=== PATIENT | male | born 1935 | race Caucasian/White ===

== ENCOUNTER 2018-04-23 12:12 | Emergency (ER) | payer MEDICARE, OTHER ==
[2018-04-23] MEDS ORDERED: predniSONE 20 MG TAB ONE (13:07)
[2018-04-23] MEDS ORDERED: Ibuprofen 800 MG TAB ONE (13:07)
--- NOTE | 2018-04-23 13:52 | RAD ---
RADIOGRAPH PELVIS 1 VIEW: Date: 04/23/18 HISTORY: 82-year-old female with right-sided pelvic pain. FINDINGS: There is left lateral subluxation of L4 on L5. There is severe facet DJD in the lower lumbar spine. T here is asymmetrically severe right-sided disc space narrowing, with end plate osteophytes, at L4-5. The SI joints appear normal. Mild central-medial joint space narrowing of the left hip. Bilateral fem oral head contours are maintained. No subcapital osteophytes identified. Bilateral iliac vessel stent s are noted. The pelvic ring appears to be intact. No grossly displaced fracture identified. Right hi p joint space maintained. Bilateral femoral head contours are normal. IMPRESSION: 1. High grade lower lumbar spondylosis with facet osteoarthrosis and degenerative disc disease. 2. Bilateral iliac vessel stents. 3. Mild joint space narrowing in the left hip. POS: BEL
--- NOTE | 2018-04-23 13:55 | RAD ---
LUMBAR SPINE 3 VIEWS: Date: 04/23/18 HISTORY: Low back pain, right lower extremity pain and numbness. FINDINGS/IMPRESSION: There are degenerative changes with levoscoliosis of the lumbar spine. No fracture, subluxation, or b dexter destruction is seen. There are vascular calcifications. Vascular stents are seen in the iliac ves sels. There is suggestion of a catheter in the urinary bladder. POS: DENYS
[2018-04-23] MEDS ORDERED: Lorazepam 1 MG TAB ONE (15:24)
--- NOTE | 2018-04-23 16:18 | MRI ---
MRI OF LUMBAR SPINE WITHOUT CONTRAST: 04/23/18 HISTORY: Right lower extremity numbness and pain. COMPARISON: Lumbar spine radiograph same day. MRI lumbar spine from 2017. FINDINGS: The aortic contour is nonaneurysmal. No retroperitoneal adenopathy. Multiple T2 hyperintense foci present in the left kidney suggestive of cyst. No marrow infiltrative process. Marked distention of the urinary bladder. Modic type I end plate changes at L1-2 and L2-3. Levels are as follows: L1-2: There is a circumferential disc osteophyte complex. This is in the left subforaminal and extraf oraminal zones. There is narrowing of the spinal canal to approximately 5 mm. Mild facet arthropathy. There is mild right and moderate left sided neural foraminal narrowing. L2-3: Circumferential disc space height loss. There is circumferential disc osteophyte complex. Mild facet arthropathy. There is severe bilateral neural foraminal narrowing with abutment of both exiting and traversing nerve roots bilaterally. Spinal canal only measures 4 mm. L3-4: Moderate disc desiccation and height loss. There is mild circumferential disc osteophyte comple x. Bilateral subforaminal and extraforaminal disc osteophyte complexes cause moderate to severe bila teral neural foraminal narrowing. Moderate facet arthropathy. Spinal canal is narrowed to approximate ly 6 mm. L4-5: Severe hypertrophic facet changes on the right, moderate on the left. Advanced degenerative dis c space height loss. Large posterior disc osteophyte complex. Severe neural foraminal narrowing bilat erally with abutment of the exiting and traversing nerve roots. L5-S1: Severe hypertrophic facet changes on the left and moderate on the right. There is a circumfere ntial disc bulge. Severe left and moderate right sided neural foraminal narrowing with abutment of th e left exiting nerve root. IMPRESSION: Multifocal severe spondylosis with neural foraminal and spinal canal narrowing. POS: BRUCE
== END 2018-04-23 16:18 | disposition home or self-care (01) ==
LOC: ERS 12:12
DX: M48.061 Spinal stenosis, lumbar region without neurogenic claudication (principal); E78.5 Hyperlipidemia, unspecified; I10 Essential (primary) hypertension; F41.9 Anxiety disorder, unspecified; Z79.82 Long term (current) use of aspirin
CPT/HCPCS: 72100; 72148; 72170; J7506

== ENCOUNTER 2018-06-15 05:48 | Inpatient (IN) | payer MEDICARE, OTHER ==
--- NOTE | 2018-06-12 12:47 | HP ---
HISTORY OF PRESENT ILLNESS: This is an 82-year-old male, who reports to our office for evaluation of low back and right leg numbness. The patient states that just before Mikie, he was lifting a lumber and felt a sharp pain in the low back. The next day he noticed numbness and tingling in the right toes, which worked its way up the right leg into his glutes. The patient reports that he has also had numbness . He states that he was given a Medrol Dosepak, which helps the numbness in his leg. The patient is unable to walk for more than a block. Most of the time as he goes to the store, he needs a motorized cart due to his pain in his back and thighs. REVIEW OF SYSTEMS: A 10-point review of systems has been completed and is negative other than stated in the above HPI. PAST MEDICAL HISTORY: 1. Bladder trouble. 2. Cancer in lung. 3. Change in bowel habits. 4. Stroke. 5. Arthritis. 6. Heart disease. 7. Hypertension. 8. Lymphoma. PAST SURGICAL HISTORY: 1. Left lower lung removed in 1989. 2. Hernia repair in 2015. 3. in 2010. 4. Right leg surgery in 2008. 5. Cholecystectomy. 6. Cervical fusion. FAMILY HISTORY: Father is , diagnosed with heart disease. Mother is , diagnosed with heart disease. Children alive. SOCIAL HISTORY: The patient is a nonsmoker. Drinks alcohol on occasion and does not use any other illicit drugs. MEDICATIONS: 1. Acetaminophen. 2. Aspirin. 3. Clopidogrel bisulfate. 4. Finasteride. 5. Lisinopril. 6. Sertraline. 7. Tamsulosin. 8. Vitamin C. 9. Famotidine. 10. Vitamin D. ALLERGIES: ANTIHISTAMINE, ATORVASTATIN, CLINDAMYCIN, PRAVASTATIN, AND SULFA. PHYSICAL EXAMINATION: CONSTITUTIONAL: Well appearing, alert, and well nourished. NEUROLOGIC: Mental status; oriented to time, place, and person. Normal attention span and concentration. Speech is spontaneous and fluent. Comprehension is intact. Content appropriate. Normal fund of knowledge. Cranial nerves; pupils are equal, round, reactive to light. Extraocular movements are intact. Hearing intact. Motor exam; muscle strength is normal in lower extremities. Muscle tone and bulk are normal in lower extremities. 5/5 bilateral strength in IP, KE, KF, PF; 4/5 left dorsiflexion; bilateral EHL 4/5. No radiculopathy. Negative single leg raise. Rotation of bilateral hips normal. Tender to palpate right SI. Bilateral GTB. Deep tendon reflexes diminished. Sensory, light touch intact. Gait and station; sit to stand slow, slow methodical gait. RESPIRATIONS: Normal work of breathing on room air. SKIN: No rashes or lesions on exposed skin. PSYCH: Normal mood and affect. IMAGING DATA: Central spinal stenosis at L1-L2, L2-L3; right lateral stenosis at L4-L5. ASSESSMENT AND PLAN: Lumbar degenerative disk disease with lumbar stenosis and neurogenic claudication. Dr. Yun is offering surgery, laminectomy. Job ID: [id number]
[2018-06-15] MEDS ORDERED: Thrombin 5000 UNITS/5 ML VIAL ONE (06:39)
[2018-06-15] MEDS ORDERED: Bupivacaine HCl 0.5%/Epinephrine 1:200,000/PF 30 ml Vial ONE (06:39)
[2018-06-15] MEDS ORDERED: Fentanyl 250 MCG/5 ML VIAL ONE (06:57)
[2018-06-15] MEDS ORDERED: Sodium Chloride 0.9% 10 ML ONE (07:28)
[2018-06-15] MEDS ORDERED: Acetaminophen 650 MG Suppository PR PRN (10:12)
[2018-06-15] MEDS ORDERED: Bisacodyl 10 MG SUPP PR PRN (10:12)
[2018-06-15] MEDS ORDERED: diphenhydrAMINE 25 MG CAP PO PRN (10:12)
[2018-06-15] MEDS ORDERED: diphenhydrAMINE 50 MG/ML VIAL IVP PRN (10:12)
[2018-06-15] MEDS ORDERED: Acetaminophen/Codeine 30-300mg Tablet PO PRN (10:12)
[2018-06-15] MEDS ORDERED: Mag-Al 1200 mg/1200 mg/30 ML UDCUP PO PRN (10:12)
[2018-06-15] MEDS ORDERED: Milk Of Magnesia 30 ML UDCUP PO PRN (10:12)
[2018-06-15] MEDS ORDERED: Promethazine HCl 25 MG/ML VIAL IM PRN (10:12)
[2018-06-15] MEDS ORDERED: Morphine 4 MG/ML VIAL SLOW IVP PRN (10:12)
[2018-06-15] MEDS ORDERED: Acetaminophen 500 MG TAB PO PRN (10:15)
--- NOTE | 2018-06-15 10:25 | OP ---
DATE OF PROCEDURE: 06/15/2018 STOCK HANDLER: Bharati Boone PA-C. PREOPERATIVE INDICATION: Treat pain and prevent further neurological deterioration. PREOPERATIVE DIAGNOSES: Multilevel lumbar stenosis with neurogenic claudication and sacral nerve root dysfunction. POSTOPERATIVE DIAGNOSES: Multilevel lumbar stenosis with neurogenic claudication and sacral nerve root dysfunction. PROCEDURES PERFORMED: Decompressive laminectomy, medial facetectomy with foraminotomy, L1-L2, L2-L3, L4-L5, and left L5-S1. PREOPERATIVE MEDICATION: Ancef 2 g IV. DRAIN NUMBER: Zero. DRAIN TYPE: None. DESCRIPTION OF PROCEDURE: The patient was brought to the operating room. General endotracheal anesthesia was induced. The patient was positioned prone on the operating table with his chest and hips supported by gel-filled chest rolls. A lateral fluoro radiograph was used to plan our incision. The lumbar skin was sterilely prepped and draped. We opened with a 10 blade knife and controlled bleeding with bipolar and monopolar cautery. We used monopolar cautery to dissect through the subcutaneous tissues to the thoracodorsal fascia. We incised the fascia in the midline and we reflected the paraspinal muscles off the spinous process and lamina at L4, L5, and S1. A self-retaining retractor was placed. A lateral fluoro radiograph confirmed the levels upon which we were operating. We then used an Adson rongeur to remove the bottom 2/3 of the L4 spinous process and the top 3rd of L5 spinous process. A high-speed drill with a easton bit was used to thin the lamina and then we performed a laminectomy and medial facetectomy at L4-L5. We widened our laminectomy defect for performing medial facetectomies and undermining the lateral recesses with Kerrison rongeurs. We removed the yellow ligament, bone spurs until the entire dura was well decompressed. We used the ball probe to probe the foramen around the L4 nerve root and the L5 nerve roots bilaterally. We performed foraminotomies over these roots. The left L5 nerve root was severely compressed in the foramen. We could not approach it superiorly safely, so we performed a hemilaminectomy and medial facetectomy at L5-S1 on the left. With this access, we identified the L5 nerve root and performed a foraminotomy with a foraminotomy Kerrison until the Muro ball could pass through the L5 foramen without any impingement. We irrigated copiously with bacitracin irrigation. We controlled the ventral epidural bleeding with gentle bipolar cautery and we waxed the bone edges. We turned our attention to L1 through L3. We opened the fascial incision from L1 through L3 and reflected the paraspinal muscles off the spinous process of L1, L2 and L3, and placed a self-retaining retractor. A lateral fluoro radiograph confirmed once again the levels upon which we were operating. We used Adson rongeurs to remove the spinous process from the inferior portion of L1 to the superior portion of L3 and then a high-speed drill with a easton bit to thin the lamina. We used Kerrison rongeurs to fashion a laminectomy from L1 through L3. We widened our laminectomy defect by performing medial facetectomies. We perform foraminotomies over the exiting nerve roots until a Muro ball could pass through the foramen with no impingement. The posterior elements of L2 were loose. These were not well attached to the pedicle complex, likely from chronic pars defects. We did not remove the entire posterior elements, but instead, left the bones in situ. We felt we had completed our decompression when the common thecal sac in all 6 nerve roots from L1 through L3 were decompressed to the point that a Muro ball probe could pass through the lateral recess and out the foramen without any impingement. We waxed the bone edges and controlled bleeding with gentle bipolar cautery. We irrigated the entire wound with bacitracin irrigation. We applied local anesthetic to paraspinal muscles. Vancomycin powder was applied to the wound. The wound was closed in anatomical layers. We applied a sterile dressing. This was a clean case, no contamination. Job ID: [id number]
[2018-06-15] MEDS ORDERED: Fentanyl 100 MCG/2 ML VIAL ONE (11:12)
[2018-06-15] MEDS: Morphine 4 MG/ML VIAL SLOW IVP PRN (12:55)
[2018-06-15] MEDS: Sodium Chloride 0.9% 1,000 ML IV SCH ×2 (12:58→20:37)
[2018-06-15] MEDS ORDERED: Lisinopril/Hydrochlorothiazide 20 mg/12.5 mg Tablet PO SCH (14:45)
[2018-06-15] MEDS ORDERED: Naproxen 500 MG TAB PO PRN (15:00)
[2018-06-15] MEDS: Acetaminophen/Codeine 30-300mg Tablet PO PRN ×2 (15:23→18:07)
[2018-06-15] MEDS ORDERED: Cepastat Lozenges 1 LOZ PO PRN (15:51)
[2018-06-15] MEDS ORDERED: Rocuronium Bromide 10 MG/ML (10ML VIAL) ONE (17:01)
[2018-06-15] MEDS ORDERED: PROPOFOL 200 MG/20 ML VIAL ONE (17:01)
[2018-06-15] MEDS ORDERED: Glycopyrrolate 0.2 MG/ML 5 ML SYRINGE ONE (17:01)
[2018-06-15] MEDS ORDERED: ePHEDrine 50 MG/ML VIAL ONE (17:01)
[2018-06-15] MEDS ORDERED: PHENYLEPHRINE-NS 100 MCG/ML 10 ML SYRINGE ONE (17:01)
[2018-06-15] MEDS ORDERED: Lidocaine 1% PF 5 ML VIAL ONE ×2 (17:01)
[2018-06-15] MEDS ORDERED: Ondansetron PF 4 MG/2 ML Vial ONE (17:01)
[2018-06-15] MEDS: Tamsulosin HCl 0.4 MG CAP PO SCH (17:44)
[2018-06-15] MEDS: tiZANidine HCl 4 MG TAB PO PRN (19:18)
[2018-06-15] MEDS: Ondansetron PF 4 MG/2 ML Vial IVP PRN (19:18)
[2018-06-15] MEDS: Simvastatin 20 MG TAB PO SCH (20:35)
[2018-06-15] MEDS: Famotidine 20 MG TAB PO SCH (20:40)
[2018-06-16] MEDS: tiZANidine HCl 4 MG TAB PO PRN (04:01)
[2018-06-16] MEDS: Tamsulosin HCl 0.4 MG CAP PO SCH ×2 (06:18→19:35)
--- NOTE | 2018-06-16 06:47 | PRG ---
DATE OF SERVICE: 06/16/2018 Mr. Nunes is one day out from multisegment lumbar laminectomy for neurogenic claudication and some sphincter dysfunction. He was able to walk yesterday on his operative day with some assistance to get to the bathroom. He had trouble emptying his bladder, so the catheter was placed and removed. The second time he could not void, the catheter was left in. The back is sore from surgery , more sore than he expected it to be, but he is able to ambulate. Says his legs feel relatively good when he stands, and that feels better to stand than it does to lie in bed. Overnight, I do not see any fevers recorded. The other vital signs are stable. His neurological examination is stable from his preoperative status. Our plan today is to increase mobilization when he is safe for his activities of daily living and independent, he can be discharged. We will try one more time today to have him void, but if that is impossible, we will leave the catheter and schedule followup appointment with his urologist. Job ID: [id number] [facility]
[2018-06-16] MEDS: Promethazine 25 MG TAB PO PRN ×2 (08:29→14:34)
[2018-06-16] MEDS: Acetaminophen/Codeine 30-300mg Tablet PO PRN (08:30)
[2018-06-16] MEDS: Finasteride 5 MG TAB PO SCH (08:31)
[2018-06-16] MEDS: Ascorbic Acid 500 mg Chewable Tablet PO SCH (08:31)
[2018-06-16] MEDS: Famotidine 20 MG TAB PO SCH ×2 (08:31→19:34)
[2018-06-16] MEDS ORDERED: RANITIDINE HCL 300 MG PO SCH (09:00)
[2018-06-16] MEDS: Ondansetron PF 4 MG/2 ML Vial IVP PRN (10:57)
[2018-06-16] MEDS: Lisinopril/Hydrochlorothiazide 20 mg/12.5 mg Tablet PO SCH (13:07)
[2018-06-16] MEDS: Sodium Chloride 0.9% 1,000 ML IV SCH (13:07)
[2018-06-16] MEDS: traMADol HCl 50 MG TAB PO PRN (14:33)
[2018-06-16] MEDS: Simvastatin 20 MG TAB PO SCH (19:35)
[2018-06-17] MEDS: Sodium Chloride 0.9% 1,000 ML IV SCH ×2 (04:09→06:10)
[2018-06-17] MEDS: Tamsulosin HCl 0.4 MG CAP PO SCH ×2 (06:07→21:05)
--- NOTE | 2018-06-17 08:34 | PRG ---
DATE OF SERVICE: 06/17/2018 Mr. Nunes is three days out from laminectomy. He has had some constipation and some urinary retention. A Colon has been removed and replaced. He is able to ambulate in the halls yesterday. This morning, Mr. Nunes complained of constipation and he does not feel like he has the energy to get home. He certainly does not look like he is feeling very well. I do not see any fevers or abnormal vital signs. His neurological function is quite good. I'd like Mr. Nunes to use Voldyne incentive spirometer , to be evaluated for inpatient rehabilitation, and have a UA and urine culture. Analgesics being used can be adjusted and perhaps side effects there; however, keeping him feeling ill. Job ID: [id number] [facility]
[2018-06-17] MEDS: Finasteride 5 MG TAB PO SCH (10:34)
[2018-06-17] MEDS: Lisinopril/Hydrochlorothiazide 20 mg/12.5 mg Tablet PO SCH (10:34)
[2018-06-17] MEDS: Ascorbic Acid 500 mg Chewable Tablet PO SCH (10:34)
[2018-06-17] MEDS: Famotidine 20 MG TAB PO SCH ×2 (10:35→21:05)
[2018-06-17] MEDS: traMADol HCl 50 MG TAB PO PRN (16:30)
[2018-06-17] MEDS: Simvastatin 20 MG TAB PO SCH (21:05)
[2018-06-17 22:26] LABS: Bilirubin Negative (Negative); Blood, Urine Large (Negative); Clarity CLOUDY (Clear); Glucose, Urine (Dipstick) Negative (Negative); Leukocyte Small (Negative); Nitrite Negative (Negative); Protein, Urine (Dipstick) 30 mg/dL (Neg-Trace); Specific Gravity, Urine 1.023 (1.002-1.036); pH, Urine 5.5 (5.0-9.0)
[2018-06-17 22:28] LABS: Bacteria/HPF None Seen HPF (None Seen); Hyaline Casts/LPF 4-6 HYALINE CAST LPF (0-3 Hyaline); Pathc Cast-AUWi Flag 1.16 (0-2.49); Squamous Epithelial 0-3 HPF (0-3)
[2018-06-17 22:29] LABS: Yeast-AUWi Flag 59.1 (0-25.0)
[2018-06-17 22:42] LABS: Crystals/HPF 1+ URIC ACID HPF (Negative)
[2018-06-18] MEDS: Sodium Chloride 0.9% 1,000 ML IV SCH (06:00)
[2018-06-18] MEDS: Tamsulosin HCl 0.4 MG CAP PO SCH ×2 (06:01→20:31)
--- NOTE | 2018-06-18 07:06 | PRG ---
DATE OF SERVICE: 06/18/2018 I saw Camacho Nunes in his hospital room this morning. He sounds a sense of dread this morning. He was up yesterday, walking with some assistance, but he feels generalized weakness in arms and legs. It is hard for him to get in and out of bed. It is harder now that it was immediately postop. He is wondering if the Flomax is working, but a Colon catheter is in place. Overnight, he has been afebrile. His sats dipped to the low 90s and he was placed on 2 L by nasal cannula, bringing his oxygen saturation up to 94%. When I examined his extremities, I do not find any focal weakness. The hip flexors, the quadriceps, the anterior tib, EHL, gastrocs, the toe flexors are all normal. Even upper extremity strength is normal for his age. I believe, Mr. Nunes warrants a medical evaluation, and EKG and enzymes. We will get a baseline set of electrolytes and hemoglobin. We will have our colleagues in the medical team look through the medications he is taking and see which could result in feeling of lethargy and weakness and decreased energy. We will adjust his pain medicines, so that none of them are doing that. I would like to get him to inpatient rehabilitation and a facility in [place] has been identified. I think that is a reasonable discharge plan once we are sure that nothing medical is going on that it is severe enough to warrant continued inpatient treatment. Job ID: [id number]
[2018-06-18 07:52] LABS: Hemoglobin 12.3 g/dL (14.0-18.0); Mean Corpuscular HGB CONC 32.9 g/dL (32.0-36.0); Mean Platelet Volume 9.7 fL (7.4-10.4); Platelet Count 165 thou/uL (130-400); RBC Distribution Width 12.1 % (11.5-14.5); Red Blood Cell (RBC) Count 3.62 mill/uL (4.70-6.10); White Blood Cell (WBC) Count 15.2 thou/uL (4.8-10.8)
[2018-06-18 08:05] LABS: Anion Gap 14 mmol/L (10-20); BUN (Urea Nitrogen) 27 mg/dL (8.4-25.7); Calc. Creatinine Clearance 59 mL/min (70-130); Calcium 8.9 mg/dL (7.8-10.44); Carbon Dioxide 25 mmol/L (23-31); Chloride 98 mmol/L (98-107); Estimated GFR-MDRD 61; Glucose 122 mg/dL (83-110); Potassium 3.9 mmol/L (3.5-5.1); Sodium 133 mmol/L (136-145)
[2018-06-18] MEDS: Famotidine 20 MG TAB PO SCH ×2 (08:06→20:33)
[2018-06-18] MEDS: Lisinopril/Hydrochlorothiazide 20 mg/12.5 mg Tablet PO SCH (08:07)
[2018-06-18] MEDS: Ascorbic Acid 500 mg Chewable Tablet PO SCH (08:07)
[2018-06-18] MEDS: Finasteride 5 MG TAB PO SCH (08:08)
[2018-06-18 08:35] LABS: CKMB 18.4 ng/mL (0-6.6)
[2018-06-18 08:38] LABS: Band 3 % (5-11); Burr Cells SLIGHT = 2-5 cells (100X) (0-1/hpf); Lymphocytes 13 % (21-51); MDiff Complete? YES; Monocytes 7 % (0-10); Neutrophil 74 % (42-75); Platelet Morphology Comment Appears Adequate; Polychromasia SLIGHT = 2-3 cells (100X) (0-2/hpf); Reactive Lymphocytes 2 % (0-10)
[2018-06-18 13:41] LABS: Critical Call Chem Troponin I RESULT DECREASING; Troponin I 26.338 ng/mL (< 0.028)
[2018-06-18] MEDS ORDERED: Aspirin 325 mg Enteric Coated Tablet PO SCH (14:00)
[2018-06-18 18:02] LABS: Critical Call Chem Troponin I RESULT DECREASING
[2018-06-18] MEDS ORDERED: Amiodarone 150 MG, Admixture Fee 1 EACH in Dextrose 5% in Water 100 ML IVPB SCH (18:45)
[2018-06-18] MEDS: traMADol HCl 50 MG TAB PO PRN (20:31)
[2018-06-18] MEDS: Simvastatin 20 MG TAB PO SCH (20:34)
[2018-06-18] MEDS: Amiodarone 450 MG in Dextrose 5% in Water 250 ML IVPB SCH (20:39)
[2018-06-18 20:43] LABS: ALT (SGPT) 73 U/L (8-55); AST (SGOT) 111 U/L (5-34); Alkaline Phosphatase 91 U/L (40-150); Bilirubin, Direct 0.4 mg/dL (0.1-0.3); Bilirubin, Total 0.7 mg/dL (0.2-1.2); Magnesium 1.8 mg/dL (1.6-2.6); Protein, Total 5.5 g/dL (5.8-8.1)
--- NOTE | 2018-06-18 21:07 | CON ---
DATE OF CONSULTATION: 06/18/2018 PRIMARY CARE PROVIDER: Cadence Oakes. CHIEF COMPLAINT: Nausea and elevated troponins. HISTORY OF PRESENT ILLNESS: This is an 82-year-old male status post lumbar laminectomy on 06/15/2018 for neurogenic claudication, decreased ambulatory status, and urinary dysfunction. The patient underwent the procedure without complication and was monitored postoperatively for approximately 48 hours. The patient states he felt increased weakness, nausea, lower sternal pressure, and some difficulty ambulating as well as urinary retention. The patient underwent Colon catheter insertion with subsequent removal, then subsequent replacement due to persistent urinary retention. The patient felt diaphoretic associated with nausea with some improvement with antiemetics. The patient persisted with profound weakness and was deemed an appropriate candidate for ongoing inpatient skilled care after discharge. Screening metabolic profile showed evidence of non-ST elevation myocardial infarction with elevated troponin I of 32.2. EKG performed showed ischemic changes with a T-wave inversion in the precordial and lateral leads. The patient received aspirin 325 mg and was transferred to the telemetry unit for further evaluation. The patient denies any known history of coronary artery disease, but does state he has been on aspirin and Plavix since 2010 after sustaining a mild stroke. The patient also admits to taking a home regimen of antihypertensive medication and a statin. The patient currently denies any specific chest pain, left arm discomfort, jaw pain, or shortness of breath. PAST MEDICAL HISTORY: 1. Urinary retention. 2. Benign prostatic hyperplasia. 3. History of lung cancer. 4. History of CVA on dual antiplatelet therapy. 5. Osteoarthritis. 6. Neurogenic claudication. 7. Question of coronary artery disease. 8. Hypertension. 9. History of lymphoma. PAST SURGICAL HISTORY: 1. Status post left lower lobe resection, . 2. Status post hernia repair. 3. Status post right leg surgery. 4. Status post cholecystectomy. 5. Status post cervical spinal fusion. 6. Status post lumbar laminectomy. CURRENT MEDICATIONS: 1. Vitamin C 1000 mg p.o. daily. 2. Enteric-coated aspirin 325 mg p.o. daily. 3. Vitamin D3 1000 units p.o. daily. 4. Plavix 75 mg p.o. daily. 5. Pepcid 20 mg p.o. b.i.d. 6. Proscar 5 mg p.o. daily. 7. Lisinopril/hydrochlorothiazide 20/12.5 mg half a tab p.o. daily. 8. Aleve 220 mg p.o. b.i.d. 9. Zantac 300 mg p.o. daily. 10. Zoloft 50 mg p.o. daily. 11. Zocor 20 mg p.o. at bedtime. 12. Flomax 0.4 mg p.o. at bedtime. ALLERGIES: TO ANTIHISTAMINES, CLINDAMYCIN, AND PRAVACHOL. FAMILY HISTORY: Father is with a history of coronary artery disease. Mother with a diagnosis of coronary artery disease. SOCIAL HISTORY: The patient is , accompanied by his in the hospital. Former tobacco use, quitting in the . Occasional alcohol use. No illicit drug use. Limited ambulatory status due to lumbar spine pain and neurogenic claudication. REVIEW OF SYSTEMS: CONSTITUTIONAL: Negative for weight loss or gain, ability to conduct usual activities. SKIN: Negative for rash, itching. EYES: Negative for double vision, pain. ENT/MOUTH: Negative for nose bleeding, neck stiffness, pain, tenderness. CARDIOVASCULAR: Negative for palpitations, dyspnea on exertion, orthopnea. RESPIRATORY: Negative for shortness of breath, wheezing, cough, hemoptysis, fever or night sweats. GASTROINTESTINAL: Negative for poor appetite, abdominal pain, heartburn, nausea, vomiting, constipation, or diarrhea. GENITOURINARY: Negative for urgency, frequency, dysuria, nocturia. MUSCULOSKELETAL: Negative for pain, swelling. NEUROLOGIC/PSYCHIATRIC: Negative for anxiety, depression. ALLERGY/IMMUNOLOGIC: Negative for skin rash, bleeding tendency. Otherwise negative except as stated per HPI. PHYSICAL EXAMINATION: VITAL SIGNS: Currently, blood pressure 115/66, pulse 84, respiratory rate 16, temperature 97.8 degrees Fahrenheit, and O2 saturation 94% on 2 L/minute by nasal cannula. GENERAL APPEARANCE: This is an 82-year-old male, alert and oriented x3, pleasant, conversant, in no acute distress. HEENT: Pupils are equal, round, reactive to light and accommodation. Extraocular muscles are intact. No scleral icterus. No conjunctival injection. Nares patent. OP is clear. Teeth in fair repair. NECK: Supple. No cervical adenopathy. No thyromegaly. No carotid bruits. No JVD appreciated. Cervical spine with full active and passive range of motion. No meningeal signs noted. CHEST: Lungs are clear to auscultation bilaterally. CARDIOVASCULAR EXAM: S1 and S2 without noted murmur, rub, or gallop. ABDOMEN: Rounded, soft, nontender, and nondistended. Bowel sounds are positive in all 4 quadrants. There is no hepatosplenomegaly. No abdominal bruits. No rebound or guarding appreciated. EXTREMITIES: Warm and dry with fair turgor. No clubbing, cyanosis, or asymmetric edema appreciated. Pulses are palpable distally at the dorsalis pedis, posterior tibial, and popliteal arteries bilaterally. Capillary refill less than 2 seconds. NEUROLOGIC: Cranial nerves 2 through 12 are grossly intact. No focal or lateralizing signs appreciated. GENITOURINARY: Colon catheter in place with clear urine. PERTINENT LABORATORY AND X-RAY FINDINGS: Sodium 133, potassium 3.9, chloride 98, CO2 of 25, BUN 27, creatinine 1.15, estimated GFR 61, glucose 122, calcium 8.9. Troponin I range between 26.3 to 32.2. CBC showed a white blood cell count of 15.2, hemoglobin 12.3, hematocrit 37, MCV 103, platelet count 165 with 74% neutrophils. Urine culture dated 06/17/2018 showed no growth at 12 hours. EKG dated 06/18/2018, by my interpretation, shows sinus mechanism with heart rates in the 90s. Normal R-wave progression noted in the precordial leads. ST depression noted in leads V2 through V5 compared to previous EKG, 06/15/2018. Left axis deviation. Questionable old infarct in the inferior leads. ASSESSMENT/PLAN: 1. Non-ST elevation myocardial infarction. The patient will be placed on telemetry unit. Continue aspirin 325 mg daily. Check 2D transthoracic echocardiogram. Consult Cardiology Service for further evaluation and consideration of left heart catheterization. Check fasting lipid profile. Resume simvastatin 20 mg p.o. at bedtime. Consider low-dose beta-abigail prior to discharge. 2. Hyperlipidemia. Check fasting lipid profile in the a.m. Continue Zocor 20 mg p.o. at bedtime. 3. Chronic kidney disease, stage 2. Avoid nephrotoxic agents and limit contrast exposure. Repeat creatinine in the a.m. 4. Status post lumbar laminectomy with neurogenic claudication. Continue pain control per Primary Service. PT for mobilization and ambulation. General fall risk precautions. 5. Urinary retention. Continue Colon catheter for decompression. Voiding trial on an outpatient basis. 6. Prophylaxis. SCDs while in bed. Pepcid 20 mg p.o. b.i.d. 7. Code status is full. Surrogate medical decision maker is the patient's spouse. Thank you for the consultation. We will continue to follow with Primary Service. Job ID: [id number]
[2018-06-18] MEDS: Ondansetron PF 4 MG/2 ML Vial IVP PRN (21:12)
--- NOTE | 2018-06-19 00:31 | CON ---
DATE OF CONSULTATION: HISTORY: Camacho Nunes is an 82-year-old white male, who underwent lumbar laminectomy on June 15. He has a previous cardiac history with placement of 5 stents at a hospital in the [place]. He apparently did not have any myocardial infarction prior to that. Also, in 2013, he states that he had a stroke and had left facial and left arm weakness. He also had some swallowing problems after that. He has been on aspirin and Plavix ever since he had stents placed in 2010. Plavix was stopped over a week prior to surgery and aspirin was stopped 4 to 5 days prior to surgery. He last night did not sleep well. He also had some vague chest discomfort, but denied any nausea, vomiting, shortness of breath or diaphoresis. Cardiac enzymes were obtained, and they were abnormal, and he was moved to telemetry for further evaluation. He also is having intermittent episodes of atrial fibrillation. He has not had any atrial fibrillation in the past. At the present time, he has no symptoms. PAST MEDICAL HISTORY: History of lung cancer, status post resection; previous stroke; coronary artery disease; hypertension; hyperlipidemia with intolerance of statins with muscle aches; lymphoma. PAST SURGICAL HISTORY: Lumbar laminectomy, right leg surgery, cholecystectomy, cervical fusion, left lower lung lobectomy in 1989, and hernia repair. MEDICATIONS AT HOME: 1. Aspirin 325 daily. 2. Plavix 75 daily, which he has not taken as outlined above. 3. Vitamin D. 4. Pepcid 20 mg b.i.d. 5. Proscar 5 mg daily. 6. Lisinopril/hydrochlorothiazide 20qd. 7. Naproxen 500 b.i.d. p.r.n. 8. Zantac 300 daily. 9. Zoloft 50 daily. 10. Simvastatin 20 q.p.m. 11. Flomax. ALLERGIES: ATORVASTATIN AND PRAVASTATIN CAUSE MUSCLE PAIN. ANTIHISTAMINES, CLINDAMYCIN, AND SULFA DRUGS. SOCIAL HISTORY: He does not smoke or drink. REVIEW OF SYSTEMS: A 10-point review of systems is otherwise unremarkable. PHYSICAL EXAMINATION: VITAL SIGNS: Blood pressure 109/67, pulse 94 and irregularly irregular. HEENT: PERRL. NECK: Supple. CHEST: Clear. CARDIAC: S1 and S2 normal without any S3, S4 or murmurs. ABDOMEN: Normal bowel sounds without tenderness or organomegaly. EXTREMITIES: No clubbing, cyanosis or edema. NEUROLOGICAL: Grossly intact. SKIN: Warm and dry. LABORATORY DATA: On the monitor, he is in atrial fibrillation. EKG this morning showed new Q-waves in III and aVF with 0.[address]-segment elevation. This Q- wave is new from admission EKG 3 days previously. CK-MB 18.4. Troponin I 32.173 and 26.338. Sodium 133, potassium 3.7, chloride 98, carbon dioxide 25, BUN 27, and creatinine 1.15. Hemoglobin 12.3, hematocrit 37.4, and white count 15,200. IMPRESSION: 1. Inferior Q-wave myocardial infarction with troponin I levels as noted above. 2. History of coronary artery stent placement. 3. History of stroke. 4. Recent lumbar laminectomy. 5. Hypertension. 6. Hypercholesterolemia. 7. Atrial fibrillation, new onset. PLAN: The patient's aspirin will be restarted. At the present time, he is asymptomatic, although he does have atrial fibrillation. We placed on IV amiodarone. Certainly with his recent lumbar laminectomy, he is not a candidate to go to the labor economist due to the potential for serious bleeding problems. Eventually, Mr. Nunes should go to the labor economist once his surgical area has healed and Dr. Yun feels that it would be safe to proceed. Echocardiogram will be performed. We will follow the patient with you. Job ID: [id number] MTDD
[2018-06-19] MEDS: Amiodarone 450 MG in Dextrose 5% in Water 250 ML IVPB SCH ×2 (03:37→17:07)
[2018-06-19] MEDS: Tamsulosin HCl 0.4 MG CAP PO SCH ×2 (06:28→21:15)
[2018-06-19 06:58] LABS: Cardiac Risk 3.5 (Less than 4.5)
[2018-06-19] MEDS: traMADol HCl 50 MG TAB PO PRN (07:31)
--- NOTE | 2018-06-19 08:47 | PRG ---
DATE OF SERVICE: 06/19/2018 I saw Mr. Nunes on the telemetry unit this morning. I saw him yesterday afternoon as well. He has been transferred there for elevated troponins and the inferior Q-wave TX. He feels much better today than he did yesterday morning. He has not been able to get into the bathroom. He gets in and out of bed on his own, per his report. Overnight, the vitals have been stable with no fevers recorded. Blood pressures have been in the 110s to 120s. I do not find any new deficits in his neurological examination. There is good strength in his lower extremities. Mr. Nunes likely needs to be observed on the telemetry unit at least through the weekend. We will begin slow mobilization. I would not take him to the cardiac cath tech currently given the high risk of hemorrhage at the operative site with compression of the cauda equina nerve roots and the resulting weakness and bowel and bladder dysfunction. The more days we can get under our belt after surgery, the lower the risk becomes. At some point, we will have to make the decision when it is time to go to the cardiac cath tech and assess his coronary vessels. Dr. Colbert will be covering for this weekend and I will return next week. Job ID: [id number] [facility]
[2018-06-19] MEDS: Famotidine 20 MG TAB PO SCH ×2 (09:00→21:15)
[2018-06-19] MEDS: Ascorbic Acid 500 mg Chewable Tablet PO SCH (09:49)
[2018-06-19] MEDS: Lisinopril/Hydrochlorothiazide 20 mg/12.5 mg Tablet PO SCH (09:49)
[2018-06-19] MEDS: Aspirin 325 mg Enteric Coated Tablet PO SCH (09:49)
[2018-06-19] MEDS: Finasteride 5 MG TAB PO SCH (09:50)
--- NOTE | 2018-06-19 14:06 | PDOC.PN ---
- Subjective Encounter Start Date: 06/19/18 Encounter Start Time: 14:00 Subjective: f/u for NSTEMI on ASA, Zocor. No CP currently. Plan for heart cath -: after stabilizing from recent lumbar laminectomy. Currently on Amiodarone -: gtt due to A-fib. - Objective MAR Reviewed: Yes Vital Signs & Weight: Vital Signs (12 hours) Temp Pulse Pulse Pulse Resp BP BP 06/19/18 10:34 82 83 119/69 118/72 06/19/18 10:15 06/19/18 10:11 82 06/19/18 09:49 92 06/19/18 09:30 84 06/19/18 09:00 78 06/19/18 08:25 83 06/19/18 07:55 98.0 F 92 16 06/19/18 07:30 95 06/19/18 07:00 80 06/19/18 03:30 97.7 F 72 18 BP Pulse Ox Pulse Ox Pulse Ox 06/19/18 10:34 90 L 95 06/19/18 10:15 92 L 06/19/18 10:11 119/69 06/19/18 09:49 06/19/18 09:30 121/72 06/19/18 09:00 122/75 06/19/18 08:25 121/69 06/19/18 07:55 120/70 95 06/19/18 07:30 138/78 06/19/18 07:00 126/70 06/19/18 03:30 127/74 92 L Weight Weight 195 lb 4.8 oz I&O: 06/18/18 06/19/18 06/20/18 06:59 06:59 06:59 Intake Total 0 1910 Output Total 750 1025 Balance 1300 885 Result Diagrams: 06/18/18 07:27 06/18/18 07:27 Additional Labs: Laboratory Tests 06/18/18 06/18/18 06/18/18 07:27 13:05 17:21 AST ALT Alkaline Phosphatase Troponin I 32.173 H* 26.338 H* 24.450 H* Triglycerides Cholesterol LDL Cholesterol, Calc HDL Cholesterol TSH 3rd Generation 06/18/18 06/18/18 06/19/18 19:56 19:56 06:09 AST 111 H ALT 73 H Alkaline Phosphatase 91 Troponin I Triglycerides 94 Cholesterol 97 LDL Cholesterol, Calc 50 HDL Cholesterol 28 TSH 3rd Generation 4.6131 EKG Reviewed by me: Yes (Tele - A-fib in 80's) Phys Exam - Physical Examination Constitutional: NAD alert, responsive HEENT: PERRLA, sclera anicteric, oral pharynx no lesions Neck: no nodes, no JVD, supple, full ROM few exp wheezes S1, S2 Cardiovascular: no significant murmur, no rub, gallop, irregular Gastrointestinal: soft, non-tender, no distention, positive bowel sounds Musculoskeletal: no edema, pulses present Neurological: normal sensation, moves all 4 limbs Psychiatric: A&O x 3 Skin: normal turgor, cap refill <2 seconds Dx/Plan (1) NSTEMI (non-ST elevated myocardial infarction) Code(s): I21.4 - NON-ST ELEVATION (NSTEMI) MYOCARDIAL INFARCTION Status: Acute Comment: medical mgmt currently, continue ASA, Zocor, plan for heart cath when stable from recent lumbar laminectomy, 2D echo pending (2) Atrial fibrillation Code(s): I48.91 - UNSPECIFIED ATRIAL FIBRILLATION Status: Acute Comment: Continue Amiodarone gtt, hold anticoagulation, rate-control strategy (3) CKD (chronic kidney disease), stage II Code(s): N18.2 - CHRONIC KIDNEY DISEASE, STAGE 2 (MILD) Status: Chronic Comment: Avoid nephrotoxic meds and limit contrast exposure (4) HLD (hyperlipidemia) Code(s): E78.5 - HYPERLIPIDEMIA, UNSPECIFIED Status: Chronic Comment: Zocor 20mg daily (5) Urinary retention Code(s): R33.9 - RETENTION OF URINE, UNSPECIFIED Status: Acute Comment: Likely due to recent surgery, medication effect, continue Colon catheter (6) Status post lumbar laminectomy Code(s): Z98.890 - OTHER SPECIFIED POSTPROCEDURAL STATES Status: Acute Comment: POD # 4, pain control, PT for mobilization - Plan plan discussed w/ family, PT/OT, out of bed/ambulate, DVT proph w/SCDs Stable currently -: Continue ASA 325mg daily -: Continue Amiodarone gtt -: PT for mobilization -: 2D echo pending * Await [facility] when surgically cleared from recent laminectomy
[2018-06-19] MEDS: Simvastatin 20 MG TAB PO SCH (21:14)
[2018-06-19] MEDS: Acetaminophen 325 MG TAB PO PRN (21:17)
[2018-06-19] MEDS: Nitroglycerin 0.4 MG TAB (25 Tab Bottle) SL PRN ×2 (23:41→23:51)
[2018-06-20] MEDS: Nitroglycerin 0.4 MG TAB (25 Tab Bottle) SL PRN ×4 (05:29→09:16)
[2018-06-20] MEDS: Morphine 4 MG/ML VIAL SLOW IVP PRN ×4 (05:52→11:32)
[2018-06-20] MEDS: Tamsulosin HCl 0.4 MG CAP PO SCH ×2 (06:02→21:41)
[2018-06-20 09:03] LABS: Troponin I 11.894 ng/mL (< 0.028)
[2018-06-20] MEDS: Amiodarone 450 MG in Dextrose 5% in Water 250 ML IVPB SCH (09:12)
[2018-06-20] MEDS: Aspirin 325 mg Enteric Coated Tablet PO SCH (10:56)
[2018-06-20] MEDS: Ascorbic Acid 500 mg Chewable Tablet PO SCH (10:56)
[2018-06-20] MEDS: Famotidine 20 MG TAB PO SCH ×2 (10:56→21:41)
[2018-06-20] MEDS: Lisinopril/Hydrochlorothiazide 20 mg/12.5 mg Tablet PO SCH (10:57)
[2018-06-20] MEDS: Finasteride 5 MG TAB PO SCH (10:57)
[2018-06-20] MEDS ORDERED: Sodium Chloride 0.9% 250 ML 200 ML IVPB SCH (12:30)
--- NOTE | 2018-06-20 12:43 | PRG ---
DATE OF SERVICE: 06/20/2018 SUBJECTIVE: Mr. Nunes is now postoperative day 5 from lumbar decompression. He is doing well from a neurosurgical standpoint. Unfortunately, he was found to have an inferior wall myocardial infarct. This continues to be symptomatic, although his troponin enzymes have decreased. Hemodynamically, his systolic blood pressure has been in the 80 to 90 range without tachycardia, although he is on amiodarone. He is getting a fluid bolus now and his systolic has come up to 105. However, he continues to be symptomatic in regard to angina. He is on a full-strength aspirin 325 mg and again is in the telemetry floor. The biggest concern obviously is his angina. We discussed with Dr. Segal and Dr. Guidry this morning that ideally we would like to hold off on full anticoagulation or laborer salvage procedures requiring such until the end of next week, although obviously I would defer to our Cardiology colleagues if his cardiac issues are becoming life-threatening. Obviously, his risk of epidural hematoma just on full-strength aspirin is not trivial currently and would increase substantially with full anticoagulation or even the addition of Plavix at this point. He is already on morphine, oxygen, nitroglycerin, aspirin therapy and again should his condition from a cardiac standpoint decline again to the point of life-threatening, then I would certainly defer to our cardiology colleagues regarding the need for emergent catheterization and anticoagulation. I have discussed all of this with the patient and his and they understand that should this occur, obviously would be for life-saving purposes and risk of epidural hematoma and paraplegia would be substantial. Job ID: [id number]
--- NOTE | 2018-06-20 16:11 | PDOC.PN ---
- Subjective Encounter Start Date: 06/20/18 Encounter Start Time: 15:30 Subjective: f/u for NSTEMI on ASA, Zocor with plan on LHC after stabilization -: from recent lumbar laminectomy. No current CP but feels weak. - Objective MAR Reviewed: Yes Vital Signs & Weight: Vital Signs (12 hours) Temp Pulse Resp BP Pulse Ox 06/20/18 13:15 79 86/54 L 100 06/20/18 13:00 80 92/56 L 06/20/18 12:45 83 99/62 06/20/18 12:30 78 95/55 L 06/20/18 12:15 82 100/63 06/20/18 11:45 71 94/60 92 L 06/20/18 11:30 80 103/63 93 L 06/20/18 11:15 84 98/59 L 06/20/18 11:10 78 82/52 L 92 L 06/20/18 11:05 98.2 F 92 82/52 L 89 L 06/20/18 11:00 78 82/52 L 93 L 06/20/18 10:57 80 06/20/18 08:55 84 94/56 L 06/20/18 07:47 99.3 F 80 20 108/59 L 96 Weight Weight 195 lb 4.8 oz I&O: 06/19/18 06/20/18 06/21/18 06:59 06:59 06:59 Intake Total 1910 500 Output Total 1025 300 75 Balance 885 -300 425 Result Diagrams: 06/18/18 07:27 06/18/18 07:27 Radiology Reviewed by me: Yes (2D echo - EF 45-50%, NEAL, mod-severe TR) EKG Reviewed by me: Yes (Tele - A-flutter in 70's) Phys Exam - Physical Examination Constitutional: NAD HEENT: PERRLA, sclera anicteric, oral pharynx no lesions Neck: no nodes, no JVD, supple, full ROM few exp wheezes S1, S2, distant heart sounds Cardiovascular: no rub, gallop, irregular Gastrointestinal: soft, non-tender, no distention, positive bowel sounds Musculoskeletal: no edema, pulses present Neurological: normal sensation, moves all 4 limbs Psychiatric: A&O x 3 Skin: normal turgor, cap refill <2 seconds Dx/Plan (1) NSTEMI (non-ST elevated myocardial infarction) Code(s): I21.4 - NON-ST ELEVATION (NSTEMI) MYOCARDIAL INFARCTION Status: Acute Comment: medical mgmt currently, continue ASA, Zocor, plan for heart cath when stable from recent lumbar laminectomy, 2D echo EF 45-50% (2) Atrial fibrillation Code(s): I48.91 - UNSPECIFIED ATRIAL FIBRILLATION Status: Acute Comment: Amiodarone d/c'd due to hypotension, rate-control strategy, appears to have A- flutter (3) CKD (chronic kidney disease), stage II Code(s): N18.2 - CHRONIC KIDNEY DISEASE, STAGE 2 (MILD) Status: Chronic Comment: Avoid nephrotoxic meds and limit contrast exposure (4) HLD (hyperlipidemia) Code(s): E78.5 - HYPERLIPIDEMIA, UNSPECIFIED Status: Chronic Comment: Zocor 20mg daily (5) Urinary retention Code(s): R33.9 - RETENTION OF URINE, UNSPECIFIED Status: Acute Comment: Likely due to recent surgery, medication effect, continue Colon catheter (6) Status post lumbar laminectomy Code(s): Z98.890 - OTHER SPECIFIED POSTPROCEDURAL STATES Status: Acute Comment: POD # 5, pain control, PT for mobilization - Plan plan discussed w/ family, PT/OT, social work msw, out of bed/ambulate, DVT proph w/SCDs Stable currently -: Continue ASA/Zocor -: Amiodarone on hold -: PT for mobilization/OOB -: LHC on hold due to recent lumbar laminectomy, ideally would wait x 2 wks * .
[2018-06-20] MEDS ORDERED: Digoxin 0.5 MG/2 ML AMP SLOW IVP SCH (21:00)
[2018-06-20] MEDS: Simvastatin 20 MG TAB PO SCH (21:41)
[2018-06-21] MEDS: Nitroglycerin 0.4 MG TAB (25 Tab Bottle) SL PRN (02:17)
[2018-06-21] MEDS: Digoxin 0.5 MG/2 ML AMP SLOW IVP SCH ×2 (03:19→09:09)
[2018-06-21] MEDS: Tamsulosin HCl 0.4 MG CAP PO SCH ×2 (05:42→22:04)
[2018-06-21] MEDS: Digoxin 0.125 MG TAB PO SCH (09:07)
[2018-06-21] MEDS: Famotidine 20 MG TAB PO SCH ×2 (09:09→22:05)
[2018-06-21] MEDS: Lisinopril/Hydrochlorothiazide 20 mg/12.5 mg Tablet PO SCH (09:10)
[2018-06-21] MEDS: Aspirin 325 mg Enteric Coated Tablet PO SCH (09:10)
[2018-06-21] MEDS: Ascorbic Acid 500 mg Chewable Tablet PO SCH (09:10)
[2018-06-21] MEDS: Finasteride 5 MG TAB PO SCH (09:11)
--- NOTE | 2018-06-21 12:41 | PRG ---
DATE OF SERVICE: 06/21/2018 SUBJECTIVE: Mr. Nunes is hospital day 6 following lumbar decompression and inferior wall myocardial infarct. Mr. Nunes has substantially improved over the last 24 hours. He reports he has a chest pain rating of "zero." His hemodynamics have been improved. He remains on full-strength aspirin and nasal cannula. We greatly appreciate our cardiology colleagues assistance in the management of this patient and I have let the patient know as well that we are very pleased with his progress at this point. Dr. Yun returns this week and again should it be necessary for catheterization or more aggressive anticoagulation, Dr. Yun has discussed potentially allowing this from a neurosurgical standpoint later this week. Job ID: [id number]
[2018-06-21] MEDS: Nitroglycerin 2% Ointment 1 INCH/1 GM Packet TOP SCH ×2 (13:49→21:54)
[2018-06-21] MEDS: Acetaminophen 325 MG TAB PO PRN (13:56)
--- NOTE | 2018-06-21 16:30 | PDOC.PN ---
- Subjective Encounter Start Date: 06/21/18 Encounter Start Time: 16:30 Subjective: f/u NSTEMI medically managed currently with ASA, Metoprolol -: and Zocor. Plans for LHC after stabilizing from recent lumbar -: laminectomy. No CP with mild SOB. - Objective MAR Reviewed: Yes Vital Signs & Weight: Vital Signs (12 hours) Temp Pulse Pulse Pulse Resp BP BP 06/21/18 12:23 86 82 119/62 06/21/18 12:12 98 F 78 20 06/21/18 09:10 80 125/60 06/21/18 09:09 80 06/21/18 09:07 80 06/21/18 08:02 97.8 F 81 18 BP Pulse Ox Pulse Ox Pulse Ox 06/21/18 12:23 96 96 06/21/18 12:12 109/62 94 L 06/21/18 09:10 06/21/18 09:09 06/21/18 09:07 06/21/18 08:02 115/64 100 Weight Weight 195 lb 0.011 oz I&O: 06/20/18 06/21/18 06/22/18 06:59 06:59 06:59 Intake Total 500 Output Total 300 450 225 Balance -300 50 -225 Result Diagrams: 06/18/18 07:27 06/18/18 07:27 Additional Labs: Laboratory Tests 06/18/18 06/18/18 06/18/18 07:27 13:05 17:21 AST ALT Alkaline Phosphatase Troponin I 32.173 H* 26.338 H* 24.450 H* Triglycerides Cholesterol LDL Cholesterol, Calc HDL Cholesterol TSH 3rd Generation 06/18/18 06/18/18 06/19/18 19:56 19:56 06:09 AST 111 H ALT 73 H Alkaline Phosphatase 91 Troponin I Triglycerides 94 Cholesterol 97 LDL Cholesterol, Calc 50 HDL Cholesterol 28 TSH 3rd Generation 4.6131 EKG Reviewed by me: Yes (Tele - A-flutter in 70's) Phys Exam - Physical Examination Constitutional: NAD HEENT: PERRLA, sclera anicteric, oral pharynx no lesions Neck: no nodes, no JVD, supple, full ROM diminished in bases S1, S2 Cardiovascular: no significant murmur, no rub, gallop, irregular Gastrointestinal: soft, non-tender, no distention, positive bowel sounds Musculoskeletal: no edema, pulses present Neurological: normal sensation, moves all 4 limbs Psychiatric: A&O x 3 Skin: normal turgor, cap refill <2 seconds Dx/Plan (1) NSTEMI (non-ST elevated myocardial infarction) Code(s): I21.4 - NON-ST ELEVATION (NSTEMI) MYOCARDIAL INFARCTION Status: Acute Comment: medical mgmt currently, continue ASA, Zocor, plan for heart cath when stable from recent lumbar laminectomy, 2D echo EF 45-50% (2) Atrial fibrillation Code(s): I48.91 - UNSPECIFIED ATRIAL FIBRILLATION Status: Acute Comment: Amiodarone d/c'd due to hypotension, rate-control strategy, appears to have A- flutter, Digoxin 0.125mg daily (3) CKD (chronic kidney disease), stage II Code(s): N18.2 - CHRONIC KIDNEY DISEASE, STAGE 2 (MILD) Status: Chronic Comment: Avoid nephrotoxic meds and limit contrast exposure (4) HLD (hyperlipidemia) Code(s): E78.5 - HYPERLIPIDEMIA, UNSPECIFIED Status: Chronic Comment: Zocor 20mg daily (5) Urinary retention Code(s): R33.9 - RETENTION OF URINE, UNSPECIFIED Status: Acute Comment: Likely due to recent surgery, medication effect, continue Colon catheter (6) Status post lumbar laminectomy Code(s): Z98.890 - OTHER SPECIFIED POSTPROCEDURAL STATES Status: Acute Comment: POD # 6, pain control, PT for mobilization - Plan plan discussed w/ family, PT/OT, social work case manager, out of bed/ambulate, DVT proph w/SCDs Stable currently -: Continue ASA, Zocor -: Continue Metoprolol -: Plan for LHC in approximately 1 week -: Transdermal Nitro * AM lab: BMP, CBC
[2018-06-21] MEDS: traMADol HCl 50 MG TAB PO PRN (16:39)
[2018-06-21] MEDS ORDERED: ALPRAZolam 0.25 MG TAB PO SCH (20:00)
[2018-06-21] MEDS: Metoprolol Tartrate 25 MG TAB PO SCH (22:05)
[2018-06-21] MEDS: Simvastatin 20 MG TAB PO SCH (22:05)
[2018-06-22] MEDS: Nitroglycerin 2% Ointment 1 INCH/1 GM Packet TOP SCH ×3 (05:19→20:50)
[2018-06-22] MEDS: Tamsulosin HCl 0.4 MG CAP PO SCH ×2 (05:19→20:49)
[2018-06-22 06:39] LABS: Anion Gap 17 mmol/L (10-20); BUN (Urea Nitrogen) 53 mg/dL (8.4-25.7); Calc. Creatinine Clearance 59 mL/min (70-130); Carbon Dioxide 24 mmol/L (23-31); Chloride 95 mmol/L (98-107); Estimated GFR-MDRD 57; Glucose 121 mg/dL (83-110); Potassium 3.7 mmol/L (3.5-5.1); Sodium 132 mmol/L (136-145)
[2018-06-22 06:45] LABS: Band 2 % (5-11); Hemoglobin 12.5 g/dL (14.0-18.0); Lymphocytes 13 % (21-51); MDiff Complete? YES; Mean Corpuscular HGB CONC 32.4 g/dL (32.0-36.0); Mean Corpuscular Hemoglobin 33.3 pg (27.0-31.0); Mean Platelet Volume 10.3 fL (7.4-10.4); Monocytes 14 % (0-10); Neutrophil 70 % (42-75); Platelet Count 225 thou/uL (130-400); Polychromasia SLIGHT = 2-3 cells (100X) (0-2/hpf); RBC Distribution Width 12.5 % (11.5-14.5); Reactive Lymphocytes 1 % (0-10); Red Blood Cell (RBC) Count 3.76 mill/uL (4.70-6.10); White Blood Cell (WBC) Count 25.4 thou/uL (4.8-10.8)
--- NOTE | 2018-06-22 07:07 | PRG ---
DATE OF SERVICE: 06/22/2018 I saw Camacho Nunes in his hospital room this morning. He has done relatively well. His reports that Friday was a bit of a rough day with some low blood pressures, but the things seemed to get better yesterday and he did relatively well. He is getting in and out of bed and walking to the bathroom and back. He gotten out of bed already this morning. He has had well controlled bowel movements and emptied his bladder. Does not have any of the severe indigestion that was his anginal equivalent last week. He feels better and is ready to do some rehab today. I do not see any fevers recorded on his electronic chart. His blood pressure is in the 110s this morning. There is good strength and good sensation in lower extremities. Incision is healing nicely. I would like to coordinate with the Cardiology team and discuss whether he could be safely discharged and come back for his cardiac catheterization if he needs to remain in the hospital. He is on nitroglycerin paste, so there are some changes to be made with his medications, but he is doing relatively well. Ideally, we could wait at least 2 or 3 weeks after surgery before full heparinization, but if there is a more urgent need for catheterization, we can consider doing it later this week. Job ID: [id number] MTDD
[2018-06-22] MEDS: Ascorbic Acid 500 mg Chewable Tablet PO SCH (08:50)
[2018-06-22] MEDS: Digoxin 0.125 MG TAB PO SCH (08:51)
[2018-06-22] MEDS: Aspirin 325 mg Enteric Coated Tablet PO SCH (08:51)
[2018-06-22] MEDS: Famotidine 20 MG TAB PO SCH ×2 (08:52→20:48)
[2018-06-22] MEDS: Metoprolol Tartrate 25 MG TAB PO SCH ×2 (08:52→20:48)
[2018-06-22] MEDS: Finasteride 5 MG TAB PO SCH (08:56)
--- NOTE | 2018-06-22 11:18 | PDOC.PN ---
- Subjective Encounter Start Date: 06/22/18 Encounter Start Time: 11:00 Subjective: f/u s/p lumbar laminectomy and NSTEMI medically managed. [facility] planned -: for future date due to risk of spinal hematoma with heparin. Feels ok -: today, ambulated with PT, Colon removed. - Objective MAR Reviewed: Yes Vital Signs & Weight: Vital Signs (12 hours) Temp Pulse Resp BP Pulse Ox 06/22/18 08:51 87 06/22/18 07:55 95 06/22/18 07:45 97.8 F 87 18 105/57 L 96 06/22/18 03:41 97.6 F 74 18 102/56 L 94 L Weight Weight 194 lb I&O: 06/21/18 06/22/18 06/23/18 06:59 06:59 06:59 Intake Total 500 990 Output Total 450 1075 Balance 50 -85 Result Diagrams: 06/22/18 06:11 06/22/18 06:11 Additional Labs: Laboratory Tests 06/18/18 06/18/18 06/18/18 07:27 07:27 07:27 WBC 15.2 H Hgb 12.3 L Neutrophils % (Manual) 74 Creatinine 1.15 AST ALT Alkaline Phosphatase Troponin I 32.173 H* Triglycerides Cholesterol LDL Cholesterol, Calc HDL Cholesterol TSH 3rd Generation 06/18/18 06/18/18 06/18/18 13:05 17:21 19:56 WBC Hgb Neutrophils % (Manual) Creatinine AST 111 H ALT 73 H Alkaline Phosphatase 91 Troponin I 26.338 H* 24.450 H* Triglycerides Cholesterol LDL Cholesterol, Calc HDL Cholesterol TSH 3rd Generation 06/18/18 06/19/18 06/22/18 19:56 06:09 06:11 WBC Hgb Neutrophils % (Manual) 70 Creatinine AST ALT Alkaline Phosphatase Troponin I Triglycerides 94 Cholesterol 97 LDL Cholesterol, Calc 50 HDL Cholesterol 28 TSH 3rd Generation 4.6131 EKG Reviewed by me: Yes (Tele - A-fib in 60's) Phys Exam - Physical Examination Constitutional: NAD HEENT: PERRLA, sclera anicteric Neck: no nodes, no JVD, supple, full ROM Respiratory: no wheezing, no rales, no rhonchi, clear to auscultation bilateral S1, S2 Cardiovascular: no significant murmur, no rub, gallop, irregular Gastrointestinal: soft, non-tender, no distention, positive bowel sounds Musculoskeletal: no edema, pulses present Neurological: normal sensation, moves all 4 limbs Psychiatric: A&O x 3 Skin: normal turgor, cap refill <2 seconds Dx/Plan (1) NSTEMI (non-ST elevated myocardial infarction) Code(s): I21.4 - NON-ST ELEVATION (NSTEMI) MYOCARDIAL INFARCTION Status: Acute Comment: medical mgmt currently, continue ASA, Zocor, plan for heart cath when stable from recent lumbar laminectomy, 2D echo EF 45-50% (2) Atrial fibrillation Code(s): I48.91 - UNSPECIFIED ATRIAL FIBRILLATION Status: Acute Comment: Amiodarone d/c'd due to hypotension, rate-control strategy, appears to have A- flutter, Digoxin 0.125mg daily (3) CKD (chronic kidney disease), stage II Code(s): N18.2 - CHRONIC KIDNEY DISEASE, STAGE 2 (MILD) Status: Chronic Comment: Avoid nephrotoxic meds and limit contrast exposure (4) HLD (hyperlipidemia) Code(s): E78.5 - HYPERLIPIDEMIA, UNSPECIFIED Status: Chronic Comment: Zocor 20mg daily (5) Urinary retention Code(s): R33.9 - RETENTION OF URINE, UNSPECIFIED Status: Acute Comment: Likely due to recent surgery, medication effect, Colon catheter d/c'd (6) Status post lumbar laminectomy Code(s): Z98.890 - OTHER SPECIFIED POSTPROCEDURAL STATES Status: Acute Comment: POD # 7, pain control, PT for mobilization - Plan plan discussed w/ family, PT/OT, out of bed/ambulate Stable currently -: Continue ASA, Zocor -: Continue Metoprolol 12.5mg BID -: OOB with PT -: AM lab: CBC * Likely home awaiting [facility] in the next 2 weeks
[2018-06-22] MEDS: Acetaminophen 325 MG TAB PO PRN (20:48)
[2018-06-22] MEDS: Simvastatin 20 MG TAB PO SCH (20:49)
[2018-06-23] MEDS: Tamsulosin HCl 0.4 MG CAP PO SCH ×2 (05:28→20:38)
[2018-06-23] MEDS: Nitroglycerin 2% Ointment 1 INCH/1 GM Packet TOP SCH ×3 (05:28→21:58)
[2018-06-23 08:06] LABS: Hemoglobin 11.7 g/dL (14.0-18.0); Mean Corpuscular HGB CONC 32.7 g/dL (32.0-36.0); Mean Corpuscular Hemoglobin 33.6 pg (27.0-31.0); Mean Platelet Volume 10.1 fL (7.4-10.4); Platelet Count 224 thou/uL (130-400); RBC Distribution Width 12.7 % (11.5-14.5); Red Blood Cell (RBC) Count 3.49 mill/uL (4.70-6.10); White Blood Cell (WBC) Count 16.6 thou/uL (4.8-10.8)
[2018-06-23 09:36] LABS: Band 2 % (5-11); Eosinophils 2 % (0-10); Lymphocytes 8 % (21-51); MDiff Complete? YES; Macrocytosis SLIGHT = 6-15 cells (100X) (0-5/hpf); Monocytes 17 % (0-10); Neutrophil 67 % (42-75); Nucleated RBC 3 % (0); Platelet Morphology Comment Appears Adequate; Polychromasia MARKED = >4 cells (100X) (0-2/hpf); Reactive Lymphocytes 4 % (0-10); Target Cells SLIGHT = 2-5 cells (100X) (0-1/hpf)
[2018-06-23] MEDS: Ascorbic Acid 500 mg Chewable Tablet PO SCH (09:50)
[2018-06-23] MEDS: Aspirin 325 mg Enteric Coated Tablet PO SCH (09:50)
[2018-06-23] MEDS: Digoxin 0.125 MG TAB PO SCH (09:50)
[2018-06-23] MEDS: Finasteride 5 MG TAB PO SCH (09:52)
[2018-06-23] MEDS: Metoprolol Tartrate 25 MG TAB PO SCH ×2 (09:52→20:38)
[2018-06-23] MEDS: Famotidine 20 MG TAB PO SCH ×2 (09:52→20:38)
--- NOTE | 2018-06-23 13:34 | PRG ---
DATE OF SERVICE: 06/23/2018 Mr. Nunes is 1 week and 1 day out from a multilevel lumbar laminectomy for lumbar stenosis. He has also had myocardial infarction and has had atrial fibrillation during his postoperative course here. We are waiting for his risk of anticoagulation to go down to the point where he could go to cardiac catheterization. We should keep him here in the hospital until that happens. Late this morning, I saw Mr. Nunes on rounds. He did not have any significant complaints other than slow mobility getting to the bathroom when he feels the urge to urinate or defecate. He is, however, feeling the need to do this, which is an improvement from preoperative status, so he is pleased with that. I do not see any fevers recorded on his vital signs. His blood pressures have ranged in the 100s to 110s. He is on oxygen by nasal cannula and saturating well. I do not find any new neurological deficit. Incision still looks well approximated. My preference for Mr. Nunes is to make it 2 weeks postoperatively before full anticoagulation in the laborer salvage. However, if he has another bump in his troponins or new ischemia, then our hand may be forced. We will have to take the risk of having to reoperate for clot removal or accept some permanent leg weakness or bowel and bladder dysfunction if hematoma grows too large. Hopefully, we can avoid all this and get him to the laborer salvage when it is safe to do so. I will continue to visit with him in the hospital until 2 weeks postop. Job ID: [id number] MTDD
--- NOTE | 2018-06-23 16:23 | PDOC.PN ---
- Subjective Encounter Start Date: 06/23/18 Encounter Start Time: 16:20 Subjective: f/u for NSTEMI medically managed and s/p lumbar laminectomy POD #8 -: Feels ok overall and no recurrent CP. - Objective MAR Reviewed: Yes Vital Signs & Weight: Vital Signs (12 hours) Temp Pulse Pulse Pulse Resp BP BP 06/23/18 12:12 72 93 142/68 H 119/61 06/23/18 09:50 87 06/23/18 08:00 98.2 F 76 17 06/23/18 05:26 74 16 BP BP Pulse Ox Pulse Ox Pulse Ox 06/23/18 12:12 99 91 L 06/23/18 09:50 06/23/18 08:00 115/70 96 06/23/18 05:26 110/62 Weight Weight 191 lb 11.2 oz I&O: 06/22/18 06/23/18 06/24/18 06:59 06:59 06:59 Intake Total 990 1260 Output Total 1075 575 Balance -85 685 Result Diagrams: 06/23/18 05:18 06/22/18 06:11 Additional Labs: Laboratory Tests 06/18/18 06/18/18 06/18/18 07:27 07:27 07:27 WBC 15.2 H Hgb 12.3 L Neutrophils % (Manual) 74 Creatinine 1.15 AST ALT Alkaline Phosphatase Troponin I 32.173 H* Triglycerides Cholesterol LDL Cholesterol, Calc HDL Cholesterol TSH 3rd Generation 06/18/18 06/18/18 06/18/18 13:05 17:21 19:56 WBC Hgb Neutrophils % (Manual) Creatinine AST 111 H ALT 73 H Alkaline Phosphatase 91 Troponin I 26.338 H* 24.450 H* Triglycerides Cholesterol LDL Cholesterol, Calc HDL Cholesterol TSH 3rd Generation 06/18/18 06/19/18 06/22/18 19:56 06:09 06:11 WBC 25.4 H Hgb Neutrophils % (Manual) 70 Creatinine AST ALT Alkaline Phosphatase Troponin I Triglycerides 94 Cholesterol 97 LDL Cholesterol, Calc 50 HDL Cholesterol 28 TSH 3rd Generation 4.6531 EKG Reviewed by me: Yes (Tele - A-flutter 70's) Phys Exam - Physical Examination Constitutional: NAD HEENT: PERRLA, sclera anicteric, oral pharynx no lesions Neck: no nodes, no JVD, supple, full ROM Respiratory: no wheezing, no rales, no rhonchi, clear to auscultation bilateral S1, S2 Cardiovascular: no significant murmur, no rub, irregular Gastrointestinal: soft, non-tender, no distention, positive bowel sounds Musculoskeletal: no edema, pulses present Neurological: normal sensation, moves all 4 limbs Psychiatric: A&O x 3 Skin: normal turgor, cap refill <2 seconds Dx/Plan (1) NSTEMI (non-ST elevated myocardial infarction) Code(s): I21.4 - NON-ST ELEVATION (NSTEMI) MYOCARDIAL INFARCTION Status: Acute Comment: medical mgmt currently, continue ASA, Zocor, plan for heart cath when stable from recent lumbar laminectomy likely on 06/26/18, 2D echo EF 45 -50% (2) Atrial fibrillation Code(s): I48.91 - UNSPECIFIED ATRIAL FIBRILLATION Status: Acute Comment: Amiodarone d/c'd due to hypotension, rate-control strategy, appears to have A- flutter, Digoxin 0.125mg daily (3) CKD (chronic kidney disease), stage II Code(s): N18.2 - CHRONIC KIDNEY DISEASE, STAGE 2 (MILD) Status: Chronic Comment: Avoid nephrotoxic meds and limit contrast exposure (4) HLD (hyperlipidemia) Code(s): E78.5 - HYPERLIPIDEMIA, UNSPECIFIED Status: Chronic Comment: Zocor 20mg daily (5) Urinary retention Code(s): R33.9 - RETENTION OF URINE, UNSPECIFIED Status: Acute Comment: Likely due to recent surgery, medication effect, Colon catheter d/c'd (6) Status post lumbar laminectomy Code(s): Z98.890 - OTHER SPECIFIED POSTPROCEDURAL STATES Status: Acute Comment: POD # 8, pain control, PT for mobilization - Plan plan discussed w/ family, PT/OT, licensed clinical social worker, out of bed/ambulate, DVT proph w/SCDs Stable overall -: Continue med mgmt with ASA -: Plan for LHC on 06/26/18 -: Continue OOB/ambulate with PT -: AM lab: BMP * .
[2018-06-23] MEDS: Simvastatin 20 MG TAB PO SCH (20:38)
[2018-06-24 05:41] LABS: Anion Gap 12 mmol/L (10-20); BUN (Urea Nitrogen) 31 mg/dL (8.4-25.7); Calc. Creatinine Clearance 71 mL/min (70-130); Calcium 8.3 mg/dL (7.8-10.44); Carbon Dioxide 27 mmol/L (23-31); Chloride 102 mmol/L (98-107); Estimated GFR-MDRD 73; Glucose 111 mg/dL (83-110); Potassium 3.2 mmol/L (3.5-5.1); Sodium 138 mmol/L (136-145)
[2018-06-24] MEDS: Nitroglycerin 2% Ointment 1 INCH/1 GM Packet TOP SCH (05:42)
[2018-06-24] MEDS: Tamsulosin HCl 0.4 MG CAP PO SCH ×2 (05:42→20:32)
[2018-06-24] MEDS ORDERED: Communication Order-Pharmacy FS SCH (08:15)
[2018-06-24] MEDS ORDERED: Sodium Chloride 0.9% 1,000 ML IV SCH (08:15)
[2018-06-24] MEDS: Finasteride 5 MG TAB PO SCH (09:39)
[2018-06-24] MEDS: Digoxin 0.125 MG TAB PO SCH (09:40)
[2018-06-24] MEDS: Metoprolol Tartrate 25 MG TAB PO SCH ×2 (09:41→20:32)
[2018-06-24] MEDS: Aspirin 325 mg Enteric Coated Tablet PO SCH (09:43)
[2018-06-24] MEDS: Ascorbic Acid 500 mg Chewable Tablet PO SCH (09:43)
[2018-06-24] MEDS: Famotidine 20 MG TAB PO SCH ×2 (09:43→20:32)
--- NOTE | 2018-06-24 12:32 | PRG ---
DATE OF SERVICE: 06/24/2018 I saw Mr. Nunes earlier this morning on rounds. He is doing reasonably well and said he got more sleep last night than he has in the few days in the hospital. His vitals and neurological examination remain quite good. His dressing is dry. I discussed with Mr. Nunes and his and Dr. Ramon about the timing of cardiac catheterization. He needs to go on Plavix. I prefer that to be on Friday, so therefore we will wait for cathode builder evaluation next week. This will be 2 weeks after his operation and then give us an even better chance to avoid any postop hematoma accumulation. Job ID: [id number]
--- NOTE | 2018-06-24 12:49 | PDOC.PN ---
- Subjective Encounter Start Date: 06/24/18 Encounter Start Time: 10:00 Subjective: no chest pain, is amb with PT -: no sob or palp -: feels better - Objective MAR Reviewed: Yes Vital Signs & Weight: Vital Signs (12 hours) Temp Pulse Pulse Pulse Resp BP BP 06/24/18 10:58 74 72 144/69 H 131/65 06/24/18 09:40 73 06/24/18 08:00 97 F L 76 18 06/24/18 04:00 97.8 F 75 20 BP Pulse Ox Pulse Ox Pulse Ox 06/24/18 10:58 98 97 06/24/18 09:40 06/24/18 08:00 136/73 95 06/24/18 04:00 116/62 93 L Weight Admit Weight 188 lb Weight 192 lb 12.8 oz I&O: 06/23/18 06/24/18 06/25/18 06:59 06:59 06:59 Intake Total 1260 300 Output Total 575 350 Balance 685 -50 Result Diagrams: 06/23/18 05:18 06/24/18 04:52 Phys Exam - Physical Examination HEENT: PERRLA, moist MMs Neck: no JVD, supple Respiratory: no wheezing, no rales Cardiovascular: RRR, no significant murmur Gastrointestinal: soft, non-tender, positive bowel sounds Musculoskeletal: no edema, pulses present Neurological: non-focal, moves all 4 limbs Psychiatric: normal affect, A&O x 3 Dx/Plan (1) NSTEMI (non-ST elevated myocardial infarction) Code(s): I21.4 - NON-ST ELEVATION (NSTEMI) MYOCARDIAL INFARCTION Status: Acute Comment: medical mgmt currently, continue ASA, Zocor, plan for heart cath on friday, 2D echo EF 45-50% (2) HAMZAH (acute kidney injury) Code(s): N17.9 - ACUTE KIDNEY FAILURE, UNSPECIFIED Status: Resolved (3) Atrial fibrillation Code(s): I48.91 - UNSPECIFIED ATRIAL FIBRILLATION Status: Acute Qualifiers: Atrial fibrillation type: paroxysmal Qualified Code(s): I48.0 - Paroxysmal atrial fibrillation (4) Status post lumbar laminectomy Code(s): Z98.890 - OTHER SPECIFIED POSTPROCEDURAL STATES Status: Acute (5) Urinary retention Code(s): R33.9 - RETENTION OF URINE, UNSPECIFIED Status: Resolved Comment: Likely due to recent surgery, medication effect, Colon catheter d/c'd (6) HLD (hyperlipidemia) Code(s): E78.5 - HYPERLIPIDEMIA, UNSPECIFIED Status: Chronic Comment: Zocor 20mg daily - Plan hemostable -: for cath on friday per family -: is amb with PT, has no pain at operated site -: continue asp, zocor, lopressor, dig, proscar and flomax * . Review of Systems - Medications/Allergies Allergies/Adverse Reactions: Allergies Allergy/AdvReac Type Severity Reaction Status Date / Time Antihistamines - Alkylamine Allergy Intermediate PROSTATE Verified 06/12/18 12: 13 SWELLING clindamycin Allergy Intermediate Rash Verified 06/12/18 12:13 pravastatin Allergy Intermediate PT DOESN'T Verified 06/12/18 12:13 REMEMBER Sulfa (Sulfonamide Allergy Intermediate WELPS, RASH Verified 06/12/18 12:13 Antibiotics) atorvastatin Allergy Verified 06/12/18 12:13 Medications: Current Medications Acetaminophen (Tylenol) 650 mg PO Q4H PRN PRN Reason: Headache/Fever or Pain Last Admin: 06/22/18 20:48 Dose: 650 mg Acetaminophen (Tylenol) 650 mg [place] Q4H PRN PRN Reason: Headache/Fever or Pain Al Hydroxide/Mg Hydroxide (Maalox) 30 ml PO Q4H PRN PRN Reason: Indigestion Ascorbic Acid (Vitamin C) 1,000 mg PO DAILY [facility] Last Admin: 06/24/18 09:43 Dose: 1,000 mg Aspirin (Ecotrin) 325 mg PO DAILY [facility] Last Admin: 06/24/18 09:43 Dose: 325 mg Bisacodyl (Dulcolax) 10 mg [place] Q12H PRN PRN Reason: Constipation Last Admin: 06/19/18 06:28 Dose: 10 mg Cholecalciferol (Vitamin D3) 1,000 units PO DAILY [facility] Last Admin: 06/24/18 09:41 Dose: 1,000 units Digoxin (Lanoxin) 0.125 mg PO QAM [facility] Last Admin: 06/24/18 09:40 Dose: 0.125 mg Famotidine (Pepcid) 20 mg PO BID [facility] Last Admin: 06/24/18 09:43 Dose: 20 mg Finasteride (Proscar) 5 mg PO DAILY [facility] Last Admin: 06/24/18 09:39 Dose: 5 mg Sodium Chloride (Normal Saline 0.9%) 1,000 mls @ 100 mls/hr IV .Q10H [facility] Magnesium Hydroxide (Milk Of Magnesium) 30 ml PO Q12H PRN PRN Reason: Constipation Metoprolol Tartrate (Lopressor) 12.5 mg PO BID [facility] Last Admin: 06/24/18 09:41 Dose: 12.5 mg Miscellaneous Information (Communication Order-Pharmacy) 0 each FS ASDIR [facility] Morphine Sulfate (Morphine) 2 mg SLOW IVP Q1H PRN PRN Reason: Moderate Breakthrough Pain Naproxen (Naprosyn) 250 mg PO BIDPRN PRN PRN Reason: Mild Pain (1-3) Nitroglycerin (Nitrostat) 0.4 mg SL Q5MIN PRN PRN Reason: Chest Pain Last Admin: 06/21/18 02:17 Dose: 0.4 mg Nitroglycerin (Nitro-Bid 2% Ointment) 1 inch TOP Q8HR [facility] Last Admin: 06/24/18 05:42 Dose: 1 inch Ondansetron HCl (Zofran) 4 mg IVP DAILY PRN PRN Reason: Nausea/Vomiting Last Admin: 06/18/18 21:12 Dose: 4 mg Sertraline HCl (Zoloft) 50 mg PO DAILY [facility] Last Admin: 06/24/18 09:39 Dose: 50 mg Simvastatin (Zocor) 20 mg PO QPM [facility] Last Admin: 06/23/18 20:38 Dose: 20 mg Sodium Chloride (Flush - Normal Saline) 10 ml IVF PRN PRN PRN Reason: Saline Flush Last Admin: 06/24/18 09:51 Dose: 10 ml Tamsulosin HCl (Flomax) 0.4 mg PO 0600 [facility] Last Admin: 06/24/18 05:42 Dose: 0.4 mg Tamsulosin HCl (Flomax) 0.4 mg PO HS [facility] Last Admin: 06/23/18 20:38 Dose: 0.4 mg Throat Lozenges (Cepastat Lozenges) 1 susanna PO PRN PRN PRN Reason: SORE THROAT Last Admin: 06/15/18 16:34 Dose: 1 susanna Tramadol HCl (Ultram) 50 mg PO Q4H PRN PRN Reason: Moderate Pain (4-6) Last Admin: 06/18/18 20:31 Dose: 50 mg Tramadol HCl (Ultram) 100 mg PO Q4H PRN PRN Reason: Severe Pain (7-10) Last Admin: 06/21/18 16:39 Dose: 100 mg
[2018-06-24] MEDS: Simvastatin 20 MG TAB PO SCH (20:32)
[2018-06-25] MEDS: Tamsulosin HCl 0.4 MG CAP PO SCH ×2 (05:49→21:29)
--- NOTE | 2018-06-25 07:09 | PRG ---
DATE OF SERVICE: 06/25/2018 I saw Mr. Nunes in his hospital room this morning. He had a reasonably good day yesterday, worked with Physical Therapy. He rested comfortably. He did not experience chest pain or the indigestion that may be his anginal equivalent. His vitals look stable to me with blood pressures in the 100s to 110s, and no fevers recorded. I do not see any new neurological deficit. His incision looks fine. We are awaiting on cardiac catheterization on Friday. Between now and then, we will continue with his physical therapy and hope he is ready for a safe discharge to home after cardiac treatment. Job ID: [id number] MTDD
--- NOTE | 2018-06-25 09:58 | PDOC.PN ---
- Subjective Encounter Start Date: 06/25/18 Encounter Start Time: 09:00 Subjective: no c/o chest pain or sob or palp -: is amb on floor - Objective MAR Reviewed: Yes Vital Signs & Weight: Vital Signs (12 hours) Temp Pulse Resp BP BP Pulse Ox 06/25/18 08:00 98.7 F 71 18 143/67 H 94 L 06/25/18 04:20 97.7 F 67 16 114/68 91 L Weight Admit Weight 188 lb Weight 191 lb 12.8 oz I&O: 06/24/18 06/25/18 06/26/18 06:59 06:59 06:59 Intake Total 300 960 Output Total 350 1185 Balance -50 -225 Result Diagrams: 06/23/18 05:18 06/24/18 04:52 Phys Exam - Physical Examination HEENT: PERRLA, moist MMs Neck: no JVD, supple Respiratory: no wheezing, no rales Cardiovascular: RRR, no significant murmur Gastrointestinal: soft, non-tender, positive bowel sounds Musculoskeletal: no edema, pulses present Neurological: non-focal, moves all 4 limbs Psychiatric: normal affect, A&O x 3 Dx/Plan (1) NSTEMI (non-ST elevated myocardial infarction) Code(s): I21.4 - NON-ST ELEVATION (NSTEMI) MYOCARDIAL INFARCTION Status: Acute Comment: medical mgmt currently, continue ASA, Zocor, plan for heart cath on friday, 2D echo EF 45-50% (2) HAMZAH (acute kidney injury) Code(s): N17.9 - ACUTE KIDNEY FAILURE, UNSPECIFIED Status: Resolved (3) Atrial fibrillation Code(s): I48.91 - UNSPECIFIED ATRIAL FIBRILLATION Status: Acute Qualifiers: Atrial fibrillation type: paroxysmal Qualified Code(s): I48.0 - Paroxysmal atrial fibrillation (4) Status post lumbar laminectomy Code(s): Z98.890 - OTHER SPECIFIED POSTPROCEDURAL STATES Status: Acute (5) Urinary retention Code(s): R33.9 - RETENTION OF URINE, UNSPECIFIED Status: Resolved Comment: Likely due to recent surgery, medication effect, Colon catheter d/c'd (6) HLD (hyperlipidemia) Code(s): E78.5 - HYPERLIPIDEMIA, UNSPECIFIED Status: Chronic Comment: Zocor 20mg daily - Plan hemostable -: for cath on friday -: to amb as tolerated per nsx advice -: continue asp, zocor, digoxin, proscar, flomax and lopressor * . Review of Systems - Medications/Allergies Allergies/Adverse Reactions: Allergies Allergy/AdvReac Type Severity Reaction Status Date / Time Antihistamines - Alkylamine Allergy Intermediate PROSTATE Verified 06/12/18 12: 13 SWELLING clindamycin Allergy Intermediate Rash Verified 06/12/18 12:13 pravastatin Allergy Intermediate PT DOESN'T Verified 06/12/18 12:13 REMEMBER Sulfa (Sulfonamide Allergy Intermediate WELPS, RASH Verified 06/12/18 12:13 Antibiotics) atorvastatin Allergy Verified 06/12/18 12:13 Medications: Current Medications Acetaminophen (Tylenol) 650 mg PO Q4H PRN PRN Reason: Headache/Fever or Pain Last Admin: 06/22/18 20:48 Dose: 650 mg Acetaminophen (Tylenol) 650 mg [place] Q4H PRN PRN Reason: Headache/Fever or Pain Al Hydroxide/Mg Hydroxide (Maalox) 30 ml PO Q4H PRN PRN Reason: Indigestion Ascorbic Acid (Vitamin C) 1,000 mg PO DAILY [facility] Last Admin: 06/24/18 09:43 Dose: 1,000 mg Aspirin (Ecotrin) 325 mg PO DAILY [facility] Last Admin: 06/24/18 09:43 Dose: 325 mg Bisacodyl (Dulcolax) 10 mg [place] Q12H PRN PRN Reason: Constipation Last Admin: 06/19/18 06:28 Dose: 10 mg Cholecalciferol (Vitamin D3) 1,000 units PO DAILY [facility] Last Admin: 06/24/18 09:41 Dose: 1,000 units Digoxin (Lanoxin) 0.125 mg PO QAM [facility] Last Admin: 06/24/18 09:40 Dose: 0.125 mg Famotidine (Pepcid) 20 mg PO BID [facility] Last Admin: 06/24/18 20:32 Dose: 20 mg Finasteride (Proscar) 5 mg PO DAILY [facility] Last Admin: 06/24/18 09:39 Dose: 5 mg Sodium Chloride (Normal Saline 0.9%) 1,000 mls @ 100 mls/hr IV .Q10H [facility] Magnesium Hydroxide (Milk Of Magnesium) 30 ml PO Q12H PRN PRN Reason: Constipation Metoprolol Tartrate (Lopressor) 12.5 mg PO BID [facility] Last Admin: 06/24/18 20:32 Dose: 12.5 mg Miscellaneous Information (Communication Order-Pharmacy) 0 each FS ASDIR [facility] Morphine Sulfate (Morphine) 2 mg SLOW IVP Q1H PRN PRN Reason: Moderate Breakthrough Pain Naproxen (Naprosyn) 250 mg PO BIDPRN PRN PRN Reason: Mild Pain (1-3) Nitroglycerin (Nitrostat) 0.4 mg SL Q5MIN PRN PRN Reason: Chest Pain Last Admin: 06/21/18 02:17 Dose: 0.4 mg Ondansetron HCl (Zofran) 4 mg IVP DAILY PRN PRN Reason: Nausea/Vomiting Last Admin: 06/18/18 21:12 Dose: 4 mg Sertraline HCl (Zoloft) 50 mg PO DAILY [facility] Last Admin: 06/24/18 09:39 Dose: 50 mg Simvastatin (Zocor) 20 mg PO QPM [facility] Last Admin: 06/24/18 20:32 Dose: 20 mg Sodium Chloride (Flush - Normal Saline) 10 ml IVF PRN PRN PRN Reason: Saline Flush Last Admin: 06/24/18 20:33 Dose: 10 ml Tamsulosin HCl (Flomax) 0.4 mg PO 0600 [facility] Last Admin: 06/25/18 05:49 Dose: 0.4 mg Tamsulosin HCl (Flomax) 0.4 mg PO HS [facility] Last Admin: 06/24/18 20:32 Dose: 0.4 mg Throat Lozenges (Cepastat Lozenges) 1 susanna PO PRN PRN PRN Reason: SORE THROAT Last Admin: 06/15/18 16:34 Dose: 1 susanna Tramadol HCl (Ultram) 50 mg PO Q4H PRN PRN Reason: Moderate Pain (4-6) Last Admin: 06/18/18 20:31 Dose: 50 mg Tramadol HCl (Ultram) 100 mg PO Q4H PRN PRN Reason: Severe Pain (7-10) Last Admin: 06/21/18 16:39 Dose: 100 mg
[2018-06-25] MEDS: Finasteride 5 MG TAB PO SCH (10:42)
[2018-06-25] MEDS: Digoxin 0.125 MG TAB PO SCH (10:42)
[2018-06-25] MEDS: Ascorbic Acid 500 mg Chewable Tablet PO SCH (10:42)
[2018-06-25] MEDS: Famotidine 20 MG TAB PO SCH ×2 (10:43→21:28)
[2018-06-25] MEDS: Aspirin 325 mg Enteric Coated Tablet PO SCH (10:44)
[2018-06-25] MEDS: Metoprolol Tartrate 25 MG TAB PO SCH ×2 (10:44→21:28)
[2018-06-25] MEDS: Simvastatin 20 MG TAB PO SCH (21:28)
[2018-06-26] MEDS: Tamsulosin HCl 0.4 MG CAP PO SCH ×2 (05:38→21:23)
--- NOTE | 2018-06-26 08:16 | PRG ---
DATE OF SERVICE: 06/26/2018 Mr. Nunes is 11 days out of decompressive laminectomy followed by myocardial infarction while in the hospital. After entering the room this morning, he is sitting in the bedside chair up and enjoying the morning and he has no complaints this morning and wants to get up and take a shower and he states that he is feeling better every day. No irritation in his legs and he is walking throughout the hospital and his room with his walker. There were no reported fever overnight, blood pressure 134/69, respirations 18, heart rate 92% oxygen saturation on room air. There are no new neurologic deficits. He is progressing nicely from a neurosurgical standpoint. Mr. Nunes is waiting for cardiac catheterization when it is felt safe for him to progress with the amount of anticoagulation needed, is scheduled for Friday. He is doing nicely postsurgical and we will continue to follow while he is in the hospital. Job ID: [id number] MTDD
[2018-06-26] MEDS: Ascorbic Acid 500 mg Chewable Tablet PO SCH (08:57)
[2018-06-26] MEDS: Aspirin 325 mg Enteric Coated Tablet PO SCH (08:58)
[2018-06-26] MEDS: Metoprolol Tartrate 25 MG TAB PO SCH ×2 (08:58→21:23)
[2018-06-26] MEDS: Digoxin 0.125 MG TAB PO SCH (08:58)
[2018-06-26] MEDS: Finasteride 5 MG TAB PO SCH (08:59)
[2018-06-26] MEDS: Famotidine 20 MG TAB PO SCH ×2 (08:59→21:23)
--- NOTE | 2018-06-26 14:14 | PDOC.PN ---
- Subjective Encounter Start Date: 06/26/18 Encounter Start Time: 07:45 Subjective: no sob or chest pain -: feels better, at bedside -: ambulated in hallway this am - Objective MAR Reviewed: Yes Vital Signs & Weight: Vital Signs (12 hours) Temp Pulse Resp BP BP Pulse Ox 06/26/18 11:30 97.9 F 60 18 122/65 96 06/26/18 08:58 62 06/26/18 08:50 97.4 F L 66 19 142/71 H 95 06/26/18 05:24 92 L 06/26/18 03:43 99.1 F 63 18 134/69 92 L Weight Admit Weight 188 lb Weight 186 lb 11.2 oz I&O: 06/25/18 06/26/18 06/27/18 06:59 06:59 06:59 Intake Total 960 1470 Output Total 1185 700 Balance -225 770 Result Diagrams: 06/23/18 05:18 06/24/18 04:52 Phys Exam - Physical Examination HEENT: PERRLA, moist MMs Neck: no JVD, supple Respiratory: no wheezing, no rales Cardiovascular: RRR, no significant murmur Gastrointestinal: soft, non-tender, positive bowel sounds Musculoskeletal: no edema, pulses present Neurological: non-focal, moves all 4 limbs Psychiatric: normal affect, A&O x 3 Dx/Plan (1) NSTEMI (non-ST elevated myocardial infarction) Code(s): I21.4 - NON-ST ELEVATION (NSTEMI) MYOCARDIAL INFARCTION Status: Acute Comment: medical mgmt currently, continue ASA, Zocor, plan for heart cath on friday, 2D echo EF 45-50% (2) HAMZAH (acute kidney injury) Code(s): N17.9 - ACUTE KIDNEY FAILURE, UNSPECIFIED Status: Resolved (3) Atrial fibrillation Code(s): I48.91 - UNSPECIFIED ATRIAL FIBRILLATION Status: Acute Qualifiers: Atrial fibrillation type: paroxysmal Qualified Code(s): I48.0 - Paroxysmal atrial fibrillation (4) Status post lumbar laminectomy Code(s): Z98.890 - OTHER SPECIFIED POSTPROCEDURAL STATES Status: Acute (5) Urinary retention Code(s): R33.9 - RETENTION OF URINE, UNSPECIFIED Status: Resolved Comment: Likely due to recent surgery, medication effect, Colon catheter d/c'd (6) HLD (hyperlipidemia) Code(s): E78.5 - HYPERLIPIDEMIA, UNSPECIFIED Status: Chronic Comment: Zocor 20mg daily - Plan for cath on friday -: hemostable -: continue asp, zocor, lopressor, digoxin, proscar and flomax -: to amb as tolerated -: is eating better and mobilizing well * . Review of Systems - Medications/Allergies Allergies/Adverse Reactions: Allergies Allergy/AdvReac Type Severity Reaction Status Date / Time Antihistamines - Alkylamine Allergy Intermediate PROSTATE Verified 06/12/18 12: 13 SWELLING clindamycin Allergy Intermediate Rash Verified 06/12/18 12:13 pravastatin Allergy Intermediate PT DOESN'T Verified 06/12/18 12:13 REMEMBER Sulfa (Sulfonamide Allergy Intermediate WELPS, RASH Verified 06/12/18 12:13 Antibiotics) atorvastatin Allergy Verified 06/12/18 12:13 Medications: Current Medications Acetaminophen (Tylenol) 650 mg PO Q4H PRN PRN Reason: Headache/Fever or Pain Last Admin: 06/22/18 20:48 Dose: 650 mg Acetaminophen (Tylenol) 650 mg [place] Q4H PRN PRN Reason: Headache/Fever or Pain Al Hydroxide/Mg Hydroxide (Maalox) 30 ml PO Q4H PRN PRN Reason: Indigestion Ascorbic Acid (Vitamin C) 1,000 mg PO DAILY [facility] Last Admin: 06/26/18 08:57 Dose: 1,000 mg Aspirin (Ecotrin) 325 mg PO DAILY [facility] Last Admin: 06/26/18 08:58 Dose: 325 mg Bisacodyl (Dulcolax) 10 mg [place] Q12H PRN PRN Reason: Constipation Last Admin: 06/19/18 06:28 Dose: 10 mg Cholecalciferol (Vitamin D3) 1,000 units PO DAILY [facility] Last Admin: 06/26/18 08:58 Dose: 1,000 units Digoxin (Lanoxin) 0.125 mg PO QAM [facility] Last Admin: 06/26/18 08:58 Dose: 0.125 mg Famotidine (Pepcid) 20 mg PO BID [facility] Last Admin: 06/26/18 08:59 Dose: 20 mg Finasteride (Proscar) 5 mg PO DAILY [facility] Last Admin: 06/26/18 08:59 Dose: 5 mg Sodium Chloride (Normal Saline 0.9%) 1,000 mls @ 100 mls/hr IV .Q10H [facility] Magnesium Hydroxide (Milk Of Magnesium) 30 ml PO Q12H PRN PRN Reason: Constipation Metoprolol Tartrate (Lopressor) 12.5 mg PO BID [facility] Last Admin: 06/26/18 08:58 Dose: 12.5 mg Miscellaneous Information (Communication Order-Pharmacy) 0 each FS ASDIR [facility] Morphine Sulfate (Morphine) 2 mg SLOW IVP Q1H PRN PRN Reason: Moderate Breakthrough Pain Naproxen (Naprosyn) 250 mg PO BIDPRN PRN PRN Reason: Mild Pain (1-3) Nitroglycerin (Nitrostat) 0.4 mg SL Q5MIN PRN PRN Reason: Chest Pain Last Admin: 06/21/18 02:17 Dose: 0.4 mg Ondansetron HCl (Zofran) 4 mg IVP DAILY PRN PRN Reason: Nausea/Vomiting Last Admin: 06/18/18 21:12 Dose: 4 mg Sertraline HCl (Zoloft) 50 mg PO DAILY [facility] Last Admin: 06/26/18 09:00 Dose: 50 mg Simvastatin (Zocor) 20 mg PO QPM [facility] Last Admin: 06/25/18 21:28 Dose: 20 mg Sodium Chloride (Flush - Normal Saline) 10 ml IVF PRN PRN PRN Reason: Saline Flush Last Admin: 06/26/18 09:00 Dose: 10 ml Tamsulosin HCl (Flomax) 0.4 mg PO 0600 [facility] Last Admin: 06/26/18 05:38 Dose: 0.4 mg Tamsulosin HCl (Flomax) 0.4 mg PO HS [facility] Last Admin: 06/25/18 21:29 Dose: 0.4 mg Throat Lozenges (Cepastat Lozenges) 1 susanna PO PRN PRN PRN Reason: SORE THROAT Last Admin: 06/15/18 16:34 Dose: 1 susanna Tramadol HCl (Ultram) 50 mg PO Q4H PRN PRN Reason: Moderate Pain (4-6) Last Admin: 06/18/18 20:31 Dose: 50 mg Tramadol HCl (Ultram) 100 mg PO Q4H PRN PRN Reason: Severe Pain (7-10) Last Admin: 06/21/18 16:39 Dose: 100 mg
[2018-06-26] MEDS: Simvastatin 20 MG TAB PO SCH (21:23)
--- NOTE | 2018-06-27 01:03 | EKG ---
Test Reason : PREOP Blood Pressure : / mmHG Vent. Rate : 052 BPM Atrial Rate : 052 BPM P-R Int : 164 ms QRS Dur : 092 ms QT Int : 466 ms P-R-T Axes : 049 010 007 degrees QTc Int : 433 ms Sinus bradycardia with Premature atrial complexes Otherwise normal ECG When compared with ECG of 26-NOV-2016 11:36, Premature atrial complexes are now Present Nonspecific T wave abnormality now evident in Lateral leads Confirmed by GLEN VEGA M.D. ([id number]) on 06/27/2018 1:02:55 AM Referred By: GILMA Confirmed By:GLEN VEGA M.D.
[2018-06-27] MEDS: Tamsulosin HCl 0.4 MG CAP PO SCH ×2 (06:31→21:08)
[2018-06-27] MEDS: Famotidine 20 MG TAB PO SCH ×2 (08:50→21:08)
[2018-06-27] MEDS: Aspirin 325 mg Enteric Coated Tablet PO SCH (08:50)
[2018-06-27] MEDS: Digoxin 0.125 MG TAB PO SCH (08:50)
[2018-06-27] MEDS: Metoprolol Tartrate 25 MG TAB PO SCH ×2 (08:52→21:08)
[2018-06-27] MEDS: Ascorbic Acid 500 mg Chewable Tablet PO SCH (08:52)
[2018-06-27] MEDS: Finasteride 5 MG TAB PO SCH (08:52)
--- NOTE | 2018-06-27 11:24 | PDOC.PN ---
- Subjective Encounter Start Date: 06/27/18 Encounter Start Time: 08:30 Subjective: awake, had left hip pain in am none now -: no back ache -: is amb in room, no chest pain or palp - Objective MAR Reviewed: Yes Vital Signs & Weight: Vital Signs (12 hours) Temp Pulse Resp BP Pulse Ox 06/27/18 08:50 65 06/27/18 08:45 98.0 F 65 18 148/75 H 100 06/27/18 04:00 99.5 F 65 18 143/66 H 96 Weight Admit Weight 188 lb Weight 186 lb 11.2 oz I&O: 06/26/18 06/27/18 06/28/18 06:59 06:59 06:59 Intake Total 1470 1160 Output Total 700 1625 Balance 770 -465 Result Diagrams: 06/23/18 05:18 06/24/18 04:52 Phys Exam - Physical Examination HEENT: PERRLA, moist MMs Neck: no JVD, supple Respiratory: no wheezing, no rales Cardiovascular: RRR, no significant murmur Gastrointestinal: soft, non-tender, positive bowel sounds Musculoskeletal: no edema, pulses present Neurological: non-focal, moves all 4 limbs Psychiatric: normal affect, A&O x 3 Dx/Plan (1) NSTEMI (non-ST elevated myocardial infarction) Code(s): I21.4 - NON-ST ELEVATION (NSTEMI) MYOCARDIAL INFARCTION Status: Acute Comment: medical mgmt currently, continue ASA, Zocor, plan for heart cath on friday, 2D echo EF 45-50% (2) HAMZAH (acute kidney injury) Code(s): N17.9 - ACUTE KIDNEY FAILURE, UNSPECIFIED Status: Resolved (3) Atrial fibrillation Code(s): I48.91 - UNSPECIFIED ATRIAL FIBRILLATION Status: Acute Qualifiers: Atrial fibrillation type: paroxysmal Qualified Code(s): I48.0 - Paroxysmal atrial fibrillation (4) Status post lumbar laminectomy Code(s): Z98.890 - OTHER SPECIFIED POSTPROCEDURAL STATES Status: Acute (5) Urinary retention Code(s): R33.9 - RETENTION OF URINE, UNSPECIFIED Status: Resolved Comment: Likely due to recent surgery, medication effect, Colon catheter d/c'd (6) HLD (hyperlipidemia) Code(s): E78.5 - HYPERLIPIDEMIA, UNSPECIFIED Status: Chronic Comment: Zocor 20mg daily - Plan hemostable -: for cath on friday -: continue asp, zocor, digoxin, proscar, flomax and lopressor -: to mobilize as toleated * . Review of Systems - Medications/Allergies Allergies/Adverse Reactions: Allergies Allergy/AdvReac Type Severity Reaction Status Date / Time Antihistamines - Alkylamine Allergy Intermediate PROSTATE Verified 06/12/18 12: 13 SWELLING clindamycin Allergy Intermediate Rash Verified 06/12/18 12:13 pravastatin Allergy Intermediate PT DOESN'T Verified 06/12/18 12:13 REMEMBER Sulfa (Sulfonamide Allergy Intermediate WELPS, RASH Verified 06/12/18 12:13 Antibiotics) atorvastatin Allergy Verified 06/12/18 12:13 Medications: Current Medications Acetaminophen (Tylenol) 650 mg PO Q4H PRN PRN Reason: Headache/Fever or Pain Last Admin: 06/22/18 20:48 Dose: 650 mg Acetaminophen (Tylenol) 650 mg [place] Q4H PRN PRN Reason: Headache/Fever or Pain Al Hydroxide/Mg Hydroxide (Maalox) 30 ml PO Q4H PRN PRN Reason: Indigestion Ascorbic Acid (Vitamin C) 1,000 mg PO DAILY [facility] Last Admin: 06/27/18 08:52 Dose: 1,000 mg Aspirin (Ecotrin) 325 mg PO DAILY [facility] Last Admin: 06/27/18 08:50 Dose: 325 mg Bisacodyl (Dulcolax) 10 mg [place] Q12H PRN PRN Reason: Constipation Last Admin: 06/19/18 06:28 Dose: 10 mg Cholecalciferol (Vitamin D3) 1,000 units PO DAILY [facility] Last Admin: 06/27/18 08:52 Dose: 1,000 units Digoxin (Lanoxin) 0.125 mg PO QAM [facility] Last Admin: 06/27/18 08:50 Dose: 0.125 mg Famotidine (Pepcid) 20 mg PO BID [facility] Last Admin: 06/27/18 08:50 Dose: 20 mg Finasteride (Proscar) 5 mg PO DAILY [facility] Last Admin: 06/27/18 08:52 Dose: 5 mg Sodium Chloride (Normal Saline 0.9%) 1,000 mls @ 100 mls/hr IV .Q10H [facility] Magnesium Hydroxide (Milk Of Magnesium) 30 ml PO Q12H PRN PRN Reason: Constipation Metoprolol Tartrate (Lopressor) 12.5 mg PO BID [facility] Last Admin: 06/27/18 08:52 Dose: 12.5 mg Miscellaneous Information (Communication Order-Pharmacy) 0 each FS ASDIR [facility] Morphine Sulfate (Morphine) 2 mg SLOW IVP Q1H PRN PRN Reason: Moderate Breakthrough Pain Naproxen (Naprosyn) 250 mg PO BIDPRN PRN PRN Reason: Mild Pain (1-3) Nitroglycerin (Nitrostat) 0.4 mg SL Q5MIN PRN PRN Reason: Chest Pain Last Admin: 06/21/18 02:17 Dose: 0.4 mg Ondansetron HCl (Zofran) 4 mg IVP DAILY PRN PRN Reason: Nausea/Vomiting Last Admin: 06/18/18 21:12 Dose: 4 mg Sertraline HCl (Zoloft) 50 mg PO DAILY [facility] Last Admin: 06/27/18 08:52 Dose: 50 mg Simvastatin (Zocor) 20 mg PO QPM [facility] Last Admin: 06/26/18 21:23 Dose: 20 mg Sodium Chloride (Flush - Normal Saline) 10 ml IVF PRN PRN PRN Reason: Saline Flush Last Admin: 06/26/18 09:00 Dose: 10 ml Tamsulosin HCl (Flomax) 0.4 mg PO 0600 [facility] Last Admin: 06/27/18 06:31 Dose: 0.4 mg Tamsulosin HCl (Flomax) 0.4 mg PO HS [facility] Last Admin: 06/26/18 21:23 Dose: 0.4 mg Throat Lozenges (Cepastat Lozenges) 1 susanna PO PRN PRN PRN Reason: SORE THROAT Last Admin: 06/15/18 16:34 Dose: 1 susanna Tramadol HCl (Ultram) 50 mg PO Q4H PRN PRN Reason: Moderate Pain (4-6) Last Admin: 06/18/18 20:31 Dose: 50 mg Tramadol HCl (Ultram) 100 mg PO Q4H PRN PRN Reason: Severe Pain (7-10) Last Admin: 06/21/18 16:39 Dose: 100 mg
--- NOTE | 2018-06-27 13:47 | CON ---
DATE OF CONSULTATION: Mr. Nunes is up in the chair. He does an expressing a desire to go home. He is doing quite well from a neurosurgical perspective. He is awaiting cardiac catheterization on Friday. Job ID: [id number]
--- NOTE | 2018-06-27 18:43 | PDOC.CTH ---
Cardiology Progress Note - Subjective Doing well. No chest pain, tightness, pressure. - Objective Vital Signs Temp Pulse Pulse Resp BP BP BP 06/27/18 15:33 97.6 F 56 L 18 06/27/18 12:37 97.4 F L 65 20 117/60 06/27/18 12:32 59 L 138/60 120/66 06/27/18 08:50 65 06/27/18 08:45 98.0 F 65 18 148/75 H 06/27/18 08:00 BP Pulse Ox 06/27/18 15:33 123/60 96 06/27/18 12:37 95 06/27/18 12:32 06/27/18 08:50 06/27/18 08:45 100 06/27/18 08:00 100 Admit Weight 188 lb Weight 186 lb 11.2 oz 06/26/18 06/27/18 06/28/18 06:59 06:59 06:59 Intake Total 1470 1160 960 Output Total 700 1625 Balance 770 -465 960 - Physical Examination General/Neuro: alert & oriented x3, NAD Neck: no JVD present Lungs: unlabored respirations Heart: RRR Abdomen: NT/ND Extremities: other: (no edema.) - Telemetry Telemetry Rhythm: NSR - Labs Result Diagrams: 06/23/18 05:18 06/24/18 04:52 Troponin/CKMB CK-MB (CK-2) 18.4 ng/mL (0-6.6) H* 06/18/18 07:27 Troponin I 11.894 ng/mL (< 0.028) H* 06/20/18 07:57 - Assessment/Plan 1. NSTEMI 2. Hx of CAD. 3. Hx of CVA 4. Recent lumbar laminectomy 5. HTN 6. HLP 7. Afib new onset. PLAN: - Continue current regimen.- Plan for [facility] friday with Dr. Ramon. - Recheck BMP and replace K as appropriate.
[2018-06-27] MEDS: Simvastatin 20 MG TAB PO SCH (21:08)
[2018-06-28] MEDS: Tamsulosin HCl 0.4 MG CAP PO SCH ×2 (05:20→20:27)
[2018-06-28 07:21] LABS: ALT (SGPT) 50 U/L (8-55); AST (SGOT) 23 U/L (5-34); Albumin 2.8 g/dL (3.4-4.8); Alkaline Phosphatase 90 U/L (40-150); Anion Gap 12 mmol/L (10-20); BUN (Urea Nitrogen) 18 mg/dL (8.4-25.7); Bilirubin, Total 0.9 mg/dL (0.2-1.2); Calc. Creatinine Clearance 80 mL/min (70-130); Calcium 8.2 mg/dL (7.8-10.44); Carbon Dioxide 24 mmol/L (23-31); Chloride 105 mmol/L (98-107); Estimated GFR-MDRD 86; Globulin 2.2 g/dL (2.4-3.5); Glucose 99 mg/dL (83-110); Potassium 3.6 mmol/L (3.5-5.1); Sodium 137 mmol/L (136-145)
[2018-06-28 08:42] LABS: Hemoglobin 12.1 g/dL (14.0-18.0); INR-International Normal Ratio 1.1; Mean Corpuscular HGB CONC 31.9 g/dL (32.0-36.0); Mean Corpuscular Hemoglobin 32.9 pg (27.0-31.0); Mean Platelet Volume 9.6 fL (7.4-10.4); PTT 33.7 SEC (22.9-36.1); Platelet Count 307 thou/uL (130-400); Prothrombin Time 14.2 SEC (12.0-14.7); RBC Distribution Width 12.7 % (11.5-14.5); Red Blood Cell (RBC) Count 3.67 mill/uL (4.70-6.10)
[2018-06-28] MEDS: Digoxin 0.125 MG TAB PO SCH (08:45)
[2018-06-28] MEDS: Aspirin 325 mg Enteric Coated Tablet PO SCH (08:45)
[2018-06-28] MEDS: Ascorbic Acid 500 mg Chewable Tablet PO SCH (08:45)
[2018-06-28] MEDS: Metoprolol Tartrate 25 MG TAB PO SCH ×2 (08:47→20:27)
[2018-06-28] MEDS: Famotidine 20 MG TAB PO SCH ×2 (08:47→20:26)
[2018-06-28] MEDS: Finasteride 5 MG TAB PO SCH (08:47)
[2018-06-28] MEDS: Acetaminophen 325 MG TAB PO PRN (08:48)
[2018-06-28 09:09] LABS: #Basophils 0.1 thou/uL (0.0-0.2); #Eosinphils 0.2 thou/uL (0.0-0.7); #Lymphocytes 2.6 thou/uL (1.20-3.40); #Neutrophils 13.8 thou/uL (1.40-6.50); %Basophils 0.3 % (0.0-1.0); %Eosinophils 1.1 % (0.0-10.0); %Monocytes 10.8 % (0.0-10.0); %Neutrophils 73.8 % (42.0-75.0); Band 1 % (5-11); Eosinophils 3 % (0-10); Hypochromia SLIGHT = 6-15 cells (100X) (0-5/hpf); Large Platelets SLIGHT; Lymphocytes 3 % (21-51); MDiff Complete? YES; Monocytes 7 % (0-10); Neutrophil 81 % (42-75); Ovalocytes SLIGHT = 2-5 cells (100X) (0-1/hpf); Platelet Morphology Comment Appears Adequate; Polychromasia SLIGHT = 2-3 cells (100X) (0-2/hpf); Reactive Lymphocytes 5 % (0-10); Schistocytes SLIGHT = 2-5 cells (100X) (0-1/hpf); Target Cells SLIGHT = 2-5 cells (100X) (0-1/hpf); White Blood Cell (WBC) Count 18.7 thou/uL (4.8-10.8)
--- NOTE | 2018-06-28 10:08 | PDOC.PN ---
- Subjective Encounter Start Date: 06/28/18 Encounter Start Time: 08:30 Subjective: no chest pain or sob or cough -: at bedside -: feels good - Objective MAR Reviewed: Yes Vital Signs & Weight: Vital Signs (12 hours) Temp Pulse Resp BP Pulse Ox 06/28/18 08:45 62 06/28/18 08:39 98.1 F 60 16 136/66 98 06/28/18 04:00 98.3 F 65 18 133/62 97 Weight Admit Weight 188 lb Weight 185 lb 14.4 oz I&O: 06/27/18 06/28/18 06/29/18 06:59 06:59 06:59 Intake Total 1160 1260 Output Total 1625 Balance -465 1260 Result Diagrams: 06/28/18 07:08 06/28/18 06:35 Phys Exam - Physical Examination HEENT: PERRLA, moist MMs Neck: no JVD, supple Respiratory: no wheezing, no rales Cardiovascular: RRR, no significant murmur Gastrointestinal: soft, non-tender, positive bowel sounds Musculoskeletal: no edema, pulses present Neurological: non-focal, moves all 4 limbs Psychiatric: normal affect, A&O x 3 Dx/Plan (1) NSTEMI (non-ST elevated myocardial infarction) Code(s): I21.4 - NON-ST ELEVATION (NSTEMI) MYOCARDIAL INFARCTION Status: Acute Comment: medical mgmt currently, continue ASA, Zocor, plan for heart cath on friday, 2D echo EF 45-50% (2) HAMZAH (acute kidney injury) Code(s): N17.9 - ACUTE KIDNEY FAILURE, UNSPECIFIED Status: Resolved (3) Atrial fibrillation Code(s): I48.91 - UNSPECIFIED ATRIAL FIBRILLATION Status: Acute Qualifiers: Atrial fibrillation type: paroxysmal Qualified Code(s): I48.0 - Paroxysmal atrial fibrillation (4) Status post lumbar laminectomy Code(s): Z98.890 - OTHER SPECIFIED POSTPROCEDURAL STATES Status: Acute (5) Urinary retention Code(s): R33.9 - RETENTION OF URINE, UNSPECIFIED Status: Resolved Comment: Likely due to recent surgery, medication effect, Colon catheter d/c'd (6) HLD (hyperlipidemia) Code(s): E78.5 - HYPERLIPIDEMIA, UNSPECIFIED Status: Chronic Comment: Zocor 20mg daily - Plan hemostable -: will get a cxr due to persistent wbc elevation, no fever or cough -: continue lopressor, asp, zocor, digoxin and flomax -: is amb in hallway -: cath in am * . Review of Systems - Medications/Allergies Allergies/Adverse Reactions: Allergies Allergy/AdvReac Type Severity Reaction Status Date / Time Antihistamines - Alkylamine Allergy Intermediate PROSTATE Verified 06/12/18 12: 13 SWELLING clindamycin Allergy Intermediate Rash Verified 06/12/18 12:13 pravastatin Allergy Intermediate PT DOESN'T Verified 06/12/18 12:13 REMEMBER Sulfa (Sulfonamide Allergy Intermediate WELPS, RASH Verified 06/12/18 12:13 Antibiotics) atorvastatin Allergy Verified 06/12/18 12:13 Medications: Current Medications Acetaminophen (Tylenol) 650 mg PO Q4H PRN PRN Reason: Headache/Fever or Pain Last Admin: 06/28/18 08:48 Dose: 650 mg Acetaminophen (Tylenol) 650 mg [place] Q4H PRN PRN Reason: Headache/Fever or Pain Al Hydroxide/Mg Hydroxide (Maalox) 30 ml PO Q4H PRN PRN Reason: Indigestion Ascorbic Acid (Vitamin C) 1,000 mg PO DAILY [facility] Last Admin: 06/28/18 08:45 Dose: 1,000 mg Aspirin (Ecotrin) 325 mg PO DAILY [facility] Last Admin: 06/28/18 08:45 Dose: 325 mg Bisacodyl (Dulcolax) 10 mg [place] Q12H PRN PRN Reason: Constipation Last Admin: 06/19/18 06:28 Dose: 10 mg Cholecalciferol (Vitamin D3) 1,000 units PO DAILY [facility] Last Admin: 06/28/18 08:45 Dose: 1,000 units Digoxin (Lanoxin) 0.125 mg PO QAM [facility] Last Admin: 06/28/18 08:45 Dose: 0.125 mg Famotidine (Pepcid) 20 mg PO BID [facility] Last Admin: 06/28/18 08:47 Dose: 20 mg Finasteride (Proscar) 5 mg PO DAILY [facility] Last Admin: 06/28/18 08:47 Dose: 5 mg Sodium Chloride (Normal Saline 0.9%) 1,000 mls @ 100 mls/hr IV .Q10H [facility] Magnesium Hydroxide (Milk Of Magnesium) 30 ml PO Q12H PRN PRN Reason: Constipation Metoprolol Tartrate (Lopressor) 12.5 mg PO BID [facility] Last Admin: 06/28/18 08:47 Dose: 12.5 mg Miscellaneous Information (Communication Order-Pharmacy) 0 each FS ASDIR [facility] Morphine Sulfate (Morphine) 2 mg SLOW IVP Q1H PRN PRN Reason: Moderate Breakthrough Pain Naproxen (Naprosyn) 250 mg PO BIDPRN PRN PRN Reason: Mild Pain (1-3) Nitroglycerin (Nitrostat) 0.4 mg SL Q5MIN PRN PRN Reason: Chest Pain Last Admin: 06/21/18 02:17 Dose: 0.4 mg Ondansetron HCl (Zofran) 4 mg IVP DAILY PRN PRN Reason: Nausea/Vomiting Last Admin: 06/18/18 21:12 Dose: 4 mg Sertraline HCl (Zoloft) 50 mg PO DAILY [facility] Last Admin: 06/28/18 08:48 Dose: 50 mg Simvastatin (Zocor) 20 mg PO QPM [facility] Last Admin: 06/27/18 21:08 Dose: 20 mg Sodium Chloride (Flush - Normal Saline) 10 ml IVF PRN PRN PRN Reason: Saline Flush Last Admin: 06/28/18 08:48 Dose: 10 ml Tamsulosin HCl (Flomax) 0.4 mg PO 0600 [facility] Last Admin: 06/28/18 05:20 Dose: 0.4 mg Tamsulosin HCl (Flomax) 0.4 mg PO HS [facility] Last Admin: 06/27/18 21:08 Dose: 0.4 mg Throat Lozenges (Cepastat Lozenges) 1 susanna PO PRN PRN PRN Reason: SORE THROAT Last Admin: 06/15/18 16:34 Dose: 1 susanna Tramadol HCl (Ultram) 50 mg PO Q4H PRN PRN Reason: Moderate Pain (4-6) Last Admin: 06/18/18 20:31 Dose: 50 mg Tramadol HCl (Ultram) 100 mg PO Q4H PRN PRN Reason: Severe Pain (7-10) Last Admin: 06/21/18 16:39 Dose: 100 mg
--- NOTE | 2018-06-28 14:55 | RAD ---
PORTABLE UPRIGHT FRONTAL CHEST RADIOGRAPH: DATE: 06/28/2018. COMPARISON: 08/29/2009 and 06/02/2018. HISTORY: Cough, pain, rollout infiltrate. FINDINGS: New focal opacity noted in left lung base with obscuration of the left hemidiaphragm and blunting of the left costophrenic angle. No pneumothorax is seen. There is mild blunting of the right costophre fadia angle as well. IMPRESSION: New dense opacity in the left base suggests left lower lobe consolidation/collapse and/or left pleura l fluid. Findings may be related to infectious pneumonitis or aspiration. Pulmonary edema is a poss ibility as well. Clinical correlation is required. Followup imaging following treatment advised. POS: DENYS
--- NOTE | 2018-06-28 17:40 | PDOC.CTH ---
Cardiology Progress Note - Subjective No new issues. No chest pain. - Objective Vital Signs Temp Pulse Pulse Pulse Resp BP BP 06/28/18 16:50 98.2 F 60 17 06/28/18 12:12 57 L 59 L 138/60 120/66 06/28/18 11:22 97.8 F 76 17 06/28/18 08:45 62 06/28/18 08:39 98.1 F 60 16 BP BP Pulse Ox 06/28/18 16:50 133/63 98 06/28/18 12:12 06/28/18 11:22 123/66 100 06/28/18 08:45 06/28/18 08:39 136/66 98 Admit Weight 188 lb Weight 185 lb 14.4 oz 06/27/18 06/28/18 06/29/18 06:59 06:59 06:59 Intake Total 1160 1260 Output Total 1625 Balance -465 1260 - Physical Examination General/Neuro: alert & oriented x3, NAD Neck: no JVD present Lungs: CTA, unlabored respirations Heart: RRR Abdomen: NT/ND Extremities: + edema B (1+) - Telemetry Telemetry Rhythm: NSR - Labs Result Diagrams: 06/28/18 07:08 06/28/18 06:35 Troponin/CKMB CK-MB (CK-2) 18.4 ng/mL (0-6.6) H* 06/18/18 07:27 Troponin I 11.894 ng/mL (< 0.028) H* 06/20/18 07:57 - Assessment/Plan 1. NSTEMI 2. Hx of CAD. 3. Hx of CVA 4. Recent lumbar laminectomy 5. HTN 6. HLP 7. Afib new onset. PLAN: - Continue current regimen. - Plan for [facility] tomorrow morning with Dr. Ramon. - Recheck BMP and replace K as appropriate.
[2018-06-28] MEDS: Simvastatin 20 MG TAB PO SCH (20:27)
[2018-06-28] MEDS ORDERED: Sodium Chloride 0.9% 1,000 ML IV SCH (23:30)
[2018-06-29] MEDS ORDERED: ALPRAZolam 0.25 MG TAB PO SCH (02:30)
[2018-06-29] MEDS ORDERED: Sodium Chloride 0.9% 1,000 ML IV SCH ×2 (06:00→09:05)
--- NOTE | 2018-06-29 07:03 | PRG ---
DATE OF SERVICE: 06/29/2018 I saw Mr. Nunes in his hospital room this morning. He is due for coronary angiography today. If there are lesions requiring stenting, then stents will be deployed and will be placed on Plavix. We are now 2 weeks out from his laminectomy and we have waited significant period of time to ensure risk of wound hematoma is low. I will follow up Mr. Nunes tomorrow after his cath and hopefully he will be ready for discharge then. Job ID: [id number]
[2018-06-29] MEDS ORDERED: Fentanyl 100 MCG/2 ML VIAL ONE (07:59)
[2018-06-29] MEDS ORDERED: Midazolam HCl 2 mg/2 ml Vial ONE (07:59)
[2018-06-29] MEDS ORDERED: Acetaminophen/Codeine 30-300mg Tablet PO PRN ×2 (09:03)
[2018-06-29] MEDS ORDERED: Nitroglycerin 0.4 MG TAB (25 Tab Bottle) SL PRN (09:03)
[2018-06-29] MEDS ORDERED: Sodium Chloride 0.9% 200 ML IV PRN (09:03)
[2018-06-29] MEDS: Metoprolol Tartrate 25 MG TAB PO SCH ×2 (09:30→20:26)
[2018-06-29] MEDS: Finasteride 5 MG TAB PO SCH (09:30)
[2018-06-29] MEDS: Ascorbic Acid 500 mg Chewable Tablet PO SCH (09:31)
[2018-06-29] MEDS: Tamsulosin HCl 0.4 MG CAP PO SCH ×2 (09:31→20:26)
[2018-06-29] MEDS: Famotidine 20 MG TAB PO SCH ×2 (09:31→20:26)
[2018-06-29] MEDS: Digoxin 0.125 MG TAB PO SCH (09:32)
[2018-06-29] MEDS: Aspirin 325 mg Enteric Coated Tablet PO SCH (09:35)
[2018-06-29] MEDS ORDERED: Communication Order-Pharmacy FS SCH (12:07)
--- NOTE | 2018-06-29 12:51 | PDOC.PN ---
- Subjective Encounter Start Date: 06/29/18 Encounter Start Time: 10:00 Subjective: had cath this am, is sleeping -: no chest pain or sob - Objective MAR Reviewed: Yes Vital Signs & Weight: Vital Signs (12 hours) Temp Pulse Resp BP BP Pulse Ox 06/29/18 07:20 65 20 135/63 100 06/29/18 04:00 98.1 F 64 20 138/73 96 Weight Admit Weight 188 lb Weight 191 lb 1.6 oz I&O: 06/28/18 06/29/18 06/30/18 06:59 06:59 06:59 Intake Total 1260 1140 Balance 1260 1140 Result Diagrams: 06/28/18 07:08 06/28/18 06:35 Phys Exam - Physical Examination HEENT: PERRLA, moist MMs Neck: no JVD, supple Respiratory: no wheezing, no rales Cardiovascular: RRR, no significant murmur Gastrointestinal: soft, non-tender, positive bowel sounds Musculoskeletal: no edema, pulses present Neurological: non-focal, moves all 4 limbs Psychiatric: normal affect, A&O x 3 Dx/Plan (1) NSTEMI (non-ST elevated myocardial infarction) Code(s): I21.4 - NON-ST ELEVATION (NSTEMI) MYOCARDIAL INFARCTION Status: Acute Comment: medical mgmt currently, continue ASA, Zocor, plan for heart cath on friday, 2D echo EF 45-50% (2) HAMZAH (acute kidney injury) Code(s): N17.9 - ACUTE KIDNEY FAILURE, UNSPECIFIED Status: Resolved (3) Atrial fibrillation Code(s): I48.91 - UNSPECIFIED ATRIAL FIBRILLATION Status: Acute Qualifiers: Atrial fibrillation type: paroxysmal Qualified Code(s): I48.0 - Paroxysmal atrial fibrillation (4) Status post lumbar laminectomy Code(s): Z98.890 - OTHER SPECIFIED POSTPROCEDURAL STATES Status: Acute (5) Urinary retention Code(s): R33.9 - RETENTION OF URINE, UNSPECIFIED Status: Resolved Comment: Likely due to recent surgery, medication effect, Colon catheter d/c'd (6) HLD (hyperlipidemia) Code(s): E78.5 - HYPERLIPIDEMIA, UNSPECIFIED Status: Chronic Comment: Zocor 20mg daily (7) CAD (coronary artery disease) Code(s): I25.10 - ATHSCL HEART DISEASE OF [place] CORONARY ARTERY W/O ANG PCTRS Status: Acute Qualifiers: Coronary Disease-Associated Artery/Lesion type: [place] artery [place] vs. transplanted heart: [place] heart Associated angina: with stable angina Qualified Code(s): I25.118 - Atherosclerotic heart disease of [place] coronary artery with other forms of angina pectoris - Plan await cts opinion -: hemostable -: continue lopressor, digoxin, proscar, flomax, asp, zocor -: family at bedside -: mobilize post cath protocol * . Review of Systems - Medications/Allergies Allergies/Adverse Reactions: Allergies Allergy/AdvReac Type Severity Reaction Status Date / Time Antihistamines - Alkylamine Allergy Intermediate PROSTATE Verified 06/12/18 12: 13 SWELLING clindamycin Allergy Intermediate Rash Verified 06/12/18 12:13 pravastatin Allergy Intermediate PT DOESN'T Verified 06/12/18 12:13 REMEMBER Sulfa (Sulfonamide Allergy Intermediate WELPS, RASH Verified 06/12/18 12:13 Antibiotics) atorvastatin Allergy Verified 06/12/18 12:13 Medications: Current Medications Acetaminophen (Tylenol) 650 mg PO Q4H PRN PRN Reason: Headache/Fever or Pain Last Admin: 06/28/18 08:48 Dose: 650 mg Acetaminophen (Tylenol) 650 mg [place] Q4H PRN PRN Reason: Headache/Fever or Pain Acetaminophen/Codeine Phosphate (Tylenol #3) 1 tab PO Q4H PRN PRN Reason: Mild Pain (1-3) Acetaminophen/Codeine Phosphate (Tylenol #3) 2 tab PO Q4H PRN PRN Reason: Moderate Pain (4-6) Al Hydroxide/Mg Hydroxide (Maalox) 30 ml PO Q4H PRN PRN Reason: Indigestion Ascorbic Acid (Vitamin C) 1,000 mg PO DAILY [facility] Last Admin: 06/29/18 09:31 Dose: 1,000 mg Aspirin (Ecotrin) 325 mg PO DAILY [facility] Last Admin: 06/29/18 09:35 Dose: 325 mg Bisacodyl (Dulcolax) 10 mg [place] Q12H PRN PRN Reason: Constipation Last Admin: 06/19/18 06:28 Dose: 10 mg Cholecalciferol (Vitamin D3) 1,000 units PO DAILY [facility] Last Admin: 06/29/18 09:33 Dose: 1,000 units Famotidine (Pepcid) 20 mg PO BID [facility] Last Admin: 06/29/18 09:31 Dose: 20 mg Finasteride (Proscar) 5 mg PO DAILY [facility] Last Admin: 06/29/18 09:30 Dose: 5 mg Levofloxacin 500 mg/ Device 100 mls @ 100 mls/hr IVPB Q24HR [facility] Last Admin: 06/29/18 09:33 Dose: 100 mls Sodium Chloride (Normal Saline 0.9%) 200 mls @ 0 mls/hr IV ONE PRN PRN Reason: SBP < 90 Stop: 07/02/18 09:04 Sodium Chloride (Normal Saline 0.9%) 1,000 mls @ 125 mls/hr IV .Q8H [facility] Stop: 06/29/18 15:00 Last Admin: 06/29/18 11:20 Dose: 1,000 mls Vancomycin HCl 1 gm/ Device 200 mls @ 200 mls/hr IVPB WILLCALL [facility] Magnesium Hydroxide (Milk Of Magnesium) 30 ml PO Q12H PRN PRN Reason: Constipation Metoprolol Tartrate (Lopressor) 12.5 mg PO BID [facility] Last Admin: 06/29/18 09:30 Dose: 12.5 mg Miscellaneous Information (Communication Order-Pharmacy) 0 each FS ASDIR [facility] Miscellaneous Information (Communication Order-Pharmacy) 1 each FS ASDIR [facility] Morphine Sulfate (Morphine) 2 mg SLOW IVP Q1H PRN PRN Reason: Moderate Breakthrough Pain Naproxen (Naprosyn) 250 mg PO BIDPRN PRN PRN Reason: Mild Pain (1-3) Nitroglycerin (Nitrostat) 0.4 mg SL Q5MIN PRN PRN Reason: Chest Pain Last Admin: 06/21/18 02:17 Dose: 0.4 mg Nitroglycerin (Nitrostat) 0.4 mg SL Q5MIN PRN PRN Reason: Chest Pain Ondansetron HCl (Zofran) 4 mg IVP DAILY PRN PRN Reason: Nausea/Vomiting Last Admin: 06/18/18 21:12 Dose: 4 mg Sertraline HCl (Zoloft) 50 mg PO DAILY [facility] Last Admin: 06/29/18 09:31 Dose: 50 mg Simvastatin (Zocor) 20 mg PO QPM [facility] Last Admin: 06/28/18 20:27 Dose: 20 mg Sodium Chloride (Flush - Normal Saline) 10 ml IVF PRN PRN PRN Reason: Saline Flush Last Admin: 06/28/18 08:48 Dose: 10 ml Tamsulosin HCl (Flomax) 0.4 mg PO 0600 [facility] Last Admin: 06/29/18 09:31 Dose: 0.4 mg Tamsulosin HCl (Flomax) 0.4 mg PO HS [facility] Last Admin: 06/28/18 20:27 Dose: 0.4 mg Throat Lozenges (Cepastat Lozenges) 1 susanna PO PRN PRN PRN Reason: SORE THROAT Last Admin: 06/15/18 16:34 Dose: 1 susanna Tramadol HCl (Ultram) 50 mg PO Q4H PRN PRN Reason: Moderate Pain (4-6) Last Admin: 06/18/18 20:31 Dose: 50 mg Tramadol HCl (Ultram) 100 mg PO Q4H PRN PRN Reason: Severe Pain (7-10) Last Admin: 06/21/18 16:39 Dose: 100 mg
[2018-06-29] MEDS ORDERED: Iopamidol 370 76% 100 ML VIAL ONE (13:21)
[2018-06-29] MEDS ORDERED: Iopamidol 370 76% 50 ML VIAL FS ONE (13:21)
[2018-06-29] MEDS ORDERED: Lorazepam 2 MG/ML VIAL SLOW IVP SCH (13:30)
--- NOTE | 2018-06-29 15:23 | CON ---
DATE OF CONSULTATION: 06/29/2018 PRIMARY CARE PHYSICIAN: Dr. Cadence Oakes. CHIEF COMPLAINT: Chest pain. HISTORY OF PRESENT ILLNESS: The patient is an 82-year-old man with a known history of coronary artery disease, who underwent a multilevel lumbar laminectomy for spinal stenosis manifest as back pain and right leg numbness on Friday, June 15 of this year. On the morning of , the , he had a sense of impending doom. He reported generalized weakness and reported some vague chest discomfort the previous evening. He had elevated cardiac enzymes and episodes of atrial fibrillation and over the weekend on the , he had an episode of prolonged chest pain, but did not have any further bump in his enzymes. With the expectation that he is apt to need aggressive antiplatelet therapy post PCI, catheterization was delayed till now, when he is now 2 weeks post laminectomy. 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 PAST MEDICAL HISTORY: Significant for coronary artery disease. He describes having undergone placement of 5 previous stents at another institution. He describes having had a stroke about 4 years ago that has manifested some left arm and leg weakness that has since resolved. Hypertension and he is many years status post left lower lobectomy for cancer. He has had previous herniorrhaphy, cholecystectomy, and lumbar laminectomy. MEDICATIONS: His home medications are; 1. Aspirin. 2. Plavix, which has been on hold. 3. Pepcid. 4. Proscar. 5. Lisinopril/hydrochlorothiazide. 6. Naproxen. 7. Zoloft. 8. Simvastatin. 9. Flomax. ALLERGIES: HE REPORTS AN INTOLERANCE TO ATORVASTATIN AND PRAVASTATIN, WHICH CAUSE MYALGIAS; ANTIHISTAMINES, WHICH RESULT IN DIFFICULTY URINATING; CLINDAMYCIN (UNSURE OF THE REACTION THAT CAUSES); AND SULFONAMIDES, WHICH CAUSES A RASH. SOCIAL HISTORY: He quit smoking in 1989 when he had his lung cancer surgery. FAMILY HISTORY: Notable for coronary artery disease in both of his parents. REVIEW OF SYSTEMS: Negative for any recent TIA symptoms. It is positive for an episode of urinary retention during this hospitalization and his right leg numbness and back pain after having picked up some lumbar prompting his current hospitalization for laminectomy. He denies any shortness of breath, orthopnea, or PND. PHYSICAL EXAMINATION: GENERAL: He is an anxious man, who easily becomes tearful. VITAL SIGNS: He is 6 feet 1 inch and weighs 191 pounds. Heart rate is 65 and blood pressure 135/63. HEENT: He has no xanthelasma. NECK: No JVD. No carotid bruits. CHEST: Clear to auscultation. HEART: He has regular rate and rhythm without any murmurs, gallops, heaves, or thrills. ABDOMEN: Soft and nontender without masses or bruits. EXTREMITIES: He has palpable radial and femoral pulses. Both femorals are associated with bruits. I was not able to appreciate dorsalis pedis or posterior tibial pulses or popliteal pulses. He has 1 to 2+ pitting edema at the ankles. LABORATORY DATA: Laboratory exam shows from yesterday morning; white count of 18.7, hemoglobin 12.1, hematocrit 37.9, and platelets 307,000. Chemistries from this morning; sodium 137, potassium 3.6, chloride 105, CO2 of 24, BUN 18, creatinine 0.85, glucose 99, calcium 8.2, protein 5.0, albumin 2.8, bilirubin 0.9, alkaline phosphatase 90, AST 23, and ALT 50. From about 10 days ago, fasting lipids were triglycerides 94, cholesterol 97, LDL 50, and HDL 28. His troponin on the morning of the 14 was 32.173, that afternoon 26.338, that evening 24.450, and then on the morning of the 16, it was 11.894. An echocardiogram that was done on the 15 shows an LVEF of 45% to 50% with a fairly large left atrium at 5.41 cm, but no left ventricular abnormalities beyond the mildly decreased LV. His chest x-ray from yesterday shows some minimal volume loss on the left side consistent with his previous surgery, perhaps some mild edema in the hilar fluffiness. No obvious aortic knob calcification, perhaps some mild cardiomegaly. Cardiac catheterization shows essentially 3-vessel disease. His LAD is a diffusely diseased vessel. It gives rise to a high diagonal, which has a very high-grade lesion and yet it runs in a ramus or first OM type distribution anterolaterally. There is a much smaller second diagonal with an ostial lesion in it fairly high. The mid LAD has serial high-grade stenoses in it and then distally it occludes and then is a very small vessel going on out to the apex. It may simply be under filled. The circumflex proper travels in the groove and no significant obtuse marginal emerges. The right coronary artery is occluded and relatively small PDA and posterior lateral branches can be seen filling to the crux left to right. LVEF is around 50% or perhaps even 60%, but there is a narrow necked small aneurysmal portion inferior atypically without any trabeculation noted in it. The LV pressures were 107/2 with an EDP of 5, and an aortic pressure on pullback was 93/38 with a mean of 57. IMPRESSION AND RECOMMENDATIONS: Essentially 3-vessel coronary artery disease, the left anterior descending will be a technical challenge and even if graftable may result in an incomplete revascularization. I do not see any truly hypokinetic let alone akinetic segments, but there is this aneurysm or pseudoaneurysm that will need to be surgically repaired. I have discussed with Dr. Ramon at some length and with Dr. Yun concerning the issue of sufficient anticoagulation intraoperatively to do the procedure. I believe Dr. Yun is going to look at an MRI to help him decide about whether it will be okay to proceed with surgery at this time or whether waiting a bit longer would be prudent. Job ID: [id number]
--- NOTE | 2018-06-29 17:09 | MRI ---
MRI OF THE LUMBAR SPINE WITHOUT CONTRAST: Date: 06/29/18 INDICATION: Concern for postop hematoma. TECHNIQUE: Multiplanar, multisequence MR images obtained of the lumbar spine without IV contrast. A few of the s eries had to be repeated due to motion artifact. The patient reportedly has restless leg syndrome. COMPARISON: Prior MRI of the lumbar spine dated 04/23/18. FINDINGS: There is diffuse intermediate signal intensity with scattered fatty marrow signal intensity suspiciou s for some red marrow hyperplasia. This can be seen in anemic states, as well as in patients who have chronic hypoxia, possibly related to smoking or obesity. At the T12-L1 level, there is a suspected stable mild broad based bulge, but no appreciable central c anal or neural foraminal narrowing. At the L1-L2 level, there has been interval laminectomy at L1 through L3 and L4 and L5. There is a 2. 2 x 4.3 x 6.5 cm (mediolateral, AP, and craniocaudad dimensions, respectively)T2 hyperintense fluid c ollection seen within the laminectomy defect site that communicates to the skin incision site which m ay reflect a postoperative fluid collection, pseudomeningocele, or CSF leak. At L1-L2, there has been relief of the central canal narrowing. There is persistent mild bilateral neural foraminal narrowing , left greater than right. At the L2-3 level, there is a broad based bulge, but with improvement in the central canal narrowing due to the recent laminectomy. The moderate bilateral neural foraminal narrowing is stable. At L3-4 level, there is residual broad based bulge with facet joint degenerative change inducing mild central canal narrowing and mild neural foraminal narrowing, left greater than right, At L4-5, there is improvement in the central canal narrowing. There is a residual broad based disc os teophyte complex inducing stable moderate to severe left and mild to moderate right neuroforaminal na rrowing. There is a prominent CSF signal intensity collection seen posterior to the laminectomy defec t site measuring approximately 3.0 x 6.2 x 3.6 cm in its greatest mediolateral, AP, and craniocaudad dimensions, respectively. At the L5-S1 level, there is a disc osteophyte complex and loss of disc space height inducing stable moderate to severe left and mild right neural foraminal narrowing. IMPRESSION: 1. Postoperative change of laminectomies from L1-L3 and L4-L5. There is T2 hyperintense fluid signal intensity collection seen posterior to the epidural space at the laminectomy defect sites that may r eflect postoperative fluid collections, small CSF leads, or small pseudomeningoceles. 2. Improvement in central canal narrowing seen at L1-2, L2-3, and L4-5. 3. Stable multilevel neural foraminal narrowing. 4. Intermediate signal intensity seen within the marrow space of the lumbar spine can be seen with r ed marrow hyperplasia. Recommend correlation for any symptoms and signs of anemia. Recommend consider ation for a CBC. This also can be seen in hypoxic states with patients who are smokers or patients wh o are chronically obese. POS: DENYS
--- NOTE | 2018-06-29 18:39 | PRG ---
DATE OF SERVICE: 06/29/2018 Mr. Nunes was not a candidate for angioplasty, but he is a candidate for cardiac surgery. I spoke with his CV surgeon, Dr. Phelps, and I scanned the lumbar spine to see if there is a large hematoma. He does have fluid collections, but these are much smaller than I would anticipate, 2 weeks out and the patient in his age. I think this is as low risk as it is going to be. There is no zero risk surgery, but he will need anticoagulation during the operation for his heart and the risk is much lower now than it was immediately following his spine surgery. I am pleased with the results of the MRI scan. I will revisit with the family tomorrow morning. Job ID: [id number]
[2018-06-29] MEDS: Simvastatin 20 MG TAB PO SCH (20:26)
[2018-06-30] MEDS ORDERED: Melatonin 3 MG TAB PO SCH (00:30)
[2018-06-30] MEDS ORDERED: CEFAZOLIN 2 GM in Premix Bag 1 BAG IVPB SCH (02:45)
[2018-06-30] MEDS: Metoprolol Tartrate 25 MG TAB PO SCH (05:51)
[2018-06-30] MEDS ORDERED: Norepinephrine 8 MG/0.9% NS 250 ML ONE (06:02)
[2018-06-30] MEDS: Tamsulosin HCl 0.4 MG CAP PO SCH ×2 (06:06→21:37)
[2018-06-30] MEDS ORDERED: Fentanyl 250 MCG/5 ML VIAL ONE (06:19)
[2018-06-30] MEDS ORDERED: Albumin 5% 500 ML ONE (06:25)
[2018-06-30] MEDS ORDERED: CABG-Vancomycin 1 GM in Premix Bag 1 BAG IVPB SCH (06:45)
--- NOTE | 2018-06-30 06:52 | PRG ---
DATE OF SERVICE: 06/30/2018 I saw Mr. Nunes in his hospital room this morning. I spoke with Dr. Phelps yesterday about cardiac surgery and the need for anticoagulation during that surgery. We scanned the spine and I felt that the fluid collections there were smaller than average at 2 weeks and there is no overt compression of neural elements. We elected to let Mr. Nunes go to cardiac surgery today, realizing that there is no risk free plan, although this balance is as best we can risk and benefit. Vital signs have been stable. I do not find any new neurological deficit in the lower extremities. I offered Mr. Nunes my best wishes and good luck for his surgery today. I will follow up on his outcome after his operation. Job ID: [id number] [facility]
[2018-06-30] MEDS ORDERED: Heparin 10,000 UNITS/1 ML VIAL 30,000 UNITS in Sodium Chloride 0.9% 1,000 ML FS SCH (07:00)
[2018-06-30] MEDS ORDERED: Insulin Regular 300 UNITS/3 ML VIAL ONE (10:03)
[2018-06-30] MEDS ORDERED: PHENYLEPHRINE-NS 100 MCG/ML 10 ML SYRINGE ONE (12:05)
[2018-06-30] MEDS ORDERED: Protamine Sulfate 50 MG/5 ML VIAL ONE (12:17)
[2018-06-30] MEDS ORDERED: Post-Op Insulin Drip Protocol IVPB ONE (12:59)
[2018-06-30] MEDS ORDERED: Fentanyl 100 MCG/2 ML VIAL SLOW IVP PRN ×2 (12:59)
[2018-06-30] MEDS ORDERED: Hetastarch 6% 500 ML 500 ML IVPB PRN (12:59)
[2018-06-30] MEDS ORDERED: Mag-Al 1200 mg/1200 mg/30 ML UDCUP PO PRN (12:59)
[2018-06-30] MEDS ORDERED: Guaifenesin DM 100-10/5 ML UDCUP PO PRN (12:59)
[2018-06-30] MEDS ORDERED: Bisacodyl 5 MG TAB PO PRN (12:59)
[2018-06-30] MEDS ORDERED: Norepinephrine 8 MG/0.9% NS 250 ML IVPB PRN (12:59)
[2018-06-30] MEDS ORDERED: niCARdipine HCl 25 MG in Sodium Chloride 0.9% 250 ML 240 ML IVPB PRN (12:59)
[2018-06-30] MEDS ORDERED: Bisacodyl 10 MG SUPP PR PRN (12:59)
[2018-06-30] MEDS ORDERED: HYDROcodone/Acetaminophen 5/325 mg Tablet PO PRN (12:59)
[2018-06-30] MEDS ORDERED: Potassium Chloride 20 MEQ/100 ML PREMIX BAG IVPB PRN (12:59)
[2018-06-30] MEDS ORDERED: Morphine 2 MG/ML SYRINGE SLOW IVP PRN (12:59)
[2018-06-30] MEDS ORDERED: Promethazine HCl 25 MG/ML VIAL IM PRN (12:59)
[2018-06-30] MEDS ORDERED: Nitroglycerin 50 MG/250 ML BOT 250 ML IVPB PRN (12:59)
[2018-06-30] MEDS ORDERED: Acetaminophen 325 MG TAB PO PRN (12:59)
[2018-06-30] MEDS ORDERED: hydrALAZINE 20 MG/ML VIAL SLOW IVP PRN (12:59)
[2018-06-30] MEDS ORDERED: Dextrose 50% Abboject 50 ML SYRINGE SLOW IVP PRN (13:10)
[2018-06-30] MEDS ORDERED: Dextrose 5% in Water 1,000 ML IV PRN (13:10)
[2018-06-30] MEDS ORDERED: Aspirin 325 MG TAB PO SCH (13:15)
[2018-06-30] MEDS ORDERED: Famotidine/PF 20 mg/2ml Vial SLOW IVP SCH (13:15)
[2018-06-30] MEDS: Ascorbic Acid 500 mg Chewable Tablet PO SCH (13:25)
[2018-06-30] MEDS: Finasteride 5 MG TAB PO SCH (13:26)
[2018-06-30] MEDS ORDERED: Rocuronium Bromide 50 MG/5 ML VIAL ONE (13:35)
[2018-06-30] MEDS: Aspirin 325 mg Enteric Coated Tablet PO SCH (13:40)
[2018-06-30] MEDS: Famotidine 20 MG TAB PO SCH (13:41)
--- NOTE | 2018-06-30 14:18 | RAD ---
SINGLE VIEW OF THE CHEST: Comparison: 06-28-18 History: Status post open heart surgery. FINDINGS: Single view of the chest shows an enlarged but stable cardiomediastinal silhouette. An endotracheal t ube is seen with its tip between the clavicles. A central venous catheter is seen with its tip in the superior vena cava. Patient is status post sternotomy. There are bilateral opacities which may repre sent small pleural effusions. IMPRESSION: 1. Possible small bilateral pleural effusions. POS: [facility]
[2018-06-30] MEDS: Sodium Chloride 0.9% 1,000 ML IV SCH (14:19)
[2018-06-30 14:28] LABS: Actual Bicarbonate (HCO3a) 19.5 mEq/L (22-28); Base Excess (BEa) -4.2 mEq/L (-2.0 to +3.0); CO2 Tension 30.9 mmHg (35.0-45.0); Calcium, Ionized 1.02 mmol/L (1.12-1.30); Carboxyhemoglobin (COHb) 1.4 gm% (0.0-3.0); Hemoglobin (Hb) 10.8 g/dL (14.0-18.0); O2 Tension (PaO2) 115.9 mmHg (> 60.0); Potassium - ABG Lab 3.82 mmol/L (3.70-5.30); pH, Arterial 7.42 (7.35-7.45)
[2018-06-30 14:33] LABS: ALV-art Gradient 344.575 (0-20); Puncture Site ALINE
[2018-06-30 14:34] LABS: Hemoglobin 9.6 g/dL (14.0-18.0); Mean Corpuscular HGB CONC 31.4 g/dL (32.0-36.0); Mean Platelet Volume 9.2 fL (7.4-10.4); Platelet Count 196 thou/uL (130-400); RBC Distribution Width 12.6 % (11.5-14.5); Red Blood Cell (RBC) Count 2.91 mill/uL (4.70-6.10); White Blood Cell (WBC) Count 33.8 thou/uL (4.8-10.8)
[2018-06-30 14:38] LABS: INR-International Normal Ratio 1.4; PTT 37.7 SEC (22.9-36.1); Prothrombin Time 17.7 SEC (12.0-14.7)
[2018-06-30 14:55] LABS: Band 19 % (5-11); Burr Cells SLIGHT = 2-5 cells (100X) (0-1/hpf); Howell Jolly Bodies SLIGHT = 1-2 cells (100X) (None Seen); Large Platelets SLIGHT; Lymphocytes 3 % (21-51); MDiff Complete? YES; Macrocytosis SLIGHT = 6-15 cells (100X) (0-5/hpf); Metamyelocyte 2 % (0-0); Monocytes 7 % (0-10); Myelocyte 1 % (0-0); Neutrophil 68 % (42-75); Ovalocytes SLIGHT = 2-5 cells (100X) (0-1/hpf); Platelet Morphology Comment Appears Adequate; Poikilocytosis SLIGHT = 6-15 cells (100X) (0-5/hpf); Polychromasia SLIGHT = 2-3 cells (100X) (0-2/hpf); Schistocytes SLIGHT = 2-5 cells (100X) (0-1/hpf)
[2018-06-30 14:56] LABS: Anion Gap 9 mmol/L (10-20); BUN (Urea Nitrogen) 19 mg/dL (8.4-25.7); Calc. Creatinine Clearance 84 mL/min (70-130); Carbon Dioxide 21 mmol/L (23-31); Chloride 112 mmol/L (98-107); Estimated GFR-MDRD 89; Glucose 182 mg/dL (83-110); Sodium 138 mmol/L (136-145)
[2018-06-30] MEDS: HUMULIN R 100 UNITS in Sodium Chloride 0.9% 100 ML IVPB SCH ×2 (15:05→21:04)
[2018-06-30] MEDS ORDERED: Aminocaproic Acid 5 GM/20 ML VIAL ONE (15:43)
[2018-06-30] MEDS ORDERED: Potassium Chloride 60 MEQ/30 ML VIAL ONE (15:43)
[2018-06-30] MEDS ORDERED: Succinylcholine Chloride 20 MG/ML 10 ml SYRINGE FS ONE (15:43)
[2018-06-30] MEDS ORDERED: Magnesium 5 GM/10 ML VIAL ONE (15:43)
[2018-06-30] MEDS ORDERED: Dexamethasone 20 MG/5 ML VIAL ONE (15:43)
[2018-06-30] MEDS ORDERED: Protamine Sulfate 250 MG/25 ML VIAL ONE (15:43)
[2018-06-30] MEDS ORDERED: Sodium Bicarb 50 MEQ/50 ML VIAL ONE (15:43)
[2018-06-30] MEDS ORDERED: Heparin 30,000 units/30 ml VIAL ONE (15:43)
[2018-06-30] MEDS ORDERED: Calcium Chloride 1 GM/10 ML Abboject SYRINGE ONE (15:43)
[2018-06-30] MEDS ORDERED: Heparin 5,000 UNITS/ML VIAL ONE (15:43)
[2018-06-30] MEDS ORDERED: Rocuronium Bromide 10 MG/ML (10ML VIAL) ONE (15:43)
[2018-06-30] MEDS ORDERED: EPINEPHrine 1 MG/10 ML Abboject SYRINGE ONE (15:43)
[2018-06-30] MEDS ORDERED: Cardioplegic Soln 1,000 ML BAG ONE (15:43)
[2018-06-30] MEDS ORDERED: Vecuronium 10 MG VIAL ONE (15:43)
[2018-06-30] MEDS ORDERED: Lidocaine 2% PF 100 mg/5 ml Syringe ONE (15:43)
[2018-06-30] MEDS ORDERED: Thrombin 5000 UNITS/5 ML VIAL ONE (15:43)
[2018-06-30] MEDS ORDERED: Mannitol 12.5 GM/50 ML ONE (15:43)
[2018-06-30] MEDS ORDERED: Papaverine 60 MG/2 ML VIAL ONE (15:43)
[2018-06-30] MEDS ORDERED: PROPOFOL 200 MG/20 ML VIAL ONE (15:43)
[2018-06-30] MEDS: Insulin Regular 300 UNITS/3 ML VIAL SC PRN (15:59)
--- NOTE | 2018-06-30 18:09 | OP ---
DATE OF PROCEDURE: 06/30/2018 PROCEDURES PERFORMED: Coronary artery bypass grafting x5 with left internal mammary artery to the mid left anterior descending, to the distal left anterior descending and separate reverse greater saphenous vein graft from the aorta to the first diagonal, to the second diagonal into the posterior descending artery, ligation of left atrial appendage and 5-German right common femoral arterial line placement with ultrasonographic guidance. 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 POSTOPERATIVE DIAGNOSIS: Coronary artery disease, status post myocardial infarction with pericarditis. JACK TAMP OPERATOR: Juan A. ANESTHESIA: General endotracheal anesthesia. INDICATIONS: The patient is an 82-year-old man, who in the perioperative period following a lumbar laminectomy, had a myocardial infarction and several days following that had a prolonged episode of chest pain without any rise in his troponins. He has otherwise had an uneventful post infarction course and upon reaching the temporal window where institution of anticoagulation was felt feasible following his surgery. He was taken to the labor custodian for cardiac catheterization in the hopes that percutaneous intervention would be feasible. He was found to have diffuse coronary artery disease, but he also had on ventriculography, a blind-ending dye column that appeared to originate near the apex and extended beyond the limits of the ventricular wall without any trabeculation. He is now taken to the operating room for surgical revascularization and for repair of a presumed pseudoaneurysm representing a contained raghavendra-infarction rupture. FINDINGS: Pump time 106 minutes. Clamp time 58 minutes. Good quality SIOMARA and saphenous vein. There were diffuse pericarditic changes and some filmy apical adhesions, but no mural defect seen or palpated. The LAD was a diffusely diseased vessel. The island of vessel at the midportion where it was grafted was 2.5 mm in diameter, distally it was about 1.5 mm. The first diagonal ran into position similar to a ramus intermedius and was about a 2-mm vessel that dove intramyocardially. The second diagonal was about 1.5-mm vessel. The PDA was about 1.5 mm. The pericardium was closed. NARRATIVE REPORT: After informed consent was obtained, the patient was taken to the operating room, placed in the supine position on the operating table. After the induction of general anesthesia, attempts were made at placing a radial arterial line on the left wrist as attempts while he was awake on the right wrist were unsuccessful. Even with ultrasonographic guidance, those attempts failed, and it was opted to place a femoral arterial line. Ultrasound was used to localize the common femoral and that area was prepped and draped in sterile fashion. Although, it took several attempts and an exchange of guidewires using a more malleable wire, then came with a 5-German catheter kit. The femoral arterial line once placed, aspirated and flushed well and had a good waveform. It was somewhat positional, however, requiring maintenance of the relatively steep angle of insertion that had been required in order to get the catheter to and wire to thread. Ultrasonographic mapping of the left greater saphenous vein was undertaken and then the patient's torso, groins, and lower extremities were prepped and draped in sterile fashion. An inventory assistant exposed the saphenous vein just above the left knee and using that as the port site, it was endoscopically harvested from groin to mid calf. Stab incision was used to ligate and divide the saphenous distally. A longer oblique incision parallel to the groin crease was made for the proximal ligation and division to allow for exposure of the femoral vessels should femoral cannulation be needed. The median sternotomy was performed. The port site was closed in layers of subcutaneous and subcuticular Vicryl. The left SIOMARA was mobilized as a skeletonized in-situ graft from the level of the xiphoid to the level of the subclavian vein through an extrapleural exposure. The patient was heparinized and the mammary was ligated and divided distally. There was excellent flow through it. Papaverine solution was instilled intraluminally and the mammary bed was inspected for hemostasis. The hilar reflections of the pleura were mobilized. The SIOMARA retractor was placed with a Osorio retractor. The thymic fat pad was divided along an interlobar plane. Edema was noted, but the pericardium appeared to be ballotable. There was no obvious blood staining. The left innominate vein was mobilized and retracted cephalad to allow for exposure of the extrapericardial ascending aorta. There was plaque palpable at the base of the innominate, but the aorta proper was soft. Double concentric pursestring of 2-0 Ethibond was placed in the distal ascending aorta, through which an aortic cannula was placed. It was secured by its pursestring. It was connected to the cardiopulmonary bypass circuit. The pericardium was opened at the level of the epicardial reflection at the aortic root. The right atrial appendage was rather large and distended, but was freely accessible. A pursestring was placed in it and then through that pursestring, standard dual-stage venous cannula was inserted and secured. Cardiopulmonary bypass was instituted and the patient was kept warm with the heart decompressed. The pericardiotomy was completed and stay sutures were put into place to marsupialize it. There were pericarditic changes appreciable on the epicardial surface and the apex of the heart appeared adherent to the pericardium, but those adhesions proved to be quite filmy and upon examining the heart, it became apparent that there was no intrapericardial hemorrhage. There was no hemorrhagic staining of the heart. There was no mural defect visible or palpable. The vessels to be bypassed were identified. The plane between the aorta and the pulmonary artery was developed. An aortic cross-clamp was applied and cardioplegia was administered through an aortic root needle. When arrest have been achieved, attention was turned to the left atrial appendage. It was ligated using 2 layers of running horizontal mattress 3-0 Prolene suture at its base. Attention was then turned to the distal right coronary system. The PDA was exposed and opened and reverse greater saphenous vein was anastomosed there end-to-side with running Prolene suture and the anastomosis tested by flushing cold cardioplegia down the graft. The first diagonal was opened and grafted just as it dove intramyocardially and then the second diagonal was grafted. The mid and distal LAD were explored. Both were felt to be amenable to grafting. The skeletonized mammary was introduced into the pericardium through a slit anterior to the left phrenic nerve. The mid LAD was opened and a corresponding arteriotomy was made in the side of the mammary. A [id number] anastomosis was constructed with running Prolene suture. The distal LAD was then opened and the distal mammary was anastomosed there end-to-side. The aortic cross-clamp was removed and replaced with a partial occluding clamp. The aortotomy was made in the ascending aorta with a scalpel and punch incorporating the root needle site for the most proximal aortotomy. The PDA graft was brought along the right side of the heart and anastomosed to the most proximal aortotomy. The 2 diagonal grafts were brought along the left side of the heart with the second diagonal anastomosed to the middle aortotomy and the first diagonal graft anastomosed to the distal aortotomy. The partial occluding clamp was removed and the vein grafts were de-aired and the bulldogs removed from them. The proximal anastomoses were marked with small hemoclips. The anastomoses were inspected for hemostasis. The posterior pericardial drain was brought out through a separate incision, secured with suture. Right atrial and right ventricular temporary epicardial pacing wires were placed. The patient's underlying rhythm was a sinus bradycardia with the use of pacing and vasoactive drips. The patient was then from cardiopulmonary bypass. The aortic and venous cannulae were removed and the pursestring secured. Protamine was administered when hemostasis was adequate. An anterior mediastinal drain was placed and the pericardium was easily closed over with running Vicryl. The cut surfaces of the sternum were treated with vancomycin paste and platelet-rich GPS. The sternum was reapproximated with #7 stainless steel wires. The fascia was closed over the wires with heavy Vicryl. The soft tissues were irrigated and treated with platelet-poor GPS. The fascia was closed over the wires with #1 Vicryl. The subcutaneous tissue was irrigated, was reapproximated with 2-0 Vicryl and the skin with a running 3-0 Vicryl subcuticular suture. The groin incision was then inspected for hemostasis and then closed in layers of subcutaneous and subcuticular Vicryl. The wounds were dressed and the patient was taken to the intensive care unit in stable condition. Job ID: [id number]
[2018-06-30] MEDS: Ondansetron PF 4 MG/2 ML Vial IVP PRN (18:46)
[2018-06-30 18:50] LABS: Actual Bicarbonate (HCO3a) 18.1 mEq/L (22-28); Base Excess (BEa) -5.1 mEq/L (-2.0 to +3.0); CO2 Tension 28.3 mmHg (35.0-45.0); Calcium, Ionized 1.01 mmol/L (1.12-1.30); Carboxyhemoglobin (COHb) 1.2 gm% (0.0-3.0); Hemoglobin (Hb) 11.6 g/dL (14.0-18.0); Potassium - ABG Lab 4.42 mmol/L (3.70-5.30); pH, Arterial 7.42 (7.35-7.45)
--- NOTE | 2018-06-30 18:55 | PDOC.PN ---
- Subjective Encounter Start Date: 06/30/18 Encounter Start Time: 16:30 Subjective: post op cabg on vent - Objective MAR Reviewed: Yes Vital Signs & Weight: Vital Signs (12 hours) Temp Pulse Resp BP Pulse Ox 06/30/18 16:00 97.8 F 12 06/30/18 14:00 96.4 F L 99 88/57 L 06/30/18 08:00 12 100 Weight Admit Weight 188 lb Weight 191 lb Most Recent Monitor Data Heart Rate from ECG 80 NIBP 128/70 NIBP BP-Mean 89 Respiration from ECG 21 SpO2 100 I&O: 06/29/18 06/30/18 07/01/18 06:59 06:59 06:59 Intake Total 1140 1535 486 Output Total 500 770 Balance 1140 1035 -284 Result Diagrams: 07/01/18 04:00 07/01/18 04:00 Additional Labs: Accuchecks 06/30/18 06/30/18 06/30/18 15:07 14:03 12:34 POC Glucose 125 H 198 H 154 H 06/30/18 06/30/18 06/30/18 11:28 10:44 10:01 POC Glucose 170 H 198 H 200 H 06/30/18 08:37 POC Glucose 146 H Phys Exam - Physical Examination HEENT: PERRLA, sclera anicteric Neck: no JVD, supple Respiratory: no wheezing chest tube+ Cardiovascular: RRR, no significant murmur Gastrointestinal: soft, no distention, positive bowel sounds Musculoskeletal: no edema, pulses present Neurological: non-focal Dx/Plan (1) CAD (coronary artery disease) Code(s): I25.10 - ATHSCL HEART DISEASE OF [place] CORONARY ARTERY W/O ANG PCTRS Status: Acute Qualifiers: Coronary Disease-Associated Artery/Lesion type: bypass graft [place] vs. transplanted heart: [place] heart Associated angina: with stable angina Qualified Code(s): I25.708 - Atherosclerosis of coronary artery bypass graft(s) , unspecified, with other forms of angina pectoris Comment: s/p cabg x5 06/30/2018 (2) NSTEMI (non-ST elevated myocardial infarction) Code(s): I21.4 - NON-ST ELEVATION (NSTEMI) MYOCARDIAL INFARCTION Status: Acute (3) HAMZAH (acute kidney injury) Code(s): N17.9 - ACUTE KIDNEY FAILURE, UNSPECIFIED Status: Resolved (4) Atrial fibrillation Code(s): I48.91 - UNSPECIFIED ATRIAL FIBRILLATION Status: Acute Qualifiers: Atrial fibrillation type: paroxysmal Qualified Code(s): I48.0 - Paroxysmal atrial fibrillation (5) Status post lumbar laminectomy Code(s): Z98.890 - OTHER SPECIFIED POSTPROCEDURAL STATES Status: Acute (6) Urinary retention Code(s): R33.9 - RETENTION OF URINE, UNSPECIFIED Status: Resolved (7) HLD (hyperlipidemia) Code(s): E78.5 - HYPERLIPIDEMIA, UNSPECIFIED Status: Chronic Comment: Zocor 20mg daily - Plan post op cabg weaning per protocol -: insulin drip, nebs -: asp, zocor, flomax, proscar, fluoxetine -: h/h stable, operative noted reviewed including finding of pseudoaneurysm -: will f/u * . Review of Systems - Medications/Allergies Allergies/Adverse Reactions: Allergies Allergy/AdvReac Type Severity Reaction Status Date / Time Antihistamines - Alkylamine Allergy Intermediate PROSTATE Verified 06/12/18 12: 13 SWELLING clindamycin Allergy Intermediate Rash Verified 06/12/18 12:13 pravastatin Allergy Intermediate PT DOESN'T Verified 06/12/18 12:13 REMEMBER Sulfa (Sulfonamide Allergy Intermediate WELPS, RASH Verified 06/12/18 12:13 Antibiotics) atorvastatin Allergy Verified 06/12/18 12:13 Medications: Current Medications Acetaminophen (Tylenol) 650 mg PO Q6H PRN PRN Reason: Headache/Fever Or Mild Pain Hydrocodone Bitart/Acetaminophen ([place] 5/325) 1 tab PO Q4H PRN PRN Reason: Moderate Pain (4-6) Hydrocodone Bitart/Acetaminophen ([place] 5/325) 2 tab PO Q4H PRN PRN Reason: Severe Pain (7-10) Al Hydroxide/Mg Hydroxide (Maalox) 30 ml PO Q4H PRN PRN Reason: Indigestion Albumin Human (Albumin 5%) 12.5 gm IVPB Q6H PRN PRN Reason: To Maintain SBP> 90 mmHG Stop: 07/01/18 13:00 Last Admin: 06/30/18 15:52 Dose: 12.5 gm Albumin Human (Albumin 5%) 25 gm IVPB Q6H PRN PRN Reason: To Maintain SBP > 90 mmHG Stop: 07/01/18 13:00 Albuterol/Ipratropium (Duoneb) 3 ml NEB [id number] PRN PRN Reason: SHORTNESS OF BREATH Ascorbic Acid (Vitamin C) 1,000 mg PO DAILY [facility] Last Admin: 06/30/18 13:25 Dose: Not Given Aspirin (Aspirin) 325 mg PO DAILY [facility] Bisacodyl (Dulcolax) 10 mg PO Q12H PRN PRN Reason: Constipation Bisacodyl (Dulcolax) 10 mg [place] Q12H PRN PRN Reason: Constipation Cholecalciferol (Vitamin D3) 1,000 units PO DAILY [facility] Last Admin: 06/30/18 13:25 Dose: Not Given Dextrose/Water (Dextrose 50%) 25 gm SLOW IVP PRN PRN PRN Reason: PER HYPOGLYCEMIC PROTOCOL Famotidine (Pepcid) 20 mg SLOW IVP Q12HR JANET Fentanyl (Sublimaze) 25 mcg SLOW IVP Q2H PRN PRN Reason: Moderate Pain (4-6) Stop: 07/02/18 07:46 Fentanyl (Sublimaze) 50 mcg SLOW IVP Q2H PRN PRN Reason: Severe Pain (7-10) Stop: 07/02/18 07:46 Finasteride (Proscar) 5 mg PO DAILY [facility] Last Admin: 06/30/18 13:26 Dose: Not Given Glucagon (Glucagon) 1 mg SC PRN PRN PRN Reason: PER HYPOGLYCEMIC PROTOCOL Guaifenesin/Dextromethorphan (Robitussin Dm) 15 ml PO Q4H PRN PRN Reason: Cough Hydralazine HCl (Apresoline) 10 mg SLOW IVP Q6H PRN PRN Reason: To Maintain SBP< 140mmHG Hetastarch/Sodium Chloride ([place]) 500 mls @ 0 mls/hr IVPB PRN PRN PRN Reason: To Maintain SBP > 90mmHg Stop: 07/01/18 07:46 Norepinephrine Bitartrate (Levophed) 250 mls @ 0 mls/hr IVPB PRN PRN; Protocol PRN Reason: To maintain SBP > 90 mmHG Nicardipine HCl 25 mg/ Sodium (Chloride) 250 mls @ 0 mls/hr IVPB INF PRN; Protocol PRN Reason: To Maintain SBP< 140mmHG Nitroglycerin/Dextrose (Nitroglycerin 50 Mg/250 Ml Bot) 250 mls @ 0 mls/hr IVPB PRN PRN; Protocol PRN Reason: To Maintain SBP< 140mmHG Sodium Chloride (Normal Saline 0.9%) 1,000 mls @ 75 mls/hr IV .[id number] [facility] Last Admin: 06/30/18 14:19 Dose: 1,000 mls Insulin Human Regular 100 (units/ Sodium Chloride) 101 mls @ 0 mls/hr IVPB INF JANET; Protocol Last Admin: 06/30/18 15:05 Dose: 101 mls Dextrose/Water (D5w) 1,000 mls @ 0 mls/hr IV INF PRN PRN Reason: PRN HYPOGLYCEMIC PROTOCOL Insulin Human Regular (Humulin R) 0 units SC Q4H PRN; Protocol PRN Reason: POST OP SLIDING SCALE Last Admin: 06/30/18 15:59 Dose: 2 unit Morphine Sulfate (Morphine) 2 mg SLOW IVP Q15MIN PRN PRN Reason: Severe Pain (7-10) Ondansetron HCl (Zofran) 4 mg IVP Q6H PRN PRN Reason: Nausea/Vomiting Last Admin: 06/30/18 18:46 Dose: 4 mg Potassium Chloride (Kcl) 20 meq IVPB PRN PRN PRN Reason: K level </= 4.0 Last Admin: 06/30/18 16:21 Dose: 20 meq Promethazine HCl (Phenergan) 6.25 mg IM Q4H PRN PRN Reason: Nausea/Vomiting Sertraline HCl (Zoloft) 50 mg PO DAILY [facility] Last Admin: 06/30/18 13:26 Dose: Not Given Simvastatin (Zocor) 20 mg PO QPM [facility] Last Admin: 06/29/18 20:26 Dose: 20 mg Tamsulosin HCl (Flomax) 0.4 mg PO 0600 [facility] Last Admin: 06/30/18 06:06 Dose: Not Given Tamsulosin HCl (Flomax) 0.4 mg PO HS [facility] Last Admin: 06/29/18 20:26 Dose: 0.4 mg
[2018-06-30 18:58] LABS: ALV-art Gradient 160.825 (0-20); Puncture Site LINE
[2018-06-30 20:57] LABS: Hemoglobin 10.6 g/dL (14.0-18.0)
[2018-06-30 21:09] LABS: Potassium 4.3 mmol/L (3.5-5.1)
[2018-06-30] MEDS: Simvastatin 20 MG TAB PO SCH (21:37)
[2018-06-30] MEDS: Famotidine/PF 20 mg/2ml Vial SLOW IVP SCH (21:38)
[2018-07-01] MEDS: HYDROcodone/Acetaminophen 5/325 mg Tablet PO PRN (00:50)
[2018-07-01 04:11] LABS: #Lymphocytes 1.4 thou/uL (1.20-3.40); #Monocytes 2.5 thou/uL (0.11-0.59); #Neutrophils 18.6 thou/uL (1.40-6.50); %Basophils 0.1 % (0.0-1.0); %Eosinophils 0.1 % (0.0-10.0); %Lymphocytes 6.4 % (21.0-51.0); %Monocytes 10.9 % (0.0-10.0); %Neutrophils 82.5 % (42.0-75.0); Mean Corpuscular HGB CONC 31.4 g/dL (32.0-36.0); Mean Corpuscular Hemoglobin 33.1 pg (27.0-31.0); Mean Platelet Volume 9.7 fL (7.4-10.4); Platelet Count 228 thou/uL (130-400); RBC Distribution Width 12.8 % (11.5-14.5); Red Blood Cell (RBC) Count 3.04 mill/uL (4.70-6.10); White Blood Cell (WBC) Count 22.5 thou/uL (4.8-10.8)
[2018-07-01 04:25] LABS: Anion Gap 10 mmol/L (10-20); BUN (Urea Nitrogen) 22 mg/dL (8.4-25.7); Calc. Creatinine Clearance 73 mL/min (70-130); Calcium 7.5 mg/dL (7.8-10.44); Carbon Dioxide 22 mmol/L (23-31); Chloride 111 mmol/L (98-107); Estimated GFR-MDRD 75; Glucose 139 mg/dL (83-110); Potassium 4.2 mmol/L (3.5-5.1); Sodium 139 mmol/L (136-145)
[2018-07-01] MEDS: Sodium Chloride 0.9% 1,000 ML IV SCH ×2 (06:14→15:44)
[2018-07-01] MEDS: Tamsulosin HCl 0.4 MG CAP PO SCH ×2 (06:15→21:57)
[2018-07-01] MEDS: Ondansetron PF 4 MG/2 ML Vial IVP PRN ×2 (06:15→20:30)
[2018-07-01] MEDS ORDERED: Ketorolac Tromethamine 30 MG/ML VIAL IVP SCH (07:00)
--- NOTE | 2018-07-01 07:57 | PRG ---
DATE OF SERVICE: 07/01/2018 I saw Mr. Nunes in the ICU today. He had a CABG yesterday. There was a suspicion from the coronary angiogram that there was a pseudoaneurysm within the coronary vessels. He now has 5 bypass grafts and no pseudoaneurysm was seen. This morning, Mr. Nunes feels well. He has cramping in the left leg, but that is the leg from which they harvested his saphenous vein and it is wrapped in Quentin wraps. He still has antigravity strength in the hip flexors. He has good strength in anterior tib and the EHL. There is no loss of sensation. The right leg is unaffected. We will continue to watch Mr. Nunes. We will do neuro checks to make sure he does not have an expanding hematoma pressing on his lumbar nerve roots, which causes the left leg pain. Thankfully, this is unilateral and the motor function is well preserved. The incision still looks good and there is no drainage from it. Job ID: [id number]
--- NOTE | 2018-07-01 08:34 | RAD ---
CHEST 1 VIEW: COMPARISON: 06/30/2018. HISTORY: Status post open heart surgery. FINDINGS: Interval removal of endotracheal tube. Left-sided central venous catheter is unchanged in position. There are sternotomy wires. Heart is mildly enlarged. There is persistent opacification of the lef t lung base. No pneumothorax. IMPRESSION: 1. Persistent opacification of the left lung base. 2. Interval removal of endotracheal tube. POS: PPP
[2018-07-01] MEDS ORDERED: Furosemide 40 MG/4 ML VIAL SLOW IVP SCH (09:00)
[2018-07-01] MEDS ORDERED: Aspirin 325 MG TAB PO SCH (09:00)
[2018-07-01] MEDS: cefTRIAXone\\ROCEPHIN 1 GM in Sodium Chloride 0.9% 100 ML IVPB SCH (09:24)
[2018-07-01] MEDS: Famotidine/PF 20 mg/2ml Vial SLOW IVP SCH ×2 (09:26→21:57)
[2018-07-01] MEDS: Ascorbic Acid 500 mg Chewable Tablet PO SCH (09:27)
[2018-07-01] MEDS: Finasteride 5 MG TAB PO SCH (09:28)
[2018-07-01] MEDS: Insulin Regular 300 UNITS/3 ML VIAL SC PRN (09:59)
--- NOTE | 2018-07-01 13:13 | PDOC.PN ---
- Subjective Encounter Start Date: 07/01/18 Encounter Start Time: 09:45 Subjective: is sitting in chair, has chest tube+ -: got extubated overnight -: no chest pain or sob - Objective MAR Reviewed: Yes Vital Signs & Weight: Vital Signs (12 hours) Temp Pulse Ox 07/01/18 08:00 99 07/01/18 07:00 98.4 F 07/01/18 04:00 98.1 F 07/01/18 02:17 99 Weight Admit Weight 188 lb Weight 191 lb 2.252 oz Most Recent Monitor Data Heart Rate from ECG 86 NIBP 116/58 NIBP BP-Mean 77 Respiration from ECG 28 SpO2 100 I&O: 06/30/18 07/01/18 07/02/18 06:59 06:59 06:59 Intake Total 1535 1645 580 Output Total 500 1335 225 Balance 1035 310 355 Result Diagrams: 07/01/18 04:00 07/01/18 04:00 Additional Labs: Accuchecks 07/01/18 07/01/18 07/01/18 12:34 08:22 06:12 POC Glucose 135 H 163 H 100 07/01/18 07/01/18 07/01/18 05:18 04:14 02:06 POC Glucose 99 117 H 126 H 07/01/18 07/01/18 06/30/18 01:11 00:18 23:13 POC Glucose 105 115 H 124 H 06/30/18 06/30/18 06/30/18 22:21 20:47 15:07 POC Glucose 97 158 H 125 H 06/30/18 14:03 POC Glucose 198 H Phys Exam - Physical Examination HEENT: PERRLA, moist MMs Neck: no JVD, supple Respiratory: no wheezing, no rales chest tube+ Cardiovascular: RRR, no significant murmur Gastrointestinal: soft, non-tender, positive bowel sounds has edema over both flanks likely dependent edema Musculoskeletal: no edema, pulses present Neurological: non-focal, moves all 4 limbs Psychiatric: normal affect, A&O x 3 Dx/Plan (1) CAD (coronary artery disease) Code(s): I25.10 - ATHSCL HEART DISEASE OF [place] CORONARY ARTERY W/O ANG PCTRS Status: Acute Qualifiers: Coronary Disease-Associated Artery/Lesion type: bypass graft [place] vs. transplanted heart: [place] heart Associated angina: with stable angina Qualified Code(s): I25.708 - Atherosclerosis of coronary artery bypass graft(s) , unspecified, with other forms of angina pectoris Comment: s/p cabg x5 06/30/2018 (2) NSTEMI (non-ST elevated myocardial infarction) Code(s): I21.4 - NON-ST ELEVATION (NSTEMI) MYOCARDIAL INFARCTION Status: Acute (3) HAMZAH (acute kidney injury) Code(s): N17.9 - ACUTE KIDNEY FAILURE, UNSPECIFIED Status: Resolved (4) Atrial fibrillation Code(s): I48.91 - UNSPECIFIED ATRIAL FIBRILLATION Status: Acute Qualifiers: Atrial fibrillation type: paroxysmal Qualified Code(s): I48.0 - Paroxysmal atrial fibrillation (5) Status post lumbar laminectomy Code(s): Z98.890 - OTHER SPECIFIED POSTPROCEDURAL STATES Status: Acute (6) Urinary retention Code(s): R33.9 - RETENTION OF URINE, UNSPECIFIED Status: Resolved (7) HLD (hyperlipidemia) Code(s): E78.5 - HYPERLIPIDEMIA, UNSPECIFIED Status: Chronic Comment: Zocor 20mg daily - Plan post op cabd is doing well -: off insulin and other iv drips -: liq diet to adv as tolerated -: is on aspirin, zocor, flomax and proscar -: to mobilize with PT when chest tubes are out * . humalog coverage for now, dm is stable, might trend up when he starts eating. Review of Systems - Medications/Allergies Allergies/Adverse Reactions: Allergies Allergy/AdvReac Type Severity Reaction Status Date / Time Antihistamines - Alkylamine Allergy Intermediate PROSTATE Verified 06/12/18 12: 13 SWELLING clindamycin Allergy Intermediate Rash Verified 06/12/18 12:13 pravastatin Allergy Intermediate PT DOESN'T Verified 06/12/18 12:13 REMEMBER Sulfa (Sulfonamide Allergy Intermediate WELPS, RASH Verified 06/12/18 12:13 Antibiotics) atorvastatin Allergy Verified 06/12/18 12:13 Medications: Current Medications Acetaminophen (Tylenol) 650 mg PO Q6H PRN PRN Reason: Headache/Fever Or Mild Pain Hydrocodone Bitart/Acetaminophen ([place] 5/325) 1 tab PO Q4H PRN PRN Reason: Moderate Pain (4-6) Hydrocodone Bitart/Acetaminophen ([place] 5/325) 2 tab PO Q4H PRN PRN Reason: Severe Pain (7-10) Last Admin: 07/01/18 00:50 Dose: 2 tab Al Hydroxide/Mg Hydroxide (Maalox) 30 ml PO Q4H PRN PRN Reason: Indigestion Albuterol/Ipratropium (Duoneb) 3 ml NEB [id number] PRN PRN Reason: SHORTNESS OF BREATH Ascorbic Acid (Vitamin C) 1,000 mg PO DAILY [facility] Last Admin: 07/01/18 09:27 Dose: 1,000 mg Aspirin (Aspirin) 325 mg PO DAILY [facility] Last Admin: 07/01/18 09:27 Dose: 325 mg Bisacodyl (Dulcolax) 10 mg PO Q12H PRN PRN Reason: Constipation Bisacodyl (Dulcolax) 10 mg [place] Q12H PRN PRN Reason: Constipation Cholecalciferol (Vitamin D3) 1,000 units PO DAILY [facility] Last Admin: 07/01/18 09:27 Dose: 1,000 units Dextrose/Water (Dextrose 50%) 25 gm SLOW IVP PRN PRN PRN Reason: PER HYPOGLYCEMIC PROTOCOL Famotidine (Pepcid) 20 mg SLOW IVP Q12HR [facility] Last Admin: 07/01/18 09:26 Dose: 20 mg Fentanyl (Sublimaze) 25 mcg SLOW IVP Q2H PRN PRN Reason: Moderate Pain (4-6) Stop: 07/02/18 07:46 Last Admin: 06/30/18 20:12 Dose: 25 mcg Fentanyl (Sublimaze) 50 mcg SLOW IVP Q2H PRN PRN Reason: Severe Pain (7-10) Stop: 07/02/18 07:46 Last Admin: 06/30/18 22:47 Dose: 50 mcg Finasteride (Proscar) 5 mg PO DAILY [facility] Last Admin: 07/01/18 09:28 Dose: 5 mg Furosemide (Lasix) 40 mg SLOW IVP DAILY [facility] Last Admin: 07/01/18 09:25 Dose: 40 mg Glucagon (Glucagon) 1 mg SC PRN PRN PRN Reason: PER HYPOGLYCEMIC PROTOCOL Guaifenesin/Dextromethorphan (Robitussin Dm) 15 ml PO Q4H PRN PRN Reason: Cough Hydralazine HCl (Apresoline) 10 mg SLOW IVP Q6H PRN PRN Reason: To Maintain SBP< 140mmHG Norepinephrine Bitartrate (Levophed) 250 mls @ 0 mls/hr IVPB PRN PRN; Protocol PRN Reason: To maintain SBP > 90 mmHG Nicardipine HCl 25 mg/ Sodium (Chloride) 250 mls @ 0 mls/hr IVPB INF PRN; Protocol PRN Reason: To Maintain SBP< 140mmHG Nitroglycerin/Dextrose (Nitroglycerin 50 Mg/250 Ml Bot) 250 mls @ 0 mls/hr IVPB PRN PRN; Protocol PRN Reason: To Maintain SBP< 140mmHG Sodium Chloride (Normal Saline 0.9%) 1,000 mls @ 75 mls/hr IV .[id number] [facility] Last Admin: 07/01/18 06:14 Dose: Not Given Insulin Human Regular 100 (units/ Sodium Chloride) 101 mls @ 0 mls/hr IVPB INF JANET; Protocol Last Admin: 06/30/18 21:04 Dose: 101 mls Dextrose/Water (D5w) 1,000 mls @ 0 mls/hr IV INF PRN PRN Reason: PRN HYPOGLYCEMIC PROTOCOL Ceftriaxone Sodium 1 gm/ (Sodium Chloride) 100 mls @ 200 mls/hr IVPB 0800 [facility] Last Admin: 07/01/18 09:24 Dose: 100 mls Insulin Human Regular (Humulin R) 0 units SC Q4H PRN; Protocol PRN Reason: POST OP SLIDING SCALE Last Admin: 07/01/18 09:59 Dose: 4 unit Morphine Sulfate (Morphine) 2 mg SLOW IVP Q15MIN PRN PRN Reason: Severe Pain (7-10) Ondansetron HCl (Zofran) 4 mg IVP Q6H PRN PRN Reason: Nausea/Vomiting Last Admin: 07/01/18 06:15 Dose: 4 mg Potassium Chloride (Kcl) 20 meq IVPB PRN PRN PRN Reason: K level </= 4.0 Last Admin: 06/30/18 16:21 Dose: 20 meq Promethazine HCl (Phenergan) 6.25 mg IM Q4H PRN PRN Reason: Nausea/Vomiting Sertraline HCl (Zoloft) 50 mg PO DAILY [facility] Last Admin: 07/01/18 09:26 Dose: 50 mg Simvastatin (Zocor) 20 mg PO QPM [facility] Last Admin: 06/30/18 21:37 Dose: 20 mg Tamsulosin HCl (Flomax) 0.4 mg PO 0600 [facility] Last Admin: 07/01/18 06:15 Dose: 0.4 mg Tamsulosin HCl (Flomax) 0.4 mg PO HS [facility] Last Admin: 06/30/18 21:37 Dose: 0.4 mg
[2018-07-01] MEDS ORDERED: Lorazepam 1 MG TAB PO SCH (21:00)
[2018-07-01] MEDS: Simvastatin 20 MG TAB PO SCH (21:57)
[2018-07-01] MEDS ORDERED: Guaifenesin DM 100-10/5 ML UDCUP PO PRN (22:11)
[2018-07-01] MEDS ORDERED: Bisacodyl 10 MG SUPP PR PRN (22:11)
[2018-07-01] MEDS ORDERED: Artificial Tears 18 DROP/0.9 ML EA EYE PRN (22:11)
[2018-07-01] MEDS ORDERED: Nitroglycerin 0.4 MG TAB (25 Tab Bottle) SL PRN (22:11)
[2018-07-01] MEDS ORDERED: Bisacodyl 5 MG TAB PO PRN (22:11)
[2018-07-01] MEDS ORDERED: Mineral Oil ENEMA PR PRN (22:11)
[2018-07-01] MEDS ORDERED: Mag-Al 1200 mg/1200 mg/30 ML UDCUP PO PRN (22:11)
[2018-07-01] MEDS ORDERED: Docusate 100 MG CAP PO SCH (23:00)
--- NOTE | 2018-07-02 03:44 | CON ---
DATE OF CONSULTATION: 07/01/2018 HISTORY OF PRESENT ILLNESS: Mr. Nunes is a very pleasant 82-year-old male who came in for laminectomy, had myocardial infarction and subsequently has undergone coronary artery bypass grafting. He says he is feeling well. He is extubated at this point. He still has chest tube in place. I was consulted because of his presence in the intermediate care unit. PAST MEDICAL HISTORY: 1. Remarkable for lung cancer, it has been resected. 2. History of cerebrovascular accident. 3. History of coronary artery disease. 4. History of hypertension. 5. Lipid disorder. 6. History of statin intolerance. 7. History of laminectomy. 8. History of right leg surgery. 9. History of cholecystectomy. 10. History of cervical fusion. 11. History of left lower lobe resection in 1989. 12. History of herniorrhaphy. MEDICATIONS: Prior to admission, he was on: 1. Aspirin. 2. Plavix. 3. Pepcid. 4. Proscar. 5. Lisinopril. 6. Hydrochlorothiazide. 7. Naprosyn. 8. Zantac. 9. Zoloft. 10. Surprisingly simvastatin, reportedly Flomax. ALLERGIES: ATORVASTATIN AND PRAVASTATIN CAUSE MUSCLE PAIN. CLEOCIN AND SULFA DRUGS ARE NOT TOLERATED. SOCIAL HISTORY: He is a nonsmoker, nondrinker. FAMILY HISTORY: Not obtained. REVIEW OF SYSTEMS: A 10-point review of systems completed, otherwise negative. PHYSICAL EXAMINATION: GENERAL: He is in no distress. He is actually quite and pleasant, but says he is ready to go home. VITAL SIGNS: He is afebrile. Heart rate 85, blood pressure 120/78, respiratory rate 20. He has not walked yet. HEENT: Pupils are equal. Sclerae anicteric. NECK: Supple. LUNGS: Clear. HEART: Regular rhythm. S1 and S2 are normal. No gallop. ABDOMEN: Soft and nontender. EXTREMITIES: Without clubbing, cyanosis, or edema. LABORATORY DATA: White count 22.5, hemoglobin 10.0, and platelets 228. Sodium 139, potassium 4.2, chloride 111, bicarb 22, BUN 22, and creatinine 0.96. IMPRESSION: 1. Status post coronary artery bypass grafting, clinically stable. 2. Status post myocardial infarction. 3. Acute on chronic kidney disease with stable renal function. 4. Atrial fibrillation. 5. History of lumbar laminectomy. 6. History of urinary retention. Considering he actually looks pretty good, we will continue to follow. This is a 70 minute consult, with greater than 50% of time spent on unit coordinating care. Job ID: [id number] MTDD
[2018-07-02 05:49] LABS: #Lymphocytes 2.1 thou/uL (1.20-3.40); #Monocytes 2.9 thou/uL (0.11-0.59); #Neutrophils 19.5 thou/uL (1.40-6.50); %Basophils 0.1 % (0.0-1.0); %Eosinophils 0.1 % (0.0-10.0); %Lymphocytes 8.7 % (21.0-51.0); %Monocytes 11.6 % (0.0-10.0); %Neutrophils 79.5 % (42.0-75.0); Hemoglobin 8.7 g/dL (14.0-18.0); Mean Corpuscular HGB CONC 31.9 g/dL (32.0-36.0); Mean Corpuscular Hemoglobin 33.6 pg (27.0-31.0); Mean Platelet Volume 9.4 fL (7.4-10.4); Platelet Count 195 thou/uL (130-400); RBC Distribution Width 13.1 % (11.5-14.5); White Blood Cell (WBC) Count 24.5 thou/uL (4.8-10.8)
[2018-07-02 06:11] LABS: Anion Gap 10 mmol/L (10-20); BUN (Urea Nitrogen) 30 mg/dL (8.4-25.7); Calc. Creatinine Clearance 63 mL/min (70-130); Calcium 7.9 mg/dL (7.8-10.44); Carbon Dioxide 24 mmol/L (23-31); Chloride 108 mmol/L (98-107); Estimated GFR-MDRD 63; Glucose 123 mg/dL (83-110); Potassium 3.8 mmol/L (3.5-5.1); Sodium 138 mmol/L (136-145)
--- NOTE | 2018-07-02 07:07 | PRG ---
DATE OF SERVICE: 07/02/2018 I saw Camacho Nunes in his hospital room this morning. He has been moved out of the ICU. Had cramping feeling in the left leg and left thigh yesterday. He is off as he was able to move it around. He has no such pain today. There has never been any pain in the right leg since surgery. His back feels fine. Mr. Nunes's vitals do not show a fever overnight. His blood pressures have been in the one teens to 130s. I do not find any new neurological deficit in the lower extremities. Steri-Strips can be removed as they peel off his skin spontaneously. This is a 2-week followup and incision still looks good, so the next step is a physical therapy and a followup in 2 months after his spine operation. Job ID: [id number]
--- NOTE | 2018-07-02 08:29 | RAD ---
CHEST 1 VIEW: COMPARISON: 07/01/2018. HISTORY: Status post open heart surgery. FINDINGS: Stable sternotomy wires. Stable left-sided vascular catheter. Mediastinal drainage catheter is note d. Atherosclerosis of the aorta and cardiomegaly are redemonstrated. Bibasilar pleural and parenchymal changes are similar to the previous examination. No pneumothorax. IMPRESSION: No significant change. POS: CET
[2018-07-02] MEDS: HYDROcodone/Acetaminophen 5/325 mg Tablet PO PRN ×2 (08:43→22:57)
[2018-07-02] MEDS: Ascorbic Acid 500 mg Chewable Tablet PO SCH (08:46)
[2018-07-02] MEDS: Aspirin 325 mg Enteric Coated Tablet PO SCH (08:46)
[2018-07-02] MEDS: Docusate 100 MG CAP PO SCH ×2 (08:46→20:56)
[2018-07-02] MEDS: Finasteride 5 MG TAB PO SCH (08:46)
[2018-07-02] MEDS: cefTRIAXone\\ROCEPHIN 1 GM in Sodium Chloride 0.9% 100 ML IVPB SCH (08:46)
[2018-07-02] MEDS: Tamsulosin HCl 0.4 MG CAP PO SCH ×2 (08:46→20:57)
--- NOTE | 2018-07-02 16:20 | PDOC.PN ---
- Subjective Encounter Start Date: 07/02/18 Encounter Start Time: 10:00 Subjective: pt up in bed, no chest pain or sob - Objective Vital Signs & Weight: Vital Signs (12 hours) Temp Pulse Pulse Pulse Resp BP BP 07/02/18 12:35 90 82 140/66 133/60 07/02/18 12:17 97.8 F 72 18 07/02/18 10:58 07/02/18 08:00 98.2 F 79 18 07/02/18 07:40 BP Pulse Ox Pulse Ox Pulse Ox 07/02/18 12:35 96 97 07/02/18 12:17 105/55 L 97 07/02/18 10:58 96 07/02/18 08:00 126/76 95 07/02/18 07:40 96 Weight Admit Weight 188 lb Weight 190 lb 12.8 oz Most Recent Monitor Data Heart Rate from ECG 85 NIBP 114/56 NIBP BP-Mean 75 Respiration from ECG 30 SpO2 100 I&O: 07/01/18 07/02/18 07/03/18 06:59 06:59 06:59 Intake Total 1645 1228 Output Total 1335 552 Balance 310 676 Result Diagrams: 07/02/18 05:26 07/02/18 05:26 Additional Labs: Accuchecks 07/01/18 07/01/18 20:24 16:19 POC Glucose 92 128 H Phys Exam - Physical Examination Respiratory: no wheezing, no rales, no rhonchi, wheezing present, clear to auscultation bilateral Cardiovascular: RRR, no significant murmur, no rub, gallop, irregular mid sternum scar Gastrointestinal: soft, non-tender, no distention, positive bowel sounds Musculoskeletal: no edema, pulses present, edema present Neurological: non-focal, normal sensation, moves all 4 limbs Dx/Plan (1) CAD (coronary artery disease) Code(s): I25.10 - ATHSCL HEART DISEASE OF [place] CORONARY ARTERY W/O ANG PCTRS Status: Acute Qualifiers: Coronary Disease-Associated Artery/Lesion type: bypass graft [place] vs. transplanted heart: [place] heart Associated angina: with stable angina Qualified Code(s): I25.708 - Atherosclerosis of coronary artery bypass graft(s) , unspecified, with other forms of angina pectoris Comment: s/p cabg x5 06/30/2018 (2) NSTEMI (non-ST elevated myocardial infarction) Code(s): I21.4 - NON-ST ELEVATION (NSTEMI) MYOCARDIAL INFARCTION Status: Acute (3) Atrial fibrillation Code(s): I48.91 - UNSPECIFIED ATRIAL FIBRILLATION Status: Acute Qualifiers: Atrial fibrillation type: paroxysmal Qualified Code(s): I48.0 - Paroxysmal atrial fibrillation (4) Status post lumbar laminectomy Code(s): Z98.890 - OTHER SPECIFIED POSTPROCEDURAL STATES Status: Acute (5) CKD (chronic kidney disease), stage II Code(s): N18.2 - CHRONIC KIDNEY DISEASE, STAGE 2 (MILD) Status: Chronic Comment: Avoid nephrotoxic meds and limit contrast exposure - Plan pt initially came in for laminectomy and had chest pain and elevated trops -: He underwent cath which indicated multi vessel disease and then uderwent -: CABG. will continue to monitior. encouraged to use IS * . Review of Systems - Review of Systems Respiratory: negative: Cough, Dry, Shortness of Breath, Hemoptysis, SOB with Excertion, Pleuritic Pain, Sputum, Wheezing Cardiovascular: negative: chest pain, palpitations, orthopnea, paroxysmal nocturnal dyspnea, edema, light headedness, other Gastrointestinal: negative: Nausea, Vomiting, Abdominal Pain, Diarrhea, Constipation, Melena, Hematochezia, Other - Medications/Allergies Allergies/Adverse Reactions: Allergies Allergy/AdvReac Type Severity Reaction Status Date / Time Antihistamines - Alkylamine Allergy Intermediate PROSTATE Verified 06/12/18 12: 13 SWELLING clindamycin Allergy Intermediate Rash Verified 06/12/18 12:13 pravastatin Allergy Intermediate PT DOESN'T Verified 06/12/18 12:13 REMEMBER Sulfa (Sulfonamide Allergy Intermediate WELPS, RASH Verified 06/12/18 12:13 Antibiotics) atorvastatin Allergy Verified 06/12/18 12:13 Medications: Current Medications Hydrocodone Bitart/Acetaminophen ([place] 5/325) 1 tab PO Q4H PRN PRN Reason: Moderate Pain (4-6) Hydrocodone Bitart/Acetaminophen ([place] 5/325) 2 tab PO Q4H PRN PRN Reason: Severe Pain (7-10) Last Admin: 07/02/18 08:43 Dose: 2 tab Al Hydroxide/Mg Hydroxide (Maalox) 30 ml PO Q4H PRN PRN Reason: Indigestion Artificial Tears (Tears Naturale) 0 drop EA EYE PRN PRN PRN Reason: Dry Eyes Ascorbic Acid (Vitamin C) 1,000 mg PO DAILY [facility] Last Admin: 07/02/18 08:46 Dose: 1,000 mg Aspirin (Ecotrin) 325 mg PO DAILY [facility] Last Admin: 07/02/18 08:46 Dose: 325 mg Bisacodyl (Dulcolax) 10 mg PO Q12H PRN PRN Reason: Constipation Bisacodyl (Dulcolax) 10 mg NM Q12H PRN PRN Reason: Constipation Cholecalciferol (Vitamin D3) 1,000 units PO DAILY [facility] Last Admin: 07/02/18 08:46 Dose: 1,000 units Docusate Sodium (Colace) 100 mg PO BID [facility] Last Admin: 07/02/18 08:46 Dose: 100 mg Finasteride (Proscar) 5 mg PO DAILY [facility] Last Admin: 07/02/18 08:46 Dose: 5 mg Guaifenesin/Dextromethorphan (Robitussin Dm) 15 ml PO Q4H PRN PRN Reason: Cough Ceftriaxone Sodium 1 gm/ (Sodium Chloride) 100 mls @ 200 mls/hr IVPB 0800 [facility] Last Admin: 07/02/18 08:46 Dose: 100 mls Mineral Oil (Fleet Mineral Oil) 133 ml NM DAILYPRN PRN PRN Reason: Constipation Nitroglycerin (Nitrostat) 0.4 mg SL Q5MIN PRN PRN Reason: Chest Pain Ondansetron HCl (Zofran) 4 mg IVP Q6H PRN PRN Reason: Nausea/Vomiting Last Admin: 07/01/18 20:30 Dose: 4 mg Sertraline HCl (Zoloft) 50 mg PO DAILY [facility] Last Admin: 07/02/18 08:45 Dose: 50 mg Simvastatin (Zocor) 20 mg PO QPM [facility] Last Admin: 07/01/18 21:57 Dose: 20 mg Sodium Chloride (Flush - Normal Saline) 10 ml IVF Q12HR [facility] Last Admin: 07/02/18 08:49 Dose: 10 ml Tamsulosin HCl (Flomax) 0.4 mg PO 0600 [facility] Last Admin: 07/02/18 08:46 Dose: 0.4 mg Tamsulosin HCl (Flomax) 0.4 mg PO HS [facility] Last Admin: 07/01/18 21:57 Dose: 0.4 mg Zolpidem Tartrate (Ambien) 5 mg PO HSPRN PRN PRN Reason: Insomnia
--- NOTE | 2018-07-02 17:01 | PRG ---
DATE OF SERVICE: 07/02/2018 SUBJECTIVE: Mr. Nunes had no complaints. He said he is resting well. He is feeling a little stronger. He is clearly going to have to go into a Swing Bed in [place] for physical therapy. OBJECTIVE: VITAL SIGNS: He is afebrile, heart rate 72, respiratory rate is 18, oximetry is 97% on 3 L, and blood pressure 105/55. INTAKE AND OUTPUTS: Positive 310 mL. LUNGS: Clear. HEART: Regular rhythm, S1 and S2 are normal. ABDOMEN: Soft and nontender. LABORATORY DATA: White count 24.5; hemoglobin 8.7, down from 10.0; platelets 195. Sodium 138, potassium 3.8, chloride 108, bicarb 24, BUN 30, creatinine 1.11. IMPRESSION: Status post coronary artery bypass grafting after myocardial infarction, which occurred in perioperative period with spine surgery. He appears to be stable and progressing slowly with physical therapy. He has no complaints. From my view, he is stable for transfer. Reviewing Neurosurgery's notes, it appears they feel he is stable. He had a chest radiograph done today, which did not show any new findings. He is stable after being transferred out of the Critical Care Unit. We will sign off. Job ID: [id number]
[2018-07-02] MEDS: Simvastatin 20 MG TAB PO SCH (20:57)
[2018-07-03 06:09] LABS: Anion Gap 12 mmol/L (10-20); BUN (Urea Nitrogen) 30 mg/dL (8.4-25.7); Calc. Creatinine Clearance 77 mL/min (70-130); Calcium 7.9 mg/dL (7.8-10.44); Carbon Dioxide 22 mmol/L (23-31); Chloride 107 mmol/L (98-107); Estimated GFR-MDRD 80; Glucose 102 mg/dL (83-110); Potassium 3.9 mmol/L (3.5-5.1); Sodium 137 mmol/L (136-145)
[2018-07-03 06:10] LABS: Band 1 % (5-11); Hemoglobin 8.9 g/dL (14.0-18.0); Lymphocytes 15 % (21-51); MDiff Complete? YES; Mean Corpuscular HGB CONC 33.2 g/dL (32.0-36.0); Mean Platelet Volume 10.2 fL (7.4-10.4); Monocytes 6 % (0-10); Myelocyte 1 % (0-0); Neutrophil 77 % (42-75); Nucleated RBC 2 % (0); Platelet Count 194 thou/uL (130-400); RBC Distribution Width 13.2 % (11.5-14.5); Red Blood Cell (RBC) Count 2.61 mill/uL (4.70-6.10); White Blood Cell (WBC) Count 18.7 thou/uL (4.8-10.8)
[2018-07-03] MEDS: Tamsulosin HCl 0.4 MG CAP PO SCH ×2 (06:31→20:29)
--- NOTE | 2018-07-03 06:59 | PRG ---
DATE OF SERVICE: 07/03/2018 This is a neurosurgery progress note. I saw Camacho Nunes on rounds this morning. He is recovering nicely from his coronary artery bypass grafting , and he has more energy this morning than he did yesterday. He got up out of bed and walked to the door and took a few steps in the hallway yesterday. He does not complain much of pain. He has been afebrile on the recorded vital signs. Blood pressures have been in 105 to 130 range. Other vital signs have been stable. There is no new motor or sensory deficit in the lower extremities, and the back incision looks fine. Mr. Nunes can go to inpatient rehabilitation as soon as a bed is available. The patient's requests transfer to [place], which is closer to home and I think that is perfectly reasonable, so that can be done today. We will need to check if it would be acceptable for the Cardiac Surgery and Cardiology services Job ID: [id number] MTDD
--- NOTE | 2018-07-03 08:51 | RAD ---
SINGLE VIEW CHEST: HISTORY: Status post open heart surgery. COMPARISON: 07/02/2018 FINDINGS: A single view of the chest shows an enlarged but stable cardiomediastinal silhouette. The patient is status post sternotomy. The central venous catheter is unchanged in position. There is a small lef t pleural effusion. IMPRESSION: Stable examination. POS: DENYS
--- NOTE | 2018-07-03 09:12 | PDOC.PN ---
- Subjective Encounter Start Date: 07/03/18 Encounter Start Time: 09:10 Subjective: Admitted for decomprssive laminectomy for severe lumbar spondylosis -: developed AMI post op. Cardiac cath showed 3 vessel disease. -: S/p CABG. getting stronger. No new problem - Objective Vital Signs & Weight: Vital Signs (12 hours) Temp Pulse Resp BP Pulse Ox 07/03/18 08:00 98.2 F 80 16 124/67 99 07/03/18 04:26 99 07/03/18 04:10 98.0 F 80 20 110/59 L 97 Weight Admit Weight 188 lb Weight 191 lb 4.8 oz Most Recent Monitor Data Heart Rate from ECG 85 NIBP 114/56 NIBP BP-Mean 75 Respiration from ECG 30 SpO2 100 I&O: 07/02/18 07/03/18 07/04/18 06:59 06:59 06:59 Intake Total 1228 1630 Output Total 552 1310 Balance 676 320 Result Diagrams: 07/03/18 04:27 07/03/18 04:27 Phys Exam - Physical Examination HEENT: PERRLA Neck: no JVD, supple Decreased air entry both bases posteriorly. No obvious crackles or rhonchi Cardiovascular: RRR Gastrointestinal: soft, non-tender, no distention, positive bowel sounds mild to moderate bilateral leg edema Neurological: non-focal, normal sensation, moves all 4 limbs Psychiatric: normal affect, A&O x 3 Dx/Plan (1) Status post coronary artery bypass graft Code(s): Z95.1 - PRESENCE OF AORTOCORONARY BYPASS GRAFT Status: Acute (2) Atrial fibrillation Code(s): I48.91 - UNSPECIFIED ATRIAL FIBRILLATION Status: Acute Qualifiers: Atrial fibrillation type: paroxysmal Qualified Code(s): I48.0 - Paroxysmal atrial fibrillation (3) CAD (coronary artery disease) Code(s): I25.10 - ATHSCL HEART DISEASE OF [place] CORONARY ARTERY W/O ANG PCTRS Status: Acute Qualifiers: Coronary Disease-Associated Artery/Lesion type: bypass graft [place] vs. transplanted heart: [place] heart Associated angina: with stable angina Qualified Code(s): I25.708 - Atherosclerosis of coronary artery bypass graft(s) , unspecified, with other forms of angina pectoris Comment: s/p cabg x5 06/30/2018 (4) NSTEMI (non-ST elevated myocardial infarction) Code(s): I21.4 - NON-ST ELEVATION (NSTEMI) MYOCARDIAL INFARCTION Status: Acute (5) Status post lumbar laminectomy Code(s): Z98.890 - OTHER SPECIFIED POSTPROCEDURAL STATES Status: Acute (6) CKD (chronic kidney disease), stage II Code(s): N18.2 - CHRONIC KIDNEY DISEASE, STAGE 2 (MILD) Status: Chronic Comment: Avoid nephrotoxic meds and limit contrast exposure (7) HLD (hyperlipidemia) Code(s): E78.5 - HYPERLIPIDEMIA, UNSPECIFIED Status: Chronic Comment: Zocor 20mg daily (8) HAMZAH (acute kidney injury) Code(s): N17.9 - ACUTE KIDNEY FAILURE, UNSPECIFIED Status: Resolved (9) Urinary retention Code(s): R33.9 - RETENTION OF URINE, UNSPECIFIED Status: Resolved (10) Physical deconditioning Code(s): R53.81 - OTHER [place]ISE Status: Acute - Plan Start low dose lasix and monitor renal function -: advised to use IS. -: Continue other treatments. -: [place] antibiotics and PT. * .
[2018-07-03] MEDS: cefTRIAXone\\ROCEPHIN 1 GM in Sodium Chloride 0.9% 100 ML IVPB SCH (09:54)
[2018-07-03] MEDS: Furosemide 20 MG TAB PO SCH (09:57)
[2018-07-03] MEDS: Aspirin 325 mg Enteric Coated Tablet PO SCH (09:58)
[2018-07-03] MEDS: Finasteride 5 MG TAB PO SCH (09:58)
[2018-07-03] MEDS: Ascorbic Acid 500 mg Chewable Tablet PO SCH (09:58)
[2018-07-03] MEDS: Docusate 100 MG CAP PO SCH ×2 (09:58→20:30)
[2018-07-03] MEDS: Carvedilol 3.125 MG TAB PO SCH (16:31)
[2018-07-03] MEDS: HYDROcodone/Acetaminophen 5/325 mg Tablet PO PRN (20:27)
[2018-07-03] MEDS: Simvastatin 20 MG TAB PO SCH (20:29)
[2018-07-03] MEDS: Zolpidem Tartrate 5 MG TAB PO PRN (23:29)
[2018-07-04] MEDS: Tamsulosin HCl 0.4 MG CAP PO SCH ×2 (05:14→20:35)
[2018-07-04 05:44] LABS: Anion Gap 10 mmol/L (10-20); BUN (Urea Nitrogen) 23 mg/dL (8.4-25.7); Calc. Creatinine Clearance 91 mL/min (70-130); Calcium 7.8 mg/dL (7.8-10.44); Carbon Dioxide 23 mmol/L (23-31); Chloride 106 mmol/L (98-107); Estimated GFR-MDRD Greater than 90; Glucose 105 mg/dL (83-110); Potassium 3.8 mmol/L (3.5-5.1); Sodium 135 mmol/L (136-145)
[2018-07-04 06:15] LABS: Band 1 % (5-11); Hemoglobin 9.1 g/dL (14.0-18.0); Lymphocytes 11 % (21-51); MDiff Complete? YES; Mean Corpuscular HGB CONC 31.9 g/dL (32.0-36.0); Mean Corpuscular Hemoglobin 33.6 pg (27.0-31.0); Mean Platelet Volume 9.2 fL (7.4-10.4); Monocytes 10 % (0-10); Neutrophil 78 % (42-75); Nucleated RBC 4 % (0); Platelet Count 209 thou/uL (130-400); Platelet Morphology Comment Appears Adequate; Polychromasia SLIGHT = 2-3 cells (100X) (0-2/hpf); RBC Distribution Width 13.2 % (11.5-14.5); White Blood Cell (WBC) Count 15.5 thou/uL (4.8-10.8)
--- NOTE | 2018-07-04 10:09 | PDOC.PN ---
- Subjective Encounter Start Date: 07/04/18 Encounter Start Time: 10:08 Subjective: Feeling better today. Reported that food material got stuck in his throat -: yesterday and today reported some coughing after eating. Admitted that food -: makes him cough atimes if he is not careful since after his stroke. - Objective Vital Signs & Weight: Vital Signs (12 hours) Temp Pulse Resp BP Pulse Ox 07/04/18 07:55 98.2 F 81 20 117/71 95 07/04/18 05:02 97 07/04/18 04:00 97.7 F 77 18 114/60 92 L Weight Admit Weight 188 lb Weight 197 lb Most Recent Monitor Data Heart Rate from ECG 85 NIBP 114/56 NIBP BP-Mean 75 Respiration from ECG 30 SpO2 100 I&O: 07/03/18 07/04/18 07/05/18 06:59 06:59 06:59 Intake Total 1630 1850 Output Total 1310 775 Balance 320 1075 Result Diagrams: 07/04/18 05:12 07/04/18 05:12 Phys Exam - Physical Examination elderly male in no distress. afebrile HEENT: PERRLA, moist MMs Neck: no JVD, supple Fair air entry bilaterally. No crackless. air entry however is decreased at both bases posteriorly irregular rhythm and rate Gastrointestinal: soft, non-tender, no distention, positive bowel sounds mild to moderate bilateralleg edema Neurological: non-focal, moves all 4 limbs Psychiatric: normal affect, A&O x 3 Dx/Plan (1) Status post coronary artery bypass graft Code(s): Z95.1 - PRESENCE OF AORTOCORONARY BYPASS GRAFT Status: Acute (2) Atrial fibrillation Code(s): I48.91 - UNSPECIFIED ATRIAL FIBRILLATION Status: Acute Qualifiers: Atrial fibrillation type: paroxysmal Qualified Code(s): I48.0 - Paroxysmal atrial fibrillation (3) CAD (coronary artery disease) Code(s): I25.10 - ATHSCL HEART DISEASE OF [place] CORONARY ARTERY W/O ANG PCTRS Status: Acute Qualifiers: Coronary Disease-Associated Artery/Lesion type: bypass graft [place] vs. transplanted heart: [place] heart Associated angina: with stable angina Qualified Code(s): I25.708 - Atherosclerosis of coronary artery bypass graft(s) , unspecified, with other forms of angina pectoris Comment: s/p cabg x5 06/30/2018 (4) NSTEMI (non-ST elevated myocardial infarction) Code(s): I21.4 - NON-ST ELEVATION (NSTEMI) MYOCARDIAL INFARCTION Status: Acute (5) Status post lumbar laminectomy Code(s): Z98.890 - OTHER SPECIFIED POSTPROCEDURAL STATES Status: Acute (6) CKD (chronic kidney disease), stage II Code(s): N18.2 - CHRONIC KIDNEY DISEASE, STAGE 2 (MILD) Status: Chronic Comment: Avoid nephrotoxic meds and limit contrast exposure (7) HLD (hyperlipidemia) Code(s): E78.5 - HYPERLIPIDEMIA, UNSPECIFIED Status: Chronic Comment: Zocor 20mg daily (8) HAMZAH (acute kidney injury) Code(s): N17.9 - ACUTE KIDNEY FAILURE, UNSPECIFIED Status: Resolved (9) Urinary retention Code(s): R33.9 - RETENTION OF URINE, UNSPECIFIED Status: Resolved (10) Physical deconditioning Code(s): R53.81 - OTHER [place] Status: Acute (11) Fluid overload Code(s): E87.70 - FLUID OVERLOAD, UNSPECIFIED Status: Acute - Plan Continue diuretics. increased by cardiology. Monitor I/O andrenal function -: Continue current medications. -: Get GERONIMO to confirm atrial fib. Defer anticoagulation to cardiology. -: Will get serum magnesium. start potassium supplementation given diuretic * .
[2018-07-04] MEDS: cefTRIAXone\\ROCEPHIN 1 GM in Sodium Chloride 0.9% 100 ML IVPB SCH (10:25)
[2018-07-04] MEDS: Ascorbic Acid 500 mg Chewable Tablet PO SCH (10:27)
[2018-07-04] MEDS: Aspirin 325 mg Enteric Coated Tablet PO SCH (10:28)
[2018-07-04] MEDS: Finasteride 5 MG TAB PO SCH (10:28)
[2018-07-04] MEDS: Carvedilol 3.125 MG TAB PO SCH ×2 (10:28→16:29)
[2018-07-04] MEDS: Docusate 100 MG CAP PO SCH ×3 (10:29→20:40)
[2018-07-04] MEDS: Furosemide 20 MG TAB PO SCH (10:30)
[2018-07-04] MEDS ORDERED: Metolazone 5 MG TAB PO SCH (11:00)
[2018-07-04] MEDS ORDERED: Furosemide 40 MG TAB PO SCH (11:00)
--- NOTE | 2018-07-04 12:19 | PRG ---
DATE OF SERVICE: 07/04/2018 SUBJECTIVE: Mr. Nunes is postoperative roughly 2 weeks from undergoing multilevel lumbar laminectomies with Dr. Yun. The patient subsequently underwent coronary artery bypass grafting and is recovering well. He states he feels overall generalized weakness, but no focal deficits. He states he is especially subjectively weak in the legs. He remains on full strength aspirin. He has been walking with a walker. He denies back pain. He is stable for inpatient rehab whenever arrangements have been made and he is cleared by Cardiology. His postoperative restrictions will remain up to cardiac surgery, although in regard to his lumbar spine surgery, we would like him to lift less than 10 pounds and avoid any type of bending and twisting at his waist. Please call with any changes in the patient's neurologic status. Again, the patient is stable for discharge when arrangements have been made. Job ID: [id number]
[2018-07-04] MEDS: HYDROcodone/Acetaminophen 5/325 mg Tablet PO PRN ×2 (13:35→20:34)
[2018-07-04] MEDS: Simvastatin 20 MG TAB PO SCH (20:35)
[2018-07-04] MEDS: Zolpidem Tartrate 5 MG TAB PO PRN (21:44)
[2018-07-05] MEDS: Tamsulosin HCl 0.4 MG CAP PO SCH ×2 (05:21→19:59)
--- NOTE | 2018-07-05 06:26 | PDOC.PN ---
- Subjective Encounter Start Date: 07/05/18 Encounter Start Time: 06:24 Subjective: Seen and examined -events of cough while eating yesterday noted -: Still feels weak in his legs - Objective Vital Signs & Weight: Vital Signs (12 hours) Temp Pulse Resp BP Pulse Ox 07/05/18 04:00 98.1 F 71 16 113/60 96 07/04/18 20:32 97.4 F L 73 16 105/58 L 95 Weight Admit Weight 188 lb Weight 197 lb Most Recent Monitor Data Heart Rate from ECG 85 NIBP 114/56 NIBP BP-Mean 75 Respiration from ECG 30 SpO2 100 I&O: 07/03/18 07/04/18 07/05/18 06:59 06:59 06:59 Intake Total 1630 1850 500 Output Total 1310 775 650 Balance 320 1075 -150 Result Diagrams: 07/04/18 05:12 07/04/18 05:12 Phys Exam - Physical Examination Constitutional: NAD HEENT: PERRLA, moist MMs, sclera anicteric, TM's clear Neck: no nodes, no JVD, supple, full ROM Respiratory: no wheezing, no rales, no rhonchi, clear to auscultation bilateral Cardiovascular: RRR, no significant murmur, no rub Gastrointestinal: soft, non-tender, no distention, positive bowel sounds Musculoskeletal: no edema, pulses present Dx/Plan (1) Atrial fibrillation Code(s): I48.91 - UNSPECIFIED ATRIAL FIBRILLATION Status: Acute Qualifiers: Atrial fibrillation type: paroxysmal Qualified Code(s): I48.0 - Paroxysmal atrial fibrillation (2) CAD (coronary artery disease) Code(s): I25.10 - ATHSCL HEART DISEASE OF [place] CORONARY ARTERY W/O ANG PCTRS Status: Acute Qualifiers: Coronary Disease-Associated Artery/Lesion type: bypass graft [place] vs. transplanted heart: [place] heart Associated angina: with stable angina Qualified Code(s): I25.708 - Atherosclerosis of coronary artery bypass graft(s) , unspecified, with other forms of angina pectoris Comment: s/p cabg x5 06/30/2018 (3) Fluid overload Code(s): E87.70 - FLUID OVERLOAD, UNSPECIFIED Status: Acute (4) NSTEMI (non-ST elevated myocardial infarction) Code(s): I21.4 - NON-ST ELEVATION (NSTEMI) MYOCARDIAL INFARCTION Status: Acute (5) Physical deconditioning Code(s): R53.81 - OTHER [place] Status: Acute (6) Status post coronary artery bypass graft Code(s): Z95.1 - PRESENCE OF AORTOCORONARY BYPASS GRAFT Status: Acute (7) Status post lumbar laminectomy Code(s): Z98.890 - OTHER SPECIFIED POSTPROCEDURAL STATES Status: Acute (8) CKD (chronic kidney disease), stage II Code(s): N18.2 - CHRONIC KIDNEY DISEASE, STAGE 2 (MILD) Status: Chronic Comment: Avoid nephrotoxic meds and limit contrast exposure - Plan 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
[2018-07-05 06:31] LABS: Anion Gap 13 mmol/L (10-20); BUN (Urea Nitrogen) 23 mg/dL (8.4-25.7); Calc. Creatinine Clearance 83 mL/min (70-130); Calcium 7.9 mg/dL (7.8-10.44); Carbon Dioxide 23 mmol/L (23-31); Chloride 102 mmol/L (98-107); Estimated GFR-MDRD 84; Glucose 91 mg/dL (83-110); Potassium 4.1 mmol/L (3.5-5.1); Sodium 134 mmol/L (136-145)
[2018-07-05 06:43] LABS: Band 1 % (5-11); Eosinophils 4 % (0-10); Hemoglobin 9.2 g/dL (14.0-18.0); Lymphocytes 12 % (21-51); MDiff Complete? YES; Macrocytosis SLIGHT = 6-15 cells (100X) (0-5/hpf); Mean Corpuscular HGB CONC 32.1 g/dL (32.0-36.0); Mean Corpuscular Hemoglobin 33.7 pg (27.0-31.0); Monocytes 5 % (0-10); Neutrophil 78 % (42-75); Nucleated RBC 9 % (0); Platelet Count 225 thou/uL (130-400); Polychromasia MODERATE = 3-4 cells (100X) (0-2/hpf); RBC Distribution Width 13.4 % (11.5-14.5); Red Blood Cell (RBC) Count 2.73 mill/uL (4.70-6.10)
[2018-07-05] MEDS: Docusate 100 MG CAP PO SCH ×2 (09:44→19:59)
[2018-07-05] MEDS: Ascorbic Acid 500 mg Chewable Tablet PO SCH (09:44)
[2018-07-05] MEDS: Carvedilol 3.125 MG TAB PO SCH ×2 (09:45→17:36)
[2018-07-05] MEDS: Finasteride 5 MG TAB PO SCH (09:45)
[2018-07-05] MEDS: cefTRIAXone\\ROCEPHIN 1 GM in Sodium Chloride 0.9% 100 ML IVPB SCH (09:45)
[2018-07-05] MEDS: Furosemide 40 MG TAB PO SCH (09:45)
[2018-07-05] MEDS: Aspirin 325 mg Enteric Coated Tablet PO SCH (09:45)
--- NOTE | 2018-07-05 12:01 | PRG ---
DATE OF SERVICE: 07/05/2018 SUBJECTIVE: Mr. Nunes continues to recover from his coronary artery bypass grafting and lumbar laminectomy. The plan is for transfer to care home facility likely Friday or Friday, near [place]. We were attempting to reach out to our cardiac colleagues to just make sure that his rehab restrictions both from Cardiac and Neurosurgical standpoint are in place prior to transfer, but it appears as if this would not be happening until Friday or Friday anyway. The patient really has no complaints. He has no reports of leg pain, it appears if his cardiac wound is healing just fine and he is pleased with his outcome at this point, given all that he has been through. Job ID: [id number]
[2018-07-05] MEDS: HYDROcodone/Acetaminophen 5/325 mg Tablet PO PRN (18:42)
[2018-07-05] MEDS: Zolpidem Tartrate 5 MG TAB PO PRN (19:59)
[2018-07-05] MEDS: Simvastatin 20 MG TAB PO SCH (19:59)
[2018-07-06] MEDS: Tamsulosin HCl 0.4 MG CAP PO SCH ×2 (05:59→20:25)
[2018-07-06 06:16] LABS: Anion Gap 10 mmol/L (10-20); BUN (Urea Nitrogen) 19 mg/dL (8.4-25.7); Calc. Creatinine Clearance 85 mL/min (70-130); Calcium 8.1 mg/dL (7.8-10.44); Carbon Dioxide 29 mmol/L (23-31); Chloride 99 mmol/L (98-107); Estimated GFR-MDRD 82; Glucose 102 mg/dL (83-110); Potassium 3.9 mmol/L (3.5-5.1); Sodium 134 mmol/L (136-145)
[2018-07-06 06:28] LABS: Hemoglobin 10.1 g/dL (14.0-18.0); Hypochromia SLIGHT = 6-15 cells (100X) (0-5/hpf); Lymphocytes 5 % (21-51); MDiff Complete? YES; Macrocytosis SLIGHT = 6-15 cells (100X) (0-5/hpf); Mean Corpuscular HGB CONC 31.4 g/dL (32.0-36.0); Mean Corpuscular Hemoglobin 32.3 pg (27.0-31.0); Mean Platelet Volume 8.7 fL (7.4-10.4); Monocytes 12 % (0-10); Neutrophil 83 % (42-75); Nucleated RBC 13 % (0); Platelet Count 260 thou/uL (130-400); Polychromasia SLIGHT = 2-3 cells (100X) (0-2/hpf); Red Blood Cell (RBC) Count 3.14 mill/uL (4.70-6.10); Target Cells SLIGHT = 2-5 cells (100X) (0-1/hpf); White Blood Cell (WBC) Count 19.3 thou/uL (4.8-10.8)
[2018-07-06] MEDS: Furosemide 40 MG TAB PO SCH (09:43)
[2018-07-06] MEDS: Ascorbic Acid 500 mg Chewable Tablet PO SCH (09:43)
[2018-07-06] MEDS: Carvedilol 3.125 MG TAB PO SCH ×2 (09:43→15:50)
[2018-07-06] MEDS: cefTRIAXone\\ROCEPHIN 1 GM in Sodium Chloride 0.9% 100 ML IVPB SCH (09:44)
[2018-07-06] MEDS: Docusate 100 MG CAP PO SCH ×2 (09:44→20:26)
[2018-07-06] MEDS: Finasteride 5 MG TAB PO SCH (09:44)
[2018-07-06] MEDS: Aspirin 325 mg Enteric Coated Tablet PO SCH (09:44)
--- NOTE | 2018-07-06 09:46 | PRG ---
DATE OF SERVICE: 07/06/2018 Mr. Nunes had reasonably good weekend. He had more mobilization with physical therapy, but this resulted into knee pain and hip pain last night. Pain has gone this morning. He has had knee pain in the past, but this seemed out of ordinary for him. It may be related to spending most of his days in a hospital bed for the past 2-1/2 weeks. As soon as he begins to mobilize, aches and pains from arthritic joints could be possible. We will recommend icing after therapy. Mr. Nunes is ready for transfer to inpatient rehabilitation. Management, however, is the destination of choice. Arrangements can be made for that to happen. Job ID: [id number] MTDD
--- NOTE | 2018-07-06 11:44 | PDOC.PN ---
- Subjective Encounter Start Date: 07/06/18 Encounter Start Time: 07:30 -: old records requested/rev Patient seen and examined. No new complaints. No overnight events - Objective MAR Reviewed: Yes Vital Signs & Weight: Vital Signs (12 hours) Temp Pulse Pulse Pulse Resp BP BP 07/06/18 10:14 96 97 109/79 131/64 07/06/18 07:35 98.2 F 83 24 H 07/06/18 04:00 98.0 F 83 16 BP Pulse Ox 07/06/18 10:14 07/06/18 07:35 123/58 L 94 L 07/06/18 04:00 109/59 L 96 Weight Admit Weight 188 lb Weight 207 lb Most Recent Monitor Data Heart Rate from ECG 85 NIBP 114/56 NIBP BP-Mean 75 Respiration from ECG 30 SpO2 100 I&O: 07/05/18 07/06/18 07/07/18 06:59 06:59 06:59 Intake Total 800 1420 Output Total 1250 2800 Balance -450 -1380 Result Diagrams: 07/06/18 05:41 07/06/18 05:41 EKG Reviewed by me: Yes Phys Exam - Physical Examination Constitutional: NAD HEENT: PERRLA, moist MMs, sclera anicteric Neck: no JVD, supple Respiratory: no wheezing, no rales, no rhonchi Cardiovascular: RRR, no significant murmur, no rub Gastrointestinal: soft, non-tender, no distention, positive bowel sounds Musculoskeletal: no edema, pulses present Neurological: non-focal Lymphatic: no nodes Psychiatric: normal affect Skin: no rash, normal turgor Dx/Plan (1) Atrial fibrillation Code(s): I48.91 - UNSPECIFIED ATRIAL FIBRILLATION Status: Acute Qualifiers: Atrial fibrillation type: paroxysmal Qualified Code(s): I48.0 - Paroxysmal atrial fibrillation (2) CAD (coronary artery disease) Code(s): I25.10 - ATHSCL HEART DISEASE OF [place] CORONARY ARTERY W/O ANG PCTRS Status: Acute Qualifiers: Coronary Disease-Associated Artery/Lesion type: bypass graft [place] vs. transplanted heart: [place] heart Associated angina: with stable angina Qualified Code(s): I25.708 - Atherosclerosis of coronary artery bypass graft(s) , unspecified, with other forms of angina pectoris Comment: s/p cabg x5 06/30/2018 (3) Fluid overload Code(s): E87.70 - FLUID OVERLOAD, UNSPECIFIED Status: Acute (4) NSTEMI (non-ST elevated myocardial infarction) Code(s): I21.4 - NON-ST ELEVATION (NSTEMI) MYOCARDIAL INFARCTION Status: Acute (5) Physical deconditioning Code(s): R53.81 - OTHER MALAISE Status: Acute (6) Status post coronary artery bypass graft Code(s): Z95.1 - PRESENCE OF AORTOCORONARY BYPASS GRAFT Status: Acute (7) Status post lumbar laminectomy Code(s): Z98.890 - OTHER SPECIFIED POSTPROCEDURAL STATES Status: Acute (8) CKD (chronic kidney disease), stage II Code(s): N18.2 - CHRONIC KIDNEY DISEASE, STAGE 2 (MILD) Status: Chronic Comment: Avoid nephrotoxic meds and limit contrast exposure (9) HLD (hyperlipidemia) Code(s): E78.5 - HYPERLIPIDEMIA, UNSPECIFIED Status: Chronic Comment: Zocor 20mg daily (10) HAMZAH (acute kidney injury) Code(s): N17.9 - ACUTE KIDNEY FAILURE, UNSPECIFIED Status: Resolved (11) Urinary retention Code(s): R33.9 - RETENTION OF URINE, UNSPECIFIED Status: Resolved - Plan cont current plan of care, plan discussed w/ family, 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 Review of Systems - Review of Systems ENT: negative: Ear Pain, Ear Discharge, Nose Pain, Nose Discharge, Nose Congestion, Mouth Pain, Mouth Swelling, Throat Pain, Throat Swelling, Other Respiratory: negative: Cough, Dry, Shortness of Breath, Hemoptysis, SOB with Excertion, Pleuritic Pain, Sputum, Wheezing Cardiovascular: negative: chest pain, palpitations, orthopnea, paroxysmal nocturnal dyspnea, edema, light headedness, other Gastrointestinal: negative: Nausea, Vomiting, Abdominal Pain, Diarrhea, Constipation, Melena, Hematochezia, Other Genitourinary: negative: Dysuria, Frequency, Incontinence, Hematuria, Retention , Other Musculoskeletal: negative: Neck Pain, Shoulder Pain, Arm Pain, Back Pain, Hand Pain, Leg Pain, Foot Pain, Other - Medications/Allergies Allergies/Adverse Reactions: Allergies Allergy/AdvReac Type Severity Reaction Status Date / Time Antihistamines - Alkylamine Allergy Intermediate PROSTATE Verified 06/12/18 12: 13 SWELLING clindamycin Allergy Intermediate Rash Verified 06/12/18 12:13 pravastatin Allergy Intermediate PT DOESN'T Verified 06/12/18 12:13 REMEMBER Sulfa (Sulfonamide Allergy Intermediate WELPS, RASH Verified 06/12/18 12:13 Antibiotics) atorvastatin Allergy Verified 06/12/18 12:13 Medications: Current Medications Hydrocodone Bitart/Acetaminophen ([place] 5/325) 1 tab PO Q4H PRN PRN Reason: Moderate Pain (4-6) Hydrocodone Bitart/Acetaminophen ([place] 5/325) 2 tab PO Q4H PRN PRN Reason: Severe Pain (7-10) Last Admin: 07/05/18 18:42 Dose: 2 tab Al Hydroxide/Mg Hydroxide (Maalox) 30 ml PO Q4H PRN PRN Reason: Indigestion Last Admin: 07/03/18 20:28 Dose: 30 ml Artificial Tears (Tears Naturale) 0 drop EA EYE PRN PRN PRN Reason: Dry Eyes Ascorbic Acid (Vitamin C) 1,000 mg PO DAILY [facility] Last Admin: 07/06/18 09:43 Dose: 1,000 mg Aspirin (Ecotrin) 325 mg PO DAILY [facility] Last Admin: 07/06/18 09:44 Dose: 325 mg Bisacodyl (Dulcolax) 10 mg PO Q12H PRN PRN Reason: Constipation Bisacodyl (Dulcolax) 10 mg ID Q12H PRN PRN Reason: Constipation Carvedilol (Coreg) 1.5625 mg PO BID-[facility] Last Admin: 07/06/18 09:43 Dose: 1.5625 mg Cholecalciferol (Vitamin D3) 1,000 units PO DAILY [facility] Last Admin: 07/06/18 09:44 Dose: 1,000 units Docusate Sodium (Colace) 100 mg PO BID [facility] Last Admin: 07/06/18 09:44 Dose: 100 mg Finasteride (Proscar) 5 mg PO DAILY [facility] Last Admin: 07/06/18 09:44 Dose: 5 mg Furosemide (Lasix) 40 mg PO 0900 [facility] Last Admin: 07/06/18 09:43 Dose: 40 mg Guaifenesin/Dextromethorphan (Robitussin Dm) 15 ml PO Q4H PRN PRN Reason: Cough Ceftriaxone Sodium 1 gm/ (Sodium Chloride) 100 mls @ 200 mls/hr IVPB 0800 [facility] Last Admin: 07/06/18 09:44 Dose: 100 mls Mineral Oil (Fleet Mineral Oil) 133 ml ID DAILYPRN PRN PRN Reason: Constipation Nitroglycerin (Nitrostat) 0.4 mg SL Q5MIN PRN PRN Reason: Chest Pain Ondansetron HCl (Zofran) 4 mg IVP Q6H PRN PRN Reason: Nausea/Vomiting Last Admin: 07/01/18 20:30 Dose: 4 mg Sertraline HCl (Zoloft) 50 mg PO DAILY [facility] Last Admin: 07/06/18 09:43 Dose: 50 mg Simvastatin (Zocor) 20 mg PO QPM [facility] Last Admin: 07/05/18 19:59 Dose: 20 mg Sodium Chloride (Flush - Normal Saline) 10 ml IVF Q12HR [facility] Last Admin: 07/06/18 09:44 Dose: 10 ml Tamsulosin HCl (Flomax) 0.4 mg PO 0600 [facility] Last Admin: 07/06/18 05:59 Dose: 0.4 mg Tamsulosin HCl (Flomax) 0.4 mg PO HS [facility] Last Admin: 07/05/18 19:59 Dose: 0.4 mg Zolpidem Tartrate (Ambien) 5 mg PO HSPRN PRN PRN Reason: Insomnia Last Admin: 07/05/18 19:59 Dose: 5 mg
[2018-07-06] MEDS ORDERED: Furosemide 40 MG/4 ML VIAL SLOW IVP SCH (15:15)
[2018-07-06 15:28] LABS: Bilirubin Negative (Negative); Blood, Urine Large (Negative); Clarity CLOUDY (Clear); Glucose, Urine (Dipstick) Negative (Negative); Leukocyte Small (Negative); Nitrite Negative (Negative); Protein, Urine (Dipstick) Negative (Neg-Trace); Specific Gravity, Urine 1.014 (1.002-1.036); Urobilinogen 0.2 mg/dL (0.2-1.0)
[2018-07-06 15:30] LABS: Bacteria/HPF None Seen HPF (None Seen); Hyaline Casts/LPF 4-6 HYALINE CAST LPF (0-3 Hyaline); Pathc Cast-AUWi Flag 1.45 (0-2.49); RBC/HPF GREATER THAN 50-TNTC HPF (0-3); Squamous Epithelial 0-3 HPF (0-3)
[2018-07-06 15:46] LABS: Crystals/HPF None Seen HPF (Negative)
[2018-07-06] MEDS: Zolpidem Tartrate 5 MG TAB PO PRN (20:25)
[2018-07-06] MEDS: Simvastatin 20 MG TAB PO SCH (20:26)
[2018-07-06] MEDS: HYDROcodone/Acetaminophen 5/325 mg Tablet PO PRN (23:06)
[2018-07-07] MEDS: Tamsulosin HCl 0.4 MG CAP PO SCH (06:28)
[2018-07-07 06:39] LABS: Anion Gap 15 mmol/L (10-20); BUN (Urea Nitrogen) 15 mg/dL (8.4-25.7); Calc. Creatinine Clearance 88 mL/min (70-130); Calcium 8.2 mg/dL (7.8-10.44); Carbon Dioxide 27 mmol/L (23-31); Chloride 93 mmol/L (98-107); Estimated GFR-MDRD Greater than 90; Glucose 112 mg/dL (83-110); Potassium 3.5 mmol/L (3.5-5.1); Sodium 131 mmol/L (136-145)
[2018-07-07 06:48] LABS: Band 1 % (5-11); Eosinophils 1 % (0-10); Hemoglobin 10.4 g/dL (14.0-18.0); Lymphocytes 15 % (21-51); MDiff Complete? YES; Mean Corpuscular HGB CONC 31.5 g/dL (32.0-36.0); Mean Corpuscular Hemoglobin 32.2 pg (27.0-31.0); Mean Platelet Volume 8.8 fL (7.4-10.4); Monocytes 9 % (0-10); Neutrophil 72 % (42-75); Nucleated RBC 9 % (0); Platelet Count 258 thou/uL (130-400); Polychromasia SLIGHT = 2-3 cells (100X) (0-2/hpf); RBC Distribution Width 13.1 % (11.5-14.5); Reactive Lymphocytes 2 % (0-10); Red Blood Cell (RBC) Count 3.24 mill/uL (4.70-6.10); White Blood Cell (WBC) Count 21.5 thou/uL (4.8-10.8)
--- NOTE | 2018-07-07 07:52 | PRG ---
DATE OF SERVICE: 07/07/2018 I saw Camacho Nunes this morning in his hospital room. Yesterday, he was a bit of a step backwards as far as his improvement goes. He took a sedative hypnotic for sleep the night before and was unable to get up in the morning with physical therapy. He has more energy today. His knees feel fine today. He has no new motor or sensory deficits in his lower extremities that he can appreciate. We are going to mobilize him with physical therapy today. If he is able to stand and take a few steps, then I think a transfer to inpatient rehabilitation is reasonable. If he is unable to stand today, then we will keep him in the hospital. Job ID: [id number]
[2018-07-07] MEDS: cefTRIAXone\\ROCEPHIN 1 GM in Sodium Chloride 0.9% 100 ML IVPB SCH (09:50)
[2018-07-07] MEDS: Carvedilol 3.125 MG TAB PO SCH ×2 (09:51→16:05)
[2018-07-07] MEDS: Aspirin 325 mg Enteric Coated Tablet PO SCH (09:52)
[2018-07-07] MEDS: Ascorbic Acid 500 mg Chewable Tablet PO SCH (09:52)
[2018-07-07] MEDS: Furosemide 40 MG TAB PO SCH (09:53)
[2018-07-07] MEDS: Docusate 100 MG CAP PO SCH (09:53)
[2018-07-07] MEDS: HYDROcodone/Acetaminophen 5/325 mg Tablet PO PRN (10:24)
[2018-07-07] MEDS: Finasteride 5 MG TAB PO SCH (10:25)
--- NOTE | 2018-07-07 10:48 | DIS ---
DATE OF ADMISSION: 06/15/2018 DATE OF DISCHARGE: 07/07/2018 PRIMARY CARE PHYSICIAN: [facility] Call admission. DISCHARGE DISPOSITION: Swing bed. PRIMARY DISCHARGE DIAGNOSES: 1. Status post lumbar laminectomy. 2. Uly-TL-svmlhfcuk myocardial infarction. 3. Status post three-vessel coronary artery disease. 4. Status post coronary artery bypass graft. 5. Acute kidney injury, resolved. 6. Urinary retention. 7. Postop atrial fibrillation. 8. Physical deconditioning. SECONDARY DISCHARGE DIAGNOSES: Benign enlargement of prostate, hypertension, dyslipidemia, chronic kidney disease stage 2, chronic lumbar stenosis. PRIMARY PROCEDURE/OPERATION: Lumbar laminectomy, cardiac catheterization, coronary artery bypass graft. RADIOLOGICAL INVESTIGATION: Several chest x-ray while in the hospital. Echocardiography showed EF 45% to 50%. SIGNIFICANT LABORATORY DATA: On discharge, hemoglobin 10.4, WBC 21.5, platelet 258. Sodium 131, creatinine 0.81. Urine culture grew E. coli. Blood culture is negative. DISCHARGE MEDICATIONS: 1. Vitamin C 1000 mg p.o. daily. 2. Aspirin 325 mg p.o. daily. 3. Vitamin D3 1000 units p.o. daily. 4. Pepcid 20 mg b.i.d. 5. Proscar 5 mg p.o. daily. 6. Zoloft 50 mg daily. 7. Zocor 20 mg p.o. at bedtime. 8. Flomax 0.4 mg p.o. at bedtime. 9. Coreg 1.5625 mg p.o. b.i.d. 10. Macrobid 100 mg b.i.d. 11. Zanaflex 4 mg t.i.d. p.r.n. 12. Tramadol 50 mg q.6 hourly p.r.n. CONTRAINDICATION: None. CODE STATUS: Full code. INPATIENT ORDNANCE HANDLER: Dr. Yun was primary, who did lumbar laminectomy. Subsequently, Cardiology group was consulted for oea-CZ-nifscfjcc myocardial infarction and medical team was consulted for medical management. The patient required CABG and that is why Dr. Phelps was consulted while in hospital. TEST RESULT PENDING ON DISCHARGE: None. ALLERGIES: ANTIHISTAMINE. DISCHARGE PLAN: Posthospital, the patient is planned for discharge to swing bed. Subsequently, he will follow up with Cardiology, Dr. Ramon on September 03, 2018 at 11:30 a.m. The patient will follow up with primary care physician in 1 week and the patient will follow up with Dr. Yun and Dr. Phelps as instructed. HOSPITAL COURSE: An 82-year-old male who was initially admitted by neurosurgeon for lumbar laminectomy. Postoperatively, the patient had dnz-UZ-cnfuyinjt [place] and that is why Cardiology was consulted. They did cardiac cath and found with severe coronary artery disease and the patient was requiring bypass as per Cardiology recommendation. Dr. Phelps was also consulted and he did CABG. Medical team was following for medical problem. After surgery, he remained in ICU and subsequently he was transferred to telemetry floor. His hospital course was complicated by fluid overload status as well as acute kidney injury, atrial fibrillation, all problems resolved by the time of discharge. He is improving significantly. He had urinary retention, but he failed voiding trial before discharge and that is why we are discharging him with a Colon catheter. The patient is seen and examined at bedside today. All review of systems reviewed with him and negative. Plan of care discussed with the family member. PHYSICAL EXAMINATION: VITAL SIGNS: Currently, temperature 98.0, pulse 94, respiratory rate 16, saturation 96% on 2 L nasal cannula, blood pressure 114/57, weight 195 pounds. GENERAL: The patient is currently alert, awake, no obvious acute distress. HEENT: Head; normocephalic, atraumatic. LUNGS: Clear without any rhonchi or rales. CARDIAC: S1 and S2. Regular without any murmur. ABDOMEN: Soft and benign. EXTREMITIES: No edema. NEUROLOGIC: Nonfocal examination. The patient is medically stable for discharge today. Job ID: [id number]
--- NOTE | 2018-07-07 10:56 | PDOC.PN ---
- Subjective Encounter Start Date: 07/07/18 Encounter Start Time: 10:00 Patient seen and examined. No new complaints. No overnight events - Objective MAR Reviewed: Yes Vital Signs & Weight: Vital Signs (12 hours) Temp Pulse Resp BP Pulse Ox 07/07/18 09:33 98 F 94 16 114/57 L 96 07/07/18 03:26 97.9 F 89 16 96/56 L 92 L Weight Admit Weight 188 lb Weight 195 lb Most Recent Monitor Data Heart Rate from ECG 85 NIBP 114/56 NIBP BP-Mean 75 Respiration from ECG 30 SpO2 100 I&O: 07/06/18 07/07/18 07/08/18 06:59 06:59 06:59 Intake Total 1420 1045 Output Total 2800 4375 Balance -1380 -3330 Result Diagrams: 07/07/18 06:10 07/07/18 06:10 EKG Reviewed by me: Yes Phys Exam - Physical Examination Constitutional: NAD HEENT: PERRLA, moist MMs, sclera anicteric Neck: no JVD, supple Respiratory: no wheezing, no rales, no rhonchi Cardiovascular: RRR, no significant murmur, no rub Gastrointestinal: soft, non-tender, no distention Musculoskeletal: no edema, pulses present Neurological: non-focal Lymphatic: no nodes Psychiatric: normal affect Skin: no rash, normal turgor Dx/Plan (1) Atrial fibrillation Code(s): I48.91 - UNSPECIFIED ATRIAL FIBRILLATION Status: Acute Qualifiers: Atrial fibrillation type: paroxysmal Qualified Code(s): I48.0 - Paroxysmal atrial fibrillation (2) CAD (coronary artery disease) Code(s): I25.10 - ATHSCL HEART DISEASE OF [place] CORONARY ARTERY W/O ANG PCTRS Status: Acute Qualifiers: Coronary Disease-Associated Artery/Lesion type: bypass graft [place] vs. transplanted heart: [place] heart Associated angina: with stable angina Qualified Code(s): I25.708 - Atherosclerosis of coronary artery bypass graft(s) , unspecified, with other forms of angina pectoris Comment: s/p cabg x5 06/30/2018 (3) Fluid overload Code(s): E87.70 - FLUID OVERLOAD, UNSPECIFIED Status: Acute (4) NSTEMI (non-ST elevated myocardial infarction) Code(s): I21.4 - NON-ST ELEVATION (NSTEMI) MYOCARDIAL INFARCTION Status: Acute (5) Physical deconditioning Code(s): R53.81 - OTHER MALAISE Status: Acute (6) Status post coronary artery bypass graft Code(s): Z95.1 - PRESENCE OF AORTOCORONARY BYPASS GRAFT Status: Acute (7) Status post lumbar laminectomy Code(s): Z98.890 - OTHER SPECIFIED POSTPROCEDURAL STATES Status: Acute (8) CKD (chronic kidney disease), stage II Code(s): N18.2 - CHRONIC KIDNEY DISEASE, STAGE 2 (MILD) Status: Chronic Comment: Avoid nephrotoxic meds and limit contrast exposure (9) HLD (hyperlipidemia) Code(s): E78.5 - HYPERLIPIDEMIA, UNSPECIFIED Status: Chronic Comment: Zocor 20mg daily (10) HAMZAH (acute kidney injury) Code(s): N17.9 - ACUTE KIDNEY FAILURE, UNSPECIFIED Status: Resolved (11) Urinary retention Code(s): R33.9 - RETENTION OF URINE, UNSPECIFIED Status: Resolved - Plan cont current plan of care, plan discussed w/ family, 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 Review of Systems - Review of Systems ENT: negative: Ear Pain, Ear Discharge, Nose Pain, Nose Discharge, Nose Congestion, Mouth Pain, Mouth Swelling, Throat Pain, Throat Swelling, Other Respiratory: negative: Cough, Dry, Shortness of Breath, Hemoptysis, SOB with Excertion, Pleuritic Pain, Sputum, Wheezing Cardiovascular: negative: chest pain, palpitations, orthopnea, paroxysmal nocturnal dyspnea, edema, light headedness, other Gastrointestinal: negative: Nausea, Vomiting, Abdominal Pain, Diarrhea, Constipation, Melena, Hematochezia, Other Genitourinary: negative: Dysuria, Frequency, Incontinence, Hematuria, Retention , Other Musculoskeletal: negative: Neck Pain, Shoulder Pain, Arm Pain, Back Pain, Hand Pain, Leg Pain, Foot Pain, Other - Medications/Allergies Allergies/Adverse Reactions: Allergies Allergy/AdvReac Type Severity Reaction Status Date / Time Antihistamines - Alkylamine Allergy Intermediate PROSTATE Verified 06/12/18 12: 13 SWELLING clindamycin Allergy Intermediate Rash Verified 06/12/18 12:13 pravastatin Allergy Intermediate PT DOESN'T Verified 06/12/18 12:13 REMEMBER Sulfa (Sulfonamide Allergy Intermediate WELPS, RASH Verified 06/12/18 12:13 Antibiotics) atorvastatin Allergy Verified 06/12/18 12:13 Medications: Current Medications Hydrocodone Bitart/Acetaminophen ([place] 5/325) 1 tab PO Q4H PRN PRN Reason: Moderate Pain (4-6) Last Admin: 07/06/18 19:31 Dose: 1 tab Hydrocodone Bitart/Acetaminophen ([place] 5/325) 2 tab PO Q4H PRN PRN Reason: Severe Pain (7-10) Last Admin: 07/07/18 10:24 Dose: 2 tab Al Hydroxide/Mg Hydroxide (Maalox) 30 ml PO Q4H PRN PRN Reason: Indigestion Last Admin: 07/03/18 20:28 Dose: 30 ml Artificial Tears (Tears Naturale) 0 drop EA EYE PRN PRN PRN Reason: Dry Eyes Ascorbic Acid (Vitamin C) 1,000 mg PO DAILY [facility] Last Admin: 07/07/18 09:52 Dose: 1,000 mg Aspirin (Ecotrin) 325 mg PO DAILY [facility] Last Admin: 07/07/18 09:52 Dose: 325 mg Bisacodyl (Dulcolax) 10 mg PO Q12H PRN PRN Reason: Constipation Bisacodyl (Dulcolax) 10 mg HI Q12H PRN PRN Reason: Constipation Carvedilol (Coreg) 1.5625 mg PO BID-[facility] Last Admin: 07/07/18 09:51 Dose: 1.5625 mg Cholecalciferol (Vitamin D3) 1,000 units PO DAILY [facility] Last Admin: 07/07/18 09:52 Dose: 1,000 units Docusate Sodium (Colace) 100 mg PO BID [facility] Last Admin: 07/07/18 09:53 Dose: 100 mg Finasteride (Proscar) 5 mg PO DAILY [facility] Last Admin: 07/07/18 10:25 Dose: 5 mg Furosemide (Lasix) 40 mg PO 0900 [facility] Last Admin: 07/07/18 09:53 Dose: 40 mg Guaifenesin/Dextromethorphan (Robitussin Dm) 15 ml PO Q4H PRN PRN Reason: Cough Ceftriaxone Sodium 1 gm/ (Sodium Chloride) 100 mls @ 200 mls/hr IVPB 0800 [facility] Last Admin: 07/07/18 09:50 Dose: 100 mls Mineral Oil (Fleet Mineral Oil) 133 ml HI DAILYPRN PRN PRN Reason: Constipation Nitroglycerin (Nitrostat) 0.4 mg SL Q5MIN PRN PRN Reason: Chest Pain Ondansetron HCl (Zofran) 4 mg IVP Q6H PRN PRN Reason: Nausea/Vomiting Last Admin: 07/01/18 20:30 Dose: 4 mg Sertraline HCl (Zoloft) 50 mg PO DAILY [facility] Last Admin: 07/07/18 09:53 Dose: 50 mg Simvastatin (Zocor) 20 mg PO QPM [facility] Last Admin: 07/06/18 20:26 Dose: 20 mg Sodium Chloride (Flush - Normal Saline) 10 ml IVF Q12HR [facility] Last Admin: 07/07/18 09:53 Dose: 10 ml Tamsulosin HCl (Flomax) 0.4 mg PO 0600 [facility] Last Admin: 07/07/18 06:28 Dose: 0.4 mg Tamsulosin HCl (Flomax) 0.4 mg PO HS [facility] Last Admin: 07/06/18 20:25 Dose: 0.4 mg Zolpidem Tartrate (Ambien) 5 mg PO HSPRN PRN PRN Reason: Insomnia Last Admin: 07/06/18 20:25 Dose: 5 mg
[2018-07-07 14:09] VITALS: BMI 25.7
[2018-07-07 14:13] LABS: Actual Bicarbonate (HCO3a) 19.5 mEq/L (22-28); CO2 Tension 34.1 mmHg (35.0-45.0); Carboxyhemoglobin (COHb) 1.1 gm% (0.0-3.0); Hemoglobin (Hb) 11.1 g/dL (14.0-18.0); O2 Tension (PaO2) 214.7 mmHg (> 60.0); Potassium - ABG Lab 3.83 mmol/L (3.70-5.30); pH, Arterial 7.38 (7.35-7.45)
[2018-07-07 14:14] LABS: Actual Bicarbonate (HCO3a) 20.5 mEq/L (22-28); CO2 Tension 39.4 mmHg (35.0-45.0); Hemoglobin (Hb) 10.8 g/dL (14.0-18.0); pH, Arterial 7.33 (7.35-7.45)
[2018-07-07 14:14] LABS: Calcium, Ionized 1.07 mmol/L (1.12-1.30); Puncture Site ALINE
[2018-07-07 14:15] LABS: Calcium, Ionized 1.02 mmol/L (1.12-1.30); Puncture Site ALINE
[2018-07-07 14:15] LABS: Actual Bicarbonate (HCO3a) 22.2 mEq/L (22-28); Base Excess (BEa) -2.7 mEq/L (-2.0 to +3.0); CO2 Tension 38.8 mmHg (35.0-45.0); O2 Tension (PaO2) 453.8 mmHg (> 60.0); pH, Arterial 7.38 (7.35-7.45)
[2018-07-07 14:16] LABS: Calcium, Ionized 0.97 mmol/L (1.12-1.30); Carboxyhemoglobin (COHb) 1.4 gm% (0.0-3.0); Hemoglobin (Hb) 8.4 g/dL (14.0-18.0); Potassium - ABG Lab 4.55 mmol/L (3.70-5.30); Puncture Site ALINE
[2018-07-07 14:17] LABS: Actual Bicarbonate (HCO3v) 22 mEq/L (22-28); Base Excess -4.8 mEq/L (-2.0 to +3.0); Hemoglobin (Hb) 8.2 g/dL (12.6-17.4); pH (venous) 7.28 (7.32-7.43)
[2018-07-07 14:18] LABS: Calcium, Ionized 0.86 mmol/L (1.16-1.32); Chloride (ABG LAB) 102 mmol/L (98-106); Potassium - ABG Lab 4.26 mmol/L (3.70-5.30); Sodium 125.7 mmol/L (133-146)
[2018-07-07 14:19] LABS: Actual Bicarbonate (HCO3a) 22.8 mEq/L (22-28); Base Excess (BEa) -2.2 mEq/L (-2.0 to +3.0); CO2 Tension 39.7 mmHg (35.0-45.0); Carboxyhemoglobin (COHb) 1.5 gm% (0.0-3.0); O2 Tension (PaO2) 377.9 mmHg (> 60.0); Potassium - ABG Lab 4.36 mmol/L (3.70-5.30); pH, Arterial 7.38 (7.35-7.45)
[2018-07-07 14:20] LABS: Actual Bicarbonate (HCO3a) 19.5 mEq/L (22-28); CO2 Tension 33.7 mmHg (35.0-45.0); O2 Tension (PaO2) 154.4 mmHg (> 60.0); pH, Arterial 7.38 (7.35-7.45)
[2018-07-07 14:20] LABS: Calcium, Ionized 1.01 mmol/L (1.12-1.30); Puncture Site ALINE
[2018-07-07 14:27] LABS: Carboxyhemoglobin (COHb) 1.7 gm% (0.0-3.0); Hemoglobin (Hb) 8.2 g/dL (14.0-18.0); Potassium - ABG Lab 3.79 mmol/L (3.70-5.30); Puncture Site ALINE
[2018-07-07 16:05] VITALS: TEMP 97.3
[2018-07-07 16:09] VITALS: BP 124/65
--- NOTE | 2018-07-08 10:45 | PQF ---
RIVKA ROMERO L GERARD MD [id number] SURG A- [id number] CLINICAL DOCUMENTATION CLARIFICATION FORM: POST DISCHARGE I have been asked to provide documentation on this patient, in the chart, without any effect on the patient's care and for no other purpose than for billing and coding. The patient is already out of the hospital. For clarification, Mr. Romero underwent a lumbar laminectomy for neurogenic claudication. During his post-operative convalescence in the hospital, he suffered a myocardial infarction and eventually underwent CABG. BARON
[2018-07-13] MEDS ORDERED: Clopidogrel Bisulfate 75 MG TAB PO SCH (09:00)
== END 2018-07-07 18:15 | disposition swing bed (61) | DRG 515 ==
LOC: SDC 05:48 → SURG A 11:40 → 2NO 06-18 10:14 → CCU 06-30 07:13 → 2NO 07-01 23:27
PROVIDERS: ADMIT Neurological Surgery; ATTEND Neurological Surgery
PROC: 01NB0ZZ Release Lumbar Nerve, Open Approach (ICD-10-PCS; principal; 2018-06-15)
PROC: 4A023N7 Measurement of Cardiac Sampling and Pressure, Left Heart, Percutaneous Approach (ICD-10-PCS; 2018-06-29)
PROC: B2111ZZ Fluoroscopy of Multiple Coronary Arteries using Low Osmolar Contrast (ICD-10-PCS; 2018-06-29)
PROC: B2151ZZ Fluoroscopy of Left Heart using Low Osmolar Contrast (ICD-10-PCS; 2018-06-29)
PROC: 02100Z9 Bypass Coronary Artery, One Artery from Left Internal Mammary, Open Approach (ICD-10-PCS; 2018-06-30)
PROC: 021209W Bypass Coronary Artery, Three Arteries from Aorta with Autologous Venous Tissue, Open Approach (ICD-10-PCS; 2018-06-30)
PROC: 06BQ4ZZ Excision of Left Saphenous Vein, Percutaneous Endoscopic Approach (ICD-10-PCS; 2018-06-30)
PROC: 02L70ZK Occlusion of Left Atrial Appendage, Open Approach (ICD-10-PCS; 2018-06-30)
PROC: 5A1221Z Performance of Cardiac Output, Continuous (ICD-10-PCS; 2018-06-30)
PROC: 04HY32Z Insertion of Monitoring Device into Lower Artery, Percutaneous Approach (ICD-10-PCS; 2018-06-30)
DX: M48.062 Spinal stenosis, lumbar region with neurogenic claudication (principal); I21.4 Non-ST elevation (NSTEMI) myocardial infarction; N17.9 Acute kidney failure, unspecified; E87.70 Fluid overload, unspecified; I48.0 Paroxysmal atrial fibrillation; M51.36 Other intervertebral disc degeneration, lumbar region; I12.9 Hypertensive chronic kidney disease with stage 1 through stage 4 chronic kidney disease, or unspecified chronic kidney disease; N18.2 Chronic kidney disease, stage 2 (mild); I25.10 Atherosclerotic heart disease of native coronary artery without angina pectoris; N40.0 Benign prostatic hyperplasia without lower urinary tract symptoms; R33.9 Retention of urine, unspecified; E78.5 Hyperlipidemia, unspecified; M19.90 Unspecified osteoarthritis, unspecified site; Z85.118 Personal history of other malignant neoplasm of bronchus and lung; Z86.73 Personal history of transient ischemic attack (TIA), and cerebral infarction without residual deficits; Z88.1 Allergy status to other antibiotic agents; Z88.2 Allergy status to sulfonamides; Z88.8 Allergy status to other drugs, medicaments and biological substances; Z79.82 Long term (current) use of aspirin; Z79.899 Other long term (current) drug therapy; Z90.2 Acquired absence of lung [part of]
CPT/HCPCS: 36415; 36416; 36430; 71045; 72148; 76000; 80048; 80053; 80061; 80076; 81001; 82553; 82805; 83735; 83880; 84443; 84484; 85007; 85025; 85027; 85347; 85610; 85730; 86850; 86900; 86901; 87040; 87077; 87086; 87186; 93005; 93010; 93306; 93458; 93798; 94002; 94150; 94760; 99152; 99153; C1769; J0171; J0282; J0670; J0696; J1100; J1160; J1642; J1644; J1815; J1885; J1940; J1956; J2001; J2060; J2150; J2250; J2270; J2405; J2440; J2704; J2720; J3010; J3370; J3475; J3480; J3490; J7050; J7070; P9045; Q0163; Q0169; Q9967; S0017; S0028

== ENCOUNTER 2018-07-10 11:43 | Inpatient (IN) | payer MEDICARE, OTHER ==
[2018-07-10] MEDS ORDERED: Piperacillin/Tazobactam 4.5 GM VIAL ONE (13:01)
[2018-07-10] MEDS ORDERED: Acetaminophen 325 MG TAB PO PRN (14:53)
[2018-07-10] MEDS ORDERED: Bisacodyl 5 MG TAB PO PRN (14:53)
[2018-07-10] MEDS ORDERED: traMADol HCl 50 MG TAB ONE (14:55)
[2018-07-10] MEDS ORDERED: Vancomycin HCl 1 GM in Premix Bag 1 BAG IVPB SCH (15:00)
--- NOTE | 2018-07-10 15:16 | HP ---
PRIMARY CARE PROVIDER: BRETT TANNER MD. CHIEF COMPLAINT: Chest pain. HISTORY OF PRESENT ILLNESS: Mr. Nnues is a pleasant 82-year-old gentleman who was seen at [facility] on July 10, 2018. He was hospitalized at this facility from July 07 to of this year. During that hospitalization, he had lumbar laminectomy. Postoperatively, he had non-ST elevation myocardial infarction. He had cardiac catheterization followed by coronary artery bypass graft. He was discharged to [facility] on July 07, 2018. He reports that he was doing well until this morning. Today morning, he started having pain over his upper right chest. He describes it as pleuritic, 8 to 9/10, dull, worse with coughing, improving with rest. Currently, pain is 5/10. The pain was associated with shortness of breath. He also reports cough that is productive of sputum. He reports that the sputum is clear. REVIEW OF SYSTEMS: All other systems reviewed and found to be negative. PAST MEDICAL HISTORY: Lymphoma, cerebrovascular accident, dyslipidemia, hypertension, non-ST elevation myocardial infarction, spinal stenosis. SURGICAL HISTORY: Splenectomy, no surgery; left lung upper lobe removal, cardiac stents, cholecystectomy, coronary artery bypass graft. PSYCHIATRIC HISTORY: Anxiety. SOCIAL HISTORY: The patient denies tobacco use, alcohol use, or recreational drug use. CODE STATUS: He is full code. FAMILY HISTORY: No family history of premature coronary artery disease. ALLERGIES: RITUXAN, ATORVASTATIN, CHLORPHENIRAMINE, CLINDAMYCIN, PRAVASTATIN, SULFA, ZANAFLEX TODAY. CURRENT MEDICATIONS: 1. Finasteride 5 mg daily. 2. Lasix 40 mg daily. 3. Potassium chloride 20 mEq daily. 4. Zoloft 50 mg daily. 5. Zocor 20 mg daily. 6. Flomax 0.4 mg daily. 7. Tramadol p.r.n. 8. Trazodone 25 mg at bedtime. 9. Coreg 1.5625 mg daily. 10. Pepcid 20 mg daily. PHYSICAL EXAMINATION: GENERAL: On examination, Mr. Nunes is awake and alert, not in acute distress. VITAL SIGNS: Blood pressure is 109/73, pulse 82, respiratory rate 26, and oxygen saturation 95% on room air. He is afebrile. EYES: No scleral icterus, no conjunctival pallor. ENT: Moist mucosal membranes. No oropharyngeal erythema or exudates. NECK: Supple, nontender, trachea is midline. RESPIRATORY: Left-sided bronchial breathing present. SKIN: No rashes or subcutaneous nodules. LYMPHATIC: No cervical lymphadenopathy. CARDIOVASCULAR: S1 and S2 are heard, irregular. NEUROLOGIC: Cranial nerves 2 through 12 are intact. MUSCULOSKELETAL: Weakness in both lower extremities. ABDOMEN: Soft, nontender, bowel sounds heard. PSYCHIATRIC: Normal mood, normal affect, the patient is oriented to person, place, and time. LABORATORY DATA: Mr. Nuens's labs and investigations were reviewed. I reviewed his electrocardiogram, which shows atrial fibrillation, no ST changes to suggest an acute coronary syndrome. I also reviewed his chest x-ray, which shows left lung consolidation at the base and bilateral pleural effusions. He has leukocytosis with 17,700 white cells, of which 86% are neutrophils, normocytic anemia with hemoglobin 10.2, normal platelet count, decreased sodium of 135, normal potassium, normal creatinine, normal AST, normal ALT, troponin I elevated at 0.483, trending down from 11.894 in June 2018, normal lactic acid. AST, ALT, and alkaline phosphatase are normal. Total bilirubin is normal. ASSESSMENT AND PLAN: Mr. Nunes is a pleasant 82-year-old gentleman, who was seen at [facility] on July 10, 2018. His problem list includes: 1. Chest pain; most likely secondary to pneumonia. His pneumonia is actually on the left side, but the pain is on the right side. We will trend troponins. We will monitor on telemetry. 2. Pneumonia: The patient will be treated with intravenous antibiotics. He has received levofloxacin, vancomycin, and Zosyn, which I will continue. 3. Atrial fibrillation: It is unclear whether he has any past history of atrial fibrillation. We will consult Cardiology Service for opinion and help with management. 4. Hypertension: We will monitor vital signs and titrate antihypertensives as needed. Many thanks for allowing me to participate in your patient's care. Please feel free to contact me with any questions or concerns. LEVEL OF RISK: High. LEVEL OF COMPLEXITY: High end. Job ID: [id number]
[2018-07-10 17:08] LABS: Lactic Acid 2.3 mmol/L (0.5-2.2)
[2018-07-10 17:20] LABS: Critical Call Chem Troponin I DECREASED; Troponin I 0.455 ng/mL (< 0.028)
[2018-07-10 17:27] VITALS: BMI 25.6
[2018-07-10 20:27] LABS: Critical Call Chem Troponin I DECREASED; Troponin I 0.419 ng/mL (< 0.028)
[2018-07-10] MEDS ORDERED: tiZANidine HCl 4 MG TAB PO PRN (21:00)
[2018-07-10] MEDS: Piperacillin/Tazobactam 4.5 GM in Sodium Chloride 0.9% 100 ML IVPB SCH (21:14)
[2018-07-10] MEDS: traZODone HCl 50 MG TAB PO SCH (21:14)
[2018-07-10] MEDS: Tamsulosin HCl 0.4 MG CAP PO SCH (21:14)
[2018-07-10] MEDS: Atorvastatin Calcium 10 MG TAB PO SCH (21:14)
[2018-07-10] MEDS: Famotidine 20 MG TAB PO SCH (21:14)
[2018-07-10] MEDS: ALPRAZolam 0.25 MG TAB PO PRN (22:16)
[2018-07-11 05:39] LABS: #Eosinphils 0.2 thou/uL (0.0-0.7); #Lymphocytes 1.7 thou/uL (1.20-3.40); #Monocytes 2.3 thou/uL (0.11-0.59); #Neutrophils 14.1 thou/uL (1.40-6.50); %Basophils 0.2 % (0.0-1.0); %Eosinophils 1.2 % (0.0-10.0); %Lymphocytes 9.3 % (21.0-51.0); %Monocytes 12.4 % (0.0-10.0); %Neutrophils 76.9 % (42.0-75.0); Hemoglobin 9.4 g/dL (14.0-18.0); Mean Corpuscular HGB CONC 31.4 g/dL (32.0-36.0); Mean Corpuscular Hemoglobin 31.6 pg (27.0-31.0); Mean Platelet Volume 8.6 fL (7.4-10.4); Platelet Count 301 thou/uL (130-400); RBC Distribution Width 13.3 % (11.5-14.5); Red Blood Cell (RBC) Count 2.96 mill/uL (4.70-6.10); White Blood Cell (WBC) Count 18.4 thou/uL (4.8-10.8)
[2018-07-11] MEDS: Piperacillin/Tazobactam 4.5 GM in Sodium Chloride 0.9% 100 ML IVPB SCH ×3 (05:40→22:03)
[2018-07-11 05:53] LABS: Anion Gap 10 mmol/L (10-20); BUN (Urea Nitrogen) 13 mg/dL (8.4-25.7); Calc. Creatinine Clearance 85 mL/min (70-130); Calcium 7.8 mg/dL (7.8-10.44); Carbon Dioxide 30 mmol/L (23-31); Chloride 97 mmol/L (98-107); Estimated GFR-MDRD 89; Glucose 105 mg/dL (83-110); Sodium 134 mmol/L (136-145)
[2018-07-11 05:57] LABS: Potassium 2.8 mmol/L (3.5-5.1)
[2018-07-11] MEDS ORDERED: Potassium Chloride 20 MEQ TAB PO SCH (06:15)
[2018-07-11] MEDS: Aspirin 325 MG TAB PO SCH (08:22)
[2018-07-11] MEDS: Ascorbic Acid 500 mg Chewable Tablet PO SCH (08:22)
[2018-07-11] MEDS: Finasteride 5 MG TAB PO SCH (08:23)
[2018-07-11] MEDS: Carvedilol 3.125 MG TAB PO SCH ×2 (08:23→16:36)
[2018-07-11] MEDS: Famotidine 20 MG TAB PO SCH ×2 (08:24→20:34)
[2018-07-11] MEDS: Furosemide 40 MG TAB PO SCH (08:24)
[2018-07-11] MEDS: Enoxaparin Sodium 40 MG/0.4 ML SYRINGE SC SCH (08:24)
[2018-07-11] MEDS: traMADol HCl 50 MG TAB PO PRN ×2 (12:26→20:34)
[2018-07-11] MEDS: Vancomycin HCl 1.25 GM in Sodium Chloride 0.9% 250 ML 250 ML IVPB SCH (13:33)
--- NOTE | 2018-07-11 13:48 | PDOC.PN ---
- Subjective Encounter Start Date: 07/11/18 Encounter Start Time: 08:20 Pt seen for followup re: pneumonia. Cough+. No chest pain. - Objective Resuscitation Status - Order Detail: 07/10/18 14:53 Resuscitation Status Routine Resuscitation Status: FULL: Full Resuscitation Discussed with: patient Vital Signs & Weight: Vital Signs (12 hours) Temp Pulse Resp BP Pulse Ox 07/11/18 11:20 98.1 F 83 16 99/55 L 96 07/11/18 07:20 97.7 F 94 16 114/65 97 07/11/18 04:00 98.8 F 107 H 20 104/61 97 Weight Weight 194 lb I&O: 07/10/18 07/11/18 07/12/18 06:59 06:59 07:59 Intake Total 240 Output Total 850 Balance -610 Result Diagrams: 07/11/18 04:47 07/11/18 04:47 Phys Exam - Physical Examination Constitutional: NAD HEENT: moist MMs, sclera anicteric, oral pharynx no lesions, 2+ tonsils Neck: no nodes, no JVD, supple, full ROM L bronchial breathing Cardiovascular: RRR, no rub S1, S2 Gastrointestinal: soft, non-tender, no distention, positive bowel sounds Neurological: moves all 4 limbs [place] LLE weakness Psychiatric: normal affect, A&O x 3 Dx/Plan (1) Pneumonia Code(s): J18.9 - PNEUMONIA, UNSPECIFIED ORGANISM Status: Acute Comment: continue antibiotics as below for gram negative bacterial pneumonia, follow cultures (2) Hypokalemia Code(s): E87.6 - HYPOKALEMIA Status: Acute Comment: replace potassium and recheck (3) CAD (coronary artery disease) Code(s): I25.10 - ATHSCL HEART DISEASE OF [place] CORONARY ARTERY W/O ANG PCTRS Status: Chronic Qualifiers: Coronary Disease-Associated Artery/Lesion type: bypass graft [place] vs. transplanted heart: [place] heart Associated angina: with stable angina Qualified Code(s): I25.708 - Atherosclerosis of coronary artery bypass graft(s) , unspecified, with other forms of angina pectoris Comment: s/p cabg x5 06/30/2018, stable (4) HLD (hyperlipidemia) Code(s): E78.5 - HYPERLIPIDEMIA, UNSPECIFIED Status: Chronic Comment: continue statin - Plan plan discussed w/ family, continue antibiotics, PT/OT, out of bed/ambulate, DVT proph w/lovenox * . Review of Systems - Review of Systems Constitutional: weakness. negative: fever, chills, sweats, malaise Respiratory: Cough, Sputum. negative: Dry, Shortness of Breath, Hemoptysis, SOB with Excertion, Pleuritic Pain, Wheezing Cardiovascular: negative: chest pain, palpitations, orthopnea, paroxysmal nocturnal dyspnea, edema, light headedness Gastrointestinal: Other. negative: Nausea, Vomiting, Abdominal Pain, Diarrhea, Constipation, Melena, Hematochezia Genitourinary: Other. negative: Dysuria, Frequency, Incontinence, Hematuria, Retention - Medications/Allergies Allergies/Adverse Reactions: Allergies Allergy/AdvReac Type Severity Reaction Status Date / Time Antihistamines - Alkylamine Allergy Intermediate PROSTATE Verified 06/12/18 12: 13 SWELLING clindamycin Allergy Intermediate Rash Verified 06/12/18 12:13 pravastatin Allergy Intermediate PT DOESN'T Verified 06/12/18 12:13 REMEMBER Sulfa (Sulfonamide Allergy Intermediate WELPS, RASH Verified 06/12/18 12:13 Antibiotics) atorvastatin Allergy Verified 06/12/18 12:13 Medications: Current Medications Acetaminophen (Tylenol) 650 mg PO Q4H PRN PRN Reason: Headache/Fever/Mild Pain (1-3) Alprazolam (Xanax) 0.25 mg PO BIDPRN PRN PRN Reason: Anxiety Last Admin: 07/10/18 22:16 Dose: 0.25 mg Ascorbic Acid (Vitamin C) 1,000 mg PO DAILY [facility] Last Admin: 07/11/18 08:22 Dose: 1,000 mg Aspirin (Aspirin) 325 mg PO DAILY [facility] Last Admin: 07/11/18 08:22 Dose: 325 mg Atorvastatin Calcium (Lipitor) 10 mg PO HS [facility] Last Admin: 07/10/18 21:14 Dose: 10 mg Bisacodyl (Dulcolax) 10 mg PO DAILYPRN PRN PRN Reason: Constipation Carvedilol (Coreg) 1.5625 mg PO BID-[facility] Last Admin: 07/11/18 08:23 Dose: 1.5625 mg Cholecalciferol (Vitamin D3) 1,000 units PO DAILY [facility] Last Admin: 07/11/18 08:23 Dose: 1,000 units Enoxaparin Sodium (Lovenox) 40 mg SC 0900 [facility] Last Admin: 07/11/18 08:24 Dose: 40 mg Famotidine (Pepcid) 20 mg PO BID [facility] Last Admin: 07/11/18 08:24 Dose: 20 mg Finasteride (Proscar) 5 mg PO DAILY [facility] Last Admin: 07/11/18 08:23 Dose: 5 mg Furosemide (Lasix) 40 mg PO DAILY [facility] Last Admin: 07/11/18 08:24 Dose: 40 mg Piperacillin Sod/Tazobactam (Sod 4.5 gm/ Sodium Chloride) 100 mls @ 200 mls/hr IVPB Q8HR [facility] Last Admin: 07/11/18 13:00 Dose: 100 mls Levofloxacin 750 mg/ Device 150 mls @ 100 mls/hr IVPB Q24HR [facility] Vancomycin HCl 1.25 gm/ Sodium (Chloride) 250 mls @ 166.667 mls/hr IVPB 1400 [facility] Last Admin: 07/11/18 13:33 Dose: 250 mls Miscellaneous Medication (Pharmacy To Dose) 1 each IVPB PRN PRN PRN Reason: Pharmacy to dose Potassium Chloride (K-Dur) 40 meq PO BID-[facility] Sertraline HCl (Zoloft) 50 mg PO DAILY [facility] Last Admin: 07/11/18 08:23 Dose: 50 mg Tamsulosin HCl (Flomax) 0.4 mg PO [facility] Last Admin: 07/10/18 21:14 Dose: 0.4 mg Tizanidine HCl (Zanaflex) 4 mg PO TID PRN PRN Reason: Muscle Spasm Tramadol HCl (Ultram) 50 mg PO Q6H PRN PRN Reason: Pain Last Admin: 07/11/18 12:26 Dose: 50 mg Trazodone HCl (Desyrel) 25 mg PO [facility] Last Admin: 07/10/18 21:14 Dose: 25 mg
[2018-07-11] MEDS: Potassium Chloride 20 MEQ TAB PO SCH (16:38)
[2018-07-11] MEDS: traZODone HCl 50 MG TAB PO SCH (20:34)
[2018-07-11] MEDS: Tamsulosin HCl 0.4 MG CAP PO SCH (20:34)
[2018-07-11] MEDS: Atorvastatin Calcium 10 MG TAB PO SCH (20:34)
[2018-07-12 05:22] LABS: #Eosinphils 0.3 thou/uL (0.0-0.7); #Lymphocytes 2.1 thou/uL (1.20-3.40); #Monocytes 2.8 thou/uL (0.11-0.59); %Basophils 0.2 % (0.0-1.0); %Eosinophils 1.4 % (0.0-10.0); %Lymphocytes 10.8 % (21.0-51.0); %Monocytes 14.5 % (0.0-10.0); %Neutrophils 73.2 % (42.0-75.0); Hemoglobin 9.6 g/dL (14.0-18.0); Mean Corpuscular HGB CONC 30.6 g/dL (32.0-36.0); Mean Corpuscular Hemoglobin 31.5 pg (27.0-31.0); Mean Platelet Volume 8.4 fL (7.4-10.4); Platelet Count 344 thou/uL (130-400); RBC Distribution Width 13.5 % (11.5-14.5); Red Blood Cell (RBC) Count 3.06 mill/uL (4.70-6.10); White Blood Cell (WBC) Count 19.2 thou/uL (4.8-10.8)
[2018-07-12 05:34] LABS: Anion Gap 12 mmol/L (10-20); BUN (Urea Nitrogen) 13 mg/dL (8.4-25.7); Calc. Creatinine Clearance 82 mL/min (70-130); Carbon Dioxide 28 mmol/L (23-31); Chloride 98 mmol/L (98-107); Estimated GFR-MDRD 85; Glucose 101 mg/dL (83-110); Potassium 3.8 mmol/L (3.5-5.1); Sodium 134 mmol/L (136-145)
[2018-07-12] MEDS: traMADol HCl 50 MG TAB PO PRN ×3 (05:38→18:50)
[2018-07-12] MEDS: Piperacillin/Tazobactam 4.5 GM in Sodium Chloride 0.9% 100 ML IVPB SCH ×3 (05:41→22:09)
[2018-07-12] MEDS: Potassium Chloride 20 MEQ TAB PO SCH ×2 (09:03→17:32)
[2018-07-12] MEDS: Ascorbic Acid 500 mg Chewable Tablet PO SCH (09:03)
[2018-07-12] MEDS: Carvedilol 3.125 MG TAB PO SCH ×2 (09:03→17:32)
[2018-07-12] MEDS: Aspirin 325 MG TAB PO SCH (09:03)
[2018-07-12] MEDS: Famotidine 20 MG TAB PO SCH ×2 (09:04→20:35)
[2018-07-12] MEDS: Enoxaparin Sodium 40 MG/0.4 ML SYRINGE SC SCH (09:04)
[2018-07-12] MEDS: Finasteride 5 MG TAB PO SCH (09:04)
[2018-07-12] MEDS: Furosemide 40 MG TAB PO SCH (09:04)
--- NOTE | 2018-07-12 13:19 | PDOC.PN ---
- Subjective Encounter Start Date: 07/12/18 Encounter Start Time: 08:40 Pt seen for followup re: pneumonia. Feels better. - Objective Resuscitation Status - Order Detail: 07/10/18 14:53 Resuscitation Status Routine Resuscitation Status: FULL: Full Resuscitation Discussed with: patient BRIANNA Reviewed: Yes Vital Signs & Weight: Vital Signs (12 hours) Temp Pulse Resp BP Pulse Ox 07/12/18 08:00 97.9 F 87 18 127/65 96 07/12/18 03:52 98.0 F 77 18 129/72 95 Weight Weight 194 lb I&O: 07/11/18 07/12/18 07/13/18 05:59 06:59 06:59 Intake Total Output Total Balance Result Diagrams: 07/12/18 04:06 07/12/18 04:06 EKG Reviewed by me: Yes (Tele: NSR) Phys Exam - Physical Examination Constitutional: NAD HEENT: moist MMs Neck: supple Respiratory: clear to auscultation bilateral Cardiovascular: RRR Gastrointestinal: soft Neurological: moves all 4 limbs Psychiatric: normal affect Dx/Plan (1) Pneumonia Code(s): J18.9 - PNEUMONIA, UNSPECIFIED ORGANISM Status: Acute Comment: continue IV Zosyn, levofloxacin and vancomycin (2) CAD (coronary artery disease) Code(s): I25.10 - ATHSCL HEART DISEASE OF [place] CORONARY ARTERY W/O ANG PCTRS Status: Chronic Qualifiers: Coronary Disease-Associated Artery/Lesion type: bypass graft [place] vs. transplanted heart: [place] heart Associated angina: with stable angina Qualified Code(s): I25.708 - Atherosclerosis of coronary artery bypass graft(s) , unspecified, with other forms of angina pectoris Comment: s/p cabg, stable (3) HLD (hyperlipidemia) Code(s): E78.5 - HYPERLIPIDEMIA, UNSPECIFIED Status: Chronic Comment: on statin (4) Hypokalemia Code(s): E87.6 - HYPOKALEMIA Status: Resolved - Plan * . Review of Systems - Review of Systems Respiratory: Cough, Sputum. negative: Dry, Shortness of Breath, Hemoptysis, SOB with Excertion, Pleuritic Pain, Wheezing Cardiovascular: negative: chest pain, palpitations, orthopnea, paroxysmal nocturnal dyspnea, edema, light headedness - Medications/Allergies Allergies/Adverse Reactions: Allergies Allergy/AdvReac Type Severity Reaction Status Date / Time Antihistamines - Alkylamine Allergy Intermediate PROSTATE Verified 06/12/18 12: 13 SWELLING clindamycin Allergy Intermediate Rash Verified 06/12/18 12:13 pravastatin Allergy Intermediate PT DOESN'T Verified 06/12/18 12:13 REMEMBER Sulfa (Sulfonamide Allergy Intermediate WELPS, RASH Verified 06/12/18 12:13 Antibiotics) atorvastatin Allergy Verified 06/12/18 12:13 Medications: Current Medications Acetaminophen (Tylenol) 650 mg PO Q4H PRN PRN Reason: Headache/Fever/Mild Pain (1-3) Alprazolam (Xanax) 0.25 mg PO BIDPRN PRN PRN Reason: Anxiety Last Admin: 07/10/18 22:16 Dose: 0.25 mg Ascorbic Acid (Vitamin C) 1,000 mg PO DAILY [facility] Last Admin: 07/12/18 09:03 Dose: 1,000 mg Aspirin (Aspirin) 325 mg PO DAILY [facility] Last Admin: 07/12/18 09:03 Dose: 325 mg Atorvastatin Calcium (Lipitor) 10 mg PO HS [facility] Last Admin: 07/11/18 20:34 Dose: 10 mg Bisacodyl (Dulcolax) 10 mg PO DAILYPRN PRN PRN Reason: Constipation Carvedilol (Coreg) 1.5625 mg PO BID-[facility] Last Admin: 07/12/18 09:03 Dose: 1.5625 mg Cholecalciferol (Vitamin D3) 1,000 units PO DAILY [facility] Last Admin: 07/12/18 09:03 Dose: 1,000 units Enoxaparin Sodium (Lovenox) 40 mg SC 0900 [facility] Last Admin: 07/12/18 09:04 Dose: 40 mg Famotidine (Pepcid) 20 mg PO BID [facility] Last Admin: 07/12/18 09:04 Dose: 20 mg Finasteride (Proscar) 5 mg PO DAILY [facility] Last Admin: 07/12/18 09:04 Dose: 5 mg Furosemide (Lasix) 40 mg PO DAILY [facility] Last Admin: 07/12/18 09:04 Dose: 40 mg Piperacillin Sod/Tazobactam (Sod 4.5 gm/ Sodium Chloride) 100 mls @ 200 mls/hr IVPB Q8HR [facility] Last Admin: 07/12/18 05:41 Dose: 100 mls Levofloxacin 750 mg/ Device 150 mls @ 100 mls/hr IVPB Q24HR [facility] Last Admin: 07/11/18 15:05 Dose: 150 mls Vancomycin HCl 1.25 gm/ Sodium (Chloride) 250 mls @ 166.667 mls/hr IVPB 1400 [facility] Last Admin: 07/11/18 13:33 Dose: 250 mls Miscellaneous Medication (Pharmacy To Dose) 1 each IVPB PRN PRN PRN Reason: Pharmacy to dose Potassium Chloride (K-Dur) 40 meq PO BID-[facility] Last Admin: 07/12/18 09:03 Dose: 40 meq Sertraline HCl (Zoloft) 50 mg PO DAILY [facility] Last Admin: 07/12/18 09:03 Dose: 50 mg Tamsulosin HCl (Flomax) 0.4 mg PO [facility] Last Admin: 07/11/18 20:34 Dose: 0.4 mg Tizanidine HCl (Zanaflex) 4 mg PO TID PRN PRN Reason: Muscle Spasm Tramadol HCl (Ultram) 50 mg PO Q6H PRN PRN Reason: Pain Last Admin: 07/12/18 11:58 Dose: 50 mg Trazodone HCl (Desyrel) 25 mg PO [facility] Last Admin: 07/11/18 20:34 Dose: 25 mg
[2018-07-12] MEDS ORDERED: guaiFENesin ER 600 MG TAB PO SCH (13:30)
[2018-07-12 13:55] LABS: Vancomycin, Trough 6.5 ug/mL
--- NOTE | 2018-07-12 14:15 | PDOC.CTH ---
Cardiology Progress Note - Subjective Patient without complaints. Doing well overall. - Objective Vital Signs Temp Pulse Resp BP Pulse Ox 07/12/18 08:00 97.9 F 87 18 127/65 96 07/12/18 03:52 98.0 F 77 18 129/72 95 Weight 194 lb 07/11/18 07/12/18 07/13/18 05:59 06:59 06:59 Intake Total Output Total Balance - Physical Examination General/Neuro: alert & oriented x3 Neck: no JVD present Lungs: CTA Heart: RRR Abdomen: NT/ND - Telemetry Telemetry Rhythm: SR - Labs Result Diagrams: 07/12/18 04:06 07/12/18 04:06 Troponin/CKMB Troponin I 0.419 ng/mL (< 0.028) H* 07/10/18 19:41 - Assessment/Plan 1. Elevated Trop 2. PNA 3. Recent NSTEMI (06/2018) 4. CAD s/p CABG Overall doing well. Would continue antibiotics. Trop elevation probably trending down from previous admission. Ok to transfer to medical from my standpoint.
[2018-07-12] MEDS: Vancomycin HCl 1.25 GM in Sodium Chloride 0.9% 250 ML 250 ML IVPB SCH ×2 (15:14→15:20)
[2018-07-12] MEDS: traZODone HCl 50 MG TAB PO SCH (20:35)
[2018-07-12] MEDS: Tamsulosin HCl 0.4 MG CAP PO SCH (20:37)
[2018-07-12] MEDS: Atorvastatin Calcium 10 MG TAB PO SCH (20:37)
[2018-07-12] MEDS: guaiFENesin ER 600 MG TAB PO SCH (20:37)
[2018-07-13] MEDS: Vancomycin HCl 1.25 GM in Sodium Chloride 0.9% 250 ML 250 ML IVPB SCH (03:39)
[2018-07-13] MEDS: Piperacillin/Tazobactam 4.5 GM in Sodium Chloride 0.9% 100 ML IVPB SCH (06:46)
[2018-07-13 07:08] LABS: Anion Gap 13 mmol/L (10-20); BUN (Urea Nitrogen) 15 mg/dL (8.4-25.7); Calc. Creatinine Clearance 75 mL/min (70-130); Carbon Dioxide 24 mmol/L (23-31); Chloride 100 mmol/L (98-107); Estimated GFR-MDRD 76; Glucose 96 mg/dL (83-110); Potassium 4.5 mmol/L (3.5-5.1); Sodium 132 mmol/L (136-145)
--- NOTE | 2018-07-13 08:25 | CON ---
DATE OF CONSULTATION: 07/11/2018 REASON FOR CONSULTATION: Chest pain. HISTORY OF PRESENT ILLNESS: Mr. Nunes is very pleasant 80-year-old gentleman, who was seen and evaluated recently. He underwent a laminectomy, followed by bypass surgery after having a non-Q wave SC. He was placed in a swing bed at [place]. He described a chest discomfort, noted as pleuritic. It was 8/10. Worse with cough and deep breath. Otherwise, no associated present. He currently feels much better this morning. PAST MEDICAL HISTORY: As described above including CVA, lymphoma, hyperlipidemia, hypertension. PAST SURGICAL HISTORY: Lobectomy, cholecystectomy, splenectomy. SOCIAL HISTORY: No current tobacco or alcohol use. He has very supportive family. ALLERGIES: ATORVASTATIN, CLINDAMYCIN, PRAVASTATIN, SULFA. HOME MEDICATIONS: Include 1. Lasix. 2. Potassium. 3. Zoloft. 4. Zocor. 5. Flomax. 6. Tramadol. 7. Trazodone. 8. Coreg. 9. Pepcid. 10. Finasteride. REVIEW OF SYSTEMS: A 10-point review of systems is reviewed and as above, otherwise negative. PHYSICAL EXAMINATION: GENERAL: Patient is a pleasant male who is in no acute distress. The patient appears their stated age. VITAL SIGNS: Blood pressure 110/67, pulse 81, temperature 98.3. NEUROLOGIC: The patient is alert and oriented x3 with no focal neurologic deficits. HEENT: Sclerae without icterus. Mouth has moist mucous membranes with normal pallor. NECK: No JVD. Carotid upstroke brisk. No bruits bilaterally. LUNGS: Clear to auscultation with unlabored respirations. BACK: No scoliosis or kyphosis. CARDIAC: Regular rate and rhythm with normal S1 and S2. No S3 or S4 noted. No significant rubs, murmurs, thrills, or gallops noted throughout the precordium. PMI is not displaced. There is no parasternal heave. ABDOMEN: Soft, nontender, nondistended. No peritoneal signs present. No hepatosplenomegaly. No abnormal striae. EXTREMITIES: 2+ femoral and 2+ dorsalis pedis pulses. No cyanosis, clubbing, or edema. SKIN: No gross abnormalities. LABORATORY DATA: Pertinent labs: Hemoglobin 9.6, white blood cell count 19.2. Peak troponin 0.4. IMPRESSION: 1. Atypical chest pain. 2. Coronary artery disease. 3. Status post bypass surgery. 4. Laminectomy. 5. Previous stent placement. 6. Recent non Q-wave myocardial infarction. RECOMMENDATIONS: At this point, Mr. Nunes is doing well. His symptoms are felt to be atypical, and unlikely related to recent bypass surgery. No symptoms suggesting angina. His troponin is likely residual from his non-Q wave SC two weeks ago. At this point, recommend conservative therapy. His CK-MB was drawn on 07/10/2018, and was negative. At this point, I would recommend physical therapy. If he is doing well from my standpoint, can discharged to Medical tomorrow and hopefully transfer back to [place]. Job ID: [id number]
[2018-07-13 08:55] LABS: Hemoglobin 9.6 g/dL (14.0-18.0); Mean Corpuscular HGB CONC 31.2 g/dL (32.0-36.0); Mean Corpuscular Hemoglobin 31.7 pg (27.0-31.0); Mean Platelet Volume 8.4 fL (7.4-10.4); Platelet Count 334 thou/uL (130-400); RBC Distribution Width 13.8 % (11.5-14.5); Red Blood Cell (RBC) Count 3.02 mill/uL (4.70-6.10); White Blood Cell (WBC) Count 16.6 thou/uL (4.8-10.8)
[2018-07-13 09:04] LABS: Burr Cells SLIGHT = 2-5 cells (100X) (0-1/hpf); Eosinophils 2 % (0-10); Hypochromia SLIGHT = 6-15 cells (100X) (0-5/hpf); Lymphocytes 7 % (21-51); MDiff Complete? YES; Macrocytosis SLIGHT = 6-15 cells (100X) (0-5/hpf); Monocytes 14 % (0-10); Neutrophil 77 % (42-75); Platelet Morphology Comment Appears Adequate; Polychromasia SLIGHT = 2-3 cells (100X) (0-2/hpf)
[2018-07-13] MEDS: Aspirin 325 MG TAB PO SCH (09:13)
[2018-07-13] MEDS: Ascorbic Acid 500 mg Chewable Tablet PO SCH (09:13)
[2018-07-13] MEDS: Potassium Chloride 20 MEQ TAB PO SCH ×2 (09:14→16:53)
[2018-07-13] MEDS: guaiFENesin ER 600 MG TAB PO SCH ×2 (09:15→20:11)
[2018-07-13] MEDS: Famotidine 20 MG TAB PO SCH ×2 (09:15→20:11)
[2018-07-13] MEDS: Carvedilol 3.125 MG TAB PO SCH ×2 (09:15→16:53)
[2018-07-13] MEDS: Furosemide 40 MG TAB PO SCH (09:15)
[2018-07-13] MEDS: Finasteride 5 MG TAB PO SCH (09:16)
[2018-07-13] MEDS: Enoxaparin Sodium 40 MG/0.4 ML SYRINGE SC SCH (09:17)
--- NOTE | 2018-07-13 09:51 | PDOC.PN ---
- Subjective Encounter Start Date: 07/13/18 Encounter Start Time: 11:30 Subjective: Patient feeling better. Wants to go home. Cleared for medical by -: cardiology. - Objective Resuscitation Status - Order Detail: 07/10/18 14:53 Resuscitation Status Routine Resuscitation Status: FULL: Full Resuscitation Discussed with: patient BRIANNA Reviewed: Yes Vital Signs & Weight: Vital Signs (12 hours) Temp Pulse Resp BP Pulse Ox 07/13/18 08:00 97 07/13/18 07:57 97.4 F L 77 16 114/59 L 97 07/13/18 04:00 97.8 F 90 18 161/65 H 94 L Weight Weight 196 lb I&O: 07/12/18 07/13/18 07/14/18 06:59 06:59 06:59 Intake Total 1570 Output Total 1750 Balance -180 Result Diagrams: 07/13/18 06:28 07/13/18 06:28 EKG Reviewed by me: Yes (tele with SR and frequent PACs) Phys Exam - Physical Examination Constitutional: NAD HEENT: moist MMs on NC O2 Respiratory: no wheezing, no rales, no rhonchi Cardiovascular: RRR, no significant murmur occ ectopic beat Gastrointestinal: soft Musculoskeletal: no edema Neurological: non-focal Psychiatric: normal affect, A&O x 3 Dx/Plan (1) Congestive heart failure Code(s): I50.9 - HEART FAILURE, UNSPECIFIED Status: Acute Qualifiers: Heart failure type: diastolic Comment: EF 45-50%, overloaded last admission, still with mild effusions, source of hypoxia (2) Acute respiratory failure with hypoxia Code(s): J96.01 - ACUTE RESPIRATORY FAILURE WITH HYPOXIA Status: Acute Comment: persistent since her NSTEMI and CABG, may need home O2 (3) Pneumonia Code(s): J18.9 - PNEUMONIA, UNSPECIFIED ORGANISM Status: Ruled-out Comment: WBC has been elevated entire past hospitalization, trending down a little now, CXR without significant infiltrate, mild effusions likely postoperative, will deescalate antibiotics (4) Atrial fibrillation Code(s): I48.91 - UNSPECIFIED ATRIAL FIBRILLATION Status: Acute Qualifiers: Atrial fibrillation type: paroxysmal Qualified Code(s): I48.0 - Paroxysmal atrial fibrillation Comment: controlled, currently in SR with frequent PACs, discussed with Dr. Mcnulty and will start anticoagulation with Eliquis. (5) NSTEMI (non-ST elevated myocardial infarction) Code(s): I21.4 - NON-ST ELEVATION (NSTEMI) MYOCARDIAL INFARCTION Status: Inactive Comment: troponin thought to be due to previous NSTEMI after surgery and then CABG, no active coronary disease per cardiology (6) Status post coronary artery bypass graft Code(s): Z95.1 - PRESENCE OF AORTOCORONARY BYPASS GRAFT Status: Acute (7) Status post lumbar laminectomy Code(s): Z98.890 - OTHER SPECIFIED POSTPROCEDURAL STATES Status: Acute (8) CAD (coronary artery disease) Code(s): I25.10 - ATHSCL HEART DISEASE OF [place] CORONARY ARTERY W/O ANG PCTRS Status: Chronic Qualifiers: Coronary Disease-Associated Artery/Lesion type: bypass graft [place] vs. transplanted heart: [place] heart Associated angina: with stable angina Qualified Code(s): I25.708 - Atherosclerosis of coronary artery bypass graft(s) , unspecified, with other forms of angina pectoris Comment: s/p cabg, stable (9) CKD (chronic kidney disease), stage II Code(s): N18.2 - CHRONIC KIDNEY DISEASE, STAGE 2 (MILD) Status: Chronic Comment: Avoid nephrotoxic meds and limit contrast exposure (10) HLD (hyperlipidemia) Code(s): E78.5 - HYPERLIPIDEMIA, UNSPECIFIED Status: Chronic Comment: on statin - Plan cont current plan of care, continue antibiotics, PT/OT, DVT proph w/lovenox change to oral abx -: transfer to medical -: voiding trial off RA emma sats and home O2 if needed -: possible d/c home with family support and home health * . - Discharge Day Encounter end time: 11:55
[2018-07-13] MEDS: ALPRAZolam 0.25 MG TAB PO PRN (12:17)
[2018-07-13] MEDS ORDERED: Ondansetron PF 4 MG/2 ML Vial SLOW IVP PRN (19:05)
[2018-07-13] MEDS ORDERED: Ondansetron ODT 4 MG TAB PO PRN (19:05)
[2018-07-13] MEDS: Apixaban 5 MG TAB PO SCH (20:11)
[2018-07-13] MEDS: Atorvastatin Calcium 10 MG TAB PO SCH (20:11)
[2018-07-13] MEDS: traZODone HCl 50 MG TAB PO SCH (20:12)
[2018-07-13] MEDS: Tamsulosin HCl 0.4 MG CAP PO SCH (20:12)
[2018-07-13] MEDS ORDERED: Apixaban 5 MG TAB PO SCH (21:00)
[2018-07-14 05:45] LABS: Anion Gap 11 mmol/L (10-20); BUN (Urea Nitrogen) 16 mg/dL (8.4-25.7); Calc. Creatinine Clearance 70 mL/min (70-130); Calcium 8.3 mg/dL (7.8-10.44); Carbon Dioxide 27 mmol/L (23-31); Chloride 100 mmol/L (98-107); Estimated GFR-MDRD 69; Glucose 109 mg/dL (83-110); Potassium 4.3 mmol/L (3.5-5.1); Sodium 134 mmol/L (136-145)
[2018-07-14 05:54] LABS: Band 5 % (5-11); Hemoglobin 9.4 g/dL (14.0-18.0); Lymphocytes 11 % (21-51); MDiff Complete? YES; Mean Corpuscular HGB CONC 30.8 g/dL (32.0-36.0); Mean Corpuscular Hemoglobin 30.7 pg (27.0-31.0); Mean Corpuscular Volume 99.4 fL (78.0-98.0); Mean Platelet Volume 8.2 fL (7.4-10.4); Monocytes 12 % (0-10); Neutrophil 72 % (42-75); Nucleated RBC 3 % (0); Platelet Count 365 thou/uL (130-400); Platelet Morphology Comment Appears Adequate; RBC Distribution Width 13.8 % (11.5-14.5); Red Blood Cell (RBC) Count 3.07 mill/uL (4.70-6.10); White Blood Cell (WBC) Count 15.1 thou/uL (4.8-10.8)
[2018-07-14] MEDS: traMADol HCl 50 MG TAB PO PRN (06:56)
[2018-07-14] MEDS: ALPRAZolam 0.25 MG TAB PO PRN (07:14)
--- NOTE | 2018-07-14 09:29 | PDOC.PN ---
- Subjective Encounter Start Date: 07/14/18 Encounter Start Time: 11:20 Subjective: Patient doing well. Had some chest wall pain at sternotomy site from -: sleeping with arm over head on awaking this AM, now better. Some anxiety -: controlled with Xanax. able to help to chair and back to bed. - Objective Resuscitation Status - Order Detail: 07/10/18 14:53 Resuscitation Status Routine Resuscitation Status: FULL: Full Resuscitation Discussed with: patient BRIANNA Reviewed: Yes Vital Signs & Weight: Vital Signs (12 hours) Temp Pulse Resp BP Pulse Ox 07/14/18 07:48 97.4 F L 83 18 151/79 H 07/14/18 04:00 97.9 F 77 16 115/66 92 L 07/14/18 00:00 97.8 F 76 16 109/66 98 Weight Weight 196 lb I&O: 07/13/18 07/14/18 07/15/18 06:59 06:59 06:59 Intake Total 1570 1940 Output Total 1750 1200 Balance -180 740 Result Diagrams: 07/14/18 04:57 07/14/18 04:57 Phys Exam - Physical Examination Constitutional: NAD HEENT: moist MMs Respiratory: no wheezing, no rales, no rhonchi sternotomy site healing well Cardiovascular: RRR, no significant murmur Gastrointestinal: soft, positive bowel sounds Musculoskeletal: no edema Neurological: non-focal, moves all 4 limbs Psychiatric: normal affect, A&O x 3 Dx/Plan (1) Congestive heart failure Code(s): I50.9 - HEART FAILURE, UNSPECIFIED Status: Acute Qualifiers: Heart failure type: diastolic Comment: EF 45-50%, overloaded last admission, still with mild effusions, source of hypoxia (2) Acute respiratory failure with hypoxia Code(s): J96.01 - ACUTE RESPIRATORY FAILURE WITH HYPOXIA Status: Resolved Comment: persistent since her NSTEMI and CABG, now weaned off onto room air (3) Pneumonia Code(s): J18.9 - PNEUMONIA, UNSPECIFIED ORGANISM Status: Ruled-out Comment: WBC has been elevated entire past hospitalization, trending down a little now, CXR without significant infiltrate, mild effusions likely postoperative, will deescalate antibiotics (4) Atrial fibrillation Code(s): I48.91 - UNSPECIFIED ATRIAL FIBRILLATION Status: Acute Qualifiers: Atrial fibrillation type: paroxysmal Qualified Code(s): I48.0 - Paroxysmal atrial fibrillation Comment: controlled, currently in SR with frequent PACs, discussed with Dr. Mcnulty and will start anticoagulation with Eliquis. (5) NSTEMI (non-ST elevated myocardial infarction) Code(s): I21.4 - NON-ST ELEVATION (NSTEMI) MYOCARDIAL INFARCTION Status: Inactive Comment: troponin thought to be due to previous NSTEMI after surgery and then CABG, no active coronary disease per cardiology (6) Status post coronary artery bypass graft Code(s): Z95.1 - PRESENCE OF AORTOCORONARY BYPASS GRAFT Status: Acute (7) Status post lumbar laminectomy Code(s): Z98.890 - OTHER SPECIFIED POSTPROCEDURAL STATES Status: Acute (8) CAD (coronary artery disease) Code(s): I25.10 - ATHSCL HEART DISEASE OF [place] CORONARY ARTERY W/O ANG PCTRS Status: Chronic Qualifiers: Coronary Disease-Associated Artery/Lesion type: bypass graft [place] vs. transplanted heart: [place] heart Associated angina: with stable angina Qualified Code(s): I25.708 - Atherosclerosis of coronary artery bypass graft(s) , unspecified, with other forms of angina pectoris Comment: s/p cabg, stable (9) CKD (chronic kidney disease), stage II Code(s): N18.2 - CHRONIC KIDNEY DISEASE, STAGE 2 (MILD) Status: Chronic Comment: Avoid nephrotoxic meds and limit contrast exposure (10) HLD (hyperlipidemia) Code(s): E78.5 - HYPERLIPIDEMIA, UNSPECIFIED Status: Chronic Comment: on statin - Plan cont current plan of care, continue antibiotics, PT/OT off O2, carter successfully d/c'd, home with home health and family support * . - Discharge Day Encounter end time: 11:45
[2018-07-14] MEDS: Apixaban 5 MG TAB PO SCH (10:23)
[2018-07-14] MEDS: Ascorbic Acid 500 mg Chewable Tablet PO SCH (10:24)
[2018-07-14] MEDS: Potassium Chloride 20 MEQ TAB PO SCH (10:24)
[2018-07-14] MEDS: Aspirin 325 MG TAB PO SCH (10:25)
[2018-07-14] MEDS: guaiFENesin ER 600 MG TAB PO SCH (10:25)
[2018-07-14] MEDS: Furosemide 40 MG TAB PO SCH (10:25)
[2018-07-14] MEDS: Famotidine 20 MG TAB PO SCH (10:26)
[2018-07-14] MEDS: Carvedilol 3.125 MG TAB PO SCH (10:26)
[2018-07-14] MEDS: Finasteride 5 MG TAB PO SCH (10:27)
[2018-07-14 12:37] VITALS: BP 113/71; TEMP 97.5
--- NOTE | 2018-07-15 05:21 | DIS ---
DATE OF ADMISSION: 07/10/2018 DATE OF DISCHARGE: 07/14/2018 PRIMARY CARE PHYSICIAN: Cadence Oakes. REASON FOR ADMISSION: Chest pain. DIAGNOSES AT DISCHARGE: 1. Acute diastolic congestive heart failure. 2. Acute respiratory failure with hypoxia, resolved. 3. Pneumonia, ruled out. 4. Paroxysmal atrial fibrillation, currently in sinus rhythm. 5. Mfo-PF-dhisousdr myocardial infarction from previous hospitalization. No acute utu-AI-eyfdcieoh myocardial infarction. 6. Status post coronary artery bypass grafting. 7. Status post lumbar laminectomy. 8. Coronary artery disease. 9. Chronic kidney disease, stage 2. 10. Hyperlipidemia. PROCEDURES: None. CONSULTATIONS: Cardiology, Dr. Mcnulty. SUMMARY OF HOSPITAL COURSE: This is an 82-year-old white male, recently in the hospital for lumbar laminectomy. He had an NSTEMI after the laminectomy, had severe multivessel disease, and had a CABG done. The patient had paroxysmal atrial fibrillation, status post CABG, which has resolved with medication. He was discharged to [facility]. He was doing okay there except for some episodes of anxiety, but in the day of readmission, he developed pleuritic chest pain, worse with coughing, improved with the rest, along with shortness of breath. The patient was sent over to the emergency room. There, investigations revealed some congestive changes on his chest x-ray. There was concern about possibility of pneumonia on his left lung. Reviewing the films, it looks more like some atelectasis and bilateral pleural effusions, consistent with his history of recent CABG. He did have a leukocytosis at 17,000. However, he has had this since his last hospitalization and actually has been trending down. The patient was put in the hospital, he was given IV antibiotics. He was noted to be in atrial fibrillation in the emergency room as well. This quickly converted to sinus rhythm, and he has remained in sinus rhythm with occasional PACs. The patient was evaluated by Dr. Mcnulty. He recommended starting anticoagulation due to the recurrent atrial fibrillation. The patient was given diuresis. He was able to be weaned off his oxygen. His antibiotics were de-escalated to Levaquin orally. The patient was offered the option of going back to rehab or swing bed. However, he reported he wanted to go home. His is present at the bedside and is supportive of this. She has been helping him transition from the bed to chair and has been taking care of him here in the hospital and feels competent to do this at home, so they are asking for that he be discharged home with home health. The patient did have an indwelling Colon that they were unable to get out in his last hospitalization. We did do a voiding trial here and he was able to void well after discontinuation of Colon. DISCHARGE MANAGEMENT: Discharged home with [facility]. ACTIVITY: As tolerated. DIET: Healthy heart, fluid-restricted, low-sodium diet. Home health therapy for occupational therapy, physical therapy, and medication assistance. FOLLOWUP: Follow up with Dr. Ramon on September 03, with Cadence Oakes on July 20, and with Dr. Phelps on July 28. Continue doing outpatient cardiac rehab as well. DISCHARGE MEDICATIONS: 1. Alprazolam 0.25 mg twice a day as needed for anxiety, 30 tablets dispensed. 2. Eliquis 5 mg twice a day, 60 tablets dispensed. 3. Carvedilol 1.5625 mg twice a day, 60 tablets dispensed. 4. Mucinex ER 600 mg twice a day, 14 tablets dispensed. 5. Levaquin 500 mg daily for 3 more tablets for a total of 7 days of antibiotics. 6. Zanaflex 4 mg 3 times a day as needed for muscle spasms. 7. Tramadol 50 mg 6 times a day as needed for pain, 30 tablets dispensed. 8. Trazodone 25 mg at night for insomnia, 30 tablets dispensed. 9. Continue vitamin C 1000 mg daily. 10. Aspirin 325 mg daily. 11. Vitamin D 1000 units daily. 12. Famotidine 20 mg twice a day. 13. Proscar 5 mg daily. 14. Furosemide 40 mg daily. 15. Sertraline 50 mg daily. 16. Simvastatin 20 mg daily. 17. Tamsulosin 0.4 mg at night. Duration of details of this discharge took 35 minutes. Job ID: [id number]
== END 2018-07-14 16:20 | disposition home health service (06) | DRG 280 ==
LOC: ERS 11:43 → 2NO 13:26 → SURG A 07-13 12:16 → 2NO 07-13 12:30 → SURG A 07-13 13:07
PROVIDERS: ADMIT Internal Medicine; ATTEND Internal Medicine
DX: I13.0 Hypertensive heart and chronic kidney disease with heart failure and stage 1 through stage 4 chronic kidney disease, or unspecified chronic kidney disease (principal); I50.31 Acute diastolic (congestive) heart failure; I21.4 Non-ST elevation (NSTEMI) myocardial infarction; J96.01 Acute respiratory failure with hypoxia; N39.0 Urinary tract infection, site not specified; D62 Acute posthemorrhagic anemia; E78.5 Hyperlipidemia, unspecified; F41.9 Anxiety disorder, unspecified; Z79.899 Other long term (current) drug therapy; I48.0 Paroxysmal atrial fibrillation; Z95.1 Presence of aortocoronary bypass graft; I25.10 Atherosclerotic heart disease of native coronary artery without angina pectoris; N18.2 Chronic kidney disease, stage 2 (mild); Z88.1 Allergy status to other antibiotic agents; Z88.8 Allergy status to other drugs, medicaments and biological substances; R33.8 Other retention of urine; Z86.73 Personal history of transient ischemic attack (TIA), and cerebral infarction without residual deficits; Z88.2 Allergy status to sulfonamides; E87.6 Hypokalemia; G47.00 Insomnia, unspecified; Z90.81 Acquired absence of spleen; Z90.2 Acquired absence of lung [part of]; Z90.49 Acquired absence of other specified parts of digestive tract; Z95.5 Presence of coronary angioplasty implant and graft
CPT/HCPCS: 36415; 80048; 80202; 83605; 85025; 87040; 93005; 94760; 96365; 96367; J1650; J1956; J2405; J2543; J3370; J7050

== ENCOUNTER 2018-09-11 16:23 | Observation (INO) | payer MEDICARE, OTHER ==
[2018-09-11 18:17] LABS: Troponin I 0.018 ng/mL (< 0.028)
[2018-09-11 21:43] LABS: Troponin I 0.021 ng/mL (< 0.028)
[2018-09-12] MEDS ORDERED: Ondansetron ODT 4 MG TAB PO PRN (00:11)
[2018-09-12] MEDS ORDERED: Acetaminophen 325 MG TAB PO PRN (00:11)
[2018-09-12] MEDS ORDERED: Ondansetron PF 4 MG/2 ML Vial IVP PRN (00:11)
[2018-09-12] MEDS ORDERED: Aspirin 325 MG TAB PO SCH (00:30)
[2018-09-12 00:55] LABS: Troponin I 0.021 ng/mL (< 0.028)
[2018-09-12 01:16] VITALS: BMI 24.3
[2018-09-12] MEDS ORDERED: traZODone HCl 50 MG TAB PO SCH (02:15)
[2018-09-12] MEDS ORDERED: Apixaban 5 MG TAB PO SCH (02:15)
--- NOTE | 2018-09-12 05:05 | HP ---
PRIMARY CARE DOCTOR: Dr. Cadence Oakes. CODE STATUS: Full code. TIME OF EVALUATION: 11:50 p.m. CHIEF COMPLAINT: Change in mental status, right-sided numbness. HISTORY OF PRESENT ILLNESS: This is an 83-year-old male patient with past medical history of lymphoma, hyperlipidemia, and hypertension, came to the hospital after having right-sided numbness and some change in mental status. Symptoms were mild to moderate. No clear triggers. No alleviating factors. He reported that he got symptoms since early in the morning. REVIEW OF SYSTEMS: CONSTITUTIONAL: No fever, chills, or generalized weakness. RESPIRATORY: No cough, sputum production, or shortness of breath. CARDIOVASCULAR: No chest pain or palpitation. GASTROINTESTINAL: No nausea. No vomiting, diarrhea, or abdominal pain. TIME CHECKER: The patient has right-sided numbness with change in mental status. By the time of my examination, the patient seems to be oriented. GENITOURINARY: No burning on urination. EXTREMITIES: No leg swelling. All other systems are reviewed and are negative except for the findings mentioned above. PAST MEDICAL HISTORY: As mentioned in HPI. FAMILY HISTORY: Reviewed and non contributory for current presentation. PAST SURGICAL HISTORY: Splenectomy, nose surgery, left upper lung lobe removal, cardiac stents, surgical history of cholecystectomy, CABG x5, hernia repair with mesh, prostate biopsy, femoral artery stent. PSYCHIATRIC HISTORY: Anxiety, suicidal ideation. No history of homicidal ideation. SOCIAL HISTORY: The patient drinks on a daily basis, 3 to 5 drinks per day. Denies any drug use. No smoking history. KNOWN ALLERGIES: Atorvastatin, chlorpheniramine, clindamycin, pravastatin, sulfa, Zanaflex. REPORTED MEDICATIONS: 1. Finasteride. 2. Lasix. 3. Potassium chloride. 4. Zoloft. 5. Zocor. 6. Flomax. 7. Tramadol. 8. Trazodone. 9. Coreg. 10. Pepcid. PHYSICAL EXAMINATION: VITAL SIGNS: On presentation, blood pressure 140/77 with heart rate 67, respiratory rate was 17, temperature 97.5. Pain was 0/10. Oxygen saturation was 100 on room air. GENERAL APPEARANCE: The patient is alert, oriented, not in acute distress. HEENT: Eyes; normal conjunctivae. Moist oral mucosa. Anicteric. NECK: No JVD. RESPIRATORY: Bilateral air entry. No rales. No wheezes. Symmetric expansion. CARDIOVASCULAR: Normal rate and regular rhythm. No murmurs. No gallop. No edema. ABDOMEN: Soft. Normal bowel sounds. MUSCULOSKELETAL: Baseline range of motion and strength. No tenderness. SKIN: Warm and intact. No pale. No rash. No redness. Peripheral pulses are present. Capillary refill seems to be intact. NEUROLOGIC: No evidence of any new focal weakness. Baseline speech. Cranial nerves seems to be intact. PSYCH: The patient is in good mood. No anxiety. Optimal judgment. IMAGING DATA: EKG was reviewed. The patient has sinus rhythm with premature arterial complexes, ventricular rate 64, MO 142, QRS 86, QTc corrected 480, low voltage QRS. Brain CT was reviewed and it showed no evidence of acute cortical infarct, findings related to the ER physician at 1:[address] angio was done and there was no significant stenosis involving either extracranial carotid system or brain occlusion at the origin of the right vertebral artery with reconstitution of the C6 level as described above. LABORATORY DATA: Labs were reviewed. The patient has white count 10.5, hemoglobin 10.6, MCV 84.8, platelet count 271. Coagulation; PT 15.9, INR was 1.3, PTT 37.7. Chemistry; sodium 144, potassium was 3.9, chloride was 109, carbon dioxide was 27, anion gap was 12, BUN was 21, creatinine was 1.07, GFR was 66, glucose was 95, calcium was 9.3, total bilirubin was 0.6, AST was 26, ALT was 26, and alkaline phosphatase was 108. Troponin was 0.021. Albumin was 3.7, albumin to globulin ratio was 1.3. ASSESSMENT AND PLAN: The patient will be placed in the hospital with following medical problems: 1. Possible transient ischemic attack. At the time of my examination, the patient does not have any specific deficits. We will do stroke protocol, MRI, echo, carotid Doppler, Neurology consultation, and lipid panel. We will follow result and start treatment depending on it. 2. Chronic normocytic anemia. This is stable, can be followed as outpatient. No need for any acute intervention at this point. 3. Deep venous thrombosis prophylaxis. 4. History of coronary artery disease. This is chronic, stable, reconcile home medications. Job ID: [id number] [facility]
[2018-09-12 06:08] LABS: Anion Gap 10 mmol/L (10-20); BUN (Urea Nitrogen) 19 mg/dL (8.4-25.7); Calc. Creatinine Clearance 73 mL/min (70-130); Calcium 8.8 mg/dL (7.8-10.44); Carbon Dioxide 24 mmol/L (23-31); Cardiac Risk 2.9 (Less than 4.5); Chloride 109 mmol/L (98-107); Cholesterol 88 mg/dl (< 200 Desired); Estimated GFR-MDRD 80; Glucose 102 mg/dL (83-110); HDL Cholesterol 30 mg/dL (>60 Neg Risk); LDL Cholesterol, Calculated 45 mg/dL; Potassium 3.2 mmol/L (3.5-5.1); Sodium 140 mmol/L (136-145); Triglycerides 65 mg/dL (Less than 150)
[2018-09-12 06:41] LABS: Eosinophils 2 % (0-10); Hemoglobin 10.1 g/dL (14.0-18.0); Hypochromia SLIGHT = 6-15 cells (100X) (0-5/hpf); Lymphocytes 29 % (21-51); MDiff Complete? YES; Mean Corpuscular HGB CONC 31.1 g/dL (32.0-36.0); Mean Corpuscular Hemoglobin 26.9 pg (27.0-31.0); Mean Corpuscular Volume 86.6 fL (78.0-98.0); Monocytes 17 % (0-10); Neutrophil 52 % (42-75); Platelet Count 254 thou/uL (130-400); Red Blood Cell (RBC) Count 3.76 mill/uL (4.70-6.10); Schistocytes SLIGHT = 2-5 cells (100X) (0-1/hpf); White Blood Cell (WBC) Count 9.5 thou/uL (4.8-10.8)
[2018-09-12] MEDS ORDERED: Ascorbic Acid 500 mg Chewable Tablet PO SCH (09:00)
[2018-09-12] MEDS: Famotidine 20 MG TAB PO SCH ×2 (09:41→20:34)
[2018-09-12] MEDS: Apixaban 5 MG TAB PO SCH ×2 (09:46→20:34)
[2018-09-12] MEDS: Carvedilol 3.125 MG TAB PO SCH ×2 (09:47→17:52)
[2018-09-12] MEDS: Aspirin 325 mg Enteric Coated Tablet PO SCH (09:47)
[2018-09-12] MEDS ORDERED: traMADol HCl 50 MG TAB PO PRN (10:41)
[2018-09-12] MEDS ORDERED: Lorazepam 1 MG TAB PO PRN (10:45)
[2018-09-12] MEDS ORDERED: Potassium Chloride 20 MEQ TAB PO SCH (11:00)
[2018-09-12] MEDS ORDERED: Finasteride 5 MG TAB PO SCH (12:15)
[2018-09-12] MEDS ORDERED: Furosemide 40 MG TAB PO SCH (12:15)
--- NOTE | 2018-09-12 13:14 | PRG ---
DATE OF SERVICE: 09/12/2018 SUBJECTIVE: He complains about some numbness of his right side of the face. OBJECTIVE: VITAL SIGNS: Blood pressure is 114/55, pulse is 71, temperature is 97.7, respirations 20, and O2 saturation is 94% on room air. HEENT: His head is atraumatic and normocephalic. Eyes are PERRLA. Sclerae are nonicteric. Oral mucosa is moist. NECK: Supple. LUNGS: Clear. HEART: S1 and S2 normal. ABDOMEN: Soft, nontender. EXTREMITIES: No clubbing, cyanosis, or edema. NEUROLOGIC: He follows my commands. He moves his all four extremities. He is strong in upper and lower extremities, there is not much difference between the right. Feeling of touch to his upper, mid and lower parts of the face similar bilaterally. Ocular movements within normal limits. He does not have any nystagmus. LABORATORY DATA: Labs showed white count of 9.5, hemoglobin 10.1, hematocrit 32.5, platelet count is 254,000. Sodium of 140, potassium 3.2, chloride 109, CO2 of 24, BUN 19, creatinine 0.912. Troponin I is within normal limits. The rest of chemistry within normal limits. IMPRESSION: 1. Possible transient ischemic attack with negative findings on CT and CT angiogram of the head. 2. Chronic normocytic anemia, stable for the outpatient followup. 3. Coronary artery disease, status post stenting, chronic, stable. 4. History of coronary artery bypass graft x5 vessels, chronic, stable. 5. History of femoral artery stenting. PLAN: The patient was just seen by neurologist. MRI of the brain is recommended, this will be done today. We will get him some Ativan 1 hour prior to the testing since he has some claustrophobia. Otherwise, we are going to follow current regimen, restart his all home medications and continue on his apixaban and aspirin 325 mg, and if MRI is negative, we are going to discharge him home. Job ID: [id number]
--- NOTE | 2018-09-12 14:06 | CON ---
DATE OF CONSULTATION: 09/12/2018 Date of telemedicine consultation with RNEric is 09/12/2018. HISTORY OF PRESENT ILLNESS: The patient is an 83-year-old man, who has gone through a back surgery and went into atrial fibrillation, developed an AL and severe coronary artery disease requiring a 5-vessel coronary artery bypass graft in June 2018. Since then, he has had tremendous anxiety. He has not been sleeping. Per his , he has night terrors, insomnia, and was very afraid and he is fearful. This fear is extreme with confusion and also stated the patient had a pneumonia following his bypass graft. The patient reports he came to the hospital because he developed numbness along his hairline which travel to the back of his head and went behind the right side and went to his throat. He got scared because it may go to his throat muscles and stop him from breathing, therefore he called the hospital and came here. He had mild weakness. No dizziness or lightheadedness. No seizures associated with this event. The patient is now back to baseline. reported she ripped up Eliquis and she thought his numbness could be from Eliquis. The patient is now on aspirin and Eliquis at full dose. The patient has minor left-sided baseline weakness following a stroke in 2013. His blood pressure has been pretty good lately. He has good strength, but has lost his endurance. PREVIOUS MEDICAL HISTORY: As stated above. He has coronary artery disease, history of lymphoma, hyperlipidemia, and hypertension. PAST SURGICAL HISTORY: Splenectomy, nose surgery, left lung lobectomy, coronary artery bypass graft. Surgical history includes cholecystectomy, hernia repair with a mesh, prostate biopsy, and femoral artery stents. PSYCHIATRIC HISTORY: Positive for anxiety and depression in the past. SOCIAL HISTORY: He drinks daily 3 to 5 drinks. Does not smoke. No drug use. He lives with his . ALLERGIES: HE HAS MULTIPLE DRUG ALLERGIES INCLUDING ATORVASTATIN, CHLORPHENIRAMINE, CLINDAMYCIN, PRAVASTATIN, SULFA, AND ZANAFLEX. MEDICATIONS: At home: 1. Finasteride. 2. Lasix. 3. Zoloft. 4. Potassium chloride. 5. Zocor. 6. Flomax. 7. Tramadol. 8. Trazodone. 9. Coreg. 10. Pepcid. FAMILY HISTORY: His grandmother had a stroke. Mom had coronary artery disease. His brother had colostomy, he was 2 years older. His son is 56 and healthy. REVIEW OF SYSTEMS: CARDIAC: Negative for chest pain or shortness of breath. GI: Negative for any diarrhea, vomiting, or nausea. CARDIOVASCULAR: Negative for chest pain. PULMONARY: Negative for shortness of breath or cough. DERMATOLOGIC: Negative for any skin lesions or rash. PSYCHIATRIC: Positive for severe anxiety. GENERAL: Positive for severe difficulty with sleep. NEUROLOGIC: Positive for numbness of the head and right side of the throat. LABORATORY WORKUP: White count 9.5, hemoglobin 10.1, hematocrit 32.5, platelets 254. Sodium 140, potassium 3.2, chloride 109, BUN 19, creatinine 0.91. Cholesterol lipid profile is within normal limits. Head CT performed on 09/11, showed no evidence of acute infarct. CT angiography was completed on 09/11/2018, and that also did not show any stenosis in the carotid system and there is a small stenosis in the right vertebral artery distribution. PHYSICAL EXAMINATION: VITAL SIGNS: Blood pressure 142/72, pulse is 68, temperature 97.9, respiratory rate 16, and O2 sats 93%. GENERAL APPEARANCE: Thin built well-nourished gentleman, who is comfortable in bed. He had left foot swelling and erythema with tenderness. CHEST: Clear vesicular breathing. CARDIOVASCULAR: S1 and S2 heard. No murmurs. ABDOMEN: Soft. NEUROLOGIC: Higher intellectual functions, normal orientation to time, place, and person. Appropriate conversation. Cranial nerves, pupils are 3 to 4 mm bilaterally. No facial asymmetry noted. Normal sensation of face. Tongue midline. No atrophy noted. Normal elevation of palate. Normal hearing bilaterally. Motor bulk normal. Tone normal. Strength with 5/5 throughout on the right side in the both lower extremities. Trace weakness of 5-/5 in the left upper extremity could be residual. Deep tendon reflexes 1+ in lower limb and 2 in the upper extremities. Muscle groups tested for strength exam are iliopsoas, hamstrings, quadriceps, ankle dorsiflexion, plantar flexion, deltoid, biceps, triceps, wrist extension and flexion, finger extension and flexion bilaterally. Cerebellar, normal [id number]-[id number]-jfaq and vgmf-fk-noye and sensory normal touch bilaterally. IMPRESSION: The patient is an 83-year-old man with significant cardiovascular risk factors including hypertension, prior coronary artery disease and bypass graft. He has nonspecific distribution of numbness mostly in the head and the right side of the neck, which is not pertaining to any specific vascular distribution. His examination is unremarkable as far as neurological evaluation. This may be a result of his anxiety or a very small vascular lesion causing a brainstem ischemic infarct. RECOMMENDATIONS: Please obtain MRI and I will follow up on the MRI. For now, no need to change his cardiac medications. Please monitor his neurological status carefully for any changes. Job ID: [id number]
[2018-09-12] MEDS: Potassium Chloride 10 MEQ TAB PO SCH (17:56)
[2018-09-12] MEDS: Donepezil HCl 5 MG TAB PO SCH ×2 (20:34→20:49)
[2018-09-12] MEDS: traZODone HCl 50 MG TAB PO SCH (20:34)
[2018-09-12] MEDS: clonazePAM 0.5 MG TAB PO SCH (20:34)
[2018-09-12] MEDS: guaiFENesin ER 600 MG TAB PO SCH (20:35)
[2018-09-12] MEDS: Simvastatin 20 MG TAB PO SCH (20:35)
[2018-09-12] MEDS: Tamsulosin HCl 0.4 MG CAP PO SCH (20:35)
[2018-09-13] MEDS: Carvedilol 3.125 MG TAB PO SCH ×2 (08:24→16:24)
[2018-09-13] MEDS: Apixaban 5 MG TAB PO SCH ×2 (08:25→21:03)
[2018-09-13] MEDS: Potassium Chloride 10 MEQ TAB PO SCH ×2 (08:25→16:23)
[2018-09-13] MEDS: Aspirin 325 mg Enteric Coated Tablet PO SCH (08:26)
[2018-09-13] MEDS: Finasteride 5 MG TAB PO SCH (08:26)
[2018-09-13] MEDS: guaiFENesin ER 600 MG TAB PO SCH ×2 (08:36→21:02)
[2018-09-13] MEDS: Famotidine 20 MG TAB PO SCH ×2 (08:36→21:02)
--- NOTE | 2018-09-13 11:05 | PRG ---
DATE OF SERVICE: 09/13/2018 TELEMEDICINE CONSULTATION WITH LEIF FRIEND CHIEF COMPLAINT: Possible CVA with numbness of the head and right side of the face up to the neck area. INTERVAL HISTORY: The patient reports he is feeling better and is back to baseline today and has also been walking. still reports he was very anxious last night despite clonazepam use and was walking up and down the corridors till 4 a.m. and that is when he fell asleep and he is a little groggy this morning. He is complaining of feeling cold when the room is quite warm. He is pending his MRI current workup. No new laboratory reports available today and his echocardiogram showed left pleural effusion. EF is about 50% to 65%, moderately enlarged right ventricle. PHYSICAL EXAMINATION: VITAL SIGNS: His blood pressure was 124/60, temperature 97.9, pulse 65, and respiratory rate 18. CHEST: Clear vesicular breathing. CARDIOVASCULAR: He seemed to be in atrial fibrillation, but S1 and S2 were heard. NEUROLOGIC: Motor exam, bulk normal. Tone normal. Strength 5/5 throughout in both upper and lower extremities. Gait was normal. IMPRESSION: The patient is an 83-year-old man with atrial fibrillation and recent cardiac surgery. He has been having significant levels of anxiety, which is untreated and he has been unable to sleep. He complained of numbness of the right side of the head bilaterally and numbness in the right side of the throat, which brought into the hospital. At this time, we are waiting on an MRI to confirm the presence or absence of a cerebrovascular accident. Rest of the workup is negative. RECOMMENDATIONS: Please call Dr. Verde, if his MRI is abnormal. Continue present medications for his atrial fibrillation and stroke prevention. Job ID: [id number] [facility]
--- NOTE | 2018-09-13 11:32 | MRI ---
MRI Brain WO Con: 09/13/2018 12:12 AM CLINICAL HISTORY: Right-sided facial numbness with history of CVA. TECHNIQUE: Multiplanar, multisequence images were obtained of the brain. COMPARISON: CTA of the brain dated September 11, 2018 FINDINGS: Extra axial spaces: Prominent for age. Hemorrhage: None. Ventricular system: Normal in size and morphology for the patient's age. Basal cisterns: Normal. Cerebral parenchyma: There is a remote lacunar infarct involving the right centrum semiovale. There i s mild chronic small vessel white matter ischemic change. No restricted diffusion is evident.. Midline shift: None. Cerebellum: Normal. Brainstem: Normal. OTHER: Calvarium: Normal. Vascular system: Normal. Visualized Paranasal sinuses: Clear. Visualized Orbits: Normal. Visualized upper cervical spine: Normal. Sella and skull base: Normal. IMPRESSION: No acute intracranial abnormality.
[2018-09-13] MEDS: Furosemide 40 MG TAB PO SCH (14:32)
--- NOTE | 2018-09-13 16:46 | PRG ---
DATE OF SERVICE: 09/13/2018 SUBJECTIVE: The patient is seen and examined at the bedside. He is very drowsy. His is present in the room during my visit. He had Ativan prior to this. MRI of the brain done and it put him into very comatose state. She said that it happens each time, he has to have Ativan before the imaging. OBJECTIVE: VITAL SIGNS: Blood pressure is 115/61, pulse is 66, respiratory rate is 16, O2 saturation is 92% on room air, and temperature is 97.5. LUNGS: Clear. HEART: S1 and S2 normal. ABDOMEN: Soft and nontender. EXTREMITIES: No clubbing, cyanosis, or edema. NEUROLOGIC: Not performed since he is in very comatose state. LABORATORY DATA: None today. Echocardiogram showed a left pleural effusion. Fraction is visually estimated at 50% to 55%. There is moderately enlarged right ventricle cavity with moderately enlarged right atrium size and moderate mitral regurgitation. There is severe tricuspid regurgitation. MRI of the brain showed remote lacunar infarct involving the right centrum semiovale and mild chronic small vessel white matter ischemic change. IMPRESSION: 1. Numbness of his right side of the face, status post MRI of the brain, which did not show any acute changes. It shows just right lacunar infarct, remote. 2. Chronic normocytic anemia, stable for outpatient workup followup. 3. Coronary artery disease, status post stenting, chronic, stable. 4. History of coronary artery bypass graft x5 vessels, chronic, stable. 5. History of femoral artery stenting. DISCUSSION: The patient had his MRI of the brain done, which did not show any new findings and the plan was to discharge him home, but he is very comatose from Ativan he received prior to this testing and the discharge was postponed until he recovers from this very sedative state. He will continue on apixaban and aspirin and he can be discharged home most likely tomorrow morning when this Ativan sedative effect wears off. For now, we will continue current regimen. Job ID: [id number]
[2018-09-13] MEDS: Simvastatin 20 MG TAB PO SCH (21:02)
[2018-09-13] MEDS: Tamsulosin HCl 0.4 MG CAP PO SCH (21:03)
[2018-09-13] MEDS: clonazePAM 0.5 MG TAB PO SCH (21:03)
[2018-09-13] MEDS: traZODone HCl 50 MG TAB PO SCH (21:03)
[2018-09-13] MEDS: Donepezil HCl 5 MG TAB PO SCH (21:03)
[2018-09-14 05:44] LABS: Hemoglobin 10.3 g/dL (14.0-18.0); Platelet Count 243 thou/uL (130-400)
[2018-09-14 07:47] VITALS: BP 141/66; TEMP 98
[2018-09-14] MEDS: Aspirin 325 mg Enteric Coated Tablet PO SCH (08:27)
[2018-09-14] MEDS: Finasteride 5 MG TAB PO SCH (08:27)
[2018-09-14] MEDS: Apixaban 5 MG TAB PO SCH (08:27)
[2018-09-14] MEDS: Potassium Chloride 10 MEQ TAB PO SCH (08:28)
[2018-09-14] MEDS: Famotidine 20 MG TAB PO SCH (08:28)
[2018-09-14] MEDS: Carvedilol 3.125 MG TAB PO SCH (08:29)
[2018-09-14] MEDS: guaiFENesin ER 600 MG TAB PO SCH (08:30)
[2018-09-14] MEDS: Furosemide 40 MG TAB PO SCH (08:35)
--- NOTE | 2018-09-14 22:37 | DIS ---
DATE OF ADMISSION: 09/11/2018 DATE OF DISCHARGE: 09/14/2018 DISCHARGE DIAGNOSES: 1. Facial paresthesia, resolved. 2. Chronic coronary artery disease, stable. 3. Chronic normocytic anemia, stable. 4. Anxiety disorder. CONSULTATIONS: Dr. Alexis with Neurology Service. PERTINENT LAB AND X-RAY FINDINGS: Troponin I negative x3. Total cholesterol 88, triglyceride 65, HDL 30, LDL 45. CBC showed hemoglobin of 10.3, hematocrit 34.2. CT of the brain without contrast dated 09/11/2018, showed no acute intracranial process. CT angiogram of the head and neck dated 09/11/2018, showed no significant stenosis. 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 2D transthoracic echocardiogram dated 09/12/2018, showed ejection fraction of 50% to 55%. Moderate biatrial enlargement. Moderate mitral valve regurgitation. Severe tricuspid valve regurgitation. MRI of the brain dated 09/13/2018, showed no acute intracranial process. Remote lacunar infarct in the right centrum semiovale. HOSPITAL COURSE: The patient was observed on the Stroke Unit after initially presenting with right-sided facial paresthesias and numbness. The patient underwent general stroke protocol including CT imaging of the brain to include angiogram showing no focal process. The patient was evaluated by the Neurology Service due to presentation, undergoing MRI evaluation showing no evidence of acute infarct. The patient's presentation and symptoms likely consistent with anxiety disorder with recommendations to continue regular outpatient regimen to include aspirin 81 mg daily in addition to Eliquis 5 mg b.i.d. The patient may also continue his anxiolytic medications as previously prescribed. The patient may need additional titration and monitoring of his anxiety disorder on an ongoing basis after discharge. Clinically, the patient remained stable during the hospital course with telemetry monitoring showing sinus bradycardia with PVCs. Metabolic screening was essentially unremarkable and the patient was stable throughout the hospital course. I have examined the patient at the time of discharge and discussed followup instructions. The patient verbalized understanding and agreement ready for discharge on 09/14/2018. DISCHARGE MEDICATIONS: 1. Vitamin C 1000 mg p.o. daily. 2. Enteric-coated aspirin 81 mg p.o. daily. 3. Vitamin D3 of 1000 units p.o. daily. 4. Aricept 5 mg p.o. at bedtime. 5. Pepcid 20 mg p.o. b.i.d. 6. Proscar 5 mg p.o. daily. 7. Klor-Con 10 mEq p.o. b.i.d. 8. Zoloft 50 mg p.o. daily. 9. Zocor 20 mg p.o. at bedtime. 10. Flomax 0.4 mg p.o. at bedtime. 11. Eliquis 5 mg p.o. b.i.d. 12. Coreg 1.5625 mg p.o. b.i.d. 13. Lasix 40 mg p.o. daily. 14. Tramadol 50 mg p.o. daily p.r.n. FOLLOWUP: The patient may follow up with his primary care provider, Cadence Oakes, within 7 days of discharge. CONDITION ON DISCHARGE: Stable. ACTIVITY: Ad-leonardo. DIET: Heart healthy. CODE STATUS: Full. DISPOSITION: Home, 09/14/2018. Job ID: [id number]
--- NOTE | 2018-09-19 16:04 | EKG ---
Test Reason : TIA Blood Pressure : / mmHG Vent. Rate : 064 BPM Atrial Rate : 064 BPM P-R Int : 142 ms QRS Dur : 086 ms QT Int : 466 ms P-R-T Axes : 058 -12 -69 degrees QTc Int : 480 ms Sinus rhythm with Premature atrial complexes Low voltage QRS Inferior infarct , age undetermined Cannot rule out Anterior infarct , age undetermined Abnormal ECG Confirmed by AMANDA CAMERON ([id number]), graphic editor ANAND MELCHOR ([id number]) on 09/19/2018 4:04:12 PM Referred By: Confirmed By:AMANDA CAMERON
== END 2018-09-14 10:16 | disposition home or self-care (01) ==
LOC: ERS 16:23 → ERHOLD 17:40 → 2SE 23:29
PROVIDERS: ADMIT Internal Medicine; ATTEND Internal Medicine
DX: R20.0 Anesthesia of skin (principal); R41.82 Altered mental status, unspecified; E78.5 Hyperlipidemia, unspecified; I10 Essential (primary) hypertension; F41.9 Anxiety disorder, unspecified; R45.851 Suicidal ideations; D64.9 Anemia, unspecified; I25.10 Atherosclerotic heart disease of native coronary artery without angina pectoris; F40.240 Claustrophobia; I25.2 Old myocardial infarction; F32.9 Major depressive disorder, single episode, unspecified; Z85.72 Personal history of non-Hodgkin lymphomas; Z79.01 Long term (current) use of anticoagulants; Z79.82 Long term (current) use of aspirin; Z79.899 Other long term (current) drug therapy; Z88.2 Allergy status to sulfonamides; Z88.8 Allergy status to other drugs, medicaments and biological substances; Z95.5 Presence of coronary angioplasty implant and graft; Z95.1 Presence of aortocoronary bypass graft; Z95.820 Peripheral vascular angioplasty status with implants and grafts
CPT/HCPCS: 70551; 80048; 80061; 82565; 84484; 85014; 85018; 85025; 85049; 93005; 93306; 99285; G0378 ×3; 36415

== ENCOUNTER 2018-12-15 20:00 | Inpatient (IN) | payer MEDICARE, OTHER ==
--- NOTE | 2018-12-15 20:38 | RAD ---
XR Chest 1 View Portable HISTORY: Chest pain. COMPARISON: Exam done earlier today at [place]. FINDINGS: Heart size is enlarged. Pleural and parenchymal changes within the left base are stable. Ri ght lung is clear of confluent infiltrate there is some increased density within the right lung base which would suggest effusion. IMPRESSION: Cardiomegaly with a moderate left and smaller right pleural effusions.
[2018-12-15 21:23] LABS: ALT (SGPT) 15 U/L (8-55); AST (SGOT) 22 U/L (5-34); Albumin 3.6 g/dL (3.4-4.8); Alkaline Phosphatase 157 U/L (40-150); Anion Gap 12 mmol/L (10-20); BUN (Urea Nitrogen) 18 mg/dL (8.4-25.7); Bilirubin, Total 0.9 mg/dL (0.2-1.2); Calc. Creatinine Clearance 0 mL/min (70-130); Calcium 9.2 mg/dL (7.8-10.44); Carbon Dioxide 25 mmol/L (23-31); Chloride 107 mmol/L (98-107); Estimated GFR-MDRD 85; Globulin 2.9 g/dL (2.4-3.5); Glucose 100 mg/dL (83-110); Potassium 4.4 mmol/L (3.5-5.1); Protein, Total 6.5 g/dL (5.8-8.1); Sodium 140 mmol/L (136-145)
[2018-12-15 21:31] LABS: Lymphocytes 23 % (21-51); MDiff Complete? YES; Mean Corpuscular HGB CONC 30.3 g/dL (32.0-36.0); Mean Corpuscular Hemoglobin 25.1 pg (27.0-31.0); Mean Platelet Volume 9.1 fL (7.4-10.4); Monocytes 12 % (0-10); Neutrophil 65 % (42-75); Platelet Count 184 thou/uL (130-400); Platelet Morphology Comment Appears Adequate; RBC Distribution Width 19.4 % (11.5-14.5); Red Blood Cell (RBC) Count 4.79 mill/uL (4.70-6.10); White Blood Cell (WBC) Count 10.4 thou/uL (4.8-10.8)
[2018-12-15 22:58] VITALS: BMI 22.4
[2018-12-16 00:32] LABS: Troponin I Less than 0.010 ng/mL (< 0.028)
[2018-12-16 03:08] LABS: Troponin I Less than 0.010 ng/mL (< 0.028)
[2018-12-16 05:08] LABS: Anion Gap 11 mmol/L (10-20); BUN (Urea Nitrogen) 18 mg/dL (8.4-25.7); Calc. Creatinine Clearance 69 mL/min (70-130); Calcium 8.7 mg/dL (7.8-10.44); Carbon Dioxide 25 mmol/L (23-31); Chloride 106 mmol/L (98-107); Estimated GFR-MDRD 82; Glucose 97 mg/dL (83-110); Magnesium 1.9 mg/dL (1.6-2.6); Potassium 3.5 mmol/L (3.5-5.1); Sodium 138 mmol/L (136-145)
[2018-12-16] MEDS ORDERED: traMADol HCl 50 MG TAB PO PRN (07:53)
[2018-12-16] MEDS: Finasteride 5 MG TAB PO SCH (08:41)
[2018-12-16] MEDS: Apixaban 5 MG TAB PO SCH ×2 (08:41→19:43)
[2018-12-16] MEDS: Aspirin 81 mg Enteric Coated Tablet PO SCH (08:41)
[2018-12-16] MEDS: Potassium Chloride 10 MEQ TAB PO SCH ×2 (08:42→17:10)
[2018-12-16] MEDS: Carvedilol 3.125 MG TAB PO SCH ×2 (08:42→17:10)
[2018-12-16] MEDS ORDERED: POTASSIUM CHLORIDE PO SCH (09:00)
[2018-12-16] MEDS ORDERED: Aspirin 81 mg Enteric Coated Tablet PO SCH (09:00)
[2018-12-16] MEDS ORDERED: Non-Formulary Item 1 EACH (Sertraline Hcl [Zoloft] 50 MG) PO SCH (09:00)
[2018-12-16] MEDS: Furosemide 40 MG/4 ML VIAL SLOW IVP SCH (13:16)
--- NOTE | 2018-12-16 13:58 | HP ---
HISTORY OF PRESENT ILLNESS: The patient is an 83-year-old male who went to the emergency room in [place] yesterday with symptoms of increased shortness of breath and chest tightness. He was transferred to [facility] Emergency Room in [place] and got admitted for further evaluation. He denied any age, fever, or chills. He has some dry cough, mild and nothing new to him. He denied any syncope. His appetite is fair. His primary care physician is Dr. Cadence Marcos in [place], and surrogate decision maker is his , Mai. His pharmacy informaticist is Dr. Ramon. He has chronic bilateral pleural effusions according to him on his chest x-ray findings. Apparently, he was given Lasix in the emergency room in [place], and he urinated a lot overnight. PAST MEDICAL HISTORY: 1. Coronary artery disease, status post stenting. 2. History of lymphoma, not on chemo or radiation now. 3. History of CVA. 4. Hypertension. 5. Hyperlipidemia. 6. History of atrial fibrillation. PAST SURGICAL HISTORY: 1. Splenectomy. 2. Nose surgery. 3. Left upper lung lobe removal for apparent neoplasm. 4. Cardiac stents. 5. Cholecystectomy. 6. CABG x5 vessels. 7. Hernia repair with mesh. 8. Prostate biopsy. 9. Femoral artery stent. HOME MEDICATIONS: 1. Eliquis 5 mg twice a day. 2. Finasteride 5 mg once a day. 3. Potassium 20 mEq once a day. 4. Zoloft 50 mg once a day. 5. Zocor 20 mg once a day. 6. Flomax 0.4 mg once a day. 7. Tramadol 50 mg q.6 hours p.r.n. as needed. 8. Trazodone, he has been on, 25 mg once a day. 9. Coreg 3.125 mg half a tablet once a day. I believe it should be twice a day. 10. Pepcid 20 mg once a day. ALLERGIES: ANTIHISTAMINES WHICH CAUSE PROSTATE SWELLING, ATORVASTATIN, CLINDAMYCIN, PRAVASTATIN, SULFA, AND TIZANIDINE. FAMILY HISTORY: Mother was 84 when she from [place]. Father in his 80s of sudden cardiac . SOCIAL HISTORY: He used to drink alcohol every day. Now, he drinks occasionally. He does not smoke. Does not use any illicit drugs. REVIEW OF SYSTEMS: All 14 systems were reviewed, and they were positive for pain in both knees, on and off and as I mentioned in HPI, shortness of breath with some chest tightness, generalized weakness, and chronic leg swelling. Otherwise, the rest of the symptoms were reviewed and symptoms were negative. PHYSICAL EXAMINATION: VITAL SIGNS: Blood pressure is 120/58, pulse is 65, temperature is 98, respiratory rate is 20, and O2 saturation 94% on room air. HEENT: His head is atraumatic and normocephalic. He is not in any distress during my visit. His eyes are PERRLA. Sclerae are nonicteric. Conjunctivae pinkish. Oral mucosa is moist. NECK: Supple. No JVDs. LUNGS: Breath sounds diminished at both bases. No crackles or wheezing. HEART: S1, S2 normal. No S3. No S4. ABDOMEN: Soft, nontender, nondistended. Bowel sounds are present. No organomegaly. EXTREMITIES: 2+ peripheral edema on both lower extremities below the knees. NEUROLOGIC: He is alert and oriented x4. There are no any motor or sensory deficits. Cranial nerves are intact. LABORATORY DATA: Labs showed white count of 10.4, hemoglobin 12.0, hematocrit 39.5, and platelet count is 184,000. Chemistry all within normal limits. Alkaline phosphatase is 157. Two sets of troponin Is within normal limits. Chest x-ray personally reviewed by me showed cardiomegaly with bilateral pleural effusions, more on the left than the right. EKG showed normal sinus rhythm with ventricular rate of 70 beats per minute with low voltage, and no acute ischemic abnormalities. IMPRESSION: 1. Shortness of breath, which is most likely caused by congestive heart failure and bilateral pleural effusions, secondary to #2. 2. Chest tightness in the setting of the patient with coronary artery disease, status post stenting, but this is significantly improved after a first day of diuresis. 3. Coronary artery disease, status post stenting. 4. History of lymphoma, not on chemoradiation at this point. 5. History of left upper lung lobe removal, status post malignancy of this area. 6. Peripheral artery disease and status post femoral artery stenting. 7. Normocytic anemia. 8. Elevated alkaline phosphatase, which could be representing metastases to the bone. PLAN: Admission to telemetry. Full admission. Condition is fair. Activity, bedrest, and bathroom privileges. IV Hep-Lock, Lasix 40 mg IV push every 12 hours, and potassium supplementation. Cardiology consultation with Dr. Ramon. Check gamma-glutamyl transpeptidase to find out more about source of elevation of alkaline phosphatase whether it is hepatic or from the bones, and we will continue his home medications, although we are going to hold his oral Lasix and will also continue his Eliquis for pulmonary vein thrombosis. He will be on DVT prophylaxis with above-mentioned anticoagulation agent. No SCDs since he has 2+ peripheral edema, and we will check his serial chemistries every morning. Job ID: [id number]
[2018-12-16] MEDS: Tamsulosin HCl 0.4 MG CAP PO SCH (19:43)
[2018-12-16] MEDS ORDERED: Prevnar 13-Val Conj/PF 0.5 ML SYRINGE IM ONE (21:00)
[2018-12-17 05:41] LABS: Anion Gap 9 mmol/L (10-20); BUN (Urea Nitrogen) 17 mg/dL (8.4-25.7); Calc. Creatinine Clearance 74 mL/min (70-130); Carbon Dioxide 27 mmol/L (23-31); Chloride 106 mmol/L (98-107); Estimated GFR-MDRD 90; Glucose 84 mg/dL (83-110); Potassium 3.8 mmol/L (3.5-5.1); Sodium 138 mmol/L (136-145)
[2018-12-17 05:45] LABS: Anisocytosis SLIGHT = 6-15 cells (100X) (0-5/hpf); Eosinophils 1 % (0-10); Hemoglobin 11.1 g/dL (14.0-18.0); Hypochromia SLIGHT = 6-15 cells (100X) (0-5/hpf); Lymphocytes 31 % (21-51); MDiff Complete? YES; Mean Corpuscular HGB CONC 30.1 g/dL (32.0-36.0); Mean Corpuscular Hemoglobin 25.1 pg (27.0-31.0); Mean Corpuscular Volume 83.2 fL (78.0-98.0); Mean Platelet Volume 8.6 fL (7.4-10.4); Monocytes 12 % (0-10); Neutrophil 56 % (42-75); Platelet Count 186 thou/uL (130-400); Platelet Morphology Comment Appears Adequate; RBC Distribution Width 19.2 % (11.5-14.5); Red Blood Cell (RBC) Count 4.42 mill/uL (4.70-6.10); Target Cells SLIGHT = 2-5 cells (100X) (0-1/hpf); White Blood Cell (WBC) Count 11.2 thou/uL (4.8-10.8)
[2018-12-17] MEDS: Furosemide 40 MG/4 ML VIAL SLOW IVP SCH ×2 (06:27→14:44)
[2018-12-17] MEDS: Potassium Chloride 10 MEQ TAB PO SCH ×2 (08:53→16:51)
[2018-12-17] MEDS: Carvedilol 3.125 MG TAB PO SCH ×2 (08:53→16:51)
[2018-12-17] MEDS: Aspirin 81 mg Enteric Coated Tablet PO SCH (08:53)
[2018-12-17] MEDS: Finasteride 5 MG TAB PO SCH (08:53)
[2018-12-17] MEDS: Apixaban 5 MG TAB PO SCH ×2 (08:54→21:28)
--- NOTE | 2018-12-17 12:17 | CON ---
DATE OF CONSULTATION: HISTORY: Camacho Nunes is an 83-year-old white male, whom I first evaluated on 06/18/2018. He had undergone lumbar laminectomy on 06/15/18. He had a previous cardiac history with placement of five stents in the right coronary artery at a hospital in the [place]. He apparently did not have myocardial infarction prior to that. Also in 2013, he states that he had a stroke with left facial and left arm weakness. He had swallowing problems after that. He had been on aspirin and Plavix ever since he had the stents placed in 2010. Plavix was stopped a week prior to the lumbar laminectomy, and aspirin was stopped 4 to 5 days prior to the surgery. On the evening of June 17, 2018, he has some vague chest discomfort, but denied any nausea, vomiting, shortness of breath, or diaphoresis. Cardiac enzymes were obtained and was found to have a troponin I of 32.173 and he was moved to telemetry for further evaluation. He had intermittent episodes of atrial fibrillation, which was new for him. He developed Q waves inferiorly, but never had ST elevation. There was concern about placing him on aspirin or anticoagulating him with heparin for his atrial fibrillation due to the recent lumbar laminectomy. He underwent cardiac catheterization 2 weeks after lumbar laminectomy and stayed in the hospital during the interim because of an episode of recurrent chest pain. 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 There was 20% proximal LAD, 80% in the mid LAD, 80 and 90% in the distal LAD, and total occlusion in the apical LAD with retrograde filling. There was a 70% lesion in the first diagonal and 90% lesion in the second diagonal. The circumflex was and normal. The right coronary artery had a 70% proximal stenosis and was totally occluded in its midportion, where stents were present. The distal right coronary artery filled retrograde from the left. He then underwent CABG x5 by Dr. Phelps. BRANDT was placed to the mid LAD and distal LAD and separate vein graft to the first diagonal, second diagonal, and to the right posterior descending. He had ligation of left atrial appendage. He was readmitted on 07/10, two days after discharge from [facility]. He had complaints of shortness of breath and diastolic heart failure. Cardiac enzymes were unremarkable. He was placed on Eliquis for his paroxysmal atrial fibrillation and diuresed. He was seen in the office for followup on July 23. He had 2+ peripheral edema and was placed on furosemide 40 mg daily. He was seen again in the office on 08/03/2018. He continued to be in sinus rhythm and his peripheral edema had increased somewhat. He was again seen on September 02, 2018 with continued improvement in his shortness of breath and lower extremity edema. He continued to be in sinus rhythm. He was admitted again on September 11, 2018 with right-sided facial numbness , which resolved. Now, he is again admitted with increased shortness of breath and chest tightness. He was found to have chronic bilateral pleural effusions and he was given Lasix in the emergency room with improvement of his shortness of breath. PAST MEDICAL HISTORY: History of lung cancer, status post resection; previous stroke; coronary artery disease; hypertension; hyperlipidemia with intolerance of statins with muscle aches; and history of atrial fibrillation. PAST SURGICAL HISTORY: Lumbar laminectomy, right leg surgery, cholecystectomy, cervical fusion, left lower lung lobectomy in 1989, hernia repair, CABG x5 with left atrial appendage ligation, prostate biopsy, femoral artery stent, and splenectomy. HOME MEDICATIONS: 1. Eliquis 5 mg b.i.d. 2. Finasteride 5 mg daily. 3. Potassium 20 mEq daily. 4. Zoloft 50 mg daily. 5. Zocor 20 mg daily. 6. Flomax 0.4 daily. SOCIAL HISTORY: He does not smoke or drink. REVIEW OF SYSTEMS: A 10-point review of systems is otherwise unremarkable. PHYSICAL EXAMINATION: VITAL SIGNS: Blood pressure 149/74 and pulse of 80. HEENT: PERRL. NECK: Supple. CHEST: Reveals decreased breath sounds at the bases. CARDIOVASCULAR: S1 and S2 normal without any S3, S4, or murmurs. ABDOMEN: Normal bowel sounds without tenderness. EXTREMITIES: Revealed 2+ pretibial edema. NEUROLOGICAL: Grossly intact. SKIN: Warm and dry. LABORATORY DATA: EKG revealed sinus bradycardia with low voltage limb leads, possible inferior infarction. Hemoglobin 12.0, hematocrit 39.7, white count 10, 400, and platelets 184,000. D-dimer 0.99. Sodium 138, potassium 3.5, chloride 106, carbon dioxide 25, BUN 18, and creatinine 0.89. Cardiac enzymes were unremarkable. BNP 1221.2. Chest CTA revealed pulmonary vein thrombosis. IMPRESSION: 1. Chronic systolic and probably diastolic heart failure. 2. Status post coronary artery bypass grafting x5 in 06/2018. 3. Inferior Q-wave myocardial infarction without significant ST elevation in June after lumbar laminectomy. 4. Status post lumbar laminectomy. 5. History of right coronary artery stent placement in the [place]. 6. History of stroke. 7. Hypertension. 8. Hypercholesterolemia. 9. Paroxysmal atrial fibrillation. 10. Status post left lung resection for cancer. 11. Peripheral vascular disease. 12. Pulmonary vein thrombosis. PLAN: The patient will continue to be diuresed. Echocardiography will be performed. I will continue to follow the patient with you. Job ID: [id number] MTDD
--- NOTE | 2018-12-17 13:24 | PRG ---
DATE OF SERVICE: 12/17/2018 SUBJECTIVE: The patient is seen and examined at the bedside. He is complaining about some testicle swelling. His shortness of breath improved significantly. OBJECTIVE: VITAL SIGNS: Blood pressure is 131/81, pulse is 55, temperature is 97.5, respirations 18, and O2 saturation 95% on room air. GENERAL: His son is present in the room during my visit this morning. HEENT: The patient head is atraumatic and normocephalic. Sclerae are nonicteric. Conjunctivae are pinkish. Oral mucosa is moist. NECK: Supple. LUNGS: Clear, although breath sounds diminished at both bases. HEART: S1 and S2, somewhat irregular. No S3. No S4. ABDOMEN: Soft and nontender. Bowel sounds are present. No organomegaly. Testicles were examined and I do not see any significant swelling. He has a pump inserted under the skin of his right testicle. NEUROLOGICAL: He is alert and oriented x4. There is no any motor deficits. EXTREMITIES: He has 1 to 1.5+ peripheral edema. LABORATORY DATA: Showed white count of 11.2, hemoglobin of 11.1, hematocrit 36.8, and platelet count is 186,000. Sodium of 138, potassium 3.8, chloride 106, CO2 of 27, BUN 17, creatinine 0.82, calcium is 9.0. Echocardiogram showed LVEF estimated at 40% to 45%, moderately enlarged right ventricular cavity, moderately enlarged right atrium size, severe mitral regurgitation is present, severe tricuspid regurgitation along with mild pulmonic regurgitation and left pleural effusion. IMPRESSION: 1. Shortness of breath most likely related to his congestive heart failure and bilateral pleural effusions. 2. Bilateral pleural effusions secondary to congestive heart failure. 3. Chest tightness, improved with diuresis. 4. Coronary artery disease and status post stenting in the past. 5. History of lymphoma. 6. Pulmonary vein thrombosis on CT angiogram recently done. 7. History of left upper lung lobe removal, status post malignancy of this area. 8. Peripheral artery disease and status post femoral artery stenting. 9. Normocytic anemia. 10. We will obtain gamma glutamyl transpeptidase level and if this is low, he will require probably a bone scan to rule out any neoplasm since he has a history of lymphoma. 11. History of cerebrovascular accident. 12. History of atrial fibrillation. PLAN: To continue his IV Lasix. He is diuresing well. Also, he will require probably a bone scan to look for some neoplastic changes in his bones or any other etiology of elevated alkaline phosphatase in his blood. I will continue his Eliquis for pulmonary vein thrombosis and we will check his postvoiding residuals and we will get PT to get him out and walk and. Job ID: [id number]
[2018-12-17] MEDS: Tamsulosin HCl 0.4 MG CAP PO SCH (21:28)
[2018-12-18 04:41] LABS: Anion Gap 11 mmol/L (10-20); BUN (Urea Nitrogen) 19 mg/dL (8.4-25.7); Calc. Creatinine Clearance 69 mL/min (70-130); Calcium 9.1 mg/dL (7.8-10.44); Carbon Dioxide 29 mmol/L (23-31); Chloride 101 mmol/L (98-107); Estimated GFR-MDRD 82; Glucose 98 mg/dL (83-110); Potassium 3.6 mmol/L (3.5-5.1); Sodium 137 mmol/L (136-145)
[2018-12-18 04:52] LABS: Anisocytosis SLIGHT = 6-15 cells (100X) (0-5/hpf); Eosinophils 5 % (0-10); Hemoglobin 10.2 g/dL (14.0-18.0); Lymphocytes 37 % (21-51); MDiff Complete? YES; Mean Corpuscular HGB CONC 30.4 g/dL (32.0-36.0); Mean Corpuscular Hemoglobin 24.8 pg (27.0-31.0); Mean Corpuscular Volume 81.7 fL (78.0-98.0); Mean Platelet Volume 11.9 fL (7.4-10.4); Monocytes 7 % (0-10); Neutrophil 51 % (42-75); Platelet Count 188 thou/uL (130-400); Poikilocytosis SLIGHT = 6-15 cells (100X) (0-5/hpf); RBC Distribution Width 19.1 % (11.5-14.5); Red Blood Cell (RBC) Count 4.12 mill/uL (4.70-6.10); Schistocytes SLIGHT = 2-5 cells (100X) (0-1/hpf); Target Cells SLIGHT = 2-5 cells (100X) (0-1/hpf); White Blood Cell (WBC) Count 11.3 thou/uL (4.8-10.8)
[2018-12-18] MEDS: Furosemide 40 MG/4 ML VIAL SLOW IVP SCH ×2 (06:20→14:31)
[2018-12-18] MEDS ORDERED: Ondansetron PF 4 MG/2 ML Vial IVP PRN (09:04)
[2018-12-18] MEDS ORDERED: Loperamide HCl 2 MG CAP PO PRN (09:04)
[2018-12-18] MEDS ORDERED: Sodium Chloride 0.65% Nasal 44 ML BOT EA NARE PRN (09:04)
[2018-12-18] MEDS ORDERED: Nitroglycerin 0.4 MG TAB (25 Tab Bottle) SL PRN (09:04)
[2018-12-18] MEDS ORDERED: Artificial Tears 18 DROP/0.9 ML EA EYE PRN (09:04)
[2018-12-18] MEDS ORDERED: Senokot S 8.6-50 MG TAB PO PRN (09:04)
[2018-12-18] MEDS ORDERED: Cepastat Lozenges 1 LOZ PO PRN (09:04)
[2018-12-18] MEDS ORDERED: Bisacodyl 10 MG SUPP PR PRN (09:04)
[2018-12-18] MEDS ORDERED: Ondansetron ODT 4 MG TAB PO PRN (09:04)
[2018-12-18] MEDS ORDERED: Diabetic Tussin 200 MG/10 ML UDCUP PO PRN (09:04)
[2018-12-18] MEDS ORDERED: hydrALAZINE 20 MG/ML VIAL SLOW IVP PRN (09:04)
[2018-12-18] MEDS ORDERED: Loratadine 10 MG TAB PO PRN (09:04)
[2018-12-18] MEDS: Carvedilol 3.125 MG TAB PO SCH ×2 (09:09→18:34)
[2018-12-18] MEDS: Potassium Chloride 10 MEQ TAB PO SCH ×2 (09:09→18:34)
[2018-12-18] MEDS: Aspirin 81 mg Enteric Coated Tablet PO SCH (09:10)
[2018-12-18] MEDS: Finasteride 5 MG TAB PO SCH (09:10)
[2018-12-18] MEDS: Apixaban 5 MG TAB PO SCH ×2 (09:10→21:16)
--- NOTE | 2018-12-18 09:53 | CON ---
DATE OF CONSULTATION: ADDENDUM: SOCIAL HISTORY: He does not smoke or drink. REVIEW OF SYSTEMS: A 10-point review of systems is otherwise unremarkable. PHYSICAL EXAMINATION: VITAL SIGNS: Blood pressure 149/74 and pulse of 80. HEENT: PERRL. NECK: Supple. CHEST: Reveals decreased breath sounds at the bases. CARDIOVASCULAR: S1 and S2 normal without any S3, S4, or murmurs. ABDOMEN: Normal bowel sounds without tenderness. EXTREMITIES: Revealed 2+ pretibial edema. NEUROLOGICAL: Grossly intact. SKIN: Warm and dry. LABORATORY DATA: EKG revealed sinus bradycardia with low voltage limb leads, possible inferior infarction. Hemoglobin 12.0, hematocrit 39.7, white count 10,400, and platelets 184,000. D-dimer 0.99. Sodium 138, potassium 3.5, chloride 106, carbon dioxide 25, BUN 18, and creatinine 0.89. Cardiac enzymes were unremarkable. BNP 1221.2. IMPRESSION: 1. Chronic systolic and probably diastolic heart failure. 2. Status post coronary artery bypass grafting x5 in 06/2018. 3. Inferior Q-wave myocardial infarction without significant ST elevation in June after lumbar laminectomy. 4. Status post lumbar laminectomy. 5. History of right coronary artery stent placement in the [place]. 6. History of stroke. 7. Hypertension. 8. Hypercholesterolemia. 9. Paroxysmal atrial fibrillation. 10. Status post left lung resection for cancer. 11. Peripheral vascular disease. PLAN: The patient will continue to be diuresed. Echocardiography will be performed. I will continue to follow the patient with you. Job ID: [id number]
--- NOTE | 2018-12-18 12:25 | PDOC.HOSPP ---
- Subjective Encounter Date: 12/18/18 Encounter Time: 10:00 Subjective: Patient seen and examined. No new complaints. No overnight events pt has improvement in edema and dyspnea - Objective Vital Signs & Weight: Vital Signs (12 hours) Temp Pulse Resp BP BP Pulse Ox 12/18/18 08:00 99.0 F 55 L 18 127/57 L 12/18/18 03:59 97.5 F L 63 16 126/62 95 Weight Admit Weight 169 lb 12.8 oz Weight 171 lb 4.8 oz I&O: 12/17/18 12/18/18 12/19/18 06:59 06:59 06:59 Intake Total 450 237 477 Output Total 900 6500 1500 Balance -450 -2613 -1023 Result Diagrams: 12/18/18 03:57 12/18/18 03:57 EKG Reviewed by me: Yes ROS - Review of Systems Constitutional: denies: fever, chills, sweats, weakness, malaise, other Eyes: denies: pain, vision change, conjunctivae inflammation, eyelid inflammation, redness, other ENT: denies: ear pain, ear discharge, nose pain, nose discharge, nose congestion , mouth pain, mouth swelling, throat pain, throat swelling, other Respiratory: reports: SOB with excertion. denies: cough, dry, shortness of breath, hemoptysis, pleuritic pain, sputum, wheezing, other Cardiovascular: denies: chest pain, palpitations, orthopnea, paroxysmal noc. dyspnea, edema, light headedness, other Gastrointestinal: denies: nausea, vomitting, abdominal pain, diarrhea, constipation, melena, hematochezia, other Genitourinary: denies: dysuria, frequency, incontinence, hematuria, retention, other Musculoskeletal: denies: neck pain, shoulder pain, arm pain, back pain, hand pain, leg pain, foot pain, other - Medication Medications: Active Medications Generic Name Dose Route Start Last Admin Trade Name Freq PRN Reason Stop Dose Admin Apixaban 5 mg 12/16/18 09:00 12/18/18 09:10 Eliquis PO 5 mg BID JANET Administration Aspirin 81 mg 12/16/18 09:00 12/18/18 09:10 Ecotrin PO 81 mg DAILY JANET Administration Carvedilol 1.5625 mg 12/16/18 08:00 12/18/18 09:09 Coreg PO 1.5625 mg BID-WM JANET Administration Finasteride 5 mg 12/16/18 09:00 12/18/18 09:10 Proscar PO 5 mg DAILY JANET Administration Furosemide 40 mg 12/16/18 14:00 12/18/18 06:20 Lasix SLOW IVP 40 mg 0600,1400 JANET Administration Potassium Chloride 10 meq 12/16/18 08:00 12/18/18 09:09 Klor-Con 10 PO 10 meq BID-WM JANET Administration Sertraline HCl 50 mg 12/16/18 09:00 12/18/18 09:09 Zoloft PO 50 mg DAILY JANET Administration Tamsulosin HCl 0.4 mg 12/16/18 21:00 12/17/18 21:28 Flomax PO 0.4 mg HS JANET Administration - Exam NAD, awake alert Eye: PERRL, anicteric sclera ENT: normocephalic atraumatic, no oropharyngeal lesions Neck: supple, symmetric, no JVD Heart: RRR, no murmur, no gallops Respiratory: CTAB, no wheezes, no rales Respiratory - other findings: air entry reduced both side Gastrointestinal: soft, non-tender, non-distended, no palpable masses, no hepatomegaly Extremities: no cyanosis, no clubbing, 1+ LE edema Skin: normal turgor, no lesions Neurological: CN's grossly intact, normal sensation to touch, no focal deficits Musculoskeletal: normal tone, normal strength Psychiatric: normal affect, normal behavior Hosp A/P (1) Acute on chronic systolic ACC/AHA stage C congestive heart failure Code(s): I50.23 - ACUTE ON CHRONIC SYSTOLIC (CONGESTIVE) HEART FAILURE Status : Acute (2) Bilateral pleural effusion Code(s): J90 - PLEURAL EFFUSION, NOT ELSEWHERE CLASSIFIED Status: Acute (3) Severe mitral regurgitation Code(s): I34.0 - NONRHEUMATIC MITRAL (VALVE) INSUFFICIENCY Status: Acute (4) Severe tricuspid regurgitation Code(s): I07.1 - RHEUMATIC TRICUSPID INSUFFICIENCY Status: Acute (5) Thrombus of pulmonary vein Code(s): I26.99 - OTHER PULMONARY EMBOLISM WITHOUT ACUTE COR PULMONALE Status : Acute (6) Anemia, normocytic normochromic Code(s): D64.9 - ANEMIA, UNSPECIFIED Status: Chronic (7) Anxiety and depression Code(s): F41.9 - ANXIETY DISORDER, UNSPECIFIED; F32.9 - MAJOR DEPRESSIVE DISORDER, SINGLE EPISODE, UNSPECIFIED Status: Chronic (8) BPH (benign prostatic hyperplasia) Code(s): N40.0 - BENIGN PROSTATIC HYPERPLASIA WITHOUT LOWER URINRY TRACT SYMP Status: Chronic (9) CAD (coronary artery disease) Code(s): I25.10 - ATHSCL HEART DISEASE OF [place] CORONARY ARTERY W/O ANG PCTRS Status: Chronic Qualifiers: Coronary Disease-Associated Artery/Lesion type: bypass graft [place] vs. transplanted heart: [place] heart Associated angina: with stable angina Qualified Code(s): I25.708 - Atherosclerosis of coronary artery bypass graft(s) , unspecified, with other forms of angina pectoris (10) CKD (chronic kidney disease), stage II Code(s): N18.2 - CHRONIC KIDNEY DISEASE, STAGE 2 (MILD) Status: Chronic (11) H/O lymphoma Code(s): Z85.79 - PRSNL HX OF [facility] NEOPLM OF LYMPHOID, HEMATPOETC & REL TISS Status: Chronic (12) HLD (hyperlipidemia) Code(s): E78.5 - HYPERLIPIDEMIA, UNSPECIFIED Status: Chronic (13) PVD (peripheral vascular disease) Code(s): I73.9 - PERIPHERAL VASCULAR DISEASE, UNSPECIFIED Status: Chronic - Plan old records reviewed/req, plan discussed w/ family continue diuresis and monitor renal function medication reviewed as above symptomatic treatment discussed with son fluid restriction and heart failure discussed
[2018-12-18] MEDS: Donepezil HCl 5 MG TAB PO SCH (21:16)
[2018-12-18] MEDS: Tamsulosin HCl 0.4 MG CAP PO SCH (21:16)
[2018-12-18] MEDS: Atorvastatin Calcium 10 MG TAB PO SCH (21:17)
[2018-12-18] MEDS: Famotidine 20 MG TAB PO SCH (21:17)
[2018-12-19 05:49] LABS: Anion Gap 11 mmol/L (10-20); BUN (Urea Nitrogen) 22 mg/dL (8.4-25.7); Calc. Creatinine Clearance 62 mL/min (70-130); Calcium 8.9 mg/dL (7.8-10.44); Carbon Dioxide 28 mmol/L (23-31); Chloride 101 mmol/L (98-107); Estimated GFR-MDRD 71; Glucose 84 mg/dL (83-110); Magnesium 1.9 mg/dL (1.6-2.6); Potassium 3.9 mmol/L (3.5-5.1); Sodium 136 mmol/L (136-145)
[2018-12-19] MEDS: Furosemide 40 MG/4 ML VIAL SLOW IVP SCH ×2 (06:21→15:46)
[2018-12-19 06:33] LABS: Anisocytosis SLIGHT = 6-15 cells (100X) (0-5/hpf); Elliptocytes SLIGHT = 2-5 cells (100X) (0-1/hpf); Hemoglobin 11.1 g/dL (14.0-18.0); Lymphocytes 49 % (21-51); MDiff Complete? YES; Mean Corpuscular HGB CONC 29.9 g/dL (32.0-36.0); Mean Corpuscular Hemoglobin 24.6 pg (27.0-31.0); Mean Corpuscular Volume 82.4 fL (78.0-98.0); Mean Platelet Volume 11.7 fL (7.4-10.4); Monocytes 11 % (0-10); Neutrophil 40 % (42-75); Nucleated RBC 1 % (0); Platelet Count 193 thou/uL (130-400); RBC Distribution Width 19.1 % (11.5-14.5); Red Blood Cell (RBC) Count 4.51 mill/uL (4.70-6.10); Target Cells SLIGHT = 2-5 cells (100X) (0-1/hpf); White Blood Cell (WBC) Count 10.7 thou/uL (4.8-10.8)
[2018-12-19] MEDS: Carvedilol 3.125 MG TAB PO SCH ×2 (09:44→17:19)
[2018-12-19] MEDS: Ascorbic Acid 500 mg Chewable Tablet PO SCH (10:26)
[2018-12-19] MEDS: Potassium Chloride 10 MEQ TAB PO SCH ×2 (10:26→17:19)
[2018-12-19] MEDS: Apixaban 5 MG TAB PO SCH ×2 (10:27→20:17)
[2018-12-19] MEDS: Aspirin 81 mg Enteric Coated Tablet PO SCH (10:27)
[2018-12-19] MEDS: Famotidine 20 MG TAB PO SCH ×2 (10:27→20:17)
[2018-12-19] MEDS: Finasteride 5 MG TAB PO SCH (10:28)
--- NOTE | 2018-12-19 11:35 | PDOC.HOSPP ---
- Subjective Encounter Date: 12/19/18 Encounter Time: 08:30 Subjective: Patient seen and examined. No new complaints. No overnight events - Objective Vital Signs & Weight: Vital Signs (12 hours) Temp Pulse Resp BP BP Pulse Ox 12/19/18 08:15 97.6 F 63 18 101/55 L 93 L 12/19/18 03:22 97.7 F 68 19 110/53 L 96 Weight Admit Weight 169 lb 12.8 oz Weight 171 lb 4.8 oz I&O: 12/18/18 12/19/18 12/20/18 06:59 06:59 06:59 Intake Total 237 954 477 Output Total 5269 2300 1600 [facility] -[phone] [id number] Result Diagrams: 12/19/18 04:30 12/19/18 04:30 EKG Reviewed by me: Yes ROS - Review of Systems Eyes: denies: pain, vision change, conjunctivae inflammation, eyelid inflammation, redness, other ENT: denies: ear pain, ear discharge, nose pain, nose discharge, nose congestion , mouth pain, mouth swelling, throat pain, throat swelling, other Respiratory: denies: cough, dry, shortness of breath, hemoptysis, SOB with excertion, pleuritic pain, sputum, wheezing, other Cardiovascular: denies: chest pain, palpitations, orthopnea, paroxysmal noc. dyspnea, edema, light headedness, other Gastrointestinal: denies: nausea, vomitting, abdominal pain, diarrhea, constipation, melena, hematochezia, other Genitourinary: denies: dysuria, frequency, incontinence, hematuria, retention, other Musculoskeletal: denies: neck pain, shoulder pain, arm pain, back pain, hand pain, leg pain, foot pain, other Skin: denies: rash, lesions, bentno, bruising, other - Medication Medications: Active Medications Generic Name Dose Route Start Last Admin Trade Name Freq PRN Reason Stop Dose Admin Apixaban 5 mg 12/16/18 09:00 12/19/18 10:27 Eliquis PO 5 mg BID JANET Administration Ascorbic Acid 1,000 mg 12/19/18 09:00 12/19/18 10:26 Vitamin C PO 1,000 mg DAILY JANET Administration Aspirin 81 mg 12/16/18 09:00 12/19/18 10:27 Ecotrin PO 81 mg DAILY JANET Administration Atorvastatin Calcium 10 mg 12/18/18 21:00 12/18/18 21:17 Lipitor PO 10 mg QPM JANET Administration Carvedilol 3.125 mg 12/18/18 17:00 12/19/18 09:44 Coreg PO Not Given BID-WM JANET Cholecalciferol 1,000 units 12/19/18 09:00 12/19/18 10:27 Vitamin D3 PO 1,000 units DAILY JANET Administration Donepezil HCl 5 mg 12/18/18 21:00 12/18/18 21:16 Aricept PO 5 mg HS JANET Administration Famotidine 20 mg 12/18/18 21:00 12/19/18 10:27 Pepcid PO 20 mg BID JANET Administration Finasteride 5 mg 12/16/18 09:00 12/19/18 10:28 Proscar PO 5 mg DAILY JANET Administration Furosemide 40 mg 12/16/18 14:00 12/19/18 06:21 Lasix SLOW IVP 40 mg 0600,1400 JANET Administration Potassium Chloride 10 meq 12/16/18 08:00 12/19/18 10:26 Klor-Con 10 PO 10 meq BID-WM JANET Administration Sertraline HCl 50 mg 12/16/18 09:00 12/19/18 10:28 Zoloft PO 50 mg DAILY JANET Administration Tamsulosin HCl 0.4 mg 12/16/18 21:00 12/18/18 21:16 Flomax PO 0.4 mg HS JANET Administration - Exam NAD, awake alert Eye: PERRL, anicteric sclera ENT: normocephalic atraumatic, no oropharyngeal lesions Neck: supple, symmetric, no JVD Heart: RRR, no gallops, no rubs Heart - other findings: SM parasternal Respiratory: CTAB, no wheezes, no rales Respiratory - other findings: air entry reduced at base Gastrointestinal: soft, non-tender, non-distended Extremities: no cyanosis, no clubbing, no edema Skin: normal turgor, no lesions, no rashes Neurological: CN's grossly intact, normal sensation to touch, no focal deficits , no new deficit Musculoskeletal: normal tone, normal strength Psychiatric: normal affect, normal behavior, A&O x 3 Hosp A/P (1) Acute on chronic systolic ACC/AHA stage C congestive heart failure Code(s): I50.23 - ACUTE ON CHRONIC SYSTOLIC (CONGESTIVE) HEART FAILURE Status : Acute (2) Bilateral pleural effusion Code(s): J90 - PLEURAL EFFUSION, NOT ELSEWHERE CLASSIFIED Status: Acute (3) Severe mitral regurgitation Code(s): I34.0 - NONRHEUMATIC MITRAL (VALVE) INSUFFICIENCY Status: Acute (4) Severe tricuspid regurgitation Code(s): I07.1 - RHEUMATIC TRICUSPID INSUFFICIENCY Status: Acute (5) Thrombus of pulmonary vein Code(s): I26.99 - OTHER PULMONARY EMBOLISM WITHOUT ACUTE COR PULMONALE Status : Acute (6) Anemia, normocytic normochromic Code(s): D64.9 - ANEMIA, UNSPECIFIED Status: Chronic (7) Anxiety and depression Code(s): F41.9 - ANXIETY DISORDER, UNSPECIFIED; F32.9 - MAJOR DEPRESSIVE DISORDER, SINGLE EPISODE, UNSPECIFIED Status: Chronic (8) BPH (benign prostatic hyperplasia) Code(s): N40.0 - BENIGN PROSTATIC HYPERPLASIA WITHOUT LOWER URINRY TRACT SYMP Status: Chronic (9) CAD (coronary artery disease) Code(s): I25.10 - ATHSCL HEART DISEASE OF [place] CORONARY ARTERY W/O ANG PCTRS Status: Chronic Qualifiers: Coronary Disease-Associated Artery/Lesion type: bypass graft [place] vs. transplanted heart: [place] heart Associated angina: with stable angina Qualified Code(s): I25.708 - Atherosclerosis of coronary artery bypass graft(s) , unspecified, with other forms of angina pectoris (10) CKD (chronic kidney disease), stage II Code(s): N18.2 - CHRONIC KIDNEY DISEASE, STAGE 2 (MILD) Status: Chronic (11) H/O lymphoma Code(s): Z85.79 - PRSNL HX OF [facility] OF LYMPHOID, HEMATPOETC & REL TISS Status: Chronic (12) HLD (hyperlipidemia) Code(s): E78.5 - HYPERLIPIDEMIA, UNSPECIFIED Status: Chronic (13) PVD (peripheral vascular disease) Code(s): I73.9 - PERIPHERAL VASCULAR DISEASE, UNSPECIFIED Status: Chronic - Plan old records reviewed/req, plan discussed w/ family continue diuresis and monitor renal function medication reviewed as above symptomatic treatment discussed with family bedside chest xray
--- NOTE | 2018-12-19 15:12 | RAD ---
CHEST ONE VIEW: 12/19/2018 2:30 p.m. HISTORY: Pleural effusion. COMPARISON: 12/15/2018 FINDINGS: There are changes of median sternotomy. The heart size is stable. The aorta is tortuous. The left- sided pleural effusion is smaller, with adjacent infiltrate/atelectatic change. No pneumothoraces ar e seen. POS: [facility] [place]
[2018-12-19] MEDS: Tamsulosin HCl 0.4 MG CAP PO SCH (20:16)
[2018-12-19] MEDS: Donepezil HCl 5 MG TAB PO SCH (20:17)
[2018-12-19] MEDS: Atorvastatin Calcium 10 MG TAB PO SCH (20:17)
[2018-12-20 08:52] LABS: ALT (SGPT) 11 U/L (8-55); AST (SGOT) 19 U/L (5-34); Albumin 3.5 g/dL (3.4-4.8); Alkaline Phosphatase 138 U/L (40-150); Anion Gap 13 mmol/L (10-20); BUN (Urea Nitrogen) 21 mg/dL (8.4-25.7); Bilirubin, Total 0.7 mg/dL (0.2-1.2); Calc. Creatinine Clearance 66 mL/min (70-130); Calcium 9.3 mg/dL (7.8-10.44); Carbon Dioxide 28 mmol/L (23-31); Chloride 100 mmol/L (98-107); Estimated GFR-MDRD 78; Globulin 2.8 g/dL (2.4-3.5); Glucose 114 mg/dL (83-110); Potassium 3.8 mmol/L (3.5-5.1); Protein, Total 6.3 g/dL (5.8-8.1); Sodium 137 mmol/L (136-145)
[2018-12-20] MEDS: Potassium Chloride 10 MEQ TAB PO SCH (09:44)
[2018-12-20] MEDS: Famotidine 20 MG TAB PO SCH (09:44)
[2018-12-20] MEDS: Finasteride 5 MG TAB PO SCH (09:44)
[2018-12-20] MEDS: Carvedilol 3.125 MG TAB PO SCH (09:46)
[2018-12-20] MEDS: Aspirin 81 mg Enteric Coated Tablet PO SCH (09:46)
[2018-12-20] MEDS: Furosemide 20 MG TAB PO SCH ×2 (09:46→13:41)
[2018-12-20] MEDS: Ascorbic Acid 500 mg Chewable Tablet PO SCH (09:46)
[2018-12-20] MEDS: Apixaban 5 MG TAB PO SCH (09:46)
[2018-12-20 13:06] VITALS: BP 104/55; TEMP 97.9
== END 2018-12-20 14:21 | disposition home or self-care (01) | DRG 291 ==
LOC: ERS 20:00 → 2NO 22:30
PROVIDERS: ADMIT Family Medicine; ATTEND Family Medicine
DX: I13.0 Hypertensive heart and chronic kidney disease with heart failure and stage 1 through stage 4 chronic kidney disease, or unspecified chronic kidney disease (principal); I26.99 Other pulmonary embolism without acute cor pulmonale; I50.43 Acute on chronic combined systolic (congestive) and diastolic (congestive) heart failure; I48.0 Paroxysmal atrial fibrillation; I25.708 Atherosclerosis of coronary artery bypass graft(s), unspecified, with other forms of angina pectoris; E78.5 Hyperlipidemia, unspecified; E78.00 Pure hypercholesterolemia, unspecified; F41.9 Anxiety disorder, unspecified; N18.2 Chronic kidney disease, stage 2 (mild); F32.9 Major depressive disorder, single episode, unspecified; I08.1 Rheumatic disorders of both mitral and tricuspid valves; I73.9 Peripheral vascular disease, unspecified; Z86.73 Personal history of transient ischemic attack (TIA), and cerebral infarction without residual deficits; Z79.01 Long term (current) use of anticoagulants; Z88.6 Allergy status to analgesic agent; Z88.1 Allergy status to other antibiotic agents; Z88.2 Allergy status to sulfonamides; Z88.8 Allergy status to other drugs, medicaments and biological substances; Z95.5 Presence of coronary angioplasty implant and graft; Z90.49 Acquired absence of other specified parts of digestive tract; Z95.1 Presence of aortocoronary bypass graft; I25.2 Old myocardial infarction; Z85.72 Personal history of non-Hodgkin lymphomas
CPT/HCPCS: 36415; 71045; 80048; 80053; 82977; 83735; 84484; 85025; 93005; 93306; 93798; J1940

== ENCOUNTER 2019-01-17 19:50 | Inpatient (IN) | payer MEDICARE, OTHER ==
[2019-01-17 20:30] LABS: Hemoglobin 11.9 g/dL (14.0-18.0); Mean Corpuscular HGB CONC 31.2 g/dL (32.0-36.0); Mean Corpuscular Hemoglobin 26.2 pg (27.0-31.0); Mean Corpuscular Volume 83.8 fL (78.0-98.0); RBC Distribution Width 19.5 % (11.5-14.5); Red Blood Cell (RBC) Count 4.54 mill/uL (4.70-6.10); White Blood Cell (WBC) Count 11.5 thou/uL (4.8-10.8)
[2019-01-17] MEDS ORDERED: Morphine 4 MG/ML VIAL ONE (20:42)
[2019-01-17] MEDS ORDERED: Ondansetron PF 4 MG/2 ML Vial ONE (20:43)
[2019-01-17 21:03] LABS: Anisocytosis MODERATE=16-30 cells (100X) (0-5/hpf); Band 2 % (5-11); Crenated RBC SLIGHT = 1-5 cells (100X) (None Seen); Elliptocytes SLIGHT = 2-5 cells (100X) (0-1/hpf); Large Platelets SLIGHT; Lymphocytes 22 % (21-51); MDiff Complete? YES; Mean Platelet Volume 12.2 fL (7.4-10.4); Monocytes 9 % (0-10); Neutrophil 67 % (42-75); Platelet Count 139 thou/uL (130-400); Platelet Morphology Comment Appears Adequate; Schistocytes SLIGHT = 2-5 cells (100X) (0-1/hpf)
[2019-01-17] MEDS ORDERED: Dextrose 5% in Water 1,000 ML IV PRN (21:10)
[2019-01-17] MEDS ORDERED: Ondansetron PF 4 MG/2 ML Vial IVP PRN (21:10)
[2019-01-17] MEDS ORDERED: Morphine 2 MG/ML SYRINGE SLOW IVP PRN (21:10)
[2019-01-17] MEDS ORDERED: Dextrose 50% Abboject 50 ML SYRINGE SLOW IVP PRN (21:10)
[2019-01-17] MEDS ORDERED: traMADol HCl 50 MG TAB PO PRN (21:16)
--- NOTE | 2019-01-17 23:42 | HP ---
REQUESTING PHYSICIAN: Dr. Zeng ATTENDING: Dr. Goldman HISTORY OF PRESENT ILLNESS: This is an 83-year-old male who went initially to the emergency room in [place] this morning after a mechanical fall. The patient states that he was ambulating outside and tripped. The patient denies any loss of consciousness. The patient denies being short of breath, dizzy, or having any chest pain before falling. The patient does report some back pain that started 2 days ago before the fall. The patient went ahead and went to adventist this morning, but towards the end of the ceremony his pain was increasing in his left lower chest area and reported it was hard to take a deep breath. The patient was evaluated and was found to have free fluid in his pelvis and mild ascites. The patient was transferred to [facility] for further care. The patient states when he fell, he fell backwards and fell hard onto his left side. The patient states his glasses fell off, but he did not lose any consciousness. The patient was able to ambulate after falling. The patient states he possibly struck his head and is on Eliquis. The patient also reports some left shoulder and elbow pain. No obvious injuries noted. Trauma Services was asked to admit the patient for observation and serial abdominal exams due to CT showing free fluid in the pelvis and liver margins. The patient did have an echocardiogram on 12/16/2018 that showed left pleural effusion and ejection fraction of 40% to 45%. The patient also reports a history of pneumonia while he was in rehab after his bypass surgery in June of 2018. PAST MEDICAL HISTORY: 1. Coronary artery disease, status post stents. 2. History of lymphoma, was treated with chemotherapy approximately 2 years ago. 3. History of CVA. The patient has some difficulty swallowing and occasional dragging of left foot from the CVA. 4. Hypertension. 5. Hyperlipidemia. 6. History of atrial fibrillation. PAST SURGICAL HISTORY: 1. 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 2. Cardiac stents. 3. Cholecystectomy. 4. CABG x5 vessels in June of 2018. 5. Hernia repair with mesh. 6. Prostate biopsy. 7. Femoral artery stent. 8. Lumbar laminectomy. SOCIAL HISTORY: Former smoker. Denies alcohol use. Denies illicit drug use. The patient lives at home. MEDICATIONS: 1. Zoloft 100 mg p.o. once a day. 2. Carvedilol 3.125 mg two times a day. 3. Flomax 0.4 mg once a day. 4. Eliquis 5 mg two times a day. 5. Famotidine 20 mg daily. 6. Finasteride 5 mg. 7. Simvastatin 40 mg. 8. Aspirin 81 mg. 9. Klor-Con 10 mEq once a day. 10. Donepezil 10 mg. 11. Lasix 40 mg four times a day. ALLERGIES: ANTIHISTAMINES WHICH CAUSE PROSTATE SWELLING, ATORVASTATIN, CLINDAMYCIN, PRAVASTATIN, SULFA, TIZANIDINE. REVIEW OF SYSTEMS: A 10-point review of systems is negative unless otherwise indicated in the above HPI. PHYSICAL EXAMINATION: VITAL SIGNS: Blood pressure 138/65, pulse 58, respirations 18, temperature 97.6 , SpO2 of 100% on room air. GENERAL: Elderly male, moderate distress due to left chest pain worse with deep breath. HEENT: Head is atraumatic and normocephalic. Pupils are equal bilateral, mucous membranes are moist, full range of motion of neck, no JVD, no cervical tenderness. RESPIRATORY: Chest equal chest rise and fall, bilateral breath sounds clear, tenderness to anterior chest wall, decreased breath sounds in bilateral bases. CARDIOVASCULAR: Regular rate, regular rhythm. No murmur. ABDOMEN: Soft, nontender, nondistended. No peritoneal signs, no rigidity. EXTREMITIES: Moves all extremities, positive sensation, intact. +1 pitting bilateral pedal edema, left worse than right. NEUROLOGIC: GCS 15, no focal deficits. LABORATORY DATA: WBC 11.5, RBC 4.54, hemoglobin 12.0, hematocrit 39.2, platelets 139. Sodium 142, potassium 5.1, chloride 103, carbon dioxide 28, anion gap 16, BUN 22, creatinine 1.09. Estimated GFR is 65, glucose 98, calcium 9.2, magnesium pending. Troponin 0.011. BNP 1374.2. DIAGNOSTICS: Brain CT, no acute intracranial process. Chest CT, bilateral pleural effusions with loculated fluid in the left hemothorax. Lung parenchymal changes maybe due to atelectasis, complex fluid in the perihepatic space. Shoulder x-ray, no fracture or dislocation of the left shoulder. Cervical spine CT, no cervical spine fracture. Abdomen and pelvis CT, liver is normal in appearance. Spleen appears to have been removed. Moderate bilateral pleural effusions, left greater than right, there is some mild ascites within the abdomen, which is nonspecific. No signs of solid organ injury. Large hiatal hernia, markedly enlarged prostate. ASSESSMENT: 1. Status post mechanical fall, on Eliquis. 2. Chest wall contusion. 3. Ascites versus intraabdominal bleeding status post fall. 4. Bilateral pleural effusions, chronic. 5. History of coronary artery disease, lymphoma, pneumonia, coronary artery bypass graft x5, hyperlipidemia, history of atrial fibrillation. PLAN: We will admit the patient for serial abdominal exams. We will encourage pulmonary toilet and the use of incentive spirometer. We will place the patient on a pain regimen. We will keep the patient on a liquid diet overnight. We will hold the patient's Eliquis. The plan was discussed with the attending who agrees. Job ID: [id number] MTDD
[2019-01-17] MEDS ORDERED: Ketorolac Tromethamine 15 MG/ML VIAL IVP SCH (23:59)
[2019-01-18] MEDS: Acetaminophen 1,000 MG in Premix Bag 1 BAG IVPB SCH ×2 (00:14→06:04)
[2019-01-18] MEDS ORDERED: Ketorolac Tromethamine 30 MG/ML VIAL IVP SCH ×2 (00:15→06:00)
[2019-01-18 03:51] LABS: ALT (SGPT) 13 U/L (8-55); AST (SGOT) 20 U/L (5-34); Albumin 3.2 g/dL (3.4-4.8); Alkaline Phosphatase 153 U/L (40-150); Anion Gap 12 mmol/L (10-20); BUN (Urea Nitrogen) 20 mg/dL (8.4-25.7); Bilirubin, Total 0.7 mg/dL (0.2-1.2); Calc. Creatinine Clearance 0 mL/min (70-130); Calcium 8.8 mg/dL (7.8-10.44); Carbon Dioxide 28 mmol/L (23-31); Chloride 103 mmol/L (98-107); Estimated GFR-MDRD 55; Globulin 2.5 g/dL (2.4-3.5); Glucose 118 mg/dL (83-110); Potassium 3.6 mmol/L (3.5-5.1); Protein, Total 5.7 g/dL (5.8-8.1); Sodium 139 mmol/L (136-145)
[2019-01-18] MEDS ORDERED: traMADol HCl 50 MG TAB PO PRN (07:35)
[2019-01-18 07:54] LABS: Magnesium 2.1 mg/dL (1.6-2.6); Phosphorus 3.8 mg/dL (2.3-4.7)
[2019-01-18] MEDS ORDERED: Ibuprofen 200 MG TAB PO PRN (08:34)
[2019-01-18 08:53] LABS: Hemoglobin 11.3 g/dL (14.0-18.0)
[2019-01-18] MEDS: Finasteride 5 MG TAB PO SCH (08:57)
[2019-01-18] MEDS: Polyethylene Glycol 3350 17 GM Packet PO SCH (08:57)
[2019-01-18] MEDS: Senokot S 8.6-50 MG TAB PO SCH ×3 (08:58→20:42)
[2019-01-18] MEDS: Ascorbic Acid 500 mg Chewable Tablet PO SCH (08:58)
[2019-01-18] MEDS: guaiFENesin ER 600 MG TAB PO SCH ×2 (08:59→20:41)
[2019-01-18] MEDS ORDERED: Famotidine/PF 20 mg/2ml Vial SLOW IVP SCH (09:00)
[2019-01-18] MEDS: Famotidine 20 MG TAB PO SCH ×2 (09:00→20:40)
[2019-01-18] MEDS: Acetaminophen 500 MG TAB PO SCH ×3 (09:03→20:35)
[2019-01-18] MEDS: Gabapentin 300 MG CAP PO SCH ×2 (09:09→17:25)
[2019-01-18] MEDS ORDERED: Hydrocortisone Sod Succ/PF 100 mg/2 ml Vial IVP SCH (10:30)
[2019-01-18] MEDS ORDERED: PHOS-NAK 1 PKT PACK PO SCH (10:30)
[2019-01-18 15:32] LABS: Hemoglobin 11.2 g/dL (14.0-18.0)
[2019-01-18] MEDS: Hydrocortisone 10 mg Tablet PO SCH ×2 (17:27→22:36)
[2019-01-18] MEDS: Gabapentin 100 MG CAP PO SCH (20:47)
[2019-01-18] MEDS ORDERED: Simvastatin 20 MG TAB PO SCH (21:00)
[2019-01-18] MEDS ORDERED: Donepezil HCl 5 MG TAB PO SCH (21:00)
[2019-01-18] MEDS ORDERED: traZODone HCl 50 MG TAB PO SCH (21:00)
[2019-01-18] MEDS ORDERED: Tamsulosin HCl 0.4 MG CAP PO SCH (21:00)
--- NOTE | 2019-01-18 21:09 | PRG ---
DATE OF SERVICE: 01/18/2019 SUBJECTIVE: The patient was seen this morning during rounds and again this afternoon with Dr. Escobedo. He is status post mechanical fall, on Eliquis with abdominal free fluid, which is likely ascites and a left chest wall contusion. He reported to us from [place] for observation. Throughout the day, the patient developed lower blood pressures with systolics in the 90s, persistent bradycardia. The patient, however, was not symptomatic at either time that we evaluated the patient. His mentation was normal, and he was getting up and ambulating without difficulties. He denied nausea, vomiting, chest pain, shortness of breath, dizziness, or lightheadedness. He did report that for the past month, he has been feeling more fatigue than usual and he attributed this to the warm weather. He is a patient of Dr. Ramon. Most significantly, he was hospitalized about a month ago for congestive heart failure. He also has had a CABG during June of this year, and on EKG completed at the time of admission, the patient had a junctional rhythm. Documented EKG completed during last month hospital admission demonstrated atrial fibrillation with a ventricular rate of 70 beats per minute. OBJECTIVE: VITAL SIGNS: Temperature 98.7, pulse 56, respirations 16, oxygen saturation 95% on room air, blood pressure 94/47. GENERAL: Well-appearing elderly male, sitting up in chair with no signs of acute distress. PULMONARY: Equal chest rise and fall. Diminished breath sounds at bases bilaterally. No signs of acute respiratory distress. Left-sided chest wall tenderness. CARDIAC: Bradycardic, but regular rhythm. No murmurs, gallops, or rubs. GI: Abdomen is soft, nontender, nondistended. EXTREMITIES: 2+ pulses in all extremities. No significant swelling noted. Gross motor and sensation are intact. NEUROLOGIC: GCS is 15. No focal neurological deficits. Pupils are equal, round, reactive to light bilaterally. LABORATORY FINDINGS: Hemoglobin 11.3, hematocrit 36.9. Sodium 134, potassium 3.6, chloride 103, carbon dioxide 28, BUN 20, creatinine 1.23, glucose 118, phosphorus 3.8, magnesium 2.1. Total bilirubin 0.7, AST 20, ALT 13, cortisol 9.7. DIAGNOSTIC FINDINGS: There are no new diagnostic findings to report. ASSESSMENT: 1. Status post mechanical fall, on Eliquis. 2. Intraabdominal free fluid. 3. Left-sided chest wall contusion. 4. Acute traumatic pain. 5. Acute hypophosphatemia and hypokalemia. 6. History of atrial fibrillation, coronary artery bypass grafting, chronic bilateral pulmonary effusions, lymphoma, cerebrovascular accident, congestive heart failure, left lobe lobectomy due to current lung cancer, coronary artery disease, hyperlipidemia. 7. Acute adrenal insufficiency. PLAN: We will replace the patient's potassium and phosphorus today. He was advanced to a regular diet. Continue current pain control regimen. The patient will receive a 1 time dose of 100 mg of hydrocortisone, then start a scheduled hydrocortisone taper. This is for acute adrenal insufficiency. We will continue to monitor the patient's heart rate and blood pressure closely and continue hydrocortisone. Dr. Ramon of Cardiology was contacted this afternoon in order to update him on the patient being in the hospital. He recommended we will move the patient to telemetry and to consult the office professionals screen and cyclone repairer. We did consult Dr. Rodriguez today. We did discuss the patient and his condition. He did ask if the patient was stable and Dr. Escobedo did report that the patient is stable and does not need ICU admission, and subsequently, Dr. Rodriguez reported that since the patient is stable, he did not need to see the patient today and that he recommended we will consult Dr. Ramon tomorrow morning. This information was conveyed to Dr. Escobedo, who agrees. We will continue to monitor the patient overnight and we will re-consult Dr. Ramon tomorrow morning. The patient was seen and examined by Dr. Escobedo and myself this morning and this afternoon during rounds. Job ID: [id number]
[2019-01-19] MEDS: Acetaminophen 500 MG TAB PO SCH ×3 (02:05→15:16)
--- NOTE | 2019-01-19 04:22 | PRG ---
DATE OF SERVICE: 01/18/2019 SUBJECTIVE: The patient is status post mechanical fall, on Eliquis, with abdominal free fluid, which is likely ascites and left chest wall contusion. The patient has been moved to the telemetry floor for telemetry monitoring. The patient with low blood pressures and persistent bradycardia during the day. The patient is currently sleeping, in no distress. OBJECTIVE: VITAL SIGNS: Stable. Afebrile. ASSESSMENT: 1. Status post mechanical fall, on Eliquis. 2. Intraabdominal free fluid next. 3. Left-sided chest wall contusion. 4. Acute traumatic pain. 5. Acute hypophosphatemia and hypokalemia. 6. History of atrial fibrillation, coronary artery bypass grafting. 7. Chronic bilateral pulmonary effusions. 8. Lymphoma. 9. Cerebrovascular accident. 10. Congestive heart failure. 11. Left lobectomy due to current lung cancer. 12. Coronary artery disease. 13. Hyperlipidemia. 14. Acute adrenal insufficiency. PLAN: Continue telemetry monitoring. Continue to replace electrolytes as needed. Continue regular diet as tolerated. Continue hydrocortisone for adrenal insufficiency. We will consult with Dr. Ramon tomorrow morning. We will continue pain regimen. We will continue to hold patient's metoprolol and Lasix as the patient has been hypotensive and bradycardic. Job ID: [id number]
[2019-01-19] MEDS: Hydrocortisone 10 mg Tablet PO SCH ×3 (04:23→15:17)
[2019-01-19 04:45] VITALS: TEMP 97.4
[2019-01-19 05:46] LABS: Anion Gap 11 mmol/L (10-20); BUN (Urea Nitrogen) 32 mg/dL (8.4-25.7); Calc. Creatinine Clearance 35 mL/min (70-130); Carbon Dioxide 28 mmol/L (23-31); Chloride 101 mmol/L (98-107); Estimated GFR-MDRD 43; Glucose 117 mg/dL (83-110); Magnesium 2.2 mg/dL (1.6-2.6); Phosphorus 3.9 mg/dL (2.3-4.7); Potassium 3.6 mmol/L (3.5-5.1); Sodium 136 mmol/L (136-145)
[2019-01-19 05:49] LABS: #Lymphocytes 1.9 thou/uL (1.20-3.40); #Monocytes 1.4 thou/uL (0.11-0.59); #Neutrophils 10.1 thou/uL (1.40-6.50); %Basophils 0.3 % (0.0-1.0); %Lymphocytes 14.1 % (21.0-51.0); %Monocytes 10.4 % (0.0-10.0); %Neutrophils 75.1 % (42.0-75.0); Hemoglobin 11.2 g/dL (14.0-18.0); MDiff Complete? YES; Mean Corpuscular HGB CONC 30.5 g/dL (32.0-36.0); Mean Corpuscular Hemoglobin 26.3 pg (27.0-31.0); Mean Corpuscular Volume 86.2 fL (78.0-98.0); Platelet Count 160 thou/uL (130-400); RBC Distribution Width 19.4 % (11.5-14.5); Red Blood Cell (RBC) Count 4.25 mill/uL (4.70-6.10); Target Cells SLIGHT = 2-5 cells (100X) (0-1/hpf); White Blood Cell (WBC) Count 13.4 thou/uL (4.8-10.8)
[2019-01-19] MEDS ORDERED: Levothyroxine Sodium 50 MCG TAB PO SCH (06:00)
[2019-01-19] MEDS: Finasteride 5 MG TAB PO SCH (09:02)
[2019-01-19] MEDS: Senokot S 8.6-50 MG TAB PO SCH (09:03)
[2019-01-19] MEDS: Gabapentin 100 MG CAP PO SCH ×2 (09:03→15:16)
[2019-01-19] MEDS: Ascorbic Acid 500 mg Chewable Tablet PO SCH (09:08)
[2019-01-19] MEDS: guaiFENesin ER 600 MG TAB PO SCH (09:09)
[2019-01-19] MEDS: Polyethylene Glycol 3350 17 GM Packet PO SCH (09:09)
[2019-01-19] MEDS: Famotidine 20 MG TAB PO SCH (09:17)
[2019-01-19 15:20] VITALS: BP 137/66
[2019-01-20] MEDS ORDERED: Famotidine 20 MG TAB PO SCH (09:00)
--- NOTE | 2019-01-20 09:10 | DIS ---
DATE OF ADMISSION: 01/18/2019 DATE OF DISCHARGE: 01/19/2019 ADMISSION DIAGNOSES: Status post mechanical fall, on Eliquis; intraabdominal free fluid; left-sided chest wall contusion; history of atrial fibrillation; coronary artery bypass grafting; chronic bilateral pulmonary effusion; lymphoma; cerebrovascular accident; congestive heart failure. DISCHARGE DIAGNOSES: Status post mechanical fall, on Eliquis; left-sided chest wall contusion, stable; history of atrial fibrillation; coronary artery bypass grafting; chronic bilateral pulmonary effusion; ascites; lymphoma; cerebrovascular accident; congestive heart failure; acute adrenal insufficiency, stable, resolved. PROCEDURE: None. CONSULTING PHYSICIAN: Cardiology HOSPITAL COURSE: The patient had been admitted after a fall, on Eliquis, but he sustained a minimal left-sided chest wall contusion. While staying in the hospital, he developed bradycardia, heart rates around 60, Trauma Team held on his Lasix and beta abigail. He has been stable since. Dr. Ramon was notified. Dr. Ramon is okay with him to go home at any time. He is also treated with hydrocortisone for adrenal insufficiency. His vitals improved. This morning, he is feeling good with no acute distress. Vital signs have been stable with consistence of heart rate around 60 and the patient wished to go back to his swing bed facility. PHYSICAL EXAMINATION: GENERAL: The patient is lying down in bed, comfortable with no acute distress. VITAL SIGNS: Temperature 97, heart rate 65, respiratory rate 18, O2 saturation 93% on room air, and blood pressure is 137/66. LUNGS: Clear bilaterally. HEART: Regular rate and rhythm. ABDOMEN: Soft and nondistended. EXTREMITIES: Neurovascularly intact x4. Normal range of motion x4. NEUROLOGIC: No focal neurologic deficits. DISCHARGE DISPOSITION: alf facility. DISCHARGE CONDITION: Satisfactory. DISCHARGE INSTRUCTION: Resume all of his home medications and no new medications were added. Continue to hold beta abigail and Lasix, wait for the patient to go back to see sales and business development manager , Dr. Molina Ramon next decision. Follow up with Dr. Ramon in 1 to 2 days. Follow up with Dr. Escobedo in 1 week. The patient will go back to [facility]. Job ID: [id number] MTDD
--- NOTE | 2019-01-20 16:42 | EKG ---
Test Reason : Blood Pressure : / mmHG Vent. Rate : 060 BPM Atrial Rate : 060 BPM P-R Int : 166 ms QRS Dur : 098 ms QT Int : 454 ms P-R-T Axes : 058 -05 020 degrees QTc Int : 454 ms Sinus rhythm with occasional Premature ventricular complexes Inferior infarct (cited on or before 18-JUN-2018) T wave abnormality, consider anterior ischemia Abnormal ECG When compared with ECG of 17-JAN-2019 20:35, (Unconfirmed) Sinus rhythm has replaced Junctional rhythm Confirmed by DR. Susan FELIZ ([id number]) on 01/20/2019 4:42:06 PM Referred By: SHONNA Confirmed By:DR. Susan FELIZ
[2019-01-21] MEDS ORDERED: Hydrocortisone 10 mg Tablet PO SCH (09:00)
[2019-01-23] MEDS ORDERED: Hydrocortisone 10 mg Tablet PO SCH (09:00)
[2019-01-25] MEDS ORDERED: Hydrocortisone 10 mg Tablet PO SCH (09:00)
== END 2019-01-19 15:40 | DRG 605 ==
LOC: ERS 19:50 → SURG B 21:10 → OBSVTOIN 01-18 17:27 → 2NO 01-18 22:48
PROVIDERS: ADMIT Surgery; ATTEND Surgery
DX: S20.212A Contusion of left front wall of thorax, initial encounter (principal); E27.40 Unspecified adrenocortical insufficiency; C85.90 Non-Hodgkin lymphoma, unspecified, unspecified site; R18.8 Other ascites; I48.91 Unspecified atrial fibrillation; I50.9 Heart failure, unspecified; W01.0XXA Fall on same level from slipping, tripping and stumbling without subsequent striking against object, initial encounter; I25.10 Atherosclerotic heart disease of native coronary artery without angina pectoris; E78.5 Hyperlipidemia, unspecified; E83.39 Other disorders of phosphorus metabolism; E87.6 Hypokalemia; R00.1 Bradycardia, unspecified; I11.0 Hypertensive heart disease with heart failure; Z95.1 Presence of aortocoronary bypass graft; Z95.5 Presence of coronary angioplasty implant and graft; I69.998 Other sequelae following unspecified cerebrovascular disease; Z87.891 Personal history of nicotine dependence; Z79.01 Long term (current) use of anticoagulants; Z79.82 Long term (current) use of aspirin; Z79.899 Other long term (current) drug therapy; Z85.118 Personal history of other malignant neoplasm of bronchus and lung; Z90.2 Acquired absence of lung [part of]; Z88.8 Allergy status to other drugs, medicaments and biological substances; Z88.1 Allergy status to other antibiotic agents; Z88.2 Allergy status to sulfonamides
CPT/HCPCS: 36415; 36416; 80048; 80053; 82533; 83735; 84100; 85014; 85018; 85025; 93005; 93010; 96374; 96375; G0390; J0131; J1720; J1885; J2270; J2405

== ENCOUNTER 2019-02-07 10:36 | Inpatient (IN) | payer MEDICARE, OTHER ==
[2019-02-07 11:21] LABS: Mean Corpuscular HGB CONC 31.2 g/dL (32.0-36.0); Mean Corpuscular Hemoglobin 26.2 pg (27.0-31.0); Mean Corpuscular Volume 84.1 fL (78.0-98.0); Mean Platelet Volume 11.1 fL (7.4-10.4); Platelet Count 194 thou/uL (130-400); RBC Distribution Width 19.2 % (11.5-14.5)
[2019-02-07] MEDS ORDERED: Furosemide 40 MG/4 ML VIAL ONE (11:28)
--- NOTE | 2019-02-07 11:38 | RAD ---
Exam: Chest one view HISTORY:Short of breath Comparison: 12/15/2018 FINDINGS: Lungs: Left basilar consolidation with adjacent pleural-based density Cardiac silhouette:Enlarged cardiac silhouette with evidence of prior sternotomy, and vascular calcif ications Pulmonary vessels: Prominent central pulmonary vasculature Pleural Spaces: Moderate left effusion Pneumothorax: None Osseous abnormalities: None of acuity. IMPRESSION: Moderate left effusion with adjacent atelectasis and/or pneumonia. Enlarged cardiac silhouette and pulmonary vasculature, indicating CHF.
[2019-02-07 11:45] LABS: Burr Cells MARKED = >16 cells (100X) (0-1/hpf); Crenated RBC SLIGHT = 1-5 cells (100X) (None Seen); Eosinophils 2 % (0-10); Hypochromia MODERATE=16-30 cells (100X) (0-5/hpf); Large Platelets SLIGHT; Lymphocytes 18 % (21-51); MDiff Complete? YES; Monocytes 26 % (0-10); Neutrophil 53 % (42-75); Platelet Morphology Comment Appears Adequate; Poikilocytosis SLIGHT = 6-15 cells (100X) (0-5/hpf); Polychromasia SLIGHT = 2-3 cells (100X) (0-2/hpf); Reactive Lymphocytes 1 % (0-10); Schistocytes SLIGHT = 2-5 cells (100X) (0-1/hpf); Target Cells SLIGHT = 2-5 cells (100X) (0-1/hpf); White Blood Cell (WBC) Count 9.3 thou/uL (4.8-10.8)
[2019-02-07 12:03] LABS: ALT (SGPT) 14 U/L (8-55); AST (SGOT) 31 U/L (5-34); Albumin 3.6 g/dL (3.4-4.8); Alkaline Phosphatase 199 U/L (40-110); Anion Gap 13 mmol/L (10-20); BUN (Urea Nitrogen) 22 mg/dL (8.4-25.7); Bilirubin, Total 0.7 mg/dL (0.2-1.2); Calc. Creatinine Clearance 0 mL/min (70-130); Calcium 8.9 mg/dL (7.8-10.44); Carbon Dioxide 22 mmol/L (23-31); Chloride 109 mmol/L (98-107); Estimated GFR-MDRD 81; Globulin 3.2 g/dL (2.4-3.5); Glucose 93 mg/dL (83-110); Protein, Total 6.8 g/dL (5.8-8.1); Sodium 139 mmol/L (136-145)
[2019-02-07 12:24] LABS: Bilirubin Negative (Negative); Blood, Urine Negative (Negative); Clarity Clear (Clear); Glucose, Urine (Dipstick) Normal (Negative); Leukocyte Negative Leu/uL (Negative); Nitrite Negative (Negative); Protein, Urine (Dipstick) 20 mg/dL (Neg-Trace); Urobilinogen Normal mg/dL (Less than 2)
[2019-02-07] MEDS ORDERED: ISOVUE-370 76%-LOCM 1 ML ONE (13:17)
--- NOTE | 2019-02-07 13:50 | CT ---
CT ABDOMEN AND PELVIS WITH IV CONTRAST 02/07/2019 CLINICAL INFORMATION: Fall, fluid around liver. COMPARISON: 01/17/2019 Technique: Multiple contiguous axial CT images are obtained through the abdomen and pelvis with IV contrast. Cor onal reformatted images are provided. FINDINGS: Lower Chest: The heart remains enlarged. There is a [id number] size left pleural effusion and associated passive atelectasis also seen on prior exam. Stable small right pleural effusion is also again seen. Calcified granulomata at the right lung base are again noted. A small hiatal hernia is present. Vessels: Vascular calcifications are again seen in the coronary arteries as well as involving the abd ominal aorta and iliac arteries with associated prominent atherosclerotic plaque. Severe focal narrowing is seen within the right external iliac artery. Vascular stent is present within the proxim al right external iliac artery with a stent also seen in the right common iliac artery. Abdomen: Portal vein:Patent Gallbladder: Surgically absent. Liver: Enlarged in craniocaudal dimensions measuring 19 cm. Spleen: Not visualized and likely surgically absent. Pancreas: within normal limits. Adrenals: within normal limits. Kidneys: Left renal cyst is again seen. There is mild left hydronephrosis. The left ureter is normal in caliber. No ureteral calculus is seen. 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 Similar finding was seen on prior study. Bowel: A few scattered colonic diverticula are seen. Loops of small bowel are normal in caliber. Ther e is moderately prominent loops of small bowel in the left upper quadrant probably related to peristalsis. Appendix: Not visualized. Peritoneum: Small amount of free fluid is seen in the abdomen similar to the prior exam. Mesentery and Retroperitoneum: No enlarged mesenteric or retroperitoneal lymph nodes. Abdominal Wall: There is mild generalized subcutaneous edema seen. Pelvis: Reproductive Organs: Prostate gland remains enlarged and heterogeneous measuring 6.4 cm in transverse dimensions. Pelvis a penile prosthesis is again seen. Bladder: within normal limits. Bones: Degenerative changes are again seen in the spine with moderate shaped curvature of thoracolumb ar spine. Postsurgical changes lumbar spine are again present. IMPRESSION: CT abdomen and pelvis is overall stable when compared to the prior study. 1. Moderate left and small right pleural effusions also noted on prior exam. 2. Small amount of ascites similar to prior study. 3. Hiatal hernia. 4. Cardiomegaly. 5. Stable enlargement of the prostate gland. 6. Evidence of splenectomy as well as cholecystectomy. 7. Dense vascular calcifications and atherosclerotic plaque. A stent is in the proximal right externa l iliac artery, but there does appear to be a severe focal narrowing involving the mid right external iliac artery distal to the level of the stent.
[2019-02-07] MEDS ORDERED: Morphine 4 MG/ML VIAL ONE (17:17)
[2019-02-07] MEDS ORDERED: Morphine 2 MG/ML SYRINGE SLOW IVP PRN (17:36)
[2019-02-07] MEDS ORDERED: Morphine 2 MG/ML SYRINGE ONE ×2 (17:36→17:50)
[2019-02-07] MEDS ORDERED: Morphine 2 MG/ML SYRINGE SLOW IVP SCH (17:45)
[2019-02-07 19:49] VITALS: BMI 22.6
--- NOTE | 2019-02-07 20:01 | CT ---
CT PELVIS WITHOUT CONTRAST: Indications: Repeat CT pelvis is requested because of point tenderness in the lower pelvis midline. T echnologist marked the area of concern. FINDINGS: The skin marker lies directly above the catheter which connects to the reservoir for the penile impla nt. This reservoir lies anterior to the bladder and is unchanged in position when compared to 01-17-19 . There is no evidence of soft tissue fluid or abscess. There is no evidence of abdominal wall hernia . The bladder is distended and unremarkable. No interval change from the exam taken earlier today. IMPRESSION: Point of tenderness is directly over the catheter which connects to the reservoir of the penile impla nt which is positioned along the anterior wall of the bladder. No significant change in the appearanc e of this catheter or implant when compared to 01-17-19. POS: OFF
--- NOTE | 2019-02-07 23:05 | HP ---
CHIEF COMPLAINT: Abdominal pain. HISTORY OF PRESENT ILLNESS: This patient is an 83-year-old male with a history of significant congestive heart failure with severe MR and severe TR. The patient has had a very difficult year medically speaking and he presented to the hospital today with abdominal pain. The patient reports that every time he takes Lasix he ends up having a lot of problems with his stomach, has pains and has incontinence of stool, but he has significant edema with a heart failure and ultimately has to use the Lasix and says he will suffer for a couple of days and then resolve. He presented today with that scenario having worsening abdominal pain and some stool incontinence. He was noted to have peripheral edema and some pulmonary edema on chest x-ray and had Lasix in the emergency department, which caused him recurrence of the significant abdominal pain and incontinence of stool. I was asked to come see the patient for admission for heart failure. However, before I arrived to see the patient, he had developed new onset pain in his abdomen and pelvis area with a nodule that was very firm and protruding under the skin of the abdominal wall. This area was exquisitely tender to palpate much, but his whole abdomen was somewhat uncomfortable. We saw him in the emergency room, reviewed the patient's CT abdomen and pelvis, which had been performed initially, which did not show any such abnormality and discussed with radiologist, ultimately performed a repeat CT of the pelvis. It has not been officially read at this time; however, it appears as though the patient has a very distended bladder and that bladder is pushing against a penile implant reservoir that sits just anterior to the bladder and the fill tube from the reservoir to the prosthesis appears to be pushing also up against the abdominal skin causing the abnormality, and a Colon catheter has been ordered. The patient has had 4 mg of morphine in the emergency department to try to relieve his pain. He continues to have some voiding and some incontinence and is almost agitated from the amount of pain that he has been in. He reports that originally the patient's pain was primarily some swelling and tightness. He has had heart failure before, in which he required significant diuresis; however, this was distending the abdomen laterally more so than before. He also had some bilious reflux this morning as well. He denied any chest pain, but did have orthopnea. REVIEW OF SYSTEMS: Notable for some generalized fatigue and poor appetite. All other systems reviewed. All pertinent positives and negatives noted in the history of present illness. PAST MEDICAL HISTORY: Notable for cardiomyopathy with an ejection fraction of 40% to 45%. Severe MR, severe TR, coronary artery disease, status post stent, history of lymphoma, although currently not on chemo or radiation. History of prior CVA, hypertension, hyperlipidemia, history of atrial fibrillation. 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 FAMILY HISTORY: Mother at 84 from a AAA. Father in his 80s of sudden cardiac arrest. SOCIAL HISTORY: The patient is a former daily drinker. Now he drinks occasionally. He does not smoke or use drugs. He is . His is at his bedside. He is a DNAR and his is his surrogate decision maker. ALLERGIES: ANTIHISTAMINES, WHICH CAUSE SOME PROSTATE ISSUES. ATORVASTATIN, CLINDAMYCIN, PRAVASTATIN, SULFA, AND TIZANIDINE. CURRENT MEDICATIONS: 1. Finasteride 5 mg daily. 2. Lasix 40 mg daily. 3. Potassium 20 mEq daily. 4. Zoloft 50 mg daily. 5. Flomax 0.4 mg daily. 6. Coreg 3.125 1/2 tablet b.i.d. 7. Pepcid 20 mg daily. 8. Aricept 10 mg daily. PHYSICAL EXAMINATION: VITAL SIGNS: Initially, BP 123/62, pulse 56, respirations 18, temperature 97.8, O2 saturations 96% on room air. Most recent BP 153/89, pulse 83, respirations 24, O2 saturation 100% on 3 L. GENERAL APPEARANCE: Age-appropriate male, who is very clearly in some obvious discomfort. HEENT: PERRL. No OP lesions. NECK: Supple and symmetric. HEART: Regular without murmurs audible, although the patient had a difficult time being completely still and not breathing, a bit erratically in attempts to auscultate. LUNGS: Similarly compromised, but clear to auscultation. ABDOMEN: Slightly distended. Hyperactive bowel sounds. Diffusely tender. There is a protruding 2.5 x 1 cm nodular type area that is very firm to touch. The tenderness there limits the palpation of the pelvis or bladder more aggressively. EXTREMITIES: No cyanosis. He does have 2+ pitting edema up to the level of the knees. PSYCHIATRIC: The patient is again borderline agitated, but mostly because he is in fairly severe pain. NEUROLOGIC: Appears to be generally intact with no focal deficits. He has some generalized weakness. LABORATORY DATA: White count 9.3, hemoglobin 11, platelets 194. Differential includes moderate hypochromia with a marked number of bur cells. Sodium 139, potassium 5.0, chloride 109, CO2 22, BUN 8, creatinine 0.9, alkaline phosphatase 199. AST is 31, ALT is 14. Troponin is 0.01. BNP is 1180. UA is negative. CT abdomen and pelvis originally done reveals moderate left and small right pleural effusion, similar to prior exam. Small amount of ascites, similar to prior study. Hiatal hernia. Cardiomegaly. Stable enlargement of the prostate gland. Evidence of splenectomy as well as cholecystectomy. Dense vascular calcifications and atherosclerotic plaque. A stent is in the proximal right external iliac artery, but there does appear to be a severe focal narrowing involving the mid right external iliac, distal to the level of the stent. Chest x-ray, moderate left effusion with adjacent atelectasis and/or pneumonia, enlarged cardiac silhouette and pulmonary vasculature indicating congestive heart failure. IMPRESSION AND PLAN: 1. Urinary outlet obstruction. The patient has severe pain associated with this. Colon catheter has been ordered, it appears to be displacing the reservoir for his penile implant pushing the fill tube from the reservoir to the penis up against the skin. It is likely also affecting his gut causing some of his incontinence issues. He has reported this every time he has taken the Lasix in the past and I suspect that has been the problem, is that he takes the Lasix, gets significant bladder distension and has similar type symptoms as he does now, although this seems to be the worst scenario likely due to the IV Lasix he received in the emergency department. We will likely need to figure out to address the bladder and prostate before aggressively giving diuretics going forward. In the meantime, however, given the degree of distension, we will place the Colon catheter and leave it in for now. 2. Congestive heart failure. This patient unfortunately has cardiomyopathy with systolic dysfunction and diastolic dysfunction related to severe valvular pathology including severe TR and MR giving him acute on chronic combined systolic and diastolic heart failure. He has received the diuretic and he appears to have responded well to that to the point he has overly distended his bladder. We will not give any more diuretics until we can ensure that we have a good way to adequately drain his bladder. 3. History of benign prostatic hyperplasia. He is on finasteride and Flomax, again placing a Colon catheter now. We may need to get help from Urology going forward. 4. History of coronary artery disease. The patient was previously reported to be on aspirin. It is not currently part of his medication list. We will need to clarify that. When he was discharged in late December, he was on Eliquis at that time along with aspirin. 5. History of atrial fibrillation, on Eliquis as above. We will await until we can get Colon and decompress the bladder and consider resuming those in the morning once those medications can be adequately clarified. 6. History of lymphoma with multiple bur cells present. We will need to follow up on that once he is over this acute episode. 7. Peripheral vascular disease. He has a stent in the right common femoral; however, the superficial femoral appears to have some occlusion. It does not appear to be symptomatic or something necessitating intervention at this time. Job ID: [id number]
[2019-02-08] MEDS ORDERED: Carvedilol 3.125 MG TAB PO SCH ×3 (08:00)
--- NOTE | 2019-02-08 08:25 | PDOC.HOSPP ---
- Subjective Encounter Date: 02/08/19 Encounter Time: 08:23 Subjective: Doing much better. No abdominal pain. LE edema has drastically improved. Feels well. - Objective Vital Signs & Weight: Vital Signs (12 hours) Temp Pulse Resp BP BP Pulse Ox 02/08/19 08:01 97.7 F 57 L 18 161/73 H 93 L 02/08/19 03:27 96.8 F L 61 18 130/66 93 L 02/07/19 22:02 97.4 F L 67 18 118/59 L 94 L Weight Weight 171 lb 4.998 oz Result Diagrams: 02/07/19 11:02 02/07/19 11:02 - Exam General Appearance: NAD, awake alert Heart: RRR, no murmur, no gallops, no rubs, normal peripheral pulses Respiratory: CTAB, no wheezes, no rales, no ronchi, normal chest expansion, no tachypnea, normal percussion Gastrointestinal: soft, non-tender, non-distended, normal bowel sounds, no palpable masses, no hepatomegaly, no splenomegaly, no bruit Extremities: no edema Skin - other findings: Wrinkles of calves Musculoskeletal: normal tone Psychiatric: normal affect Psychiatric - other findings: Slightly confused, extremely pleasant. Hosp A/P (1) Urinary retention Code(s): R33.9 - RETENTION OF URINE, UNSPECIFIED Status: Acute (2) Abdominal pain Code(s): R10.9 - UNSPECIFIED ABDOMINAL PAIN Status: Acute (3) Diarrhea Code(s): R19.7 - DIARRHEA, UNSPECIFIED Status: Acute (4) Acute on chronic systolic ACC/AHA stage C congestive heart failure Code(s): I50.23 - ACUTE ON CHRONIC SYSTOLIC (CONGESTIVE) HEART FAILURE Status : Chronic (5) BPH (benign prostatic hyperplasia) Code(s): N40.0 - BENIGN PROSTATIC HYPERPLASIA WITHOUT LOWER URINRY TRACT SYMP Status: Chronic (6) CAD (coronary artery disease) Code(s): I25.10 - ATHSCL HEART DISEASE OF [place] CORONARY ARTERY W/O ANG PCTRS Status: Chronic Qualifiers: (7) CKD (chronic kidney disease), stage II Code(s): N18.2 - CHRONIC KIDNEY DISEASE, STAGE 2 (MILD) Status: Chronic (8) H/O lymphoma Code(s): Z85.79 - PRSNL HX OF MALIG NEOPLM OF LYMPHOID, HEMATPOETC & REL TISS Status: Chronic (9) HLD (hyperlipidemia) Code(s): E78.5 - HYPERLIPIDEMIA, UNSPECIFIED Status: Chronic (10) PVD (peripheral vascular disease) Code(s): I73.9 - PERIPHERAL VASCULAR DISEASE, UNSPECIFIED Status: Chronic (11) Severe mitral regurgitation Code(s): I34.0 - NONRHEUMATIC MITRAL (VALVE) INSUFFICIENCY Status: Chronic (12) Severe tricuspid regurgitation Code(s): I07.1 - RHEUMATIC TRICUSPID INSUFFICIENCY Status: Chronic - Plan Doing much better overall. Impressive resolution of the LE edema. Recheck labs. Give po potassium now. He has reactions of abd discomfort and diarrhea with taking lasix. Not sure if this is related to the urinary retention or to a direct SE of the Lasix. Will try a small po dose of Lasix and see how he responds. If he has another similar reaction with the bladder drained, it will be clear that it is a direct reaction. Consult Urology for BPH with retention. No indication to consult Cardiology now. Has already had significant improvement with the CHF and fluid retention. Abdominal pain was clearly related to the distended bladder. The protruding lump was from the fill line from the reservoir to the penile implant. Resolved.
[2019-02-08] MEDS ORDERED: Furosemide 20 MG TAB PO SCH (08:30)
[2019-02-08] MEDS ORDERED: Potassium Chloride 20 MEQ TAB PO SCH (08:30)
[2019-02-08] MEDS ORDERED: Aspirin 81 mg Enteric Coated Tablet PO SCH (09:00)
[2019-02-08 09:05] LABS: Hemoglobin 11.2 g/dL (14.0-18.0); Mean Corpuscular HGB CONC 29.6 g/dL (32.0-36.0); Mean Corpuscular Hemoglobin 25.8 pg (27.0-31.0); Mean Corpuscular Volume 87.1 fL (78.0-98.0); Mean Platelet Volume 11.1 fL (7.4-10.4); Platelet Count 215 thou/uL (130-400); RBC Distribution Width 19.5 % (11.5-14.5); Red Blood Cell (RBC) Count 4.33 mill/uL (4.70-6.10); White Blood Cell (WBC) Count 11.3 thou/uL (4.8-10.8)
[2019-02-08 09:28] LABS: Band 1 % (5-11); Bite Cells SLIGHT = 2-5 cells (100X) (0-1/hpf); Burr Cells SLIGHT = 2-5 cells (100X) (0-1/hpf); Eosinophils 3 % (0-10); Lymphocytes 38 % (21-51); MDiff Complete? YES; Monocytes 18 % (0-10); Neutrophil 40 % (42-75); Nucleated RBC 1 % (0); Platelet Morphology Comment Appears Adequate; Schistocytes MODERATE= 6-15 cells (100X) (0-1/hpf)
[2019-02-08 09:37] LABS: Anion Gap 17 mmol/L (10-20); BUN (Urea Nitrogen) 18 mg/dL (8.4-25.7); Calc. Creatinine Clearance 61 mL/min (70-130); Calcium 8.8 mg/dL (7.8-10.44); Carbon Dioxide 19 mmol/L (23-31); Chloride 108 mmol/L (98-107); Estimated GFR-MDRD 71; Glucose 99 mg/dL (83-110); Potassium 5.2 mmol/L (3.5-5.1); Sodium 139 mmol/L (136-145)
[2019-02-08] MEDS: Aspirin 81 mg Enteric Coated Tablet PO SCH (09:43)
[2019-02-08] MEDS: Carvedilol 3.125 MG TAB PO SCH ×2 (09:43→20:03)
[2019-02-08] MEDS: Apixaban 5 MG TAB PO SCH ×2 (09:44→20:03)
[2019-02-08] MEDS: Finasteride 5 MG TAB PO SCH (09:45)
[2019-02-08] MEDS ORDERED: Donepezil HCl 10 MG TAB PO SCH (21:00)
[2019-02-08] MEDS ORDERED: Atorvastatin Calcium 10 MG TAB PO SCH (21:00)
[2019-02-08] MEDS ORDERED: Simvastatin 20 MG TAB PO SCH (21:00)
--- NOTE | 2019-02-09 01:06 | CON ---
DATE OF CONSULTATION: 02/08/2019 CONSULTING PHYSICIAN: [facility], Dr. Villegas, consulted Dr. Alcala. REASON FOR CONSULTATION: Urinary retention. HISTORY OF PRESENT ILLNESS: Mr. Nunes is an 83-year-old white male with a history of inflatable penile prosthesis and BPH who currently was admitted to the hospital for CHF exacerbation. He had significant fluid overload with lower extremity edema and respiratory issues and found to be in congestive heart failure. He started having diuresis with Lasix as per standard with congestive heart failure, which resulted in significant distention of his bladder and abdomen with a noticeable bulge. The patient states that this has happened previously with episodes of diuresis where he will get urinary retention. He had a Colon catheter placed, which resulted in immediate relief from his bladder and with continued diuresis with Lasix, the patient had stated that he has felt better than he has in years with significant reduction in the size of his legs as well as his breathing and overall symptoms. It is not clear how much urine was drained out of the bladder, but the patient did report that a large amount of urine was drained out. The patient states that his inflatable penile prosthesis was placed by a urologist here at [place], although I do not have any record of this. He does not remember the doctor's name. He also has been started on Flomax and finasteride, which he has been taking, although he states that despite these medications, his urine stream is adequate, but not great. Again, he has had previous episodes of urinary retention. He denies UTIs, gross hematuria, previous urologic surgeries other than the IPP that was placed. HOME MEDICATIONS: 1. Flomax. 2. Finasteride. 3. Lasix. 4. Potassium. 5. Zoloft. 6. Coreg. 7. Pepcid. 8. Aricept. ALLERGIES: 1. ANTIHISTAMINES WHICH CAUSE PROSTATE PROBLEMS. 2. ATORVASTATIN. 3. CLINDAMYCIN. 4. PRAVASTATIN. 5. SULFA. 6. TIZANIDINE. PAST MEDICAL HISTORY: 1. CHF and cardiomyopathy with ejection fraction of 40%. 2. Severe MR. 3. Severe TR. 4. Coronary artery disease. 5. Lymphoma. 6. CVA. 7. BPH. 8. Hypertension. 9. Hyperlipidemia. 10. Atrial fibrillation. PAST SURGICAL HISTORY: 1. Splenectomy. 2. Left upper lobe lung resection. 3. Cardiac stents. 4. Cholecystectomy. 5. Coronary artery bypass grafting x5 vessels. 6. Hernia repair with mesh. 7. Prostate biopsies. 8. Femoral artery stents. 9. Nasal surgery. 10. Inflatable penile prosthesis placement. FAMILY HISTORY: Significant for AAA and cardiac disease. SOCIAL HISTORY: The patient is a former daily drinker although he states he quit and only drinks on rare occasions now. He denies smoking or illicit drug use. He is and states he lives with his . REVIEW OF SYSTEMS: A 12-point review of system was reviewed and negative other than what was commented on the HPI. Overall, he states he is feeling significantly better. PHYSICAL EXAMINATION: VITAL SIGNS: Temperature 97.8, pulse 55, respirations 16, blood pressure 110/59, saturation 92% on room air. GENERAL: No apparent distress. Communicative and alert. Well nourished, well developed, appears stated age. HEENT: Normocephalic, atraumatic. Pupils are symmetric and round. Sclerae are nonicteric. Trachea is midline. CARDIOVASCULAR: Regular rate with irregular rhythm. Normal S1 and S2. Possible S3 heard. Symmetric pulses. CHEST: No increased work of breathing, symmetric expansion of lungs, bibasilar crackles. ABDOMEN: Soft, nontender, and nondistended. Positive bowel sounds. There is a palpable tubing felt in the suprapubic area, which is most likely the connector tubing from the patient's IPP. [place] is not palpable. No other masses, hepatosplenomegaly, or hernias noted. GENITOURINARY: The patient with IPP in place. The pump is somewhat high-riding, but in good location without erythema. Cylinders are in good location without erosion. Colon catheter in place, secured with a StatLock with clear yellow urine. EXTREMITIES: 1+ edema bilaterally. No clubbing or cyanosis. MUSCULOSKELETAL: No obvious joint deformity or joint erythema noted. Full range of motion. SKIN: Warm and dry. Good turgor. No rashes or lesions. PSYCHIATRIC: Alert and oriented x3. Appropriate mood and affect. NEUROLOGIC: Cranial nerves 2 through 12 grossly intact. No focal or sensory motor deficits identified. LYMPHATICS: There are no obvious enlarged lymph nodes in the cervical, inguinal, or axillary regions. LABORATORY EVALUATION: A full set of labs are in the [employer] system, which I have reviewed. Of note, the patient's white count is 11.3 with hemoglobin of 11.2, platelet count of 215. Creatinine is currently 1.01. Urinalysis is completely normal. CT of the pelvis done on February 07 demonstrates there is a point of tenderness directly over the catheter which connects the reservoir with penile implant which is positioned along the anterior abdominal wall. There is no significant change of this catheter or implant when compared to January 17, 2019. ASSESSMENT AND PLAN: An 83-year-old white male with urinary retention secondary to BPH and likely diuresis as well as congestive heart failure exacerbation, which has likely weakened the patient somewhat. Given his overdistention injury, I would recommend continuation of his Colon catheter for at least 1 week at which point, he can return to follow up with me for a voiding trial. I cannot find any record of his previous urologist on our system. If his previous urologist can be identified, then he can certainly follow up with that urologist, but if no urologist can be identified then he should follow up with me for a void trial in 1 week. 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 His IPP appears to be positioned well. I did not check its function, but there is nothing alarming with its current placement or appearance. From my standpoint, I will sign off as there is nothing further for me to do other than continuation of Colon catheter for now. Followup in 1 week for a void trial and continuation of the patient's medical regimen of his BPH medications. Job ID: [id number]
[2019-02-09] MEDS: Finasteride 5 MG TAB PO SCH (08:44)
[2019-02-09] MEDS: Carvedilol 3.125 MG TAB PO SCH (08:44)
[2019-02-09] MEDS: Aspirin 81 mg Enteric Coated Tablet PO SCH (08:45)
[2019-02-09] MEDS: Apixaban 5 MG TAB PO SCH (08:45)
[2019-02-09] MEDS ORDERED: AcetaZOLAMIDE 250 MG TAB PO SCH (09:30)
[2019-02-09 15:41] VITALS: BP 111/55; TEMP 97.8
== END 2019-02-09 17:22 | disposition home or self-care (01) | DRG 291 ==
LOC: ERS 10:36 → ERHOLD 14:40 → OBSVTOIN 14:40 → 2NO 18:55
PROVIDERS: ADMIT Internal Medicine; ATTEND Internal Medicine
DX: I13.0 Hypertensive heart and chronic kidney disease with heart failure and stage 1 through stage 4 chronic kidney disease, or unspecified chronic kidney disease (principal); I50.43 Acute on chronic combined systolic (congestive) and diastolic (congestive) heart failure; C85.94 Non-Hodgkin lymphoma, unspecified, lymph nodes of axilla and upper limb; I42.9 Cardiomyopathy, unspecified; N13.9 Obstructive and reflux uropathy, unspecified; N40.1 Benign prostatic hyperplasia with lower urinary tract symptoms; E78.5 Hyperlipidemia, unspecified; I25.10 Atherosclerotic heart disease of native coronary artery without angina pectoris; I08.1 Rheumatic disorders of both mitral and tricuspid valves; I73.9 Peripheral vascular disease, unspecified; N18.2 Chronic kidney disease, stage 2 (mild); I48.91 Unspecified atrial fibrillation; Z95.5 Presence of coronary angioplasty implant and graft; Z95.1 Presence of aortocoronary bypass graft; Z90.49 Acquired absence of other specified parts of digestive tract; Z88.1 Allergy status to other antibiotic agents; Z88.2 Allergy status to sulfonamides; Z88.8 Allergy status to other drugs, medicaments and biological substances; Z86.73 Personal history of transient ischemic attack (TIA), and cerebral infarction without residual deficits
CPT/HCPCS: 36415; 71045; 72192; 74177; 80048; 80053; 81003; 83880; 84484; 85025; 93005; J1940; J2270; Q9966

== ENCOUNTER 2019-02-27 11:25 | Inpatient (IN) | payer MEDICARE, OTHER ==
--- NOTE | 2019-02-27 12:03 | RAD ---
Portable frontal chest radiograph: 02/27/2019 COMPARISON: 02/07/2019 HISTORY: Abdominal pain, fluid retention FINDINGS: Stable enlargement of the cardiac silhouette. Stable midline sternotomy wires and mediastin al clips with atherosclerotic calcification of the aortic arch. There is increased density within the inferior third of the left hemithorax consistent with a combination of nonspecific left lower lob e consolidation/collapse and left pleural effusion. This is stable when compared to the prior examination. Mild hazy density noted in the right lung base with possible small right pleural effusion. IMPRESSION: Persistent dense pleural and parenchymal opacity within the left base as detailed above. Question small right pleural effusion.
[2019-02-27 12:34] LABS: Mean Corpuscular HGB CONC 30.1 g/dL (32.0-36.0); Mean Corpuscular Hemoglobin 25.8 pg (27.0-31.0); Mean Corpuscular Volume 85.8 fL (78.0-98.0); Mean Platelet Volume 11.2 fL (7.4-10.4); Platelet Count 210 thou/uL (130-400); RBC Distribution Width 18.2 % (11.5-14.5); Red Blood Cell (RBC) Count 4.24 mill/uL (4.70-6.10); White Blood Cell (WBC) Count 12.7 thou/uL (4.8-10.8)
[2019-02-27 12:49] LABS: ALT (SGPT) 13 U/L (8-55); AST (SGOT) 22 U/L (5-34); Albumin 3.6 g/dL (3.4-4.8); Alkaline Phosphatase 203 U/L (40-110); Anion Gap 13 mmol/L (10-20); BUN (Urea Nitrogen) 17 mg/dL (8.4-25.7); Bilirubin, Total 0.9 mg/dL (0.2-1.2); Calc. Creatinine Clearance 0 mL/min (70-130); Carbon Dioxide 26 mmol/L (23-31); Chloride 106 mmol/L (98-107); Estimated GFR-MDRD 88; Globulin 3.4 g/dL (2.4-3.5); Glucose 85 mg/dL (83-110); Sodium 141 mmol/L (136-145)
[2019-02-27 13:06] LABS: Anisocytosis MODERATE=16-30 cells (100X) (0-5/hpf); Band 4 % (5-11); Burr Cells SLIGHT = 2-5 cells (100X) (0-1/hpf); Eosinophils 1 % (0-10); Lymphocytes 16 % (21-51); MDiff Complete? YES; Monocytes 12 % (0-10); Neutrophil 64 % (42-75); Nucleated RBC 3 % (0); Ovalocytes SLIGHT = 2-5 cells (100X) (0-1/hpf); Poikilocytosis SLIGHT = 6-15 cells (100X) (0-5/hpf); Polychromasia SLIGHT = 2-3 cells (100X) (0-2/hpf); Reactive Lymphocytes 2 % (0-10); Schistocytes SLIGHT = 2-5 cells (100X) (0-1/hpf); Target Cells SLIGHT = 2-5 cells (100X) (0-1/hpf)
[2019-02-27] MEDS ORDERED: Aspirin Chewable 81 MG TAB ONE (14:04)
[2019-02-27] MEDS ORDERED: Furosemide 20 MG/2 ML VIAL ONE (14:04)
[2019-02-27 14:20] LABS: Bilirubin Negative (Negative); Blood, Urine Negative (Negative); Clarity Clear (Clear); Glucose, Urine (Dipstick) Normal (Negative); Leukocyte Negative Leu/uL (Negative); Nitrite Negative (Negative); Protein, Urine (Dipstick) Negative (Neg-Trace); Urobilinogen Normal mg/dL (Less than 2)
[2019-02-27 16:22] LABS: Troponin I Less than 0.010 ng/mL (< 0.028)
[2019-02-27 19:26] VITALS: BMI 22.8
[2019-02-27] MEDS ORDERED: Acetaminophen 325 MG TAB PO PRN (19:49)
[2019-02-27] MEDS ORDERED: Bisacodyl 10 MG SUPP PR PRN (19:49)
[2019-02-27] MEDS ORDERED: Senokot S 8.6-50 MG TAB PO PRN (19:49)
[2019-02-27] MEDS ORDERED: Guaifenesin DM 100-10/5 ML UDCUP PO PRN (19:49)
[2019-02-27] MEDS: Morphine 2 MG/ML SYRINGE SLOW IVP PRN (20:27)
--- NOTE | 2019-02-27 21:11 | HP ---
REASON FOR ADMISSION: Lower abdominal pain with urinary retention, mild congestive heart failure exacerbation. HISTORY OF PRESENTING ILLNESS: The patient gives history of feeling very anxious from last 2 days. He was not feeling good. He has also had increasing lower extremity swelling. He also developed tightness of his abdomen, especially the lower portion. He states he went to see Dr. Alcala on Friday and had the lower abdominal pain. On bladder scan in Dr. Alcala's office, the patient had only 15 mL. Hence, he was told that he did not have any retention then. He was recently hospitalized here for urinary retention and had a Colon catheter placed and was discharged on it. Subsequently, the patient has had removal of Colon and had a followup as well with Dr. Alcala. He has a known penile implant and it has become excruciatingly tender to touch the implant area on the skin and his scrotal area. He says the implant is slowly becoming bigger. This was placed more than 25 years ago per the patient. He does not recall the name of the product. 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 PERSONAL HISTORY: Does not abuse alcohol or drugs. Lives with his . He has no history of smoking. FAMILY HISTORY: Mother in her 80s. She had history of AAA. He does not know much about his father. Per prior records, he in his 80s from sudden cardiac arrest. CURRENT MEDICATIONS: and the patient mention that there are no new medications added from his recent discharge. He is on; 1. Aspirin extended release 81 mg daily. 2. Vitamin C 1000 mg daily. 3. Carvedilol 1.56 mg twice daily. 4. Donepezil 10 mg at bedtime. 5. Pepcid 20 mg twice daily. 6. Proscar 5 mg daily. 7. Lasix 20 mg daily. 8. Synthroid 50 mcg daily. 9. Zoloft 100 mg daily. 10. Zocor 40 mg q.p.m. 11. Flomax 0.4 mg p.o. at bedtime. 12. Eliquis 5 mg twice daily. 13. Vitamin D3 1000 units p.o. daily. ALLERGIES: ALLERGIC TO TIZANIDINE, ATORVASTATIN, ANTIHISTAMINES, CLINDAMYCIN, PRAVASTATIN, SULFA. CODE STATUS: The patient wants to be do not attempt to resuscitate. The power of criminal defense attorney is his . REVIEW OF SYSTEMS: CONSTITUTIONAL: Negative for weight loss or gain, ability to conduct usual activities. SKIN: Negative for rash, itching. EYES: Negative for double vision, pain. ENT/MOUTH: Negative for nose bleeding, neck stiffness, pain, tenderness. CARDIOVASCULAR: Negative for palpitations, dyspnea on exertion, orthopnea. RESPIRATORY: Negative for shortness of breath, wheezing, cough, hemoptysis, fever or night sweats. GASTROINTESTINAL: Negative for poor appetite, abdominal pain, heartburn, nausea , vomiting, constipation, or diarrhea. GENITOURINARY: Negative for urgency, frequency, dysuria, nocturia. MUSCULOSKELETAL: Negative for pain, swelling. NEUROLOGIC/PSYCHIATRIC: Negative for anxiety, depression. ALLERGY/IMMUNOLOGIC: Negative for skin rash, bleeding tendency. PHYSICAL EXAMINATION: GENERAL: The patient is an 83-year-old male, who is currently in moderate-to- severe distress from lower abdominal pain. VITAL SIGNS: Blood pressure 126/74, pulse 60 per minute, respiratory rate 24 per minute, temperature 97.6 degrees Fahrenheit, saturating 95% on room air. NECK: Supple. No elevated JVD. HEENT: Eyes; extraocular muscles intact. Pupils reacting to light. Oral cavity, mucous membranes are dry. No exudates or congestion. CARDIOVASCULAR SYSTEM: S1 and S2 heard. Regular rhythm. RESPIRATORY: Air entry 1+ bilateral. Scattered rales plus no wheezes. ABDOMEN: Tender in the lower quadrants and is excruciatingly tender in the suprapubic area. Bladder scan was done, which revealed more than 500 mL of urine. He has a penile prosthesis with parts of it sticking out in the suprapubic area extending into his penis. He also has scrotal tenderness, which is generic. No rigidity. Bowel sounds heard. Bilateral upper quadrants of the abdomen, there is no tenderness. EXTREMITIES: There is 1+ peripheral edema. No calf tenderness. VASCULAR SYSTEM: Peripheral pulses 1+ bilateral. No ischemic ulcerations or gangrene. CENTRAL NERVOUS SYSTEM: No gross focal deficits noted. The patient is alert, awake, and oriented well. PSYCHIATRIC SYSTEM: The patient's mood is euthymic. No hallucinations or delusions. LABORATORY DATA: White count of 12, H and H 11 and 36, platelet count 210 with 64% neutrophils, 4% bands. Electrolytes are stable. BUN 17, creatinine 0.8, glucose 85. Liver enzymes within normal limits. Alkaline phosphatase is elevated at 203. Troponin x2 negative. BNP 1365. Albumin is 3.6. UA shows no sign of infection. Urine culture that was drawn yesterday shows no growth. Chest x-ray done shows chronic left pleural effusion. EKG done shows sinus rhythm at 55 beats per minute. There is low voltage EKG. There is questionable Q-waves seen in leads II, III, aVF, T inversions in anterolateral leads. CLINICAL IMPRESSION AND PLAN: The patient will be admitted to telemetry for lower abdominal pain with urinary retention, likely related to his penile prosthesis. This is his second admission for similar complaints in the last 2 weeks. He likely needs removal of this device, which he thinks is becoming more of a problem for him. His regular urologist is Dr. Alcala. Dr. Wiley is on-call and we will obtain his opinion. We will continue his aspirin, Eliquis, Coreg, donepezil, finasteride, Flomax, Synthroid, sertraline, Zocor as before. He will be on morphine and Ultram p.r.n. for pain, Lasix 40 mg at 6 a.m. and 2:00 p.m. for a total of four doses for mild congestive heart failure exacerbation. The patient was placed on ciprofloxacin from Friday by Dr. Alcala. We will switch that to Levaquin for now. We will continue to closely monitor him on telemetry. There are some new EKG changes, but the patient is totally asymptomatic. He has known history of severe mitral regurgitation, tricuspid regurgitation, and prior coronary artery bypass grafting for 5-vessel disease and stents. If needed, Cardiology consultation will be requested. Job ID: [id number] MTDD
[2019-02-27] MEDS: Donepezil HCl 10 MG TAB PO SCH (21:59)
[2019-02-27] MEDS: Apixaban 5 MG TAB PO SCH (21:59)
[2019-02-27] MEDS: Tamsulosin HCl 0.4 MG CAP PO SCH (21:59)
[2019-02-27] MEDS: Carvedilol 3.125 MG TAB PO SCH (21:59)
[2019-02-27] MEDS: Simvastatin 20 MG TAB PO SCH (22:00)
[2019-02-27] MEDS: Famotidine 20 MG TAB PO SCH (22:00)
[2019-02-28] MEDS: Morphine 2 MG/ML SYRINGE SLOW IVP PRN ×2 (01:15→22:44)
[2019-02-28] MEDS: traMADol HCl 50 MG TAB PO PRN ×3 (02:53→20:54)
[2019-02-28] MEDS: Levothyroxine Sodium 50 MCG TAB PO SCH (05:57)
[2019-02-28] MEDS: Furosemide 40 MG/4 ML VIAL SLOW IVP SCH ×2 (05:57→15:24)
[2019-02-28 06:01] LABS: Anion Gap 13 mmol/L (10-20); BUN (Urea Nitrogen) 17 mg/dL (8.4-25.7); Calc. Creatinine Clearance 71 mL/min (70-130); Calcium 8.4 mg/dL (7.8-10.44); Carbon Dioxide 21 mmol/L (23-31); Chloride 105 mmol/L (98-107); Estimated GFR-MDRD 85; Glucose 98 mg/dL (83-110); Potassium 3.8 mmol/L (3.5-5.1); Sodium 135 mmol/L (136-145)
[2019-02-28 06:44] LABS: Anisocytosis SLIGHT = 6-15 cells (100X) (0-5/hpf); Elliptocytes SLIGHT = 2-5 cells (100X) (0-1/hpf); Hemoglobin 10.4 g/dL (14.0-18.0); Lymphocytes 28 % (21-51); MDiff Complete? YES; Mean Corpuscular HGB CONC 29.7 g/dL (32.0-36.0); Mean Corpuscular Hemoglobin 25.6 pg (27.0-31.0); Mean Corpuscular Volume 86.1 fL (78.0-98.0); Mean Platelet Volume 11.4 fL (7.4-10.4); Monocytes 8 % (0-10); Neutrophil 64 % (42-75); Platelet Count 203 thou/uL (130-400); RBC Distribution Width 18.5 % (11.5-14.5); Red Blood Cell (RBC) Count 4.08 mill/uL (4.70-6.10); Schistocytes SLIGHT = 2-5 cells (100X) (0-1/hpf); White Blood Cell (WBC) Count 13.5 thou/uL (4.8-10.8)
[2019-02-28] MEDS: Ascorbic Acid 500 mg Chewable Tablet PO SCH (09:28)
[2019-02-28] MEDS: Finasteride 5 MG TAB PO SCH (09:28)
[2019-02-28] MEDS: Aspirin 81 mg Enteric Coated Tablet PO SCH (09:28)
[2019-02-28] MEDS: Famotidine 20 MG TAB PO SCH ×2 (09:29→20:55)
[2019-02-28] MEDS: Carvedilol 3.125 MG TAB PO SCH ×2 (09:29→20:56)
[2019-02-28] MEDS: Apixaban 5 MG TAB PO SCH ×2 (09:29→20:56)
--- NOTE | 2019-02-28 16:15 | PDOC.HOSPP ---
- Subjective Encounter Date: 02/28/19 Encounter Time: 09:00 Subjective: lower abd pain is better after placing carter no chest pain or sob at bedside - Objective Vital Signs & Weight: Vital Signs (12 hours) Temp Pulse Pulse Pulse Resp BP BP 02/28/19 15:37 97.4 F L 59 L 16 02/28/19 14:18 60 61 134/59 L 107/57 L 02/28/19 13:22 58 L 61 105/69 115/61 02/28/19 11:29 97.6 F 56 L 18 02/28/19 08:00 97.6 F 54 L 17 BP BP Pulse Ox Pulse Ox Pulse Ox 02/28/19 15:37 108/58 L 93 L 02/28/19 14:18 91 L 90 L 02/28/19 13:22 02/28/19 11:29 100/55 L 95 02/28/19 08:00 104/55 L 94 L Weight Weight 169 lb 14.4 oz I&O: 02/27/19 02/28/19 03/01/19 06:59 06:59 06:59 Intake Total 550 Output Total 1650 Balance -1100 Result Diagrams: 02/28/19 04:44 02/28/19 04:44 Hospitalist ROS - Medication Medications: Active Medications Generic Name Dose Route Start Last Admin Trade Name Homarq PRN Reason Stop Dose Admin Acetaminophen 650 mg 02/27/19 19:49 02/27/19 22:00 Tylenol PO 650 mg Q4H PRN Administration Headache/Fever/Mild Pain (1-3) Apixaban 5 mg 02/27/19 21:00 02/28/19 09:29 Eliquis PO 5 mg BID JANET Administration Ascorbic Acid 1,000 mg 02/28/19 09:00 02/28/19 09:28 Vitamin C PO 1,000 mg DAILY JANET Administration Aspirin 81 mg 02/28/19 09:00 02/28/19 09:28 Ecotrin PO 81 mg DAILY JANET Administration Carvedilol 1.5625 mg 02/27/19 21:00 02/28/19 09:29 Coreg PO 1.5625 mg BID JANET Administration Cholecalciferol 1,000 units 02/28/19 09:00 02/28/19 09:28 Vitamin D3 PO 1,000 units DAILY JANET Administration Donepezil HCl 10 mg 02/27/19 21:00 02/27/19 21:59 Aricept PO 10 mg HS JANET Administration Famotidine 20 mg 02/27/19 21:00 02/28/19 09:29 Pepcid PO 20 mg BID JANET Administration Finasteride 5 mg 02/28/19 09:00 02/28/19 09:28 Proscar PO 5 mg DAILY JANET Administration Furosemide 40 mg 02/28/19 06:00 02/28/19 15:24 Lasix SLOW IVP 03/01/19 14:01 40 mg 0600,1400 JANET Administration Levofloxacin 500 mg 02/28/19 06:00 02/28/19 05:57 Levaquin PO 500 mg 0600 JANET Administration Levothyroxine Sodium 50 mcg 02/28/19 06:00 02/28/19 05:57 Synthroid PO 50 mcg 0600 JANET Administration Morphine Sulfate 2 mg 02/27/19 19:51 02/28/19 01:15 Morphine SLOW IVP 2 mg Q4H PRN Administration Severe Pain (7-10) Sertraline HCl 50 mg 02/28/19 09:00 02/28/19 09:28 Zoloft PO 50 mg DAILY JANET Administration Simvastatin 20 mg 02/27/19 21:00 02/27/19 22:00 Zocor PO 20 mg QPM JANET Administration Tamsulosin HCl 0.4 mg 02/27/19 21:00 02/27/19 21:59 Flomax PO 0.4 mg HS JANET Administration Tramadol HCl 50 mg 02/27/19 19:51 02/28/19 09:34 Ultram PO 50 mg Q6H PRN Administration Moderate Pain (4-6) - Exam General Appearance: NAD, awake alert Eye: PERRL, anicteric sclera ENT: no oropharyngeal lesions, moist mucosa Neck: supple, no JVD Heart: no murmur, no gallops Respiratory: no wheezes, no rales Gastrointestinal: soft, non-tender, normal bowel sounds Extremities: no cyanosis, 1+ LE edema Neurological: cranial nerve grossly intact, no focal deficits Psychiatric: A&O x 3 Hosp A/P (1) Abdominal pain Code(s): R10.9 - UNSPECIFIED ABDOMINAL PAIN Status: Acute Qualifiers: Abdominal location: lower abdomen, unspecified Qualified Code(s): R10.30 - Lower abdominal pain, unspecified (2) Urinary retention Code(s): R33.9 - RETENTION OF URINE, UNSPECIFIED Status: Resolved (3) Acute on chronic systolic ACC/AHA stage C congestive heart failure Code(s): I50.23 - ACUTE ON CHRONIC SYSTOLIC (CONGESTIVE) HEART FAILURE Status : Chronic (4) Anemia, normocytic normochromic Code(s): D64.9 - ANEMIA, UNSPECIFIED Status: Chronic (5) Anxiety and depression Code(s): F41.9 - ANXIETY DISORDER, UNSPECIFIED; F32.9 - MAJOR DEPRESSIVE DISORDER, SINGLE EPISODE, UNSPECIFIED Status: Chronic (6) BPH (benign prostatic hyperplasia) Code(s): N40.0 - BENIGN PROSTATIC HYPERPLASIA WITHOUT LOWER URINRY TRACT SYMP Status: Chronic Qualifiers: Lower urinary tract symptom presence: symptoms present (7) CAD (coronary artery disease) Code(s): I25.10 - ATHSCL HEART DISEASE OF [place] CORONARY ARTERY W/O ANG PCTRS Status: Chronic Qualifiers: Coronary Disease-Associated Artery/Lesion type: bypass graft [place] vs. transplanted heart: [place] heart Associated angina: without angina Qualified Code(s): I25.810 - Atherosclerosis of coronary artery bypass graft(s) without angina pectoris (8) H/O lymphoma Code(s): Z85.79 - PRSNL HX OF MALIG NEOPLM OF LYMPHOID, HEMATPOETC & REL TISS Status: Chronic (9) HLD (hyperlipidemia) Code(s): E78.5 - HYPERLIPIDEMIA, UNSPECIFIED Status: Chronic Qualifiers: Hyperlipidemia type: unspecified Qualified Code(s): E78.5 - Hyperlipidemia , unspecified (10) PVD (peripheral vascular disease) Code(s): I73.9 - PERIPHERAL VASCULAR DISEASE, UNSPECIFIED Status: Chronic (11) Severe mitral regurgitation Code(s): I34.0 - NONRHEUMATIC MITRAL (VALVE) INSUFFICIENCY Status: Chronic (12) Severe tricuspid regurgitation Code(s): I07.1 - RHEUMATIC TRICUSPID INSUFFICIENCY Status: Chronic - Plan hemostable has urine flowing freely in his catheter continue lasix till am and change to oral has +ve orthostasis on levaquin, flomax, finasteride, asp, eliquis, coreg, zocor, aricept, zoloft, synthroid he wont mind if his penile prosthesis/reservoir is removed.
[2019-02-28] MEDS: Tamsulosin HCl 0.4 MG CAP PO SCH (20:55)
[2019-02-28] MEDS: Donepezil HCl 10 MG TAB PO SCH (20:55)
[2019-02-28] MEDS: Simvastatin 20 MG TAB PO SCH (20:56)
[2019-03-01] MEDS: Furosemide 40 MG/4 ML VIAL SLOW IVP SCH ×3 (06:00→13:53)
[2019-03-01] MEDS: Levothyroxine Sodium 50 MCG TAB PO SCH (06:00)
[2019-03-01 09:01] LABS: Hemoglobin 10.3 g/dL (14.0-18.0); Platelet Count 213 thou/uL (130-400)
[2019-03-01] MEDS: Ascorbic Acid 500 mg Chewable Tablet PO SCH (09:15)
[2019-03-01] MEDS: Aspirin 81 mg Enteric Coated Tablet PO SCH (09:15)
[2019-03-01] MEDS: Famotidine 20 MG TAB PO SCH (09:15)
[2019-03-01] MEDS: Finasteride 5 MG TAB PO SCH (09:16)
[2019-03-01] MEDS: Apixaban 5 MG TAB PO SCH (09:16)
--- NOTE | 2019-03-01 10:28 | CON ---
DATE OF CONSULTATION: 02/28/2019 PRIMARY UROLOGIST: The primary urologist for the patient, Dr. Adrian Alcala. REASON FOR CONSULTATION: 1. Urinary retention. 2. Implanted penile prosthesis. 3. Prostate hypertrophy with obstruction, currently on maximal medical management. 4. Rock-hard prostate. HISTORY OF PRESENT ILLNESS: Mr. Camacho Nunes is a pleasant 83-year-old male admitted for urinary retention. The patient is under the care Dr. Adrian Alcala, who was recently treating him with antibiotics presumptively for a diagnosis of prostatitis. The patient's recent urine culture from 02/17/2019, grew enterococcus faecalis and the yeast species. The patient has been on antibiotic coverage. He presented via the Emergency Department due to complaint of lower abdominal discomfort. He reports his bladder is full. A Colon catheter was placed prior to my evaluation of him. Mr. Nunes continues to report some lower abdominal discomfort symptoms despite having the Colon catheter draining his bladder. The patient reports only a prostate biopsy is previous prostate evaluation. He does not report previous genitourinary surgery. The patient has profound deafness and is not an ideal historian. His current has been to him for about 10 years. His penile prosthesis predating their marriage by over a decade. At the present time, the patient is reasonably comfortable, feels improved, but continues to report lower abdominal discomfort. He is not reporting any pus draining from his penis or erosion. Does not report any significant complaints related to the penile implant itself other than possibly the reservoir being displaced by a bladder. The patient has what appears to be an AMS 700 inflatable penile prosthesis to my exam. REVIEW OF SYSTEMS: CONSTITUTIONAL: The patient is not reporting fever, simply lower abdominal pain and discomfort. He does report having been on antibiotics. There is no complaint of loss of appetite or other difficulties. Review of systems as much as can be collected are negative x12 systems. He does report some congestive heart failure type symptoms including swelling of his lower extremities, which is improved by Lasix, but the Lasix exacerbates his genitourinary symptoms. PAST MEDICAL HISTORY: 1. Cardiomyopathy with reduced ejection fraction. 2. Severe mitral regurgitation. 3. Severe tricuspid regurgitation. 4. Coronary artery disease status post stent. 5. History of lymphoma. 6. Prior CVA. 7. Hypertension. 8. Hyperlipidemia. 9. Past history of atrial fibrillation. 10. Apparent lung resection on the left side for an apparent neoplasm in the past. PAST SURGICAL HISTORY: 1. Splenectomy. 2. Left upper lobe resection for neoplasm. 3. Cardiac stents. 4. Cholecystectomy. 5. Coronary artery bypass graft x5 vessels. 6. Hernia repair with mesh. 7. Prostate biopsy. 8. Femoral artery stent. 9. Nasal surgery. FAMILY MEDICAL HISTORY: The patient's father has around age 80 of a sudden cardiac arrest, cause unknown. The patient's mother at age 84 from an abdominal aortic aneurysm. SOCIAL HISTORY: The patient is a former daily drinker and does drink occasionally. He resides at home with his . There is no current cigarette smoking history. 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 The patient's current has been to him for around 10 years. ALLERGIES: INCLUDE; 1. ANTIHISTAMINE WHICH RESULTED HIM URINARY OUTLET OBSTRUCTION. 2. ATORVASTATIN. 3. CLINDAMYCIN. 4. PRAVASTATIN. 5. SULFA. 6. TIZANIDINE. OUTPATIENT MEDICATION: List includes the following; 1. Finasteride 5 mg p.o. daily. 2. Flomax 0.4 mg p.o. daily. 3. Lasix 40 mg per day. 4. Potassium 20 mEq p.o. daily. 5. Zoloft 50 mg per day. 6. Coreg 3.125 one-half tablet b.i.d. 7. Pepcid 20 mg per day. 8. Aricept 10 mg per day. PHYSICAL EXAMINATION: GENERAL: This is a pleasant, but thin and apparently cachectic appearing white male, in no distress. He is not wearing his hearing aids, so he has difficulty in reporting all of his history. His is acting as primary historian at this point. HEAD, EYES, EARS, NOSE, AND THROAT: There is bitemporal wasting. Extraocular moves are intact. Sclerae are anicteric. Oropharynx is clear. NECK: Supple. LUNGS: Clear bilaterally. The lungs themselves are clear. CARDIAC: The patient's chest wall is relatively thin from what I could hear is regular at the present time. ABDOMEN: Soft and nontender. There is no suprapubic mass. The patient has a penile prosthesis reservoir, which is palpable though. GENITOURINARY: An indwelling Colon catheter is in place. The patient appears to have an AMS 700 mild implanted penile prosthesis. There does not appear to be any erosion grossly evident on the implant. There is no redness to the penis itself. The scrotum is relatively benign. It is somewhat of a dependent scrotum, the control unit is easily palpable. Testes appear benign and atrophic. Palpation of inguinal canals finds no evidence of hernia. Digital rectal examination was performed and finds an irregularly shaped, very enlarged prostate gland conservatively over 60 g. It has some rock-hard characteristics to it which are diffusely present on both the left and right sides. I would rate this exam is suspicious for malignancy. There is no blood per rectum at the close of the digital rectal examination. I was not able to palpate stool or any foreign objects. EXTREMITIES: Appear essentially within normal limits. LABORATORY FINDINGS: The patient's white count elevated at 12.7 on admission, currently at 13.5 today. The current hemoglobin is 10.4 with hematocrit 35.1. Serum chemistry showed the blood urea nitrogen at 17 and creatinine at 0.6, totally unchanged from admission. The patient's BNP is quite elevated at 1365. A urinalysis obtained on admission showed no signs of infection, leukocyte esterase and blood were both negative on the UA dip evaluation. Urine gravity was 1.011 at that point. ASSESSMENT AND PLAN: 1. Urinary retention. Indwelling Colon catheter is in place and managing this condition. He does not appear to have room for doubling up on alpha blockers due to his poor cardiac function and recommend continuing with finasteride and Flomax at current dosing. He has tolerated these well for several years. Digital rectal examination did find prostate level problems. The patient probably should undergo cystoscopic evaluation at Dr. Alcala's office and consideration of ultrasound and/or prostate needle biopsy evaluation of the patient should be given. He has urinary retention, which are apparently is being refractory to antibiotic therapy. Given the clinical findings prostate . 2. Urinary tract infection. Apparently well treated by previous courses of antibiotics. The patient had urinary component of infection is treated. The prostate portion of infection may well be still present. Full antibiotic course completion should be the rule. Over 70 minutes . Job ID: [id number]
[2019-03-01 11:37] VITALS: BP 124/79; TEMP 98.7
--- NOTE | 2019-03-01 12:33 | PDOC.PALCO ---
Palliative Care Consult - Consult Details Requesting Physician: Dr Gallardo Reason for Consult: goals of care, symptom management Family Members Present: - Pertinent HPI 83 year old male who was being treated for a UTI from a culture obtained and on antibiotic therapy. Onset of lower abdominal pain, non radiating. In review of history states increase in confusion and "fidgeting". Carter was placed in the emergency room but did not reduce symptom of abdominal pain. Penile implant which patient has had for 20 years remains without apparent complications. Admitted for further evaluation of urinary retention and assess prostate as well as penile implant. - Social History Smoking Status: Never smoker Smoking: no tobacco exposure Alcohol Use: rarely Living Situation: - Medications MAR Reviewed: Yes - Allergies Allergies/Adverse Reactions: Allergies Allergy/AdvReac Type Severity Reaction Status Date / Time tizanidine [From Zanaflex] Allergy Severe AMS, Verified 02/07/19 21:30 hallucinations Antihistamines - Alkylamine Allergy Intermediate PROSTATE Verified 02/07/19 21: 30 SWELLING atorvastatin Allergy Intermediate joints Verified 02/07/19 21:30 clindamycin Allergy Intermediate Rash Verified 02/07/19 21:30 pravastatin Allergy Intermediate PT DOESN'T Verified 02/07/19 21:30 REMEMBER Sulfa (Sulfonamide Allergy Intermediate WELPS, RASH Verified 02/07/19 21:30 Antibiotics) - Subjective Sitting at bedside, weak, carter draining clear yellow urine. Mildly confused, and appears frustrated. ROS: Difficulty hearing, fullness to abdomen, weak, 10 point review reveals no other specific complaints - Objective Vital Signs: Vital Signs - Most Recent Temp Pulse Resp BP Pulse Ox 98.7 F 70 16 124/79 94 L 03/01/19 11:35 03/01/19 11:35 03/01/19 11:35 03/01/19 11:35 03/01/19 11:35 Palliative Performance Scale: 50 - Physical Exam Constitutional: confusion HEENT: moist MMs, sclera anicteric Respiratory: unlabored breathing Cardiovascular: RRR Deviation from normal: faint heart sounds Gastrointestinal: non-tender, positive bowel sounds Neurological: moves all 4 limbs Deviation from normal: mildly confused, forgetful. Skin: normal turgor, cap refill <2 seconds Deviation from normal: Fragile skin - Problem List (1) Palliative care encounter Code(s): Z51.5 - ENCOUNTER FOR PALLIATIVE CARE Current Visit: Yes Status: Acute (2) Physical deconditioning Code(s): R53.81 - OTHER MALAISE Current Visit: Yes Status: Acute (3) Abdominal pain Code(s): R10.9 - UNSPECIFIED ABDOMINAL PAIN Current Visit: No Status: Acute Qualifiers: Abdominal location: lower abdomen, unspecified Qualified Code(s): R10.30 - Lower abdominal pain, unspecified (4) BPH (benign prostatic hyperplasia) Code(s): N40.0 - BENIGN PROSTATIC HYPERPLASIA WITHOUT LOWER URINRY TRACT SYMP Current Visit: No Status: Chronic Qualifiers: Lower urinary tract symptom presence: symptoms present (5) Urinary retention Code(s): R33.9 - RETENTION OF URINE, UNSPECIFIED Current Visit: No Status: Resolved - Plan/Recommendations Plan: states increase in confusion, will do a med review. Also states that he has difficulty with pain medications as they increase confusion. Will add Toradol IM. Awaiting decision as to further testing. Discussed with goals of care. Will continue to follow for support and assistance with complex decision making. [40] minutes spent on this encounter with >50% of the time in counseling and coordination of care. Thank you for this very appropriate consult.
[2019-03-01] MEDS: Carvedilol 3.125 MG TAB PO SCH (13:46)
[2019-03-01] MEDS ORDERED: Ketorolac Tromethamine 30 MG/ML VIAL IVP PRN (16:03)
--- NOTE | 2019-03-03 10:05 | PQF ---
[facility] [employer] Crystal Reports RIVKA Palmer IVAN TANG MD [id number] CLINICAL DOCUMENTATION CLARIFICATION FORM: POST DISCHARGE Addendum to original discharge summary date: ____ Late entry note date: __ DATE:03/03/2019 ATTN: IVAN TANG MD Please exercise your independent, professional judgment in responding to the clarification form. Clinical indicators are provided on the bottom of this form for your review Please check appropriate box(s) to clarify if the following diagnosis has been ruled in or ruled out: Pneumonia [ ] Ruled in diagnosis [ ] Continue to treat [ ] Resolved [ x ] Ruled out diagnosis [ ] Cannot rule out diagnosis [ x] Other diagnosis __levaquin is for uti/prostatitis likely chronic [ ] Unable to determine For continuity of documentation, please document condition throughout progress notes and discharge summary. Thank You. CLINICAL INDICATORS - SIGNS / SYMPTOMS / LABS - left side pneumonia- ED record, 02/27, Adrianna Vila DO - the inferior third of the left hemithorax consistent with combination of nonspecific left lower lobe consolidation/collapse-Chest X-ray, 02/27 - Cough, SOB and weakness-ED record, 02/27, Adrianna Vila DO - WBC: 12.7H, 13.5H- Laboratory, 02/27, 02/28 RISK FACTORS - Acute on chronic systolic CHF- Hospital PN, 02/28, IVAN TANG MD TREATMENTS - Levofloxacin.IV- MAR, 02/27 (This form is maintained as a part of the permanent medical record) 2014 [email or web address] All Rights Reserved Cindi Chávez [not provided] [not provided] MTDD
--- NOTE | 2019-03-03 10:19 | PQF ---
[employer] Le[employer] Representative Crystal Reports RIVKA Palmer IVAN TANG MD [id number] [id number] CLINICAL DOCUMENTATION CLARIFICATION FORM: POST DISCHARGE Addendum to original discharge summary date: ____ Late entry note date: __ DATE: 03/03/2019 ATTN :IVAN TANG MD Please exercise your independent, professional judgment in responding to the clarification form. 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 Thank You. CLINICAL INDICATORS - SIGNS / SYMPTOMS / LABS - Lower abdomen pain with retention- H&P, 02/27 - Urinary retention likely related to his penile prosthesis- H&P, 02/27- IVAN TANG MD - BPH-Chronic, lower urinary tract symptoms presence-Hospital PN, 02/28, IVAN TANG MD - Urinary retention-Consultation report, 02/28, Adrian Alcala - prostate hypertrophy with obstruction-Consultation report, 02/28, Adrian Alcala - Rock hard prostate-Consultation report, 02/28, Adrian Alcala RISK FACTORS -Implanted penile prosthesis-Consultation report, 02/28, Adrian Alcala -UTI- Consultation report, 02/28, Adrian Alcala TREATMENT: -Colon catheter inplace-Consultation report, 02/28, Adrian Alcala -Consultation -Consultation report, 02/28, Adrian Alcala -Morphine.IV-MAR, 02/27 (This form is maintained as a part of the permanent medical record) 2014 [employer]. All Rights Reserved Rakiyhannan Kumaresan [not provided] [not provided] MTDD
--- NOTE | 2019-03-03 10:32 | PQF ---
[employer] Jacquard Loom Fixer Crystal Reports [employer] RIVKA Lee IVAN SANCHEZ MD [id number] CLINICAL DOCUMENTATION CLARIFICATION FORM: POST DISCHARGE Addendum to original discharge summary date: ____ Late entry note date: __ Date: 03/03/19 ATTN: IVAN MORSE MD Please exercise your independent, professional judgment in responding to the clarification form. Clinical indicators are provided on the bottom of this form for your review Please check appropriate box(s): [ ] Protein Calorie Malnutrition: [ ] Mild [ ] Moderate [ ] Severe [ ] Other Malnutrition (please specify) __ [x ] Underweight without malnutrition [ ] Cachexia [ ] Other diagnosis [ ] Unable to determine In addition, please specify: Present on Admission (POA): [ x ] Yes [ ] No [ ] Unable to determine CLINICAL INDICATORS - SIGNS / SYMPTOMS / LABS - Report weakness- ED record, 02/27, Adrianna Vila DO - pt appears cachectic - ED record, 02/27, Adrianna Vila DO - BMI: 22.8- FNS assessment, 02/27 - Total Protein: 7.0- Laboratory, 02/27 - Albumin/Globulin ratio: 1.1L- Laboratory, 02/27 RISK FACTORS - UTI- Consultation report, 02/28, Juan Gonzales - PNA-ED record, 02/27, Adrianna Vila DO TREATMENT: - Vitamin D3-PO- JUL, 01/22 - Moderate Malnutrition (in acute illness) Energy Intake: <75% of estimated energy requirement for > 7 days Weight Loss: 1-2%/1 week; 5%/ 1 month; 7.5%/3 months Other: mild body fat loss; mild muscle mass loss; mild fluid accumulation; Severe Malnutrition (in acute illness) Energy Intake: < 50% of estimated energy requirement for > 5 days Weight Loss: >1-2%/1 week; >5%/1 month; >7.5%/3 months Other: moderate body fat loss; moderate muscle mass loss; moderate- severe fluid accumulation; 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 [employer] Jac[employer] Loom Fixer Crystal Reports Winform ViewerModerate Malnutrition (in chronic illness) Energy Intake: <75% of estimated energy requirement for >1 month Weight Loss: 5%/1 month; 7.5%/3 months; 10%/6 months; 20%/1 year Other: mild body fat loss; mild muscle mass loss; mild fluid accumulation Severe Malnutrition (in chronic illness) Energy Intake: <75% of estimated energy requirement for >1 month Weight Loss: >5%/1 month; >7.5%/3 months; >10%/6 months; >20%/1 year Other: severe body fat loss; severe muscle mass loss; severe fluid accumulation ; 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 All Rights Reserved Cindi Chávez [not provided] [not provided] BARON
== END 2019-03-01 17:45 | disposition home or self-care (01) | DRG 725 ==
LOC: ERS 11:25 → 2NO 14:46
PROVIDERS: ADMIT Family Medicine; ATTEND Family Medicine
DX: N40.1 Benign prostatic hyperplasia with lower urinary tract symptoms (principal); I50.23 Acute on chronic systolic (congestive) heart failure; I69.354 Hemiplegia and hemiparesis following cerebral infarction affecting left non-dominant side; T83.89XA Other specified complication of genitourinary prosthetic devices, implants and grafts, initial encounter; C85.90 Non-Hodgkin lymphoma, unspecified, unspecified site; R64 Cachexia; Z68.1 Body mass index [BMI] 19.9 or less, adult; R33.9 Retention of urine, unspecified; E78.5 Hyperlipidemia, unspecified; I11.0 Hypertensive heart disease with heart failure; I08.1 Rheumatic disorders of both mitral and tricuspid valves; I25.10 Atherosclerotic heart disease of native coronary artery without angina pectoris; I48.0 Paroxysmal atrial fibrillation; D64.9 Anemia, unspecified; F41.9 Anxiety disorder, unspecified; Z51.5 Encounter for palliative care; F32.9 Major depressive disorder, single episode, unspecified; Y83.8 Other surgical procedures as the cause of abnormal reaction of the patient, or of later complication, without mention of misadventure at the time of the procedure; R63.6 Underweight; Z79.01 Long term (current) use of anticoagulants; Z95.1 Presence of aortocoronary bypass graft; Z90.49 Acquired absence of other specified parts of digestive tract; Z87.891 Personal history of nicotine dependence; Z88.1 Allergy status to other antibiotic agents; Z88.2 Allergy status to sulfonamides; Z88.8 Allergy status to other drugs, medicaments and biological substances
CPT/HCPCS: 36415; 71045; 80048; 80053; 81001; 81003; 82565; 83880; 84484; 85014; 85018; 85025; 85049; 87086; 93005; 93798; 96365; 96366; 96375; J1940; J1956; J2270

== ENCOUNTER 2019-03-21 08:56 | Emergency (ER) | payer MEDICARE, OTHER ==
[2019-03-21] MEDS ORDERED: diphenhydrAMINE 50 MG/ML VIAL ONE (10:46)
[2019-03-21] MEDS ORDERED: methylPREDNISolone Sod Succ/PF 125 MG/2 ML VIAL ONE (10:46)
[2019-03-21] MEDS ORDERED: Famotidine/PF 20 mg/2ml Vial ONE (10:46)
[2019-03-21 10:59] LABS: Bilirubin Negative (Negative); Blood, Urine Negative (Negative); Clarity Clear (Clear); Glucose, Urine (Dipstick) Normal (Negative); Leukocyte Negative Leu/uL (Negative); Nitrite Negative (Negative); Protein, Urine (Dipstick) Negative (Neg-Trace); Urobilinogen Normal mg/dL (Less than 2)
--- NOTE | 2019-03-21 11:02 | RAD ---
RADIOGRAPH CHEST 1 VIEW: DATE: 03/21/2019 TIME: 10:32 AM HISTORY: 83-year-old male with dyspnea COMPARISON: 02/27/2019 FINDINGS: Hyperinflation of upper lobes consistent with COPD. Sternotomy wires. Right lung is relatively clear. Right lateral costophrenic angle is sharp. No pneumothorax. There is a left pleural effusion. It appears smaller than on prior study, and a correspondingly, the left lower lung zone appears to be be tter aerated, but it is uncertain whether this is due to the fact that the current study was obtained in lordotic positioning. Left upper lobe is clear. IMPRESSION: 1. Apparent interval improvement in left pleural effusion and improvement in left lower lobe aeration . 2. Emphysema.
[2019-03-21 11:35] LABS: Hemoglobin 10.1 g/dL (14.0-18.0); Mean Corpuscular HGB CONC 30.8 g/dL (32.0-36.0); Mean Corpuscular Volume 84.4 fL (78.0-98.0); Mean Platelet Volume 9.8 fL (7.4-10.4); Platelet Count 299 thou/uL (130-400); RBC Distribution Width 17.5 % (11.5-14.5); Red Blood Cell (RBC) Count 3.89 mill/uL (4.70-6.10); White Blood Cell (WBC) Count 14.3 thou/uL (4.8-10.8)
[2019-03-21 11:52] LABS: Crenated RBC SLIGHT = 1-5 cells (100X) (None Seen); Eosinophils 3 % (0-10); Hypochromia SLIGHT = 6-15 cells (100X) (0-5/hpf); Large Platelets SLIGHT; Lymphocytes 14 % (21-51); MDiff Complete? YES; Monocytes 14 % (0-10); Neutrophil 58 % (42-75); Platelet Morphology Comment Appears Adequate; Poikilocytosis SLIGHT = 6-15 cells (100X) (0-5/hpf); Polychromasia SLIGHT = 2-3 cells (100X) (0-2/hpf); Reactive Lymphocytes 11 % (0-10); Schistocytes SLIGHT = 2-5 cells (100X) (0-1/hpf); Target Cells SLIGHT = 2-5 cells (100X) (0-1/hpf)
[2019-03-21 11:53] LABS: ALT (SGPT) 12 U/L (8-55); AST (SGOT) 19 U/L (5-34); Albumin 3.8 g/dL (3.4-4.8); Alkaline Phosphatase 173 U/L (40-110); Anion Gap 13 mmol/L (10-20); BUN (Urea Nitrogen) 25 mg/dL (8.4-25.7); Bilirubin, Total 0.6 mg/dL (0.2-1.2); Calc. Creatinine Clearance 0 mL/min (70-130); Calcium 9.1 mg/dL (7.8-10.44); Carbon Dioxide 28 mmol/L (23-31); Chloride 105 mmol/L (98-107); Estimated GFR-MDRD 67; Globulin 2.7 g/dL (2.4-3.5); Glucose 106 mg/dL (83-110); Potassium 3.9 mmol/L (3.5-5.1); Protein, Total 6.5 g/dL (5.8-8.1); Sodium 142 mmol/L (136-145)
== END 2019-03-21 13:40 | disposition home or self-care (01) ==
LOC: ERS 08:56
DX: R41.0 Disorientation, unspecified (principal); I11.0 Hypertensive heart disease with heart failure; I50.9 Heart failure, unspecified; I25.2 Old myocardial infarction; D64.9 Anemia, unspecified; F41.9 Anxiety disorder, unspecified; F32.9 Major depressive disorder, single episode, unspecified; Z87.01 Personal history of pneumonia (recurrent); Z79.899 Other long term (current) drug therapy
CPT/HCPCS: 36415; 71045; 80053; 81003; 83880; 84484; 85025; 87077; 87086; 87186; 93005; 96374; 96375; J1200; J2930; S0028

== ENCOUNTER 2019-04-05 08:26 | Day surgery (SDC) | payer MEDICARE, OTHER ==
[2019-03-31 14:01] VITALS: BMI 21.7
[2019-04-05 08:44] LABS: INR-International Normal Ratio 1.1; Prothrombin Time 14.4 SEC (12.0-14.7)
--- NOTE | 2019-04-05 11:04 | CT ---
CT pelvis noncontrast chest HISTORY: Urinary bladder outlet obstruction. COMPARISON: 02/07/2019. FINDINGS: Exam was originally scheduled as a suprapubic catheter placement. After explaining the proc edure and answering all questions, limited CT imaging of the pelvis was performed. Urinary bladder is completely decompressed around a Colon catheter. The fluid reservoir of a penile implant remains i mmediately anterior to the urinary bladder and superior to the pubic symphysis, where the suprapubic catheter is usually placed. Small bowel also abuts the superior margin of the penile impla nt reservoir. Extensive attempt was made to distend the urinary bladder with fluid through the Colon catheter. The fluid exits the urinary bladder around the Colon catheter. Patient was uncomfortable and repeatedly bared down, preventing good fluid distention of the bladder. The Colon balloon was secured to the bernadine dder base and in attempt to obstruct outflow. Good fluid distention of the bladder was never achieved. Findings were called to Dr. Alcala. Images also show degenerative changes lumbar spine, small amount of free fluid in the lower abdomen, and prominent atherosclerosis. IMPRESSION: Bladder outlet obstruction. Inability to adequately distend the urinary bladder for suprapubic catheter insertion, as detailed ab ove. Partially prevented by penile implant reservoir, but mainly due to patient discomfort and inability to distend urinary bladder. After discussing with Dr. Alcala, decision was made to schedule the procedure in coordination with t anesthesia department for higher level of sedation.
== END 2019-04-05 11:35 | disposition home or self-care (01) ==
LOC: CT 08:26
PROVIDERS: ATTEND Urology
DX: N32.0 Bladder-neck obstruction (principal); I48.0 Paroxysmal atrial fibrillation; I11.0 Hypertensive heart disease with heart failure; I50.42 Chronic combined systolic (congestive) and diastolic (congestive) heart failure; K21.9 Gastro-esophageal reflux disease without esophagitis; F41.9 Anxiety disorder, unspecified; F32.9 Major depressive disorder, single episode, unspecified; I25.2 Old myocardial infarction; N40.1 Benign prostatic hyperplasia with lower urinary tract symptoms; R33.8 Other retention of urine; E78.00 Pure hypercholesterolemia, unspecified; Z53.8 Procedure and treatment not carried out for other reasons; Z86.73 Personal history of transient ischemic attack (TIA), and cerebral infarction without residual deficits; Z79.01 Long term (current) use of anticoagulants; Z79.2 Long term (current) use of antibiotics; Z79.82 Long term (current) use of aspirin; Z79.899 Other long term (current) drug therapy; Z88.1 Allergy status to other antibiotic agents; Z88.2 Allergy status to sulfonamides; Z88.8 Allergy status to other drugs, medicaments and biological substances; Z95.5 Presence of coronary angioplasty implant and graft
CPT/HCPCS: 36415; 72192; 85610; 85730

== ENCOUNTER 2019-04-10 15:50 | Inpatient (IN) | payer MEDICARE, OTHER ==
[~2019-04-10 15:50] MED LIST: Fentanyl 100 MCG/2 ML VIAL SLOW IVP ONE; Iopamidol-370 76% 500 ML 1 ML ONE; Midazolam HCl 2 mg/2 ml Vial IVP ONE; Sodium Bicarbonate 2.5 MEQ/5 ML VIAL IV ONE
--- NOTE | 2019-04-10 17:15 | CT ---
CT OF THE ABDOMEN AND PELVIS WITH CONTRAST: 04/10/19 COMPARISON: None. HISTORY: Chest pain in the left chest and diffuse abdominal pain with pressure. COMPARISON: 02/07/19. TECHNIQUE: Multiple contiguous axial images were obtained in a CT of the abdomen and pelvis with contrast. Sagit cristiana and coronal reformats were performed. FINDINGS: The patient is status post cholecystectomy. No free air or stranding changes are see in the abdomen o r pelvis. The liver, right kidney, adrenal glands, and pancreas are unremarkable. The spleen has been removed. There is a cyst in the left kidney measuring 2.3 cm in size. The large and small bowel are unremarkable. The prostate is enlarged. The patient has a Colno cathete r in the urinary bladder. The patient has a penile prosthesis. No abdominal or pelvic lymphadenopathy are seen. Atherosclerotic calcifications are seen in the aorta. Please see dedicated chest CT for findings above the diaphragm. Diffuse soft tissue anasarca seen in the abdominal wall soft tissues. IMPRESSION: 1. No evidence of acute intra-abdominal/pelvic abnormality. 2. Left renal cyst. POS: C
[2019-04-10] MEDS ORDERED: traMADol HCl 50 MG TAB ONE (18:21)
[2019-04-10] MEDS ORDERED: Ondansetron ODT 4 MG TAB SL PRN (18:28)
[2019-04-10] MEDS ORDERED: Acetaminophen 325 MG TAB PO PRN (18:28)
[2019-04-10] MEDS ORDERED: Ondansetron PF 4 MG/2 ML Vial IVP PRN (18:28)
[2019-04-10 19:06] LABS: CKMB 1.6 ng/mL (0-6.6)
[2019-04-10 19:09] LABS: Bacteria/HPF 2+ HPF (None Seen); Bilirubin Negative (Negative); Blood, Urine 1+ (Negative); Clarity Clear (Clear); Glucose, Urine (Dipstick) Normal (Negative); Leukocyte Negative Leu/uL (Negative); Nitrite Negative (Negative); Protein, Urine (Dipstick) Negative (Neg-Trace); Squamous Epithelial None Seen HPF (0-3); Urobilinogen Normal mg/dL (Less than 2); WBC/HPF 0-3 HPF (0-3)
[2019-04-10] MEDS ORDERED: Acetaminophen 500 MG TAB PO PRN (20:23)
[2019-04-10] MEDS ORDERED: Vancomycin HCl 1 GM in Premix Bag 1 BAG IVPB SCH (21:00)
[2019-04-10] MEDS: Carvedilol 3.125 MG TAB PO SCH (21:29)
[2019-04-10] MEDS: Furosemide 40 MG TAB PO SCH (21:30)
[2019-04-10] MEDS: Apixaban 5 MG TAB PO SCH (21:30)
[2019-04-10] MEDS ORDERED: Vancomycin HCl 1.75 GM in Sodium Chloride 0.9% 500 ML IVPB SCH (22:00)
[2019-04-10 22:22] LABS: Troponin I 1.158 ng/mL (< 0.028)
[2019-04-11 01:03] LABS: Critical Call Chem Troponin I RESULT DECREASING; Troponin I 1.006 ng/mL (< 0.028)
[2019-04-11] MEDS: Acetaminophen/Codeine 30-300mg Tablet PO PRN ×4 (01:22→14:09)
--- NOTE | 2019-04-11 02:42 | HP ---
HISTORY OF PRESENT ILLNESS: Mr. Nunes is an 83 years old man. He was experiencing some positive cough along with chest tightness associated with shortness of breath which started this morning. He went to [facility]. He was evaluated and was transferred to this facility for further management. He denies any associated fever. He was evaluated in the ER, found to have pneumonia along with possible UTI for which he has been admitted. He currently has history of dementia. PAST MEDICAL HISTORY: Remarkable for hypertension; coronary artery disease; valvular heart disease we are not sure which valve; coronary artery disease, CVA , and he currently has a lymphoma. He is on palliative care and refuses treatment for his lymphoma. PAST SURGICAL HISTORY: Remarkable for CABG, left lower lung lobectomy, cholecystectomy, hernia repair, back surgery, neck surgery. ALLERGIES: HE HAS ALLERGY TO TIZANIDINE, ANTIHISTAMINE, ATORVASTATIN, _ Alkylamine SOCIAL HISTORY: He is a former smoker. He used to drink socially in the past. No history of substance abuse. FAMILY HISTORY: Reviewed and is not contributory. REVIEW OF SYSTEMS: CONSTITUTIONAL: Generalized weakness. There is no fever. HEENT: No headache. No ocular pain. No sore throat. No rhinorrhea. No earache. No epistaxis. NECK: No neck pain. No neck stiffness. CARDIOVASCULAR: Admit to shortness of breath. PULMONARY: Positive cough. GASTROINTESTINAL: No nausea, no vomiting. No diarrhea. He does have some abdominal pain. GENITOURINARY: He has a poor stated disease was severe bladder dilatation and he is for suprapubic catheter tip placement sometimes next week. ENDOCRINOLOGY: No heat or cold intolerance. No polyuria, polydipsia, or polyphagia. MUSCULOSKELETAL: Arthralgia on and off. HEMATOLOGY: No abnormal bleeding. No ecchymosis. LYMPHATIC: No cervical lymphadenopathy. SKIN: No rash. No itching. ALLERGY: No hay fever. NEUROLOGICAL: No seizure. PSYCHIATRIC: No depression. PHYSICAL EXAMINATION: GENERAL: At the current time, he is alert, responsive, sick looking, not oriented. LATEST VITAL SIGNS: Show a temperature of 97.8, pulse rate 67, respiratory rate 20, blood pressure 123/80. Heent: His head is normocephalic and atraumatic. Both his pupils are equal, reactive. Ears and nose normal. Oral mucosa is moist. Pharyngeal area is clear. NECK: Supple. There is no distention of the jugular vein. No lymphadenopathy felt. Thyroid gland not palpable. There is no carotid bruit. CHEST: Symmetrical with regular S1 and S2. LUNGS: Show rhonchi. ABDOMEN: Tender diffusely. A CT of the abdomen done earlier is normal. LIMBS: Show no edema. NEUROLOGIC: He moves all extremities. There is a Colon Catheter in place which NEUROLOGICAL: He moves all extremities. LABORATORY DATA: His labs were reviewed from very previous facility. WBC was noticed to be elevated. ASSESSMENT: This is an 83 years old man with history of dementia, hypertension, coronary artery disease, valvular heart disease, previous CVA, CABG, left lower lung lobectomy with current history of lymphoma, on palliative care and DNR. He came in because of shortness of breath. Positive cough. Suspect urinary tract infection. The patient will be admitted. We will start him on antibiotics. He was supposed to have a suprapubic catheter placed next week. His urologist will be consulted. He will be admitted to telemetry. He was also noticed to have an elevated troponin. Further evaluation and management will depend on the course of his hospitalization and his response to therapy. Job ID: [id number] MTDD
[2019-04-11] MEDS: Levothyroxine Sodium 50 MCG TAB PO SCH (06:43)
[2019-04-11] MEDS: Carvedilol 3.125 MG TAB PO SCH ×2 (09:54→20:04)
[2019-04-11] MEDS: Furosemide 40 MG TAB PO SCH (09:54)
[2019-04-11] MEDS: Apixaban 5 MG TAB PO SCH (10:01)
[2019-04-11] MEDS: Vancomycin HCl 1.25 GM in Sodium Chloride 0.9% 250 ML 250 ML IVPB SCH ×2 (10:15→22:13)
--- NOTE | 2019-04-11 10:25 | PDOC.HOSPP ---
- Subjective Encounter Date: 04/11/19 Encounter Time: 08:30 Subjective: demented.. Comfortable. No specific complaint.. - Objective Vital Signs & Weight: Vital Signs (12 hours) Temp Pulse Ox 04/11/19 07:45 98 04/11/19 04:04 97.6 F 04/10/19 23:49 97.7 F Weight Weight 181 lb 7 oz Most Recent Monitor Data Heart Rate from ECG 67 NIBP 110/59 NIBP BP-Mean 76 Respiration from ECG 20 SpO2 95 I&O: 04/10/19 04/11/19 04/12/19 06:59 06:59 06:59 Intake Total 1070.6 Output Total 1100 Balance -29.4 Result Diagrams: 04/11/19 10:45 Hospitalist ROS - Medication Medications: Active Medications Generic Name Dose Route Start Last Admin Trade Name Freq PRN Reason Stop Dose Admin Acetaminophen 1,000 mg 04/10/19 20:23 04/10/19 22:41 Tylenol PO 1,000 mg Q6H PRN Administration Pain Acetaminophen/Codeine Phosphate 1 tab 04/11/19 01:11 04/11/19 10:15 Tylenol #3 PO 1 tab Q4H PRN Administration Moderate Pain (4-6) Apixaban 5 mg 04/10/19 21:00 04/11/19 10:01 Eliquis PO Not Given BID JANET Carvedilol 1.5625 mg 04/10/19 21:00 04/11/19 09:54 Coreg PO 1.5625 mg BID JANET Administration Furosemide 40 mg 04/10/19 21:00 04/11/19 09:54 Lasix PO 40 mg BID JANET Administration Levofloxacin 500 mg/ Device 100 mls @ 100 mls/hr 04/10/19 21:00 04/10/19 21: 22 IVPB 100 mls 2100 JANET Administration Vancomycin HCl 1.25 gm/ Sodium 250 mls @ 166.667 mls/hr 04/11/19 10:00 10:15 Chloride IVPB 250 mls 1000,2200 JANET Administration Levothyroxine Sodium 50 mcg 04/11/19 06:00 04/11/19 06:43 Synthroid PO 50 mcg 0600 JANET Administration Sertraline HCl 100 mg 04/11/19 09:00 04/11/19 09:54 Zoloft PO 100 mg DAILY JANET Administration - Exam Neck: no JVD Heart: RRR Respiratory: rhonchi Gastrointestinal: soft Extremities: 1+ LE edema Hosp A/P (1) Palliative care encounter Status: Acute (2) Lymphoma Status: Acute (3) Dementia Code(s): F03.90 - UNSPECIFIED DEMENTIA WITHOUT BEHAVIORAL DISTURBANCE Status: Acute (4) CAD (coronary artery disease) Code(s): I25.10 - ATHSCL HEART DISEASE OF [place] CORONARY ARTERY W/O ANG PCTRS Status: Acute (5) HTN (hypertension) Code(s): I10 - ESSENTIAL (PRIMARY) HYPERTENSION Status: Acute (6) BPH (benign prostatic hyperplasia) Code(s): N40.0 - BENIGN PROSTATIC HYPERPLASIA WITHOUT LOWER URINRY TRACT SYMP Status: Chronic Qualifiers: Lower urinary tract symptom presence: symptoms present (7) Urinary retention Code(s): R33.9 - RETENTION OF URINE, UNSPECIFIED Status: Resolved - Plan consulted for suprapubic catheter placement... On antibiotics for sepsis..f/u [facility] Cardiology consulted in view of elevated troponin, NSTMI Patient is DNR, Was on palliative care
[2019-04-11 11:29] LABS: Anion Gap 11 mmol/L (10-20); BUN (Urea Nitrogen) 23 mg/dL (8.4-25.7); Calc. Creatinine Clearance 63 mL/min (70-130); Calcium 8.4 mg/dL (7.8-10.44); Carbon Dioxide 28 mmol/L (23-31); Chloride 101 mmol/L (98-107); Estimated GFR-MDRD 68; Glucose 122 mg/dL (83-110); Potassium 3.2 mmol/L (3.5-5.1); Sodium 137 mmol/L (136-145)
[2019-04-11 11:44] LABS: Anisocytosis SLIGHT = 6-15 cells (100X) (0-5/hpf); Band 2 % (5-11); Burr Cells SLIGHT = 2-5 cells (100X) (0-1/hpf); Eosinophils 4 % (0-10); Hemoglobin 9.4 g/dL (14.0-18.0); Hypochromia SLIGHT = 6-15 cells (100X) (0-5/hpf); Lymphocytes 11 % (21-51); MDiff Complete? YES; Mean Corpuscular Hemoglobin 24.4 pg (27.0-31.0); Mean Corpuscular Volume 81.2 fL (78.0-98.0); Mean Platelet Volume 12.6 fL (7.4-10.4); Monocytes 6 % (0-10); Neutrophil 77 % (42-75); Nucleated RBC 2 % (0); Platelet Count 168 thou/uL (130-400); Polychromasia SLIGHT = 2-3 cells (100X) (0-2/hpf); RBC Distribution Width 17.6 % (11.5-14.5); Red Blood Cell (RBC) Count 3.84 mill/uL (4.70-6.10); Schistocytes SLIGHT = 2-5 cells (100X) (0-1/hpf); White Blood Cell (WBC) Count 15.8 thou/uL (4.8-10.8)
[2019-04-11] MEDS: Morphine 2 MG/ML SYRINGE SLOW IVP PRN (17:11)
--- NOTE | 2019-04-11 17:31 | CON ---
DATE OF CONSULTATION: 04/11/2019 SERVICE: Pulmonary Medicine. REASON FOR CONSULTATION: ICU patient. HISTORY OF PRESENT ILLNESS: The patient is an 83-year-old white male with past medical history significant for lymphoma. He has refused therapy for that. He was in his usual state of health until about a week ago. He had increasing weakness over this period of time. He denies having any significant fevers. He had increasing cough bringing up green phlegm. He also had significant nasal congestion and increasing abdominal pain. He had foul-smelling urine. He presented to the emergency department, where he had a CT of the chest, CT of the abdomen and pelvis, and a chest x-ray. The results are discussed below. He was given some antibiotics and tucked into the IMCU. His shortness of breath has improved slightly. PAST MEDICAL HISTORY: 1. Chronic systolic heart failure. 2. Coronary artery disease. 3. Severe mitral regurgitation. 4. Lymphoma, history of. 5. Hypertension. 6. Dyslipidemia. 7. Atrial fibrillation, paroxysmal. 8. Chronic urine retention. PAST SURGICAL HISTORY: 1. Splenectomy. 2. Lobectomy for a lung tumor. 3. Coronary artery bypass graft x5 vessels. 4. Cholecystectomy. 5. Herniorrhaphy with mesh placement. 6. Prostate biopsy. 7. Femoral artery stent. 8. Nasal surgery. SOCIAL HISTORY: Negative for alcohol, tobacco, or illicit drug use currently. He has a remote history of smoking. FAMILY HISTORY: Noncontributory. ALLERGIES: 1. TIZANIDINE. 2. ANTIHISTAMINES. 3. ATORVASTATIN. 4. CLINDAMYCIN. 5. SULFA. MEDICATIONS: List of his inpatient medications was reviewed. Multiple updates were made. Specifically, I discontinued levofloxacin which he has previously demonstrated sensitivities to, and put him on meropenem. Vancomycin was continued. REVIEW OF SYSTEMS: General; head, ears, eyes, nose, throat; cardiovascular; respiratory; GI; ; musculoskeletal; neurologic; and skin are negative except as mentioned in the HPI. PHYSICAL EXAMINATION: VITAL SIGNS: Afebrile, pulse 64, blood pressure 92/49, respirations 23, saturation 96%, currently on 2 L nasal cannula. GENERAL: The patient is awake and alert, in no apparent distress. LUNGS: Wonderful air entry. There are crackles present, which are quite extensive. HEART: Normal rate. Regular. ABDOMEN: Guarding is present. He is exquisitely tender, particular in the suprapubic region. Bowel sounds are present. Rebound is mild. MUSCULOSKELETAL: No cyanosis or clubbing. There is diffuse edema present, though he has significant wrinkling throughout bilateral upper and lower extremities, consistent with significant volume reduction recently. : Colon catheter is in place. There is foul urine in the bag. NEUROLOGIC: Grossly nonfocal. LABORATORY DATA: WBC 15.8 and downtrending, hemoglobin 9.4, platelets 168,000. Basic metabolic profile is unremarkable except for potassium of 3.2. Creatinine 1.04 and gently uptrending. Troponin is downtrending to 1.006. Liver function studies are completely unremarkable. Urinalysis from outside hospital had 2+ bacteria, though there is absolutely nothing else present on it. Blood cultures x2 are unremarkable to-date. Urine culture is growing something that is young, and further culturing is being performed. IMAGING STUDIES: 1. CT of the chest demonstrates bilateral pleural effusions. The left is worse than the right and takes on a loculated appearance. There is a possible infiltrate in the left base, though I favor atelectasis there. Calcified mediastinal lymphadenopathy is noted. 2. CT of the abdomen and pelvis demonstrates a distended bladder despite the fact that there is a Colon in place. Otherwise, there is no acute intraabdominal process. A left renal cyst is present. ASSESSMENT: 1. Acute hypoxic respiratory failure. 2. Hoohm-li-nroqepq systolic and valvular heart failure. 3. Mitral regurgitation, severe. 4. Bilateral pleural effusions, the left takes on a loculated appearance. This was previously demonstrated on a CT of the chest from January. 5. Cystitis, suspected. DISCUSSION AND PLAN: The fluoroquinolone is going to be interrupted. We will replace that with meropenem. The patient is at high risk for multi-drug resistances. Vancomycin will be continued. I will replace the potassium, but I would be careful about diuresing him too aggressively in the setting of likely sepsis. I will try to be conservative with our fluids. Pulmonary/Critical Care will continue to follow along in this location. 70 minutes have been devoted to this patient in various activities. I personally reviewed all imaging studies and laboratory data noted within this document. For fifty percent of this time, I was interacting with the patient at the bedside or coordinating care with the care team. For the remainder of the time I was immediately available to the patient in the hospital unit. Job ID: [id number] MTDD
[2019-04-11] MEDS: Meropenem 2 GM in Sodium Chloride 0.9% 100 ML IVPB SCH (23:00)
[2019-04-12] MEDS: Morphine 2 MG/ML SYRINGE SLOW IVP PRN ×4 (00:34→19:10)
[2019-04-12 04:41] LABS: Phosphorus 3.1 mg/dL (2.3-4.7)
[2019-04-12] MEDS: Levothyroxine Sodium 50 MCG TAB PO SCH (05:45)
[2019-04-12] MEDS: Meropenem 2 GM in Sodium Chloride 0.9% 100 ML IVPB SCH ×3 (05:46→22:30)
[2019-04-12] MEDS: Ondansetron PF 4 MG/2 ML Vial IVP PRN (06:16)
[2019-04-12] MEDS: Carvedilol 3.125 MG TAB PO SCH ×2 (08:50→20:35)
[2019-04-12 09:20] LABS: Vancomycin, Trough 19.1 ug/mL
[2019-04-12] MEDS: Vancomycin HCl 1.25 GM in Sodium Chloride 0.9% 250 ML 250 ML IVPB SCH ×2 (10:50→22:30)
[2019-04-12 12:09] LABS: Hemoglobin 9.3 g/dL (14.0-18.0); Mean Corpuscular HGB CONC 29.7 g/dL (32.0-36.0); Mean Corpuscular Hemoglobin 24.1 pg (27.0-31.0); Mean Corpuscular Volume 81.1 fL (78.0-98.0); RBC Distribution Width 17.7 % (11.5-14.5); Red Blood Cell (RBC) Count 3.86 mill/uL (4.70-6.10)
[2019-04-12 12:25] LABS: Anisocytosis SLIGHT = 6-15 cells (100X) (0-5/hpf); Eosinophils 5 % (0-10); Hypochromia SLIGHT = 6-15 cells (100X) (0-5/hpf); Large Platelets SLIGHT; Lymphocytes 14 % (21-51); MDiff Complete? YES; Mean Platelet Volume 12.6 fL (7.4-10.4); Monocytes 7 % (0-10); Neutrophil 74 % (42-75); Nucleated RBC 5 % (0); Platelet Count 188 thou/uL (130-400); Platelet Morphology Comment Appears Adequate; Polychromasia SLIGHT = 2-3 cells (100X) (0-2/hpf); Schistocytes SLIGHT = 2-5 cells (100X) (0-1/hpf); Target Cells SLIGHT = 2-5 cells (100X) (0-1/hpf)
[2019-04-12 12:44] LABS: ALT (SGPT) 17 U/L (8-55); AST (SGOT) 25 U/L (5-34); Albumin 3.2 g/dL (3.4-4.8); Alkaline Phosphatase 269 U/L (40-110); BUN (Urea Nitrogen) 26 mg/dL (8.4-25.7); Bilirubin, Total 0.9 mg/dL (0.2-1.2); Calc. Creatinine Clearance 62 mL/min (70-130); Calcium 8.5 mg/dL (7.8-10.44); Carbon Dioxide 23 mmol/L (23-31); Chloride 104 mmol/L (98-107); Estimated GFR-MDRD 65; Globulin 2.7 g/dL (2.4-3.5); Glucose 93 mg/dL (83-110); Potassium 4.9 mmol/L (3.5-5.1); Protein, Total 5.9 g/dL (5.8-8.1); Sodium 137 mmol/L (136-145)
[2019-04-12 13:05] LABS: CKMB 1.5 ng/mL (0-6.6)
[2019-04-12 13:15] LABS: Anion Gap 15 mmol/L (10-20)
[2019-04-12] MEDS: diphenhydrAMINE 50 MG/ML VIAL IVP PRN (14:07)
[2019-04-12] MEDS ORDERED: Morphine 2 MG/ML SYRINGE IM PRN (22:32)
[2019-04-12] MEDS ORDERED: diphenhydrAMINE 25 MG CAP PO PRN (23:36)
--- NOTE | 2019-04-12 23:41 | PDOC.HOSPP ---
- Subjective Encounter Date: 04/12/19 Encounter Time: 15:00 non-verbal Subjective: The patient has some shortness of breath and has constant cough per daughter. Patient has dementia and not great historian. He did have chest tightness as well, no diaphoresis. Daughter not interested in invasive procedure, feels he is maxed out already She is stating he was supposed to have suprapubic catheter placed but was told it needed to be under general anasthesia. Was supposed to happen today, curious as to when this is happening. She also mentioned pulmonology mentioned no thoracentesis yesterday Patient noted excessive itching. Daughter felt antibiotics made itching worst and got better after benadryl. Requested to stop if not necessary. She initially thought it was from morphine but feels it was more from antibiotics - Objective Vital Signs & Weight: Vital Signs (12 hours) Temp Pulse Ox 04/12/19 20:00 99.1 F 93 L 04/12/19 17:42 97.8 F Weight Admit Weight 181 lb 6 oz Weight 186 lb 5.998 oz Most Recent Monitor Data Heart Rate from ECG 73 NIBP 112/64 NIBP BP-Mean 80 Respiration from ECG 26 SpO2 93 I&O: 04/11/19 04/12/19 04/13/19 06:59 06:59 06:59 Intake Total 1070.6 1151 Output Total 1100 560 Balance -29.4 591 Result Diagrams: 04/12/19 11:52 04/12/19 11:52 Hospitalist ROS - Review of Systems Constitutional: reports: chills. denies: fever - Medication Medications: Active Medications Generic Name Dose Route Start Last Admin Trade Name Homarq PRN Reason Stop Dose Admin Acetaminophen 1,000 mg 04/10/19 20:23 04/10/19 22:41 Tylenol PO 1,000 mg Q6H PRN Administration Pain Acetaminophen/Codeine Phosphate 1 tab 04/11/19 01:11 04/11/19 14:09 Tylenol #3 PO 1 tab Q4H PRN Administration Moderate Pain (4-6) Apixaban 5 mg 04/10/19 21:00 04/11/19 10:01 Eliquis PO Not Given BID JANET Carvedilol 1.5625 mg 04/10/19 21:00 04/12/19 20:35 Coreg PO 1.5625 mg BID JANET Administration Diphenhydramine HCl 25 mg 04/12/19 13:52 04/12/19 14:07 Benadryl IVP 25 mg Q6H PRN Administration Itching & Insomnia Vancomycin HCl 1.25 gm/ Sodium 250 mls @ 166.667 mls/hr 04/11/19 10:00 22:30 Chloride IVPB Not Given 1000,2200 JANET Meropenem 2 gm/ Sodium 100 mls @ 0 mls/hr 04/11/19 22:00 04/12/19 22:30 Chloride IVPB Not Given Q8HR JANET Levothyroxine Sodium 50 mcg 04/11/19 06:00 04/12/19 05:45 Synthroid PO 50 mcg 0600 JANET Administration Morphine Sulfate 2 mg 04/11/19 16:51 04/12/19 19:10 Morphine SLOW IVP 2 mg Q4H PRN Administration Mild Pain (1-3) Ondansetron HCl 4 mg 04/12/19 06:07 04/12/19 06:16 Zofran IVP 4 mg Q6H PRN Administration Nausea/Vomiting Sertraline HCl 100 mg 04/11/19 09:00 04/12/19 08:51 Zoloft PO 100 mg DAILY JANET Administration - Exam General Appearance: NAD, awake alert Eye: PERRL, anicteric sclera ENT: normocephalic atraumatic, no oropharyngeal lesions Neck: supple, symmetric, no JVD, no lymphadenopathy Heart: RRR, no murmur, no gallops, no rubs Respiratory: CTAB, no wheezes, no rales, no ronchi Gastrointestinal: soft, non-tender Gastrointestinal - other findings: mild distension present Extremities: no cyanosis, no clubbing, no edema Skin: normal turgor, no lesions, no rashes Hosp A/P - Plan This is an 83 year old male with past medical history of BPH, chest tightness and cough, admitted for elevated troponin, possible UTI Acute CHF - chest CT showing bilateral pleural effusions with small loculated effusion - will give a dose of IV lasix and reassess - on 2L nasal cannula Possible pneumonia - chest CT showoing bilateral effusion, some loculation possible infiltrate - WBC up to 19, will stop vanc and meropenem due to questionable allergy. Switch to oral augmentin since patient lost access CAD s/p CABG - troponin was one and came down to 0.6 - cardiology consulted for clearance, daughter wants conservative management - on eliquis, holding in anticipation of procedure - hold aspirin in anticipation of procedure, defer to cardiology BPH - needs suprapubic catheter placement but needs general anasthesia - needs cardiology clearance - urology consulted Anasarca in abdomen - possibly from urinary retention Itching - benadryl prn - d/c vanc and meropenem, try augmentin Code status: DNR
[2019-04-12] MEDS ORDERED: Furosemide 20 MG/2 ML VIAL SLOW IVP SCH (23:59)
[2019-04-12] MEDS ORDERED: Amoxicillin/Potassium Clav 875 MG TAB PO SCH (23:59)
--- NOTE | 2019-04-13 00:16 | CON ---
DATE OF CONSULTATION: 04/12/2019 CONSULTING: [facility]. REASON FOR CONSULTATION: Urinary retention with significant bladder discomfort. HISTORY OF PRESENT ILLNESS: Mr. Nunes is an 83-year-old white male, who is well known to me for his history of BPH and ED with IPP placement. 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 In any case, he has failed multiple void trials and is no longer a candidate for urinating on his own. We had initially planned for SP tube placement, but the patient has such severe and terrible bladder spasms and inflammation that he was not able to tolerate hydrodistention of the bladder to allow for placement of the SP tube. Hydrodistention was necessary for tube placement secondary to the patient's reservoir from his prosthesis being in place as well as bowel overlying the bladder. As such, we had canceled that SP tube and had originally planned for an SP tube placement under general anesthesia. However, the patient subsequently was admitted to the hospital for an NSTEMI along with loculated pleural effusions bringing up green phlegm and becoming significantly ill. He was admitted to the [facility], where he is currently undergoing antibiotic therapy and treatment with diuretics for CHF exacerbation as well as a potential loculated pneumonia. During his hospitalization, he has complained of significant bladder pain and discomfort. He is having terrible bladder spasms, which he has been having as an outpatient as well. These have not been well controlled and he continues to have significant bother and pain from his Colon catheter. ALLERGIES: 1. TIZANIDINE. 2. ANTIHISTAMINES. 3. ATORVASTATIN. 4. CLINDAMYCIN. 5. SULFA. HOME MEDICATIONS: 1. Zoloft. 2. Synthroid. 3. Lasix. 4. Carvedilol. 5. Eliquis. 6. Tylenol. 7. Bladder specific medications currently while inpatient, none other than patient is on meropenem antibiotics. PAST MEDICAL HISTORY: 1. Chronic systolic heart failure. 2. Coronary artery disease. 3. Mitral regurgitation. 4. Lymphoma. 5. Hypertension. 6. Dyslipidemia. 7. Atrial fibrillation. 8. Chronic urinary retention. 9. ED. 10. BPH with urinary retention. PAST SURGICAL HISTORY: 1. Splenectomy. 2. Lobectomy for a lung tumor. 3. CABG x5 vessel. 4. Cholecystectomy. 5. Herniorrhaphy with mesh placement. 6. Prostate biopsy. 7. Inflatable penile prosthesis. 8. Femoral artery stent. 9. Nasal surgery. SOCIAL HISTORY: The patient denies alcohol, tobacco, or illicit drug use. He has remote history of smoking. FAMILY HISTORY: Noncontributory. REVIEW OF SYSTEMS: Review of system was unable to be obtained from the patient as he is currently somewhat delirious from his recent medication administration of Benadryl. He is not answering questions appropriately and thinks that he is currently in a car. PHYSICAL EXAMINATION: VITAL SIGNS: Temperature 97.8, pulse 68, respirations 30, blood pressure 119/ 80. GENERAL: The patient appears uncomfortable. He is constantly moving around in his bed. He is not answering questions appropriately. He appears stated age. HEENT: Normocephalic, atraumatic. Pupils are symmetric and round. Sclerae nonicteric. Trachea midline. CARDIOVASCULAR: Irregular rhythm, normal rate. Normal S1 and S2. Symmetric pulses. CHEST: Bibasilar crackles. No increased work of breathing, somewhat tachypneic. ABDOMEN: Soft. Significant suprapubic tenderness over the area where his bladder should be. The bladder does appear decompressed at the current time, otherwise soft, without masses. Well-healed lower midline incision which is without hernia. Bryson is also palpable on the patient's right. No overlying erythema. No organomegaly. No rebound. Mild guarding. Positive bowel sounds. : Colon catheter in place, draining pineda colored urine. There is a ventral erosion of the urethra creating a mild traumatic hypospadias. There is no exposure of the cylinders. The penis is otherwise not terribly tender. The pump is not inflamed and there is no erythema, fluctuance or infection surrounding the pump nor the tubing. Scrotum is mildly edematous. EXTREMITIES: No clubbing or cyanosis, 2+ lower extremity edema. SKIN: Warm, dry, poor turgor. No rashes or lesions. MUSCULOSKELETAL: No joint deformities or joint erythema noted. Full range of motion. NEUROLOGIC: Cranial nerves 2 through 12 appear grossly intact. The patient is not following commands appropriately, so the remainder of neurological exam cannot be evaluated. PSYCHIATRIC: Somnolent. Oriented x1, seems confused and agitated currently. LABORATORY EVALUATION: A full set of labs are in the [employer] system, which I have reviewed. Of note, the patient's white count has increased up to 19,000, hemoglobin of 9.3, platelet count of 188. Creatinine is currently 1.08. Troponins are decreasing currently at 0.612. CT has been reviewed from April 10, which demonstrates no evidence of acute intraabdominal or pelvic abnormality with a left renal cyst. The patient has a penile prosthesis in place. The prostate gland is enlarged with significant BPH. Colon catheter is currently in the bladder. ASSESSMENT AND PLAN: An 83-year-old white male with benign prostatic hyperplasia and urinary retention, managed with indwelling Colon catheter, which unfortunately has been causing the patient a significant amount of misery and bladder spasms. He is currently in the hospital for CHF exacerbation and possible pneumonia. His bladder is chronically colonized, but he is having terrible spasms. Unfortunately, moving him to a suprapubic catheter will probably not stop his spasms entirely, but should decrease his penile pain and discomfort since he is having ventral erosion. There is also significantly increased risk of the ventral erosion exposing one of the cylinders within his prosthesis, which will cause a very serious infection requiring removal of the entire prosthesis. I think that placement of an SP tube as expeditiously as possible would be ideal. Unfortunately, the patient will require general anesthesia to place the SP tube and in order to receive general anesthesia and in the patient's current medical state, he will require clearance by both Pulmonology and Cardiology. Dr. Salas has already stated that the patient should be approved for general anesthesia from a pulmonary standpoint, but he will also need the okay from Dr. Ramon to proceed forward with general anesthesia and the agreement of the anesthesiologist to put the patient asleep. If so, the patient can undergo a suprapubic tube placement on this hospital stay and removal of his Colon catheter, at which point, if the patient has ongoing bladder spasms, we can always perform Botox injections in the office, which should calm the patient's bladder down significantly and to allow him a better quality of life. For the time being, I will follow along and make recommendations, but I will currently await cardiology clearance, at which point, we can schedule suprapubic tube placement with general anesthesia. Job ID: [id number] [facility]
[2019-04-13] MEDS: Morphine 2 MG/ML SYRINGE SLOW IVP PRN ×2 (04:57→14:34)
[2019-04-13 05:42] LABS: Phosphorus 3.1 mg/dL (2.3-4.7)
[2019-04-13] MEDS: Levothyroxine Sodium 50 MCG TAB PO SCH (06:24)
[2019-04-13] MEDS: diphenhydrAMINE 50 MG/ML VIAL IVP PRN ×3 (06:24→22:01)
[2019-04-13 08:47] LABS: Hemoglobin 9.6 g/dL (14.0-18.0); Mean Corpuscular HGB CONC 29.6 g/dL (32.0-36.0); Mean Corpuscular Hemoglobin 24.1 pg (27.0-31.0); Mean Corpuscular Volume 81.6 fL (78.0-98.0); Platelet Count 184 thou/uL (130-400); RBC Distribution Width 17.9 % (11.5-14.5); Red Blood Cell (RBC) Count 3.98 mill/uL (4.70-6.10); White Blood Cell (WBC) Count 19.7 thou/uL (4.8-10.8)
[2019-04-13 08:49] LABS: Anion Gap 12 mmol/L (10-20); BUN (Urea Nitrogen) 27 mg/dL (8.4-25.7); Calc. Creatinine Clearance 62 mL/min (70-130); Calcium 8.6 mg/dL (7.8-10.44); Carbon Dioxide 26 mmol/L (23-31); Chloride 103 mmol/L (98-107); Estimated GFR-MDRD 64; Glucose 89 mg/dL (83-110); Potassium 4.2 mmol/L (3.5-5.1); Sodium 137 mmol/L (136-145)
[2019-04-13] MEDS: Carvedilol 3.125 MG TAB PO SCH ×2 (09:07→20:12)
[2019-04-13] MEDS: Amoxicillin/Potassium Clav 875 MG TAB PO SCH ×2 (09:08→20:13)
--- NOTE | 2019-04-13 17:48 | PRG ---
DATE OF SERVICE: 04/13/2019 SUBJECTIVE: The patient is still having a lot of bladder pain and penile pain. He is having most of his pain in the bladder area due to severe bladder spasms. He has not been able to have a bowel movement. He is currently not on any bladder calming medications. He has not yet been seen by a dietitian helper to see if he would be a candidate for general anesthesia at the current time, although it is still questionable whether he would be able to receive general anesthesia at all given his current lung infection. OBJECTIVE: VITAL SIGNS: Temperature 99, pulse 68, blood pressure 118/63, respirations 21, and saturations 87% on 2L nasal cannula. GENERAL: Appears slightly uncomfortable, not really answering questions, but is alert and able to track with his eyes where I am and what I am saying. CARDIOVASCULAR: Regular rate and rhythm. Normal S1 and S2. CHEST: Bilateral crackles, tachypneic, but no significantly increased work of breathing. ABDOMEN: Soft. Tenderness significantly over the suprapubic area. There is no erythema over the reservoir site. : Colon catheter in place, draining clear yellow urine. This has been switched out to a gravity bag. StatLock has been moved down somewhat. There is no current evidence of erythema or fluctuance over the tubing or pump. EXTREMITIES: 1+ edema bilaterally. LABORATORY EVALUATION: The full set of labs are in the [employer] system, which I have reviewed. Of note, the patient's white count is 19.7 with a hemoglobin of 9.6. Creatinine is currently 1.1. ASSESSMENT AND PLAN: An 83-year-old white male with indwelling Colon catheter with severe bladder spasms, which has been ongoing and a source of significant discomfort for the patient. His white count is increasing, which is most likely secondary to pulmonary issues as the patient is chronically colonized in his bladder, although he may have concurrent urinary tract infection. He is on meropenem, which should treat his urine regardless. I will go ahead and start him on Levsin, B and O suppositories, and trospium for bladder control as this should be maximal medical therapy for bladder pain. Ultimately, if the patient can get a suprapubic tube, which will require general anesthesia, the tube can be moved up directly into the bladder, which should stop the patient's penile pain and risk of erosion of his urethra onto his prosthesis, which could cause a severe infection. However, his bladder spasms probably will not stop with the suprapubic tube and will continue. At this point, we can always schedule outpatient Botox if the bladder spasms cannot be controlled with oral medical therapy. I will continue to follow along and make recommendations. I am also going to start the patient on MiraLAX to avoid constipation as the patient is already receiving routine morphine as well as new constipating medications from his antispasmodics. Job ID: [id number]
[2019-04-13] MEDS: Trospium 20 MG TAB PO SCH (20:13)
--- NOTE | 2019-04-13 20:46 | PDOC.HOSPP ---
- Subjective Encounter Date: 04/13/19 Encounter Time: 20:45 Subjective: THe patient is donig better. Still short of breath and still coughing. IV antibiotics discontinued yesterday due to itching. Denies chest pain. States Dr. Ramon saw him this afternoon, however unclear what the plan is. Had some bladder spasms that are better now. The patient had mid-line placed because he lost 3 IV in two days - Objective Vital Signs & Weight: Vital Signs (12 hours) Temp 04/13/19 19:43 98.1 F Weight Admit Weight 181 lb 6 oz Weight 190 lb 11.2 oz Most Recent Monitor Data Heart Rate from ECG 71 NIBP 118/63 NIBP BP-Mean 81 Respiration from ECG 21 SpO2 97 I&O: 04/12/19 04/13/19 04/14/19 06:59 06:59 06:59 Intake Total 1151 120 Output Total 560 800 Balance 591 -680 Result Diagrams: 04/13/19 08:13 04/13/19 08:13 Hospitalist ROS - Review of Systems Constitutional: denies: fever, chills - Medication Medications: Active Medications Generic Name Dose Route Start Last Admin Trade Name Freq PRN Reason Stop Dose Admin Acetaminophen 1,000 mg 04/10/19 20:23 04/10/19 22:41 Tylenol PO 1,000 mg Q6H PRN Administration Pain Acetaminophen/Codeine Phosphate 1 tab 04/11/19 01:11 04/11/19 14:09 Tylenol #3 PO 1 tab Q4H PRN Administration Moderate Pain (4-6) Amoxicillin/Clavulanate Potassium 875 mg 04/13/19 09:00 04/13/19 20:13 Augmentin PO 875 mg Q12HR JANET Administration Apixaban 5 mg 04/10/19 21:00 04/11/19 10:01 Eliquis PO Not Given BID JANET Carvedilol 1.5625 mg 04/10/19 21:00 04/13/19 20:12 Coreg PO 1.5625 mg BID JANET Administration Diphenhydramine HCl 25 mg 04/12/19 13:52 04/13/19 13:47 Benadryl IVP 25 mg Q6H PRN Administration Itching & Insomnia Diphenhydramine HCl 25 mg 04/12/19 23:36 04/12/19 23:47 Benadryl PO 04/13/19 23:37 25 mg ONE PRN Administration Itching & Insomnia Levothyroxine Sodium 50 mcg 04/11/19 06:00 04/13/19 06:24 Synthroid PO 50 mcg 0600 JANET Administration Morphine Sulfate 2 mg 04/11/19 16:51 04/13/19 14:34 Morphine SLOW IVP 2 mg Q4H PRN Administration Mild Pain (1-3) Ondansetron HCl 4 mg 04/12/19 06:07 04/12/19 06:16 Zofran IVP 4 mg Q6H PRN Administration Nausea/Vomiting Sertraline HCl 100 mg 04/11/19 09:00 04/13/19 09:08 Zoloft PO 100 mg DAILY JANET Administration Trospium 20 mg 04/13/19 21:00 04/13/19 20:13 Trospium PO 20 mg BID JANET Administration - Exam General Appearance: NAD, awake alert Eye: PERRL, anicteric sclera ENT: normocephalic atraumatic, no oropharyngeal lesions Neck: supple, symmetric, no JVD, no thyromegaly Heart: RRR, no murmur, no gallops, no rubs Respiratory: CTAB, no wheezes, no ronchi, no tachypnea Respiratory - other findings: some diminished breath sounds at the base Gastrointestinal: soft, non-tender, non-distended, normal bowel sounds Extremities: no cyanosis, no clubbing, no edema Skin: normal turgor, no lesions, no rashes Neurological: cranial nerve grossly intact, normal sensation to touch, no focal deficits, no new deficit Hosp A/P - Plan This is an 83 year old male with past medical history of BPH, chest tightness and cough, admitted for elevated troponin, possible UTI Acute CHF - chest CT showing bilateral pleural effusions with small loculated effusion. He is s/p lasix 20 mg IV yesterday with good urine output. Will try lasix 40 mg IV - continue to wean oxygen - repeat chest x ray Possible pneumonia - chest CT showing bilateral effusion, some loculation possible infiltrate - WBC up to 19.7, will continue augmentin. No fevers CAD s/p CABG - troponin was one and came down to 0.6 - cardiology consulted for clearance, daughter wants conservative management, no cath - on eliquis, holding in anticipation of procedure - hold aspirin in anticipation of procedure, defer to cardiology BPH - needs suprapubic catheter placement but needs general anasthesia. Dr Alcala on board, awaiting Dr. Guerreor recommendation -started trospium 20 mg po bid Anasarca in abdomen - possibly from urinary retention - needs suprapubic catheter Itching - benadryl prn - d/c vanc and meropenem, try augmentin Dispo: pending cardiology clearance Code status: DNR
[2019-04-13] MEDS ORDERED: Furosemide 40 MG/4 ML VIAL SLOW IVP SCH (21:00)
--- NOTE | 2019-04-13 22:11 | RAD ---
PORTABLE SEMIUPRIGHT FRONTAL CHEST RADIOGRAPH: 04/13/19 COMPARISON: 04/10/19 HISTORY: Short of breath. FINDINGS: Stable dense pleural and parenchymal opacity noted within the left base with obscuration of the left hemidiaphragm. Stable midline sternotomy wires. No pneumothorax. Stable pulmonary vascular congestion and probable small right pleural effusion. IMPRESSION: Stable appearance of the chest as detailed above. POS: [facility]
--- NOTE | 2019-04-14 01:00 | CON ---
DATE OF CONSULTATION: HISTORY: Camacho Nunes is an 83-year-old white male, who I first evaluated on June 18, 2018. He had undergone lumbar laminectomy on June 15, 2018. He had a previous cardiac history with placement of 5 stents in the right coronary artery at a hospital in the [place]. He apparently did not have a myocardial infarction prior to that. Also in 2013, he had a stroke with left facial and left arm weakness and swallowing problems after that. He had been on aspirin and Plavix ever since he had the stents placed in 2010. Plavix was stopped a week prior lumbar laminectomy and aspirin was stopped 4 to 5 days prior to surgery. On the evening of June 17, 2018, he had some vague chest discomfort, but denied any nausea, vomiting, shortness of breath, or diaphoresis. Cardiac enzymes were obtained. He was found to have a troponin I of 32.173. He was moved to telemetry and had intermittent episodes of atrial fibrillation, which were new for him. He developed Q-waves inferiorly, but never had ST elevation. There was concern about placing him on aspirin or anticoagulating him with heparin for his atrial fibrillation due to the recent lumbar laminectomy. Two weeks after lumbar laminectomy, he underwent cardiac catheterization. He had stayed in the hospital between the time of his lumbar laminectomy and cardiac catheterization because of recurrent chest pain. 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 There was a 20% proximal LAD, 80% mid LAD, 80% and 90% distal LAD, and total occlusion of the apical LAD with retrograde filling. There was a 70% lesion in the first diagonal and 90% lesion in the second diagonal. The circumflex was normal. The right coronary artery, 70% proximal stenosis and was totally occluded in its midportion where stents were present. The distal right coronary artery filled retrograde from the left. He then underwent CABG x5 by Dr. Phelps. BRANDT was placed to the mid LAD and distal LAD, saphenous vein graft to the first diagonal, second diagonal, and right posterior descending. He had ligation of the left atrial appendage. He was readmitted on July 10, 2018, two days after discharge from [facility]. He complained of shortness of breath. Cardiac enzymes were unremarkable. It is felt that he had diastolic heart failure. He was placed on Eliquis for paroxysmal atrial fibrillation and was diuresed. He was seen in the office for followup on July 23, 2018. He had 2+ peripheral edema, was placed on furosemide 40 every other day. He was seen in the office on August 03, 2018. He continued to be in sinus rhythm and his peripheral edema had increased somewhat. On September 02, 2018, he had continued improvement in his shortness of breath and lower extremity edema and continued being in sinus rhythm. On September 11, 2018, he was again admitted with right-sided facial numbness that resolved. He was again admitted in December 2018 with increased shortness of breath and chest tightness. He is found to have chronic bilateral pleural effusion, was given intravenous Lasix in the emergency room with improvement in his breathing. Echocardiogram during that admission revealed ejection fraction of 40% to 45%, moderate right ventricular enlargement, moderate left atrial enlargement, moderate right atrial enlargement, severe mitral regurgitation, aortic valve sclerosis, severe tricuspid regurgitation, and mild pulmonic regurgitation. He improved with increased diuresis. He was readmitted on January 18, 2019, after a mechanical fall while on Eliquis with finding of left-sided chest wall contusion. He was again admitted in February 2019 with abdominal pain and urinary retention. He was last seen in the office on January 26, 2019. He continued to have some leg edema and he was holding his furosemide, but that was resumed. He now is admitted with increased cough, chest tightness associated with shortness of breath. He went to [place] [facility] and was transferred here. He has been started on antibiotics, diuresed, and feels better. PAST MEDICAL HISTORY: History of lung cancer, status post resection; previous stroke; coronary artery disease; hypertension; hyperlipidemia with intolerance to statins with muscle aches, history of atrial fibrillation with myocardial infarction in June 2018, and also post CABG. He had lymphoma 3 years ago and had chemo. Family says he is in remission. OPERATIONS: Lumbar laminectomy, right leg surgery, cholecystectomy, cervical fusion, left lower lung lobectomy in 1989, hernia repair, CABG x5 with left atrial appendage ligation, prostate biopsy, femoral artery stent, splenectomy. MEDICATIONS: Eliquis 5 mg b.i.d., carvedilol one-half of a 3.125 tablet b.i.d., furosemide 40 mg b.i.d., Synthroid 50 mcg daily, sertraline 50 daily. ALLERGIES: STATINS CAUSE MUSCLE ACHES, CLINDAMYCIN, SULFA, ALKYLAMINE CAUSE PROSTATE SWELLING AND TIZANIDINE. SOCIAL HISTORY: He is a former smoker. He does not drink at present time. FAMILY HISTORY: Unremarkable. REVIEW OF SYSTEMS: 10-point review of systems unremarkable. PHYSICAL EXAMINATION: VITAL SIGNS: Blood pressure 118/63, pulse 74, sinus rhythm on the monitor with PACs. HEENT: PERRL. NECK: Supple. CHEST: Clear. CARDIAC: S1 and S2 are normal without any S3, S4, or murmurs. ABDOMEN: Normal bowel sounds without tenderness or organomegaly. EXTREMITIES: Revealed trace pretibial edema. NEUROLOGICAL: Grossly intact. SKIN: Warm and dry. LABORATORY DATA: EKG from [place] revealed normal sinus rhythm with low voltage and possible inferior infarction. White count 19,700, hemoglobin 9.6, hematocrit 32.5, platelets 184,000. Sodium 137, potassium 4.2, chloride 103m carbon dioxide 26, BUN 27, creatinine 1.10. Troponin I 0.612. BNP 1630.4. Chest x- ray revealed increased pulmonary vascularity with left effusion. IMPRESSION: 1. Benign prostatic hypertrophy with urinary retention with the need for placement of a suprapubic catheter. Apparently, he had significant pain with attempting this and this will need to be performed under general anesthesia. 2. Chronic systolic and probable diastolic heart failure. 3. Status post coronary artery bypass graft x5 in July 2018. 4. Inferior Q-wave myocardial infarction without significant ST-segment elevation in June 2018 after lumbar laminectomy. 5. Status post lumbar laminectomy. 6. History of right coronary artery stent placement in the [place]. 7. History of stroke. 8. Hypertension. 9. Hypercholesterolemia. 10. Paroxysmal atrial fibrillation without significant documented recurrence since bypass surgery. 11. Status post left lung resection. 12. Peripheral vascular disease. 13. History of pulmonary vein thrombosis. RECOMMENDATIONS: Mr. Nunes is having significant amount of abdominal pain from bladder spasm as well as penile pain. There is ventral erosion. It was felt that the safest thing to do is place a suprapubic catheter since he currently has exposure of one of the cylinders from his penile prosthesis. This apparently will require general anesthesia. Mr. Nunes is a moderate risk from a cardiac standpoint. However, with his current problems and threat of infection of a foreign body, I feel that we should proceed with suprapubic catheter under general anesthesia. Job ID: [id number] [id number]
[2019-04-14] MEDS: Levothyroxine Sodium 50 MCG TAB PO SCH (05:07)
[2019-04-14] MEDS: diphenhydrAMINE 50 MG/ML VIAL IVP PRN (05:07)
[2019-04-14] MEDS: Morphine 2 MG/ML SYRINGE SLOW IVP PRN (05:26)
[2019-04-14 07:35] LABS: Hemoglobin 9.3 g/dL (14.0-18.0); Mean Corpuscular HGB CONC 29.5 g/dL (32.0-36.0); Mean Corpuscular Hemoglobin 24.3 pg (27.0-31.0); Mean Corpuscular Volume 82.3 fL (78.0-98.0); Mean Platelet Volume 11.9 fL (7.4-10.4); Platelet Count 205 thou/uL (130-400); RBC Distribution Width 17.8 % (11.5-14.5); Red Blood Cell (RBC) Count 3.84 mill/uL (4.70-6.10); White Blood Cell (WBC) Count 22.3 thou/uL (4.8-10.8)
[2019-04-14 07:43] LABS: Anion Gap 13 mmol/L (10-20); BUN (Urea Nitrogen) 29 mg/dL (8.4-25.7); Calc. Creatinine Clearance 57 mL/min (70-130); Calcium 8.4 mg/dL (7.8-10.44); Carbon Dioxide 26 mmol/L (23-31); Chloride 103 mmol/L (98-107); Estimated GFR-MDRD 60; Glucose 99 mg/dL (83-110); Phosphorus 2.9 mg/dL (2.3-4.7); Potassium 4.2 mmol/L (3.5-5.1); Sodium 138 mmol/L (136-145)
[2019-04-14] MEDS: Polyethylene Glycol 3350 17 GM Packet PO SCH (10:05)
[2019-04-14] MEDS: Hyoscyamine Sulfate SL 0.125 mg Tablet PO PRN ×2 (10:05→21:16)
[2019-04-14] MEDS: Trospium 20 MG TAB PO SCH ×2 (10:05→21:09)
[2019-04-14] MEDS: Piperacillin/Tazobactam 3.375 GM in Sodium Chloride 0.9% 100 ML IVPB SCH ×3 (10:05→21:09)
[2019-04-14] MEDS: Carvedilol 3.125 MG TAB PO SCH ×2 (10:06→21:09)
--- NOTE | 2019-04-14 12:27 | PDOC.HOSPP ---
- Subjective Encounter Date: 04/14/19 Encounter Time: 09:00 Subjective: The patient is doing better, no significant shortness of breath or bladder spasms. He is doing well on room air today. Per cardiology, moderate risk for anasthesia. Need to get anasthesia consult for placing suprapubic catheter She does not want lasix due to it causing his bladder to get distended and then it makes him unable to void and causes bladder spasms Patient had to have mid-line placed yesterday due to IVS coming out. Family member frustrated because now they are unable to draw blood from the midline and he has thin veins and being poked is uncomfortable for him Family also mentions once this tube is set up they are interested in hospice once he is discharged, they feel he has suffered enough - Objective Vital Signs & Weight: Vital Signs (12 hours) Temp 04/14/19 11:06 98.2 F 04/14/19 07:26 98.3 F 04/14/19 03:27 98.6 F Weight Admit Weight 181 lb 6 oz Weight 185 lb 3.2 oz Most Recent Monitor Data Heart Rate from ECG 74 NIBP 132/62 NIBP BP-Mean 85 Respiration from ECG 24 SpO2 96 I&O: 04/13/19 04/14/19 04/15/19 06:59 06:59 06:59 Intake Total 120 180 Output Total 800 1650 Balance -680 -1470 Result Diagrams: 04/14/19 07:15 04/14/19 07:15 Hospitalist ROS - Review of Systems Constitutional: denies: fever, chills - Medication Medications: Active Medications Generic Name Dose Route Start Last Admin Trade Name Freq PRN Reason Stop Dose Admin Acetaminophen 1,000 mg 04/10/19 20:23 04/10/19 22:41 Tylenol PO 1,000 mg Q6H PRN Administration Pain Acetaminophen/Codeine Phosphate 1 tab 04/11/19 01:11 04/11/19 14:09 Tylenol #3 PO 1 tab Q4H PRN Administration Moderate Pain (4-6) Apixaban 5 mg 04/10/19 21:00 04/11/19 10:01 Eliquis PO Not Given BID JANET Carvedilol 1.5625 mg 04/10/19 21:00 04/14/19 10:06 Coreg PO 1.5625 mg BID JANET Administration Diphenhydramine HCl 25 mg 04/12/19 13:52 04/14/19 05:07 Benadryl IVP 25 mg Q6H PRN Administration Itching & Insomnia Hyoscyamine Sulfate 0.125 mg 04/13/19 17:18 04/14/19 10:05 Levsin Sl PO 0.125 mg Q6H PRN Administration Bladder Spasms Piperacillin Sod/Tazobactam 100 mls @ 200 mls/hr 04/14/19 09:00 04/14/19 10: 05 Sod 3.375 gm/ Sodium Chloride IVPB 100 mls 0300,0900,1500,2100 JANET Administration Levothyroxine Sodium 50 mcg 04/11/19 06:00 04/14/19 05:07 Synthroid PO 50 mcg 0600 JANET Administration Morphine Sulfate 2 mg 04/11/19 16:51 04/14/19 05:26 Morphine SLOW IVP 2 mg Q4H PRN Administration Mild Pain (1-3) Ondansetron HCl 4 mg 04/12/19 06:07 04/12/19 06:16 Zofran IVP 4 mg Q6H PRN Administration Nausea/Vomiting Polyethylene Glycol 17 gm 04/14/19 09:00 04/14/19 10:05 Miralax PO 17 gm DAILY JANET Administration Sertraline HCl 100 mg 04/11/19 09:00 04/14/19 10:05 Zoloft PO 100 mg DAILY JANET Administration Trospium 20 mg 04/13/19 21:00 04/14/19 10:05 Trospium PO 20 mg BID JANET Administration - Exam General Appearance: NAD, awake alert Eye: PERRL, anicteric sclera ENT: normocephalic atraumatic, no oropharyngeal lesions Neck: supple, symmetric, no JVD, no thyromegaly Heart: RRR, no murmur, no gallops, no rubs Respiratory: CTAB, no wheezes, no rales, no ronchi Gastrointestinal: soft, non-tender Gastrointestinal - other findings: mildly distended Extremities: no cyanosis, no clubbing, no edema Skin: normal turgor, no lesions, no rashes Neurological: cranial nerve grossly intact, normal sensation to touch, no focal deficits, no new deficit Musculoskeletal: normal tone, normal strength, no muscle wasting Psychiatric: normal affect, normal behavior, A&O x 3 Hosp A/P - Plan Chest X ray 04/13: stable pulmonary vascular congestion and small pleural effusion This is an 83 year old male with past medical history of BPH, chest tightness and cough, admitted for elevated troponin, possible UTI Acute CHF - chest CT showing bilateral pleural effusions with small loculated effusion. He is s/p lasix 20 mg IV on the , holding additional lasix since suprapubic catheter not in yet - repeat chest X ray showing some pulmonary vascular congestion however unable to give lasix since no carter in yet - palliative care consult since family interested in hospice on discharge Possible pneumonia - chest CT showing bilateral effusion, some loculation possible infiltrate - WBC up to 22, switch from augmentin to IV zosyn BPH - needs suprapubic catheter placement but needs general anasthesia. Dr Alcala on board, plan for placement tomorrow with radiology - NPO after midnight. Anasthesia consult for general anasthesia -started trospium 20 mg po bid CAD s/p CABG - troponin was one and came down to 0.6 - cardiology consulted for clearance, daughter wants conservative management, no cath - on eliquis, holding in anticipation of procedure - hold aspirin in anticipation of procedure, defer to cardiology Anasarca in abdomen - possibly from urinary retention - needs suprapubic catheter Itching - benadryl prn. IV vanc and meropenem discontinued with improvement - may be from morphine as well, try to hold off Dispo: NPO after midnight for suprapubic catheter placement . Pall care consult for hospice on dishcarge Code status: DNR
[2019-04-14] MEDS: B & O PR PRN (14:39)
--- NOTE | 2019-04-14 17:27 | PDOC.PALCO ---
Palliative Care Consult - Consult Details Requesting Physician: Dr Perez Reason for Consult: goals of care, advance directives assistance, family support Family Members Present: Patient son and daughter - Pertinent HPI 83 year old male who has been followed by [facility] home health and palliative care services. Onset of cough with chest tightness and shortness of breath, he presented to the [facility] emergency room and was evaluated and transferred to [facility] for a higher level of care secondary to identified pneumonia and suspected UTI. Patient with dementia and confused, family has opted to have a suprapubic catheter placed 04/15/19. - Pertinent PMH HTN, CAD, CVA, lymphoma and is not wishing to receive treatment, Dementia - Social History Smoking Status: Former smoker Smoking: quit greater than 1 year Alcohol Use: none Drug Use History: none Living Situation: - Medications MAR Reviewed: Yes - Allergies Allergies/Adverse Reactions: Allergies Allergy/AdvReac Type Severity Reaction Status Date / Time tizanidine [From Zanaflex] Allergy Severe AMS, Verified 04/10/19 20:27 hallucinations atorvastatin Allergy Intermediate joints Verified 04/10/19 20:27 clindamycin Allergy Intermediate Rash Verified 04/10/19 20:27 pravastatin Allergy Intermediate PT DOESN'T Verified 04/10/19 20:27 REMEMBER Sulfa (Sulfonamide Allergy Intermediate WELPS, RASH Verified 04/10/19 20:27 Antibiotics) Antihistamines - Alkylamine Allergy Mild PROSTATE Verified 04/12/19 13:46 SWELLING - Subjective Resting, arousable, confused. - ROS Constitutional: alert, weakness Eyes: other (negative for drainage, pain) Respiratory: other (mild shortness of breath) Cardiology: other (denies chest discomfort today) Neurological: weakness - Objective Vital Signs: Vital Signs - Most Recent Temp Pulse Resp BP Pulse Ox 97.6 F 95 04/14/19 15:27 04/14/19 08:00 Palliative Performance Scale: 40 - Physical Exam Constitutional: confusion, ill appearing HEENT: EOMI, moist MMs, sclera anicteric Deviation from normal: adventicious lung sounds, mid Cardiovascular: RRR Musculoskeletal: no cyanosis, diffuse muscle atrophy Neurology: moves all 4 limbs - Problem List (1) Dementia Code(s): F03.90 - UNSPECIFIED DEMENTIA WITHOUT BEHAVIORAL DISTURBANCE Current Visit: Yes Status: Acute (2) Palliative care encounter Code(s): Z51.5 - ENCOUNTER FOR PALLIATIVE CARE Current Visit: No Status: Acute (3) Physical deconditioning Code(s): R53.81 - OTHER MALAISE Current Visit: No Status: Acute (4) Acute on chronic systolic ACC/AHA stage C congestive heart failure Code(s): I50.23 - ACUTE ON CHRONIC SYSTOLIC (CONGESTIVE) HEART FAILURE Current Visit: No Status: Chronic (5) Urinary retention Code(s): R33.9 - RETENTION OF URINE, UNSPECIFIED Current Visit: No Status: Resolved - Plan/Recommendations Plan: Suprapubic cath to be placed 04/15 Home with [facility] as patient was previously on [facility] Daksha Stinson RNsection weaver also spoke with patient at length, please also refer to her note for further information. [30] minutes spent on this encounter with >50% of the time in counseling and coordination of care. Thank you for this very appropriate consult.
--- NOTE | 2019-04-14 17:53 | PRG ---
DATE OF SERVICE: 04/14/2019 SUBJECTIVE: The patient states he is feeling remarkably better with B and O suppositories, Levsin and trospium. He still has occasional bladder spasms, but has not had to use his morphine. He was cleared by Dr. Ramon today for general anesthesia with moderate risk. Anesthesia is also come to see him and stated that he was at moderate risk for complications with anesthesia. The family still wishes to proceed forward with SP tube placement. OBJECTIVE: VITAL SIGNS: Stable. GENERAL: In no apparent distress. CARDIOVASCULAR: Regular rate and rhythm. CHEST: Bilateral crackles. ABDOMEN: Soft, nontender, and nondistended. : Colon catheter in place, draining pineda-colored urine. 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 He is still being treated with antibiotics and awaiting full resolution of his pneumonia. That said, it does seem like all service lines have stated that he could undergo a short general anesthetic procedure, which we will plan for tomorrow. Anesthesia is aware and I have spoken with Radiology to coordinate plan for his SP tube placement. The tube can be placed tomorrow when coordinated between Anesthesia and Radiology on scheduling. After his tube is placed, the Colon catheter should be removed, and I will continue to follow to ensure that his hematuria resolves afterwards. Once hematuria has fully resolved and his urine is back to yellow, he may restart his Eliquis when appropriate by other service lines as well. Job ID: [id number]
--- NOTE | 2019-04-14 20:39 | PDOC.HOSPP ---
- Subjective Encounter Date: 04/14/19 Encounter Time: 09:30 Subjective: The patient is doing okay, has some shortness of breath and cough. He has been weaned off to room air. Not giving additional lasix due to bladder distension and spasms. Plan for suprapubic catheter placement tomorrow under anasthesia. Anasthesia to be arranged - Objective Vital Signs & Weight: Vital Signs (12 hours) Temp 04/14/19 19:30 98.6 F 04/14/19 15:27 97.6 F 04/14/19 11:06 98.2 F Weight Admit Weight 181 lb 6 oz Weight 185 lb 3.2 oz Most Recent Monitor Data Heart Rate from ECG 67 NIBP 120/58 NIBP BP-Mean 78 Respiration from ECG 21 SpO2 89 I&O: 04/13/19 04/14/19 04/15/19 06:59 06:59 06:59 Intake Total 120 180 Output Total 800 1650 Balance -680 -1470 Result Diagrams: 04/14/19 07:15 04/14/19 07:15 Hospitalist ROS - Review of Systems Constitutional: denies: fever, chills - Medication Medications: Active Medications Generic Name Dose Route Start Last Admin Trade Name Freq PRN Reason Stop Dose Admin Acetaminophen 1,000 mg 04/10/19 20:23 04/10/19 22:41 Tylenol PO 1,000 mg Q6H PRN Administration Pain Acetaminophen/Codeine Phosphate 1 tab 04/11/19 01:11 04/11/19 14:09 Tylenol #3 PO 1 tab Q4H PRN Administration Moderate Pain (4-6) Apixaban 5 mg 04/10/19 21:00 04/11/19 10:01 Eliquis PO Not Given BID JANET Belladonna Alkaloids/Opium 60 mg 04/13/19 17:18 04/14/19 14:39 B & O HI 60 mg BID PRN Administration bladder pain Carvedilol 1.5625 mg 04/10/19 21:00 04/14/19 10:06 Coreg PO 1.5625 mg BID JANET Administration Diphenhydramine HCl 25 mg 04/12/19 13:52 04/14/19 05:07 Benadryl IVP 25 mg Q6H PRN Administration Itching & Insomnia Hyoscyamine Sulfate 0.125 mg 04/13/19 17:18 04/14/19 10:05 Levsin Sl PO 0.125 mg Q6H PRN Administration Bladder Spasms Piperacillin Sod/Tazobactam 100 mls @ 200 mls/hr 04/14/19 09:00 04/14/19 15: 49 Sod 3.375 gm/ Sodium Chloride IVPB 100 mls 0300,0900,1500,2100 JANET Administration Levothyroxine Sodium 50 mcg 04/11/19 06:00 04/14/19 05:07 Synthroid PO 50 mcg 0600 JANET Administration Morphine Sulfate 2 mg 04/11/19 16:51 04/14/19 05:26 Morphine SLOW IVP 2 mg Q4H PRN Administration Mild Pain (1-3) Ondansetron HCl 4 mg 04/12/19 06:07 04/12/19 06:16 Zofran IVP 4 mg Q6H PRN Administration Nausea/Vomiting Polyethylene Glycol 17 gm 04/14/19 09:00 04/14/19 10:05 Miralax PO 17 gm DAILY JANET Administration Sertraline HCl 100 mg 04/11/19 09:00 04/14/19 10:05 Zoloft PO 100 mg DAILY JANET Administration Trospium 20 mg 04/13/19 21:00 04/14/19 10:05 Trospium PO 20 mg BID JANET Administration - Exam General Appearance: NAD, awake alert Eye: PERRL, anicteric sclera ENT: normocephalic atraumatic, no oropharyngeal lesions Hosp A/P - Plan Chest X ray 04/13: stable pulmonary vascular congestion and small pleural effusion This is an 83 year old male with past medical history of BPH, chest tightness and cough, admitted for elevated troponin, possible UTI Acute CHF - chest CT showing bilateral pleural effusions with small loculated effusion. He is s/p lasix 20 mg IV on the , holding additional lasix since suprapubic catheter not in yet - repeat chest X ray showing some pulmonary vascular congestion however unable to give lasix since no carter in yet - palliative care consult since family interested in hospice on discharge Possible pneumonia - chest CT showing bilateral effusion, some loculation possible infiltrate - WBC up to 22, switch from augmentin to IV zosyn BPH - needs suprapubic catheter placement but needs general anasthesia. Dr Alcala on board, plan for placement tomorrow with radiology - NPO after midnight. Anasthesia consult for general anasthesia -started trospium 20 mg po bid CAD s/p CABG - troponin was one and came down to 0.6 - cardiology consulted for clearance, daughter wants conservative management, no cath - on eliquis, holding in anticipation of procedure - hold aspirin in anticipation of procedure, defer to cardiology Anasarca in abdomen - possibly from urinary retention - needs suprapubic catheter Itching - benadryl prn. IV vanc and meropenem discontinued with improvement - may be from morphine as well, try to hold off Dispo: NPO after midnight for suprapubic catheter placement . Pall care consult for hospice on dishcarge Code status: DNR
[2019-04-14] MEDS: Apixaban 5 MG TAB PO SCH (21:06)
[2019-04-15] MEDS: Ondansetron PF 4 MG/2 ML Vial IVP PRN (01:28)
[2019-04-15] MEDS: Piperacillin/Tazobactam 3.375 GM in Sodium Chloride 0.9% 100 ML IVPB SCH ×4 (03:43→21:42)
[2019-04-15 05:31] LABS: Hemoglobin 9.8 g/dL (14.0-18.0); Mean Corpuscular HGB CONC 29.3 g/dL (32.0-36.0); Mean Corpuscular Hemoglobin 23.6 pg (27.0-31.0); Mean Corpuscular Volume 80.5 fL (78.0-98.0); Mean Platelet Volume 12.1 fL (7.4-10.4); Platelet Count 209 thou/uL (130-400); RBC Distribution Width 17.9 % (11.5-14.5); Red Blood Cell (RBC) Count 4.17 mill/uL (4.70-6.10); White Blood Cell (WBC) Count 20.6 thou/uL (4.8-10.8)
[2019-04-15 05:46] LABS: Anion Gap 12 mmol/L (10-20); BUN (Urea Nitrogen) 28 mg/dL (8.4-25.7); Calc. Creatinine Clearance 59 mL/min (70-130); Carbon Dioxide 30 mmol/L (23-31); Chloride 103 mmol/L (98-107); Estimated GFR-MDRD 62; Glucose 108 mg/dL (83-110); Phosphorus 3.2 mg/dL (2.3-4.7); Potassium 4.5 mmol/L (3.5-5.1); Sodium 140 mmol/L (136-145)
[2019-04-15] MEDS: Carvedilol 3.125 MG TAB PO SCH ×2 (06:47→21:41)
[2019-04-15] MEDS: Levothyroxine Sodium 50 MCG TAB PO SCH (06:48)
[2019-04-15] MEDS: Polyethylene Glycol 3350 17 GM Packet PO SCH (09:22)
[2019-04-15] MEDS: Apixaban 5 MG TAB PO SCH ×2 (09:22→21:40)
[2019-04-15] MEDS: Trospium 20 MG TAB PO SCH ×2 (09:22→21:42)
--- NOTE | 2019-04-15 11:33 | PDOC.HOSPP ---
- Subjective Encounter Date: 04/15/19 Encounter Time: 11:32 Subjective: The patient is doing better, no chest pain or cough, mild shortness of breath. Currently 88 to 89% on room air. Per nursing staff, patient on the schedule for suprapubic catheter later this afternoon. - Objective Vital Signs & Weight: Vital Signs (12 hours) Temp 04/15/19 07:02 98.7 F 04/15/19 03:16 98.2 F Weight Admit Weight 181 lb 6 oz Weight 182 lb 8 oz Most Recent Monitor Data Heart Rate from ECG 73 NIBP 113/69 NIBP BP-Mean 83 Respiration from ECG 21 SpO2 87 I&O: 04/14/19 04/15/19 04/16/19 06:59 06:59 06:59 Intake Total 180 400 Output Total 1650 450 Balance -1470 -50 Result Diagrams: 04/15/19 05:06 04/15/19 05:06 Hospitalist ROS - Review of Systems Constitutional: denies: fever, chills - Medication Medications: Active Medications Generic Name Dose Route Start Last Admin Trade Name Freq PRN Reason Stop Dose Admin Acetaminophen 1,000 mg 04/10/19 20:23 04/10/19 22:41 Tylenol PO 1,000 mg Q6H PRN Administration Pain Acetaminophen/Codeine Phosphate 1 tab 04/11/19 01:11 04/11/19 14:09 Tylenol #3 PO 1 tab Q4H PRN Administration Moderate Pain (4-6) Apixaban 5 mg 04/10/19 21:00 04/15/19 09:22 Eliquis PO Not Given BID JANET Belladonna Alkaloids/Opium 60 mg 04/13/19 17:18 04/14/19 14:39 B & O [place] 60 mg BID PRN Administration bladder pain Carvedilol 1.5625 mg 04/10/19 21:00 04/15/19 06:47 Coreg PO 1.5625 mg BID JANET Administration Diphenhydramine HCl 25 mg 04/12/19 13:52 04/14/19 05:07 Benadryl IVP 25 mg Q6H PRN Administration Itching & Insomnia Hyoscyamine Sulfate 0.125 mg 04/13/19 17:18 04/14/19 21:16 Levsin Sl PO 0.125 mg Q6H PRN Administration Bladder Spasms Piperacillin Sod/Tazobactam 100 mls @ 200 mls/hr 04/14/19 09:00 04/15/19 11: 00 Sod 3.375 gm/ Sodium Chloride IVPB 100 mls 0300,0900,1500,2100 JANET Administration Levothyroxine Sodium 50 mcg 04/11/19 06:00 04/15/19 06:48 Synthroid PO 50 mcg 0600 JANET Administration Morphine Sulfate 2 mg 04/11/19 16:51 04/14/19 05:26 Morphine SLOW IVP 2 mg Q4H PRN Administration Mild Pain (1-3) Ondansetron HCl 4 mg 04/12/19 06:07 04/15/19 01:28 Zofran IVP 4 mg Q6H PRN Administration Nausea/Vomiting Polyethylene Glycol 17 gm 04/14/19 09:00 04/15/19 09:22 Miralax PO Not Given DAILY JANET Sertraline HCl 100 mg 04/11/19 09:00 04/15/19 10:59 Zoloft PO 100 mg DAILY JANET Administration Trospium 20 mg 04/13/19 21:00 04/15/19 09:22 Trospium PO Not Given BID JANET - Exam General Appearance: NAD, awake alert Eye: PERRL, anicteric sclera ENT: normocephalic atraumatic, no oropharyngeal lesions Neck: supple, symmetric, no JVD, no thyromegaly Heart: RRR, no murmur, no gallops, no rubs Respiratory: CTAB, no wheezes, no rales, no ronchi Gastrointestinal: soft Gastrointestinal - other findings: mild abdominal distension, firm in RUQ, soft in lower quadrant Extremities: no cyanosis, no clubbing, no edema Hosp A/P - Plan ECHO 04/14 : EF 50-55%, moderate MR and TR Chest X ray 04/13: stable pulmonary vascular congestion and small pleural effusion This is an 83 year old male with past medical history of BPH, chest tightness and cough, admitted for elevated troponin, possible UTI #Acute CHF #Moderate MR and TR - chest CT showing bilateral pleural effusions with small loculated effusion. He is s/p lasix 20 mg IV on the , holding additional lasix since suprapubic catheter not in yet. ECHO shows EF 50-55%, moderate MR and TR - repeat chest X ray showing some pulmonary vascular congestion however unable to give lasix. Will try IV dose tonight after catheter placement - palliative care consult and hospice consult on discharge Possible pneumonia - chest CT showing bilateral effusion, some loculation possible infiltrate. Was on IV vanc and meropenem, discontinued due to allergy, switched to augmentin. Reordered IV zosyn on 04/14 - continue IV zosyn since WBC came down to 20 BPH - needs suprapubic catheter placement, on schedule this afternoon, moderate risk for anasthesia - continue trospium 20 mg bid CAD s/p CABG - troponin was one and came down to 0.6 - holding eliquis and aspirin currently Anasarca in abdomen - possibly from urinary retention - needs suprapubic catheter Itching - benadryl prn. IV vanc and meropenem discontinued with improvement - may be from morphine as well, try to hold off Diet: NPO for now Code status: DNR DVT prophylaxis: holding for suprapubic catheter
[2019-04-15 12:17] VITALS: BMI 24.0
--- NOTE | 2019-04-15 20:58 | PDOC.EVN ---
Event Note - Event Note Event Note: Anasthesia cancelled case for today because deemed not urgent. after discussion with Dr Marte and surgical scheduler patient to get procedure tomorrow at 7:30 am
[2019-04-15] MEDS: Furosemide 20 MG TAB PO SCH (21:40)
[2019-04-16] MEDS: Piperacillin/Tazobactam 3.375 GM in Sodium Chloride 0.9% 100 ML IVPB SCH ×4 (03:25→20:26)
[2019-04-16 04:21] LABS: Phosphorus 3.2 mg/dL (2.3-4.7)
[2019-04-16] MEDS ORDERED: Morphine 4 MG/ML VIAL ONE (06:53)
[2019-04-16] MEDS: Carvedilol 3.125 MG TAB PO SCH ×2 (06:54→20:27)
[2019-04-16] MEDS: Levothyroxine Sodium 50 MCG TAB PO SCH (06:55)
[2019-04-16] MEDS: Ondansetron PF 4 MG/2 ML Vial IVP PRN (07:24)
[2019-04-16] MEDS: Furosemide 20 MG TAB PO SCH ×2 (08:41→13:13)
[2019-04-16] MEDS: Polyethylene Glycol 3350 17 GM Packet PO SCH (08:41)
[2019-04-16] MEDS: Apixaban 5 MG TAB PO SCH (08:41)
[2019-04-16] MEDS ORDERED: Morphine Sulfate 2 MG/ML SYRINGE SLOW IVP PRN (09:20)
[2019-04-16] MEDS ORDERED: Ondansetron HCl/PF 4 MG/2 ML Vial IVP PRN (09:20)
[2019-04-16] MEDS ORDERED: Morphine 2 MG/ML SYRINGE ONE ×2 (09:24→09:35)
[2019-04-16] MEDS: Trospium 20 MG TAB PO SCH ×2 (10:12→20:27)
[2019-04-16] MEDS: diphenhydrAMINE 50 MG/ML VIAL IVP PRN (10:26)
[2019-04-16 10:34] LABS: Hemoglobin 10.6 g/dL (14.0-18.0); Mean Corpuscular HGB CONC 29.7 g/dL (32.0-36.0); Mean Corpuscular Volume 80.9 fL (78.0-98.0); Mean Platelet Volume 12.1 fL (7.4-10.4); Platelet Count 206 thou/uL (130-400); RBC Distribution Width 18.1 % (11.5-14.5); Red Blood Cell (RBC) Count 4.41 mill/uL (4.70-6.10); White Blood Cell (WBC) Count 18.8 thou/uL (4.8-10.8)
[2019-04-16 10:42] LABS: Anion Gap 15 mmol/L (10-20); BUN (Urea Nitrogen) 26 mg/dL (8.4-25.7); Calc. Creatinine Clearance 58 mL/min (70-130); Calcium 8.4 mg/dL (7.8-10.44); Carbon Dioxide 23 mmol/L (23-31); Chloride 106 mmol/L (98-107); Estimated GFR-MDRD 63; Glucose 103 mg/dL (83-110); Potassium 3.9 mmol/L (3.5-5.1); Sodium 140 mmol/L (136-145)
--- NOTE | 2019-04-16 10:46 | CT ---
CT-guided suprapubic catheter placement: DATE: 04/16/2019 HISTORY: 83-year-old male with bladder outlet obstruction. TECHNIQUE: Signed informed consent obtained. Procedure was performed with the assistance of anesthesiology ren st[place]ford. Patient placed supine on CT table. Bladder was filled with 300 mL normal saline through existing Colon catheter. Procedure performed under step CT guidance. Skin of lower abdominal wall mid line prepped and draped in usual sterile fashion. 25-gauge needle used to apply lidocaine at midline superficially, then deeply to the right lower rectus abdominis muscle and anterior bladder wa ll (the border between the left and right rectus abdominous muscles is to the left of midline, and a loop of bowel is present at that location. Therefore, there was no choice other than to puncture of the right rectus abdominis muscle). Skin incision made next to the 25-gauge needle with blade, extending the incision into the right rectus abdominis muscle. The incision was widened using blunt h emostat. 14 Lebanese Colon catheter was mounted on the Bard metallic trocar. Both or lubricated with sterile jelly. The trocar with the mounted Colon catheter was placed into the bladder lumen with a qu ick thrust. There was nonhemorrhagic urine return in the suprapubic Colon catheter. The trocar was removed. The catheter was connected to external drainage bag, then sutured in place with Ethilon. Pos t procedure scan demonstrates suprapubic catheter in good position within the bladder lumen adjacent to the existing transurethral Colon catheter balloon. No disturbance of the pre-existing dev ice broadly abutting the ventral surface of the urinary bladder. No complications. IMPRESSION: Successful 14 Lebanese suprapubic pubic catheter placement.
[2019-04-16] MEDS: Hyoscyamine Sulfate SL 0.125 mg Tablet PO PRN (11:51)
[2019-04-16] MEDS: B & O PR PRN (12:19)
[2019-04-16] MEDS ORDERED: Lidocaine 1% PF 5 ML VIAL ONE (13:03)
[2019-04-16] MEDS ORDERED: PHENYLEPHRINE-NS 100 MCG/ML 10 ML SYRINGE ONE (13:03)
[2019-04-16] MEDS ORDERED: ePHEDrine/0.9% NaCl/PF SYRINGE 50 mg/10 ml ONE (13:03)
[2019-04-16] MEDS ORDERED: Glycopyrrolate 0.2 MG/ML 5 ML SYRINGE ONE (13:03)
[2019-04-16] MEDS ORDERED: PROPOFOL 200 MG/20 ML VIAL ONE (13:03)
--- NOTE | 2019-04-16 13:26 | PDOC.HOSPP ---
- Subjective Encounter Date: 04/16/19 Encounter Time: 13:22 Subjective: The patient had suprapubic catheter placed this morning and is doing better. He is receiving his oral lasix this morning, has some blood in carter catheter which is expected. Family wondering about whether urology is coming to remove the other catheter and requesting bladder spasm scripts when he goes home. Family comfortable with monitoring him overnight before d/c Want to go home with hospice - Objective Vital Signs & Weight: Vital Signs (12 hours) Temp Pulse Ox 04/16/19 11:28 97.6 F 04/16/19 07:55 98 04/16/19 07:13 97.3 F L 04/16/19 03:41 98.0 F Weight Admit Weight 181 lb 6 oz Weight 180 lb Most Recent Monitor Data Heart Rate from ECG 81 NIBP 113/68 NIBP BP-Mean 83 Respiration from ECG 27 SpO2 91 I&O: 04/15/19 04/16/19 04/17/19 06:59 06:59 06:59 Intake Total 400 400 Output Total 450 400 Balance -50 0 Result Diagrams: 04/16/19 10:14 04/16/19 10:14 Hospitalist ROS - Review of Systems Constitutional: denies: fever, chills - Medication Medications: Active Medications Generic Name Dose Route Start Last Admin Trade Name Freq PRN Reason Stop Dose Admin Acetaminophen 1,000 mg 04/10/19 20:23 04/10/19 22:41 Tylenol PO 1,000 mg Q6H PRN Administration Pain Acetaminophen/Codeine Phosphate 1 tab 04/11/19 01:11 04/11/19 14:09 Tylenol #3 PO 1 tab Q4H PRN Administration Moderate Pain (4-6) Apixaban 5 mg 04/10/19 21:00 04/16/19 08:41 Eliquis PO Not Given BID JANET Belladonna Alkaloids/Opium 60 mg 04/13/19 17:18 04/16/19 12:19 B & O MT 60 mg BID PRN Administration bladder pain Carvedilol 1.5625 mg 04/10/19 21:00 04/16/19 06:54 Coreg PO 1.5625 mg BID JANET Administration Diphenhydramine HCl 25 mg 04/12/19 13:52 04/16/19 10:26 Benadryl IVP 25 mg Q6H PRN Administration Itching & Insomnia Furosemide 40 mg 04/15/19 14:00 04/16/19 13:13 Lasix PO 40 mg 0900,1400 JANET Administration Hyoscyamine Sulfate 0.125 mg 04/13/19 17:18 04/16/19 11:51 Levsin Sl PO 0.125 mg Q6H PRN Administration Bladder Spasms Piperacillin Sod/Tazobactam 100 mls @ 200 mls/hr 04/14/19 09:00 04/16/19 10: 26 Sod 3.375 gm/ Sodium Chloride IVPB 100 mls 0300,0900,1500,2100 JANET Administration Levothyroxine Sodium 50 mcg 04/11/19 06:00 04/16/19 06:55 Synthroid PO 50 mcg 0600 JANET Administration Morphine Sulfate 2 mg 04/11/19 16:51 04/14/19 05:26 Morphine SLOW IVP 2 mg Q4H PRN Administration Mild Pain (1-3) Ondansetron HCl 4 mg 04/12/19 06:07 04/16/19 07:24 Zofran IVP 4 mg Q6H PRN Administration Nausea/Vomiting Polyethylene Glycol 17 gm 04/14/19 09:00 04/16/19 08:41 Miralax PO Not Given DAILY [facility] Sertraline HCl 100 mg 04/11/19 09:00 04/16/19 10:12 Zoloft PO Not Given DAILY [facility] Trospium 20 mg 04/13/19 21:00 04/16/19 10:12 Trospium PO Not Given BID [facility] - Exam General Appearance: NAD, awake alert General - other findings: Patient uncomfortable with dry cough Eye: PERRL, anicteric sclera ENT: normocephalic atraumatic, no oropharyngeal lesions Neck: supple, symmetric, no JVD, no thyromegaly Heart: RRR, no murmur, no gallops, no rubs Respiratory: CTAB, no wheezes, no rales, no ronchi Gastrointestinal: soft, non-tender, non-distended Gastrointestinal - other findings: suprapubic catheter in place Extremities: no cyanosis, no clubbing, no edema Skin: normal turgor, no lesions Neurological: cranial nerve grossly intact, normal sensation to touch, no focal deficits, no new deficit Musculoskeletal: normal tone, normal strength, no muscle wasting Hosp A/P - Plan ECHO 04/14 : EF 50-55%, moderate MR and TR Chest X ray 04/13: stable pulmonary vascular congestion and small pleural effusion This is an 83 year old male with past medical history of BPH, chest tightness and cough, admitted for elevated troponin, possible UTI #Acute CHF #Moderate MR and TR - chest CT showing bilateral pleural effusions with small loculated effusion. He is s/p lasix 20 mg IV on the , holding additional lasix since suprapubic catheter not in yet. ECHO shows EF 50-55%, moderate MR and TR - resume lasix 40 mg bid per cardiology Possible pneumonia - chest CT showing bilateral effusion, some loculation possible infiltrate. Was on IV vanc and meropenem, discontinued due to allergy, switched to augmentin. Due to persistent leukocytosis, reordered IV zosyn on 04/14 - continue IV zosyn for now, WBC down to 18. Consider switching back to oral tomorrow BPH Hematuria - s/p suprapubic catheter placement today. Some hematuria evident - needs removal of other catheter when hematuria resolves CAD s/p CABG - troponin was one and came down to 0.6 - holding eliquis and aspirin currently, continue to hold until hematuria resolves Anasarca in abdomen - possibly from urinary retention - needs suprapubic catheter remv Itching - benadryl prn. IV vanc and meropenem discontinued with improvement - d/c morphine as well Disposition: home with hospice possibly tomorrow or Friday Diet: resume diet, transfer to the floor Code status: DNR DVT prophylaxis: holding for suprapubic catheter
[2019-04-17] MEDS: Piperacillin/Tazobactam 3.375 GM in Sodium Chloride 0.9% 100 ML IVPB SCH ×2 (03:26→09:12)
[2019-04-17] MEDS: diphenhydrAMINE 50 MG/ML VIAL IVP PRN (03:26)
[2019-04-17] MEDS: B & O PR PRN (03:31)
[2019-04-17 04:10] LABS: Mean Corpuscular HGB CONC 30.5 g/dL (32.0-36.0); Mean Corpuscular Hemoglobin 24.5 pg (27.0-31.0); Mean Corpuscular Volume 80.4 fL (78.0-98.0); Mean Platelet Volume 12.1 fL (7.4-10.4); Platelet Count 187 thou/uL (130-400); RBC Distribution Width 17.9 % (11.5-14.5); Red Blood Cell (RBC) Count 4.48 mill/uL (4.70-6.10); White Blood Cell (WBC) Count 17.6 thou/uL (4.8-10.8)
[2019-04-17 04:28] LABS: ALT (SGPT) 18 U/L (8-55); AST (SGOT) 24 U/L (5-34); Alkaline Phosphatase 198 U/L (40-110); Anion Gap 16 mmol/L (10-20); BUN (Urea Nitrogen) 25 mg/dL (8.4-25.7); Calc. Creatinine Clearance 56 mL/min (70-130); Calcium 8.6 mg/dL (7.8-10.44); Carbon Dioxide 21 mmol/L (23-31); Chloride 107 mmol/L (98-107); Estimated GFR-MDRD 60; Globulin 3.1 g/dL (2.4-3.5); Glucose 100 mg/dL (83-110); Phosphorus 3.6 mg/dL (2.3-4.7); Potassium 4.3 mmol/L (3.5-5.1); Protein, Total 6.1 g/dL (5.8-8.1); Sodium 140 mmol/L (136-145)
[2019-04-17] MEDS: Levothyroxine Sodium 50 MCG TAB PO SCH (05:59)
[2019-04-17 07:59] VITALS: BP 110/67; TEMP 97.3
--- NOTE | 2019-04-17 08:11 | RAD ---
Exam: Chest one view: HISTORY: Follow-up pulmonary venous congestion COMPARISON: 04/13/2019 FINDINGS: Cardiomegaly. Postop midline sternotomy. Bilateral vascular congestion. Pleural and parenchymal benavides es in the left mid and lower lung concerning for left lower lobe pneumonia and/or pneumonitis as well as left pleural effusion. IMPRESSION: Cardiomegaly. Worsening bilateral vascular congestion and worsening pleural and parenchymal opacity c hanges in the left mid and lower lung zone.
[2019-04-17] MEDS: Furosemide 20 MG TAB PO SCH ×2 (08:50→09:13)
[2019-04-17] MEDS: Trospium 20 MG TAB PO SCH (08:50)
[2019-04-17] MEDS ORDERED: Furosemide 40 MG/4 ML VIAL ONE (08:55)
[2019-04-17] MEDS: Carvedilol 3.125 MG TAB PO SCH (09:13)
[2019-04-17] MEDS: Polyethylene Glycol 3350 17 GM Packet PO SCH (09:14)
--- NOTE | 2019-04-17 11:09 | PDOC.HOSPP ---
- Subjective Encounter Date: 04/17/19 Encounter Time: 11:07 Subjective: Mr. dietz was seen today in follow-up of CHF exacerbation and pneumonia. He does not have any new complaints. - Objective Vital Signs & Weight: Vital Signs (12 hours) Temp Pulse Resp BP BP Pulse Ox 04/17/19 07:54 97.3 F L 67 16 110/67 92 L 04/17/19 06:00 68 107/57 L 04/17/19 04:00 97.6 F 63 20 124/52 L 95 04/16/19 23:57 97.3 F L 60 16 92/55 L 92 L Weight Admit Weight 181 lb 6 oz Weight 181 lb 1.6 oz Most Recent Monitor Data Heart Rate from ECG 62 NIBP 89/50 NIBP BP-Mean 63 Respiration from ECG 16 SpO2 94 I&O: 04/16/19 04/17/19 04/18/19 06:59 06:59 06:59 Intake Total 400 560 Output Total 400 825 Balance 0 -265 Result Diagrams: 04/17/19 04:04 04/17/19 04:04 Hospitalist ROS - Medication Medications: Active Medications Generic Name Dose Route Start Last Admin Trade Name Freq PRN Reason Stop Dose Admin Acetaminophen 1,000 mg 04/10/19 20:23 04/10/19 22:41 Tylenol PO 1,000 mg Q6H PRN Administration Pain Acetaminophen/Codeine Phosphate 1 tab 04/11/19 01:11 04/11/19 14:09 Tylenol #3 PO 1 tab Q4H PRN Administration Moderate Pain (4-6) Belladonna Alkaloids/Opium 60 mg 04/13/19 17:18 04/17/19 03:31 B & O PA 60 mg BID PRN Administration bladder pain Carvedilol 1.5625 mg 04/10/19 21:00 04/17/19 09:13 Coreg PO 1.5625 mg BID JANET Administration Diphenhydramine HCl 25 mg 04/12/19 13:52 04/17/19 03:26 Benadryl IVP 25 mg Q6H PRN Administration Itching & Insomnia Furosemide 40 mg 04/15/19 14:00 04/17/19 08:50 Lasix PO Not Given 0900,1400 JANET Hyoscyamine Sulfate 0.125 mg 04/13/19 17:18 04/16/19 11:51 Levsin Sl PO 0.125 mg Q6H PRN Administration Bladder Spasms Piperacillin Sod/Tazobactam 100 mls @ 200 mls/hr 04/14/19 09:00 04/17/19 09: 12 Sod 3.375 gm/ Sodium Chloride IVPB 100 mls 0300,0900,1500,2100 JANET Administration Levothyroxine Sodium 50 mcg 04/11/19 06:00 04/17/19 05:59 Synthroid PO 50 mcg 0600 JANET Administration Morphine Sulfate 2 mg 04/11/19 16:51 04/14/19 05:26 Morphine SLOW IVP 2 mg Q4H PRN Administration Mild Pain (1-3) Ondansetron HCl 4 mg 04/12/19 06:07 04/16/19 07:24 Zofran IVP 4 mg Q6H PRN Administration Nausea/Vomiting Polyethylene Glycol 17 gm 04/14/19 09:00 04/17/19 09:14 Miralax PO 17 gm DAILY JANET Administration Sertraline HCl 100 mg 04/11/19 09:00 04/17/19 09:14 Zoloft PO 100 mg DAILY JANET Administration Trospium 20 mg 04/13/19 21:00 04/17/19 08:50 Trospium PO 20 mg BID JANET Administration - Exam Eye: PERRL Heart: RRR, no murmur, no gallops, no rubs, normal peripheral pulses Respiratory: CTAB, no wheezes, no rales, no ronchi, normal chest expansion Hosp A/P (1) Acute on chronic diastolic (congestive) heart failure Code(s): I50.33 - ACUTE ON CHRONIC DIASTOLIC (CONGESTIVE) HEART FAILURE Status : Acute (2) HTN (hypertension) Code(s): I10 - ESSENTIAL (PRIMARY) HYPERTENSION Status: Acute (3) Lymphoma Status: Acute (4) Severe mitral regurgitation Code(s): I34.0 - NONRHEUMATIC MITRAL (VALVE) INSUFFICIENCY Status: Chronic (5) Urinary retention Code(s): R33.9 - RETENTION OF URINE, UNSPECIFIED Status: Resolved - Plan * Acute on chronic diastolic heart failure- compensated * Pneumonia- will transition him to Augemtin * Stable for discharge to home with hospice
--- NOTE | 2019-04-17 20:32 | DIS ---
DATE OF ADMISSION: 04/10/2019 DATE OF DISCHARGE: 04/17/2019 PRIMARY CARE PHYSICIAN: Cadence Oakes, DISCHARGE DISPOSITION: Home. PRIMARY DISCHARGE DIAGNOSES: 1. Acute on chronic diastolic heart failure. 2. Hypertension. 3. Coronary artery disease. 4. Urinary tract infection. 5. Acute on chronic respiratory failure secondary to heart failure. 6. Urinary retention, status post suprapubic catheter placement. DISCHARGE MEDICATIONS: 1. Trospium 20 mg twice daily. 2. Zoloft 100 mg daily. 3. Belladonna and opioids 60 mg twice a day. 4. Eliquis 5 mg p.o. twice daily. 5. Augmentin 875 mg p.o. twice daily. 6. Synthroid 50 mcg p.o. daily. 7. Lasix 40 mg twice a day. 8. Carvedilol 1.56 mg twice daily. 9. Tylenol 1000 mg a.c. as needed. PROCEDURES DONE DURING THIS ADMISSION: The patient had a CT scan of the abdomen and pelvis showing no evidence of acute intra-abdominal pelvic abnormality and there was a left renal cyst. The patient also had an echocardiogram in which the ejection fraction was estimated at 50% to 55%. The right ventricle was moderately enlarged. There was a moderately enlarged right atrium and moderate mitral regurgitation. CODE STATUS: DNAR. ALLERGIES: TIZANIDINE, ATORVASTATIN, CLINDAMYCIN, PRAVASTATIN, ANTIHISTAMINE, AND SULFA. HOSPITAL COURSE: Mr. Nunes is a pleasant 83-year-old gentleman, who was brought to the hospital due to cough and chest tightness and shortness of breath. He was felt to possibly have pneumonia when he was first admitted. He was started on broad-spectrum antibiotics. Pulmonology as well as Cardiology was consulted. The patient was also found to have some component of acute on chronic diastolic heart failure and was diuresed. He remained on broad-spectrum IV antibiotics for several days and these were eventually transitioned at discharge to Augmentin. The patient did demonstrate significant urinary retention. He had an indwelling Colon catheter, but due to hypospadias and concerns for further erosion of the penile head, the patient's Colon was discontinued and he had a CT-guided suprapubic catheter placed during this hospitalization. Due to the patient's advanced age as well as dementia, the family did not want any type of aggressive treatment and made a decision to discharge him home on hospice. Job ID: [id number]
--- NOTE | 2019-04-19 20:31 | PQF ---
[employer] Crystal Reports Winform Viewer RIVKA ROMERO TONI MD [id number] [facility]- B06 [id number] CLINICAL DOCUMENTATION CLARIFICATION FORM: POST DISCHARGE Addendum to original discharge summary date: ____ Late entry note date: __ DATE: 04/19/19 ATTN: Ned Poewll Please exercise your independent, professional judgment in responding to the clarification form. Clinical indicators are provided on the bottom of this form for your review Can you please further clarify if Sepsis is ruled in or ruled out? Sepsis [ ] Ruled in diagnosis [ ] Continue to treat [ ] Resolved [ ] Ruled out diagnosis [ ] Cannot rule out diagnosis [ ] Other diagnosis [ ] Unable to determine In addition, please specify: Present on Admission (POA): [ ] Yes [ ] No [ ] Unable to determine For continuity of documentation, please document condition throughout progress notes and discharge summary. Thank You. CLINICAL INDICATORS - SIGNS / SYMPTOMS / LABS Hospitalist PN 04/11 pg.5- On antibiotics for Sepsis H and P pg.1- he was experiencing some positive cough along with chest tightness with SOB Laboratory- WBC 15.8, 19.0, 19.7, 22.3, 20.6, 18.8H RISK FACTORS Possible Pneumonia-- Hospitalist PN 04/13 Dr. Perez pg.6 Acute CHF- Hospitalist PN 04/13 Dr. Perez pg.6 Hypertension- DS pg.1 UTI- DS pg.1 Acute on chronic respiratory failure DS pg.1 CAD- H and P pg.1 Former smoker- H and P pg.1 Atrial fibrillation- Consult pg.4 [facility] [employer] Pulmonary Consult 04/11 Dr. Salas Broad-spectrum IV antibiotics- DS pg.2 Chest X ray 04/13 IV fluids- JUL 14 (This form is maintained as a part of the permanent medical record) 2014 [employer]. All Rights Reserved [place] [email or web address] [not provided] JUAN PABLOD
--- NOTE | 2019-04-19 20:34 | PQF ---
[employer] Crystal Reports Wildermary RANDY LeeNED CALIX MD [id number] [facility]- B06 [id number] CLINICAL DOCUMENTATION CLARIFICATION FORM: POST DISCHARGE Addendum to original discharge summary date: ____ Late entry note date: __ DATE: 04/19/19 ATTN: Ned Powell Please exercise your independent, professional judgment in responding to the clarification form. Clinical indicators are provided on the bottom of this form for your review Can you please further clarify if NSTEMI is ruled in or ruled out? NSTEMI [ ] Ruled in diagnosis [ ] Continue to treat [ ] Resolved [ ] Ruled out diagnosis [ ] Cannot rule out diagnosis [ ] Other diagnosis [ ] Unable to determine In addition, please specify: Present on Admission (POA): [ ] Yes [ ] No [ ] Unable to determine For continuity of documentation, please document condition throughout progress notes and discharge summary. Thank You. CLINICAL INDICATORS - SIGNS / SYMPTOMS / LABS Hospitalist PN 04/11 pg.5- cardiology consulted in view of elevated troponin, NSTEMI Laboratory- Troponin 1.085H, 1.158H, 1.006H, 0.612H Consult Dr. 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 Perez pg.6 Possible Pneumonia-- Hospitalist PN 04/13 Dr. Perez pg.6 Hypertension- DS pg.1 UTI- DS pg.1 Acute on chronic respiratory failure DS pg.1 CAD- H and P pg.1 Former smoker- H and P pg.1 Atrial fibrillation- Consult pg.4 [employer] [employer] Cariology Consult 04/13 TTE- Echocardiogram Chest X ray 04/13 Carvedilol 1.6525mg PO BID- JUL 14 Morphine Sulfate 2mg IV JUL 14 (This form is maintained as a part of the permanent medical record) 2014 [employer]. All Rights Reserved [email or web address] [not provided] MTDD
--- NOTE | 2019-04-24 17:18 | EKG ---
Test Reason : Blood Pressure : / mmHG Vent. Rate : 081 BPM Atrial Rate : 101 BPM P-R Int : 000 ms QRS Dur : 092 ms QT Int : 410 ms P-R-T Axes : 000 -09 214 degrees QTc Int : 476 ms Undetermined rhythm Low voltage QRS Possible Inferior infarct , age undetermined Abnormal ECG Confirmed by JORGE NIXON DO ([id number]), greeting card editor ANAND MELCHOR ([id number]) on 04/24/2019 5:17:34 PM Referred By: Confirmed By:JORGE NIXON DO
== END 2019-04-17 12:36 | disposition hospice, home (50) | DRG 291 ==
LOC: ERS 15:50 → IMCU/EMU 20:10 → ONC 04-16 19:27
PROVIDERS: ADMIT Hospitalist; ATTEND Hospitalist
PROC: 0T9B70Z Drainage of Bladder with Drainage Device, Via Natural or Artificial Opening (ICD-10-PCS; principal; 2019-04-16)
DX: I11.0 Hypertensive heart disease with heart failure (principal); J18.9 Pneumonia, unspecified organism; J96.01 Acute respiratory failure with hypoxia; N39.0 Urinary tract infection, site not specified; Z66 Do not resuscitate; Z51.5 Encounter for palliative care; I50.33 Acute on chronic diastolic (congestive) heart failure; F41.9 Anxiety disorder, unspecified; F32.9 Major depressive disorder, single episode, unspecified; F03.90 Unspecified dementia, unspecified severity, without behavioral disturbance, psychotic disturbance, mood disturbance, and anxiety; I73.9 Peripheral vascular disease, unspecified; I08.1 Rheumatic disorders of both mitral and tricuspid valves; E78.5 Hyperlipidemia, unspecified; I48.0 Paroxysmal atrial fibrillation; N40.1 Benign prostatic hyperplasia with lower urinary tract symptoms; E78.00 Pure hypercholesterolemia, unspecified; R33.8 Other retention of urine; I25.10 Atherosclerotic heart disease of native coronary artery without angina pectoris; R31.9 Hematuria, unspecified; L29.9 Pruritus, unspecified; Z85.118 Personal history of other malignant neoplasm of bronchus and lung; Z95.1 Presence of aortocoronary bypass graft; Z90.49 Acquired absence of other specified parts of digestive tract; Z87.891 Personal history of nicotine dependence; Q54.8 Other hypospadias; Z88.8 Allergy status to other drugs, medicaments and biological substances; Z88.2 Allergy status to sulfonamides; Z79.899 Other long term (current) drug therapy; Z85.72 Personal history of non-Hodgkin lymphomas; Z88.1 Allergy status to other antibiotic agents; Z86.73 Personal history of transient ischemic attack (TIA), and cerebral infarction without residual deficits; I25.2 Old myocardial infarction; Z95.5 Presence of coronary angioplasty implant and graft; Z86.711 Personal history of pulmonary embolism
CPT/HCPCS: 36415; 51102; 71045; 74177; 77002; 80048; 80053; 80202; 81003; 81015; 82553; 83735; 84100; 84484; 85025; 85027; 87040; 87086; 93005; 93306; C2627; J0131; J1200; J1940; J1956; J2001; J2185; J2250; J2270; J2405; J2543; J2704; J3010; J3370; J3490; J7050; Q0163; Q9967